=== PATIENT | male | born 1955 | race Caucasian/White ===

== ENCOUNTER 2017-07-13 16:57 | Inpatient (IN) | payer OTHER ==
[~2017-07-13 16:57] MED LIST: LORTA5 PO
[2017-07-13 22:18] VITALS: BP 151/96; PULSE 83; RESP 17; TEMP 98.7; O2SAT 97
[2017-07-13] MEDS: VANCOMYCIN 1,000 MG/NS 250 ML IV SCH ×2 (23:32)
[2017-07-13] MEDS: SODIUM CHLOR 0.9% 1000 ML INJ 1,000 ML IV SCH (23:33)
[2017-07-14] VITALS: BP 150/97; PULSE 82; RESP 17; TEMP 98.6; O2SAT 93
[2017-07-14] MEDS ORDERED: ACETAMINOPHEN 325 MG TAB PO PRN ×2 (02:15→11:30)
[2017-07-14] MEDS ORDERED: ONDANSETRON HCL 4 MG/2 ML VIAL IVP PRN (02:15)
[2017-07-14] MEDS ORDERED: NALOXONE HCL 0.4 MG/ML AMP IV PUSH PRN (02:15)
[2017-07-14] MEDS ORDERED: SODIUM CHLORIDE 0.9% FLUSH 10 ML FLUSH IV FLUSH PRN (02:15)
[2017-07-14 07:01] LABS: AUTOMATED NEUTROPHIL # 12.8 TH/MM3 (1.8-7.7); BASOPHIL % 0.2 % (0.0-2.0); EOSINOPHIL # 0.2 TH/MM3 (0-0.4); EOSINOPHIL % 1.5 % (0.0-4.0); HEMOGLOBIN 11.3 GM/DL (13.0-17.0); LYMPH % 7.3 % (9.0-44.0); LYMPHOCYTE # 1.1 TH/MM3 (1.0-4.8); MEAN CELL VOLUME 82.1 FL (80.0-100.0); MEAN CORPUSCULAR HEMOGLOBIN 28.2 PG (27.0-34.0); MEAN CORPUSCULAR HGB CONC 34.3 % (32.0-36.0); MEAN PLATELET VOLUME 5.8 FL (7.0-11.0); MONO % 7.9 % (0.0-8.0); MONOCYTE # 1.2 TH/MM3 (0-0.9); NEUT % 83.1 % (16.0-70.0); PLATELET COUNT 334 TH/MM3 (150-450); RED BLOOD COUNT 4.02 MIL/MM3 (4.50-5.90); RED CELL DISTRIBUTION WIDTH 14.6 % (11.6-17.2); WHITE BLOOD COUNT 15.5 TH/MM3 (4.0-11.0)
[2017-07-14 07:24] LABS: ALBUMIN 2.3 GM/DL (3.4-5.0); AST (GOT) 16 U/L (15-37); BICARBONATE 25.4 MEQ/L (21.0-32.0); BLOOD UREA NITROGEN 9 MG/DL (7-18); CALCIUM 8.1 MG/DL (8.5-10.1); CHLORIDE 103 MEQ/L (98-107); CREATININE 0.72 MG/DL (0.60-1.30); GLOMERULAR FILTRATION RATE 112 ML/MIN (>89); GLUCOSE,RANDOM 73 MG/DL (74-106); SODIUM (NA) 139 MEQ/L (136-145)
[2017-07-14 07:28] LABS: ALKALINE PHOSPHATASE 91 U/L (45-117); ALT (GPT) 15 U/L (12-78); TOTAL BILIRUBIN ADULT 0.5 MG/DL (0.2-1.0); TOTAL PROTEIN 6.5 GM/DL (6.4-8.2)
[2017-07-14 08:00] VITALS: BP 141/92; PULSE 88; RESP 17; TEMP 99.3; O2SAT 94
[2017-07-14] MEDS: SODIUM CHLORIDE 0.9% FLUSH 10 ML FLUSH IV FLUSH SCH ×2 (09:00→20:27)
[2017-07-14] MEDS ORDERED: ENALAPRILAT 2.5 MG/2 ML VIAL IV PUSH PRN (11:30)
[2017-07-14] MEDS ORDERED: ALUMINUM/MAGNESIUM/SIMETH 30 ML CUP PO PRN (11:30)
[2017-07-14] MEDS ORDERED: ONDANSETRON HCL 4 MG/2 ML VIAL IV PUSH PRN (11:30)
[2017-07-14] MEDS ORDERED: DOCUSATE SODIUM 50 MG/SENNA 8.6 MG TAB PO PRN (11:30)
[2017-07-14] MEDS ORDERED: RESP: ALBUTEROL 2.5 MG/IPRATROPIUM 0.5 MG NEB (PRN) NEB (11:30)
[2017-07-14] MEDS: SODIUM CHLOR 0.9% 1000 ML INJ 1,000 ML IV SCH ×2 (11:42→16:49)
--- NOTE | 2017-07-14 11:42 | HHI.HP ---
HPI Service [facility] Primary Care Physician Unknown Admission Diagnosis Diagnoses: (1) Abdominal wall abscess (2) Abdominal wall cellulitis Chief Complaint: Abdominal wall abscess and redness History of Present Illness 61 year-old man with a history of abdominal hernia repair 3 with his last repair in 2014 was transferred from an outside facility for evaluation of abdominal wall abscess with consultation to general surgery. Apparently, patient had noted some abdominal pain few weeks ago after lifting some heavy package and states he felt a pull in his abdominal. This was followed by intermittent redness to the area but improved however return over the past few days while patient was in [place]. Patient did put up a call to his surgeon will prescribe Augmentin which patient took the night of 07/11/17. . He presented to [facility] on 07/12/17 the patient was noted to have fever and chills and increasing erythema at the site of the prior hernia repair but without any pus production. He reported increasing worsening of abdominal pain specifically at his side of the prior hernia repair. Patient was transfer 07/13/17 to [place], and this morning when patient was examined he had pus production without any febrile episode. He denies any other symptom of chest pain or shortness of breath. Review of Systems Except as stated in HPI: all other systems reviewed are Neg Past Family Social History Past Medical History None Past Surgical History Hernia repair 3 Cholecystectomy Appendectomy Colon Fistula Reported Medications See EMR Allergies: Coded Allergies: No Known Allergies (Unverified , 01/27/15) Family History Father from complication of lung cancer Social History Patient denies tobacco, alcohol or easy drug intake Physical Exam Vital Signs Vital Signs Date Time Temp Pulse Resp B/P (MAP) Pulse Ox O2 Delivery O2 Flow Rate FiO2 07/14/17 08:00 99.3 88 17 141/92 (108) 94 07/14/17 00:00 98.6 82 17 150/97 (114) 93 07/13/17 22:18 98.7 83 17 151/96 (114) 97 Physical Exam GENERAL: This is a well-nourished, well-developed patient, in no apparent distress. SKIN: Abdominal abscess with surrounding erythema along with pus drainage HEAD: Atraumatic. Normocephalic. No temporal or scalp tenderness. EYES: Pupils equal round and reactive. Extraocular motions intact. No scleral icterus. No injection or drainage. ENT: Nose without bleeding, purulent drainage or septal hematoma. Throat without erythema, tonsillar hypertrophy or exudate. Uvula midline. Airway patent. NECK: Trachea midline. No JVD or lymphadenopathy. Supple, nontender, no meningeal signs. CARDIOVASCULAR: Regular rate and rhythm without murmurs, gallops, or rubs. RESPIRATORY: Clear to auscultation. Breath sounds equal bilaterally. No wheezes , rales, or rhonchi. GASTROINTESTINAL: Abdomen soft, non-tender, nondistended. No hepato-splenomegaly , or palpable masses. No guarding. MUSCULOSKELETAL: Extremities without clubbing, cyanosis, or edema. No joint tenderness, effusion, or edema noted. No calf tenderness. Negative Homans sign bilaterally. NEUROLOGICAL: Awake and alert. Cranial nerves II through XII intact. Motor and sensory grossly within normal limits. Five out of 5 muscle strength in all muscle groups. Normal speech. Laboratory Laboratory Tests Test 07/14/17 06:03 White Blood Count 15.5 Red Blood Count 4.02 Hemoglobin 11.3 Hematocrit 33.0 Mean Corpuscular Volume 82.1 Mean Corpuscular Hemoglobin 28.2 Mean Corpuscular Hemoglobin Concent 34.3 Red Cell Distribution Width 14.6 Platelet Count 334 Mean Platelet Volume 5.8 Neutrophils (%) (Auto) 83.1 Lymphocytes (%) (Auto) 7.3 Monocytes (%) (Auto) 7.9 Eosinophils (%) (Auto) 1.5 Basophils (%) (Auto) 0.2 Neutrophils # (Auto) 12.8 Lymphocytes # (Auto) 1.1 Monocytes # (Auto) 1.2 Eosinophils # (Auto) 0.2 Basophils # (Auto) 0.0 CBC Comment DIFF FINAL Differential Comment Blood Urea Nitrogen 9 Creatinine 0.72 Random Glucose 73 Total Protein 6.5 Albumin 2.3 Calcium Level 8.1 Alkaline Phosphatase 91 Aspartate Amino Transf (AST/SGOT) 16 Alanine Aminotransferase (ALT/SGPT) 15 Total Bilirubin 0.5 Sodium Level 139 Potassium Level 3.1 Chloride Level 103 Carbon Dioxide Level 25.4 Anion Gap 11 Estimat Glomerular Filtration Rate 112 Date/Time Source Procedure Growth Status 07/14/17 07:30 Abscess Abdomen Gram Stain Pending Received 07/14/17 07:30 Abscess Abdomen Wound Culture Pending Received Result Diagram: 07/14/17 0603 07/14/17 0603 Septic Shock Reassessment Septic shock perfusion: reassessment completed Caprini VTE Risk Assessment Caprini VTE Risk Assessment: No/Low Risk (score <= 1) Caprini Risk Assessment Model Point Value = 1 Point Value = 2 Point Value = 3 Point Value = 5 Age 41-60 Minor surgery BMI > 25 kg/m2 Swollen legs Varicose veins or History of unexplained or recurrent spontaneous Oral contraceptives or hormone replacement Sepsis (< 1 month) Serious lung disease, including pneumonia (< 1 month) Abnormal pulmonary function Acute myocardial infarction Congestive heart failure (< 1 month) History of inflammatory bowel disease Medical patient at bed rest Age 61-74 Arthroscopic surgery Major open surgery (> 45 min) Laparoscopic surgery (> 45 min) Malignancy Confined to bed (> 72 hours) Immobilizing plaster cast Central venous access Age >= 75 History of VTE Family history of VTE Factor V Leiden Prothrombin [id number] Lupus anticoagulant Anticardiolipin antibodies Elevated serum homocysteine Heparin-induced thrombocytopenia Other congenital or acquired thrombophilia Stroke (< 1 month) Elective arthroplasty Hip, pelvis, or leg fracture Acute spinal cord injury (< 1 month) Prophylaxis Regimen Total Risk Factor Score Risk Level Prophylaxis Regimen 0-1 Low Early ambulation 2 Moderate Order ONE of the following: *Sequential Compression Device (SCD) *Heparin 5000 units SQ BID 3-4 Higher Order ONE of the following medications: *Heparin 5000 units SQ TID *Enoxaparin/Lovenox 40 mg SQ daily (WT < 150 kg, CrCl > 30 mL/min) *Enoxaparin/Lovenox 30 mg SQ daily (WT < 150 kg, CrCl > 10-29 mL/min) *Enoxaparin/Lovenox 30 mg SQ BID (WT < 150 kg, CrCl > 30 mL/min) AND/OR *Sequential Compression Device (SCD) 5 or more Highest Order ONE of the following medications: *Heparin 5000 units SQ TID (Preferred with Epidurals) *Enoxaparin/Lovenox 40 mg SQ daily (WT < 150 kg, CrCl > 30 mL/min) *Enoxaparin/Lovenox 30 mg SQ daily (WT < 150 kg, CrCl > 10-29 mL/min) *Enoxaparin/Lovenox 30 mg SQ BID (WT < 150 kg, CrCl > 30 mL/min) AND *Sequential Compression Device (SCD) Assessment and Plan Problem List: (1) Abdominal wall abscess ICD Code: L02.211 - Cutaneous abscess of abdominal wall (2) Abdominal wall cellulitis ICD Code: L03.311 - Cellulitis of abdominal wall Assessment and Plan 61 year-old man with Abdominal wall abscess Abdominal wall cellulitis Status post hernia repair Currently on IV vancomycin and add Zosyn as well as Diflucan and monitor cultures General Surgery consultation pending for possible drainage of abscess Currently nothing by mouth, pain medication accordingly Infectious disease specialist consultation when necessary Elevated BP Denies any prior history of hypertension Maybe secondary to poorly controlled pain Vasotec when necessary DVT prophylaxis: Bilateral SCDs Code Status Full code Discussed Condition With Patient Physician Certification 2 Midnight Certification Type: Admission for Inpatient Services Order for Inpatient Services The services are ordered in accordance with Medicare regulations or non- Medicare payer requirements, as applicable. In the case of services not specified as inpatient-only, they are appropriately provided as inpatient services in accordance with the 2-midnight benchmark. Estimated LOS (days): 2 days is the estimated time the patient will need to remain in the hospital, assuming treatment plan goals are met and no additional complications. Post-Hospital Plan: Not yet determined Geovany Tai MD Jul 14, 2017 11:42
[2017-07-14 12:00] VITALS: BP 134/80; PULSE 77; RESP 17; TEMP 99.2; O2SAT 96
[2017-07-14 16:00] VITALS: BP 139/87; PULSE 74; RESP 16; TEMP 97.5; O2SAT 95
[2017-07-14] MEDS ORDERED: POTASSIUM CHLORIDE 20 MEQ CONTROLLED RELEASE TAB PO ONE (16:00)
--- NOTE | 2017-07-14 16:45 | MB ---
cc: Diego Santana MD DATE OF CONSULT: 07/14/2017 REASON FOR CONSULTATION: Abdominal wall abscess. HISTORY OF PRESENT ILLNESS: The patient is a very pleasant 61-year-old male with a history of abdominal hernia repair x 3 with last repair in 2014 at [facility] by Dr. Osborne and Chilango Henson, with bilateral myofascial flap advancement, cholecystectomy and excision of previous mesh. The patient had been doing quite well until 07/10/2017 when he developed redness in the lower portion of his midline incision. He states that he had felt a pop and had been examined by Dr. Henson but was told that there was no defect. He was started on antibiotic on 07/11/2017 but had continued increasing redness and was seen at [facility] on 07/12/2017. The patient had fever and chills with increasing erythema at the site of the hernia repair on the lower portion of the abdomen. He has since undergone CT of the abdomen in [place] which demonstrated a subcutaneous abscess. It was recommended that he undergo drainage procedure at that time, but the patient wanted to be cared for with her previous surgeon. The patient was transferred over here and arrived early this morning. PAST MEDICAL HISTORY: Significant for cholecystectomy, multiple hernia repairs, appendectomy, and a history of colon fistula. ALLERGIES: NO KNOWN ALLERGIES. PHYSICAL EXAMINATION: GENERAL: A thin male in no acute distress. VITAL SIGNS: Blood pressure 134/80, pulse 77, respirations 17, temperature 99.2, 96% saturation on room air. The patient has had no fever since admission. CHEST: Clear to auscultation. CARDIAC: Reveals regular rate and rhythm. ABDOMEN: Soft with some bloody drainage from the abdominal wound. This is from the lower portion of his wound. There is erythema for an area of approximately 10 x 12 cm. The patient reports that this is substantially improved since the drainage began. Pulses are present. LABORATORY DATA: Laboratory values demonstrate WBC of 15.5, potassium is 3.1, BUN and creatinine 9 and 0.72. ASSESSMENT: Subcutaneous abscess two years after hernia repair, spontaneously draining. Culture has been taken with Gram stain pending at this time. The patient is currently on Zosyn, Diflucan and vancomycin while awaiting Gram stain. I have discussed with the patient that he may require the wound to be further opened and washed out with potential VAC placement. He vocalizes understanding of this. We will debora the wound with a Sharpie to show the line of demarcation. If he continues to improve with no fever, decreasing white count and rapidly resolving erythema, further intervention may not be required. If the patient has persistent drainage, he may require more opening of the wound to allow for more thorough drainage. He is amenable to this. MD NEGRITA Kohli/TL/rr , 03:45 PM , 04:14 PM
[2017-07-14] MEDS: PIPERACIL-TAZO 3.375 GM PREMIX 50 ML IV SCH ×2 (16:49→20:26)
[2017-07-14 20:00] VITALS: BP 128/71; PULSE 78; RESP 17; TEMP 98.6; O2SAT 94
[2017-07-14] MEDS: POTASSIUM CHLORIDE 10 MEQ CONTROLLED RELEASE TAB PO SCH ×2 (20:00→20:25)
[2017-07-14] MEDS ORDERED: TEMAZEPAM 15 MG CAP PO PRN (21:00)
[2017-07-15] VITALS: BP 124/73; PULSE 74; RESP 17; TEMP 98.1; O2SAT 94
[2017-07-15] MEDS: VANCOMYCIN 1,000 MG/NS 250 ML IV SCH ×2 (00:01)
[2017-07-15] MEDS: PIPERACIL-TAZO 3.375 GM PREMIX 50 ML IV SCH ×3 (03:56→21:54)
[2017-07-15] MEDS: SODIUM CHLOR 0.9% 1000 ML INJ 1,000 ML IV SCH ×2 (04:02→09:38)
[2017-07-15 07:07] LABS: AUTOMATED NEUTROPHIL # 4.6 TH/MM3 (1.8-7.7); BASOPHIL % 0.6 % (0.0-2.0); EOSINOPHIL # 0.3 TH/MM3 (0-0.4); EOSINOPHIL % 4.1 % (0.0-4.0); HEMATOCRIT 31.8 % (39.0-51.0); HEMOGLOBIN 10.7 GM/DL (13.0-17.0); LYMPH % 20.3 % (9.0-44.0); LYMPHOCYTE # 1.4 TH/MM3 (1.0-4.8); MEAN CELL VOLUME 82.5 FL (80.0-100.0); MEAN CORPUSCULAR HEMOGLOBIN 27.7 PG (27.0-34.0); MEAN CORPUSCULAR HGB CONC 33.6 % (32.0-36.0); MEAN PLATELET VOLUME 5.8 FL (7.0-11.0); MONO % 10.3 % (0.0-8.0); MONOCYTE # 0.7 TH/MM3 (0-0.9); NEUT % 64.7 % (16.0-70.0); PLATELET COUNT 364 TH/MM3 (150-450); RED BLOOD COUNT 3.85 MIL/MM3 (4.50-5.90); RED CELL DISTRIBUTION WIDTH 14.5 % (11.6-17.2); WHITE BLOOD COUNT 7.1 TH/MM3 (4.0-11.0)
[2017-07-15 07:29] LABS: ALBUMIN 2.1 GM/DL (3.4-5.0); AST (GOT) 11 U/L (15-37); BICARBONATE 25.9 MEQ/L (21.0-32.0); BLOOD UREA NITROGEN 11 MG/DL (7-18); CALCIUM 7.8 MG/DL (8.5-10.1); CHLORIDE 106 MEQ/L (98-107); CREATININE 0.77 MG/DL (0.60-1.30); GLOMERULAR FILTRATION RATE 103 ML/MIN (>89); GLUCOSE,RANDOM 75 MG/DL (74-106); SODIUM (NA) 141 MEQ/L (136-145)
[2017-07-15 07:30] LABS: ALT (GPT) 14 U/L (12-78)
[2017-07-15 07:32] LABS: ALKALINE PHOSPHATASE 74 U/L (45-117); TOTAL BILIRUBIN ADULT 0.2 MG/DL (0.2-1.0); TOTAL PROTEIN 6.1 GM/DL (6.4-8.2)
[2017-07-15 08:00] VITALS: BP 128/85; PULSE 61; RESP 19; TEMP 96.5; O2SAT 97
[2017-07-15] MEDS: SODIUM CHLORIDE 0.9% FLUSH 10 ML FLUSH IV FLUSH SCH ×2 (09:00→21:55)
--- NOTE | 2017-07-15 11:02 | HHI.PR ---
Subjective Remarks Follow-up abdominal abscess and cellulitis 07/15/17 -Patient seen and examined, currently afebrile and denies any significant abdominal pain. No acute event overnight. Objective Vitals Vital Signs Date Time Temp Pulse Resp B/P (MAP) Pulse Ox O2 Delivery O2 Flow Rate FiO2 07/15/17 08:00 96.5 61 19 128/85 (99) 97 07/15/17 00:00 98.1 74 17 124/73 (90) 94 07/14/17 20:00 98.6 78 17 128/71 (90) 94 07/14/17 16:00 97.5 74 16 139/87 (104) 95 07/14/17 12:00 99.2 77 17 134/80 (98) 96 I/O 07/14/17 07/14/17 07/14/17 07/15/17 07/15/17 07/15/17 07:00 15:00 23:00 07:00 15:00 23:00 Intake Total 0 ml 1490 ml 1040 ml Balance 0 ml 1490 ml 1040 ml Intake Oral 0 ml 240 ml 240 ml IV Total 1250 ml 800 ml # Voids 0 8 3 # Bowel Movements 0 0 0 Result Diagram: 07/15/17 0455 07/15/17 0455 Objective Remarks GENERAL: NAD SKIN: Warm and dry. HEAD: Normocephalic. EYES: No scleral icterus. No injection or drainage. NECK: Supple, trachea midline. No JVD or lymphadenopathy. CARDIOVASCULAR: Regular rate and rhythm without murmurs, gallops, or rubs. RESPIRATORY: Breath sounds equal bilaterally. No accessory muscle use. GASTROINTESTINAL: Abdomen soft, non-tender, nondistended. dressing over abdominal wall abscess MUSCULOSKELETAL: No cyanosis, or edema. BACK: Nontender without obvious deformity. No CVA tenderness. A/P Problem List: (1) Abdominal wall abscess ICD Code: L02.211 - Cutaneous abscess of abdominal wall (2) Abdominal wall cellulitis ICD Code: L03.311 - Cellulitis of abdominal wall Assessment and Plan 61 year-old man with Abdominal wall abscess Abdominal wall cellulitis Status post hernia repair Currently on IV vancomycin and Zosyn as well as Diflucan and monitor cultures General Surgery ff Pain medication accordingly Infectious disease specialist consultation when necessary Elevated BP-Resolved Denies any prior history of hypertension Vasotec when necessary DVT prophylaxis: Bilateral SCDs Geovany Tai MD Jul 15, 2017 11:02
[2017-07-15 12:00] VITALS: BP 130/85; PULSE 58; RESP 18; TEMP 97.4; O2SAT 98
[2017-07-15] MEDS: FLUCONAZOLE 200 MG PREMIX BAG 100 ML IV SCH ×2 (12:43→12:44)
--- NOTE | 2017-07-15 15:42 | HHI.PR ---
cc: Dylon Henson MD Subjective Subjective Notes Resting in bed No issues Objective Vitals/I&O Vital Signs Date Time Temp Pulse Resp B/P (MAP) Pulse Ox O2 Delivery O2 Flow Rate FiO2 07/15/17 12:00 97.4 58 18 130/85 (100) 98 Labs Laboratory Tests Test 07/15/17 04:55 White Blood Count 7.1 Red Blood Count 3.85 Hemoglobin 10.7 Hematocrit 31.8 Mean Corpuscular Volume 82.5 Mean Corpuscular Hemoglobin 27.7 Mean Corpuscular Hemoglobin Concent 33.6 Red Cell Distribution Width 14.5 Platelet Count 364 Mean Platelet Volume 5.8 Neutrophils (%) (Auto) 64.7 Lymphocytes (%) (Auto) 20.3 Monocytes (%) (Auto) 10.3 Eosinophils (%) (Auto) 4.1 Basophils (%) (Auto) 0.6 Neutrophils # (Auto) 4.6 Lymphocytes # (Auto) 1.4 Monocytes # (Auto) 0.7 Eosinophils # (Auto) 0.3 Basophils # (Auto) 0.0 CBC Comment DIFF FINAL Differential Comment Blood Urea Nitrogen 11 Creatinine 0.77 Random Glucose 75 Total Protein 6.1 Albumin 2.1 Calcium Level 7.8 Alkaline Phosphatase 74 Aspartate Amino Transf (AST/SGOT) 11 Alanine Aminotransferase (ALT/SGPT) 14 Total Bilirubin 0.2 Sodium Level 141 Potassium Level 3.5 Chloride Level 106 Carbon Dioxide Level 25.9 Anion Gap 9 Estimat Glomerular Filtration Rate 103 Date/Time Source Procedure Growth Status 07/14/17 07:30 Abscess Abdomen Gram Stain - Final Resulted 07/14/17 07:30 Abscess Abdomen Wound Culture - Preliminary Resulted Cardiovascular: Regular Lungs: Clear Abdomen: Other (open spontanous draining wound ---dressing removed; packing placed; sharpie marker marking the edges of the wound --- mild redness does not meet these lines ) Extremities: No edema A/P Assessment and Plan 61 year old male s/p abdominal hernia repair in 2014; back with superficial abdominal wound---spontaneously draining -Regular diet -Continue Zosyn and Vancomycin; DC Diflucan -Dressing change BID--- wet to dry dressing ---- 1 4x4 moist packed loosely into wound; cover with 4x4 and ABD; secure with tape; change BID and PRN -Okay to shower between dressing changes Attending Statement Erythemas decreased compared to sharpie marker on abdomen. Erythema now just faint pink. Wound opening sharply debrided with scissorsstanford. Extent of wound explored with CTA. Wound dressed with saline wet to dry dressing, 1/2 to 2 /3 of 4x4 fit nicely into wound. Wound care explained to the patient. WBC improved as well. Gram stain Gram positive. Plan: DC anti fungal. Will transition to oral antibiotics and outpatient therapy as long as he continues to improve and when ID/sensitivity comes back. The exam, history, and the medical decision-making described in the above note were completed with the assistance of the mid-level provider. I reviewed and agree with the findings presented. I attest that I had a [id number] encounter with the patient on the same day, and personally performed and documented my assessment and findings in the medical record. Anai Arellano/First Harpreet FONG Jul 15, 2017 15:41 Dylon Henson MD Jul 16, 2017 08:05
[2017-07-15 16:00] VITALS: BP 140/91; PULSE 59; RESP 18; TEMP 97.9; O2SAT 97
[2017-07-15 20:00] VITALS: BP 139/93; PULSE 71; RESP 18; TEMP 97.3; O2SAT 97
[2017-07-16] VITALS: BP_SYST 125; BP_SYST 128; BP_DIAS 58; BP_DIAS 79; PULSE 56; PULSE 81; RESP 16; RESP 18; TEMP 97.2; TEMP 98.4; O2SAT 92; O2SAT 97
[2017-07-16] MEDS: VANCOMYCIN 1,000 MG/NS 250 ML IV SCH ×2 (00:18)
[2017-07-16] MEDS: PIPERACIL-TAZO 3.375 GM PREMIX 50 ML IV SCH ×2 (05:18→12:58)
[2017-07-16 08:00] VITALS: BP 133/84; PULSE 62; RESP 17; TEMP 97.1; O2SAT 94
[2017-07-16] MEDS: SODIUM CHLORIDE 0.9% FLUSH 10 ML FLUSH IV FLUSH SCH ×2 (09:00→22:52)
--- NOTE | 2017-07-16 11:01 | HHI.PR ---
Subjective Remarks Follow-up abdominal abscess and cellulitis 07/15/17 -Patient seen and examined, currently afebrile and denies any significant abdominal pain. No acute event overnight. 07/16/17-patient seen and examined, no abdominal pain and afebrile. Doing well Objective Vitals Vital Signs Date Time Temp Pulse Resp B/P (MAP) Pulse Ox O2 Delivery O2 Flow Rate FiO2 07/16/17 08:00 97.1 62 17 133/84 (100) 94 07/16/17 00:00 97.2 56 16 125/79 (94) 97 07/16/17 00:00 98.4 81 18 128/58 (81) 92 07/15/17 20:00 97.3 71 18 139/93 (108) 97 07/15/17 16:00 97.9 59 18 140/91 (107) 97 07/15/17 12:00 97.4 58 18 130/85 (100) 98 I/O 07/15/17 07/15/17 07/15/17 07/16/17 07/16/17 07/16/17 07:00 15:00 23:00 07:00 15:00 23:00 Intake Total 1040 ml 1010 ml 540 ml Balance 1040 ml 1010 ml 540 ml Intake Oral 240 ml 960 ml 240 ml IV Total 800 ml 50 ml 300 ml # Voids 3 3 # Bowel Movements 0 1 Result Diagram: 07/15/17 0455 07/15/17 0455 Objective Remarks GENERAL: NAD SKIN: Warm and dry. HEAD: Normocephalic. EYES: No scleral icterus. No injection or drainage. NECK: Supple, trachea midline. No JVD or lymphadenopathy. CARDIOVASCULAR: Regular rate and rhythm without murmurs, gallops, or rubs. RESPIRATORY: Breath sounds equal bilaterally. No accessory muscle use. GASTROINTESTINAL: Abdomen soft, non-tender, nondistended. dressing over abdominal wall abscess with improving abdominal cellulitis MUSCULOSKELETAL: No cyanosis, or edema. BACK: Nontender without obvious deformity. No CVA tenderness. A/P Problem List: (1) Abdominal wall abscess ICD Code: L02.211 - Cutaneous abscess of abdominal wall (2) Abdominal wall cellulitis ICD Code: L03.311 - Cellulitis of abdominal wall Assessment and Plan 61 year-old man with Abdominal wall abscess Abdominal wall cellulitis Status post hernia repair Currently on IV vancomycin and Zosyn Wound + for anaerobic GNR General Surgery ff Pain medication accordingly Infectious disease specialist consultation when necessary Elevated BP-Resolved Denies any prior history of hypertension Vasotec when necessary DVT prophylaxis: Bilateral SCDs Geovany Tai MD Jul 16, 2017 11:01
[2017-07-16 12:00] VITALS: BP 125/89; PULSE 74; RESP 18; TEMP 97.9; O2SAT 94
--- NOTE | 2017-07-16 15:17 | HHI.PR ---
cc: Dylon Henson MD Subjective Subjective Notes "Do you think I can take a shower?" "I walked the hallways several times. I'm bored." Objective Vitals/I&O Vital Signs Date Time Temp Pulse Resp B/P (MAP) Pulse Ox O2 Delivery O2 Flow Rate FiO2 07/16/17 12:00 97.9 74 18 125/89 (101) 94 Labs Date/Time Source Procedure Growth Status 07/14/17 07:30 Abscess Abdomen Gram Stain - Final Complete 07/14/17 07:30 Wound Culture - Final Anaerobic Gram Neg Jamar Complete Cardiovascular: Regular Lungs: Clear Abdomen: Other (open area packed---packing removed--- no residual fluid ) Extremities: No edema A/P Assessment and Plan 61 year old male s/p abdominal hernia repair in 2014; back with superficial abdominal wound---spontaneously draining -Regular diet -Continue Zosyn and Vancomycin -Dressing change BID--- wet to dry dressing ---- 1 4x4 moist packed loosely into wound; cover with 4x4 and ABD; secure with tape; change BID and PRN -Okay to shower between dressing changes Attending Statement doing well. Gram negative anaerobes and Normal skin jazmyn on culture. Will change abx to PO, bactrim and flagyl. Anticipate DC home in AM with oral abx, BID NS wet to dry dressing changes, he can do or GF can help, and follow up with me in 2 weeks. The exam, history, and the medical decision-making described in the above note were completed with the assistance of the mid-level provider. I reviewed and agree with the findings presented. I attest that I had a [id number] encounter with the patient on the same day, and personally performed and documented my assessment and findings in the medical record. Anai ArellanoP/Catalytic Converter Operator [employer]AL TRANSPORT OPERATOR Jul 16, 2017 15:17 Dylon Henson MD Jul 16, 2017 17:40
[2017-07-16 16:00] VITALS: BP 132/80; PULSE 75; RESP 18; TEMP 98.7; O2SAT 95
[2017-07-16] MEDS ORDERED: BACT800T5 PO (17:46)
[2017-07-16] MEDS ORDERED: METR-1 PO (17:46)
--- NOTE | 2017-07-16 17:50 | HHI.DS ---
Discharge Summary Admission Date Jul 13, 2017 at 22:10 Discharge Date: Jul 17, 2017 Admitting Diagnosis abdominal wall abscess Procedures bedside sharp debridement skin and SQ tissue Brief History 61 year old with erythematous tender abdomen, transferred from [facility] with abdominal abscess. CBC/BMP: 07/15/17 0455 07/15/17 0455 Significant Findings Laboratory Tests Test 07/14/17 06:03 07/15/17 04:55 White Blood Count 15.5 TH/MM3 (4.0-11.0) Red Blood Count 4.02 MIL/MM3 (4.50-5.90) 3.85 MIL/MM3 (4.50-5.90) Hemoglobin 11.3 GM/DL (13.0-17.0) 10.7 GM/DL (13.0-17.0) Hematocrit 33.0 % (39.0-51.0) 31.8 % (39.0-51.0) Mean Platelet Volume 5.8 FL (7.0-11.0) 5.8 FL (7.0-11.0) Neutrophils (%) (Auto) 83.1 % (16.0-70.0) Lymphocytes (%) (Auto) 7.3 % (9.0-44.0) Neutrophils # (Auto) 12.8 TH/MM3 (1.8-7.7) Monocytes # (Auto) 1.2 TH/MM3 (0-0.9) Random Glucose 73 MG/DL (74-106) Albumin 2.3 GM/DL (3.4-5.0) 2.1 GM/DL (3.4-5.0) Calcium Level 8.1 MG/DL (8.5-10.1) 7.8 MG/DL (8.5-10.1) Potassium Level 3.1 MEQ/L (3.5-5.1) Monocytes (%) (Auto) 10.3 % (0.0-8.0) Eosinophils (%) (Auto) 4.1 % (0.0-4.0) Total Protein 6.1 GM/DL (6.4-8.2) Aspartate Amino Transf (AST/SGOT) 11 U/L (15-37) PE at Discharge decreased erythema, 4 cm opening where NS wet to dry dressing is located. Hospital Course Admitted via transfer for antibiotics and drainage of abdominal wall abscess. WBC to normal, erythema resolving, wound opened and debrided, NS wet to dry dressing placed. Culture results noted. Pt improved, wants to go home. Pt Condition on Discharge: Good Discharge Disposition: Discharge Home Discharge Instructions DIET: Follow Instructions for: As Tolerated, No Restrictions Activities you can perform: Shower/Bath Activities to Avoid: Strenuous Activity Dylon Henson MD Jul 16, 2017 17:50
[2017-07-16 20:00] VITALS: BP 117/79; PULSE 71; RESP 18; TEMP 97.1; O2SAT 95
[2017-07-16] MEDS: metroNIDAZOLE 500 MG TAB PO SCH (22:50)
[2017-07-17] VITALS: BP 126/86; PULSE 59; RESP 18; TEMP 96.5; O2SAT 96
[2017-07-17] MEDS: metroNIDAZOLE 500 MG TAB PO SCH (06:15)
[2017-07-17 08:00] VITALS: BP 128/83; PULSE 60; RESP 18; TEMP 96.9; O2SAT 94
--- NOTE | 2017-07-17 08:23 | HHI.PR ---
cc: Dylon Henson MD Subjective Subjective Notes Uneventful night Ready to go home Objective Vitals/I&O Vital Signs Date Time Temp Pulse Resp B/P (MAP) Pulse Ox O2 Delivery O2 Flow Rate FiO2 07/17/17 00:00 96.5 59 18 126/86 (99) 96 Labs Date/Time Source Procedure Growth Status 07/14/17 07:30 Abscess Abdomen Gram Stain - Final Complete 07/14/17 07:30 Wound Culture - Final Anaerobic Gram Neg Jamar Complete Cardiovascular: Regular Lungs: Clear Abdomen: Other (abdominal wound: packing removed; replaced; wound clean and dry ) Extremities: No edema A/P Assessment and Plan 61 year old male s/p abdominal hernia repair in 2014; back with superficial abdominal wound---spontaneously draining -Regular diet -Flagyl and Bactrim -Dressing change BID--- wet to dry dressing ---- 1 4x4 moist packed loosely into wound; cover with 4x4 and ABD; secure with tape; change BID and PRN -Okay to shower between dressing changes -GS clear for DC -Follow up 2 weeks; Mr. Chapman will call to make appt Attending Statement See discharge summary for details. Patient did well. The exam, history, and the medical decision-making described in the above note were completed with the assistance of the mid-level provider. I reviewed and agree with the findings presented. I attest that I had a [id number] encounter with the patient on the same day, and personally performed and documented my assessment and findings in the medical record. Anai Arellano/Shift Mechanic CREDIT ADMINISTRATOR Jul 17, 2017 08:23 Dylon Henson MD Jul 17, 2017 15:20
--- NOTE | 2017-07-17 10:11 | HHI.PR ---
Subjective Remarks Follow-up abdominal abscess and cellulitis 07/15/17 -Patient seen and examined, currently afebrile and denies any significant abdominal pain. No acute event overnight. 07/16/17-patient seen and examined, no abdominal pain and afebrile. Doing well 07/17/17-patient seen and examined, up and ambulating and ready to go home. Afebrile Objective Vitals Vital Signs Date Time Temp Pulse Resp B/P (MAP) Pulse Ox O2 Delivery O2 Flow Rate FiO2 07/17/17 08:00 96.9 60 18 128/83 (98) 94 07/17/17 00:00 96.5 59 18 126/86 (99) 96 07/16/17 20:00 97.1 71 18 117/79 (92) 95 07/16/17 16:00 98.7 75 18 132/80 (97) 95 07/16/17 12:00 97.9 74 18 125/89 (101) 94 I/O 07/16/17 07/16/17 07/16/17 07/17/17 07/17/17 07/17/17 07:00 15:00 23:00 07:00 15:00 23:00 Intake Total 540 ml 50 ml 480 ml Output Total 525 ml Balance 540 ml 50 ml -45 ml Intake Oral 240 ml 480 ml IV Total 300 ml 50 ml Output Urine Total 525 ml # Bowel Movements 2 Result Diagram: 07/15/17 0455 07/15/17 0455 Objective Remarks GENERAL: NAD SKIN: Warm and dry. HEAD: Normocephalic. EYES: No scleral icterus. No injection or drainage. NECK: Supple, trachea midline. No JVD or lymphadenopathy. CARDIOVASCULAR: Regular rate and rhythm without murmurs, gallops, or rubs. RESPIRATORY: Breath sounds equal bilaterally. No accessory muscle use. GASTROINTESTINAL: Abdomen soft, non-tender, nondistended. dressing over abdominal wall abscess with improved abdominal cellulitis MUSCULOSKELETAL: No cyanosis, or edema. BACK: Nontender without obvious deformity. No CVA tenderness. Procedures none A/P Problem List: (1) Abdominal wall abscess ICD Code: L02.211 - Cutaneous abscess of abdominal wall (2) Abdominal wall cellulitis ICD Code: L03.311 - Cellulitis of abdominal wall Assessment and Plan 61 year-old man with Abdominal wall abscess Abdominal wall cellulitis Status post hernia repair s/p IV vancomycin and Zosyn and now on PO Flagyl Bactrim DS Wound + for anaerobic GNR General Surgery ff and wound debrided at bedside Pain medication accordingly Elevated BP-Resolved Denies any prior history of hypertension Vasotec when necessary DVT prophylaxis: Bilateral SCDs Geovany Tai MD Jul 17, 2017 10:10
--- NOTE | 2017-07-17 10:16 | HHI.DS ---
Discharge Summary Admission Date Jul 13, 2017 at 22:10 Discharge Date: Jul 17, 2017 Admitting Diagnosis abdominal wall abscess (1) Abdominal wall abscess ICD Code: L02.211 - Cutaneous abscess of abdominal wall (2) Abdominal wall cellulitis ICD Code: L03.311 - Cellulitis of abdominal wall Procedures none Brief History - From Admission 61 year-old man with a history of abdominal hernia repair 3 with his last repair in 2014 was transferred from an outside facility for evaluation of abdominal wall abscess with consultation to general surgery. Apparently, patient had noted some abdominal pain few weeks ago after lifting some heavy package and states he felt a pull in his abdominal. This was followed by intermittent redness to the area but improved however return over the past few days while patient was in [place]. Patient did put up a call to his surgeon will prescribe Augmentin which patient took the night of 07/11/17. . He presented to [facility] on 07/12/17 the patient was noted to have fever and chills and increasing erythema at the site of the prior hernia repair but without any pus production. He reported increasing worsening of abdominal pain specifically at his side of the prior hernia repair. Patient was transfer 07/13/17 to [place], and this morning when patient was examined he had pus production without any febrile episode. He denies any other symptom of chest pain or shortness of breath. CBC/BMP: 07/15/17 0455 07/15/17 0455 Significant Findings Laboratory Tests Test 07/15/17 04:55 Red Blood Count 3.85 MIL/MM3 (4.50-5.90) Hemoglobin 10.7 GM/DL (13.0-17.0) Hematocrit 31.8 % (39.0-51.0) Mean Platelet Volume 5.8 FL (7.0-11.0) Monocytes (%) (Auto) 10.3 % (0.0-8.0) Eosinophils (%) (Auto) 4.1 % (0.0-4.0) Total Protein 6.1 GM/DL (6.4-8.2) Albumin 2.1 GM/DL (3.4-5.0) Calcium Level 7.8 MG/DL (8.5-10.1) Aspartate Amino Transf (AST/SGOT) 11 U/L (15-37) PE at Discharge GENERAL: NAD SKIN: Warm and dry. HEAD: Normocephalic. EYES: No scleral icterus. No injection or drainage. NECK: Supple, trachea midline. No JVD or lymphadenopathy. CARDIOVASCULAR: Regular rate and rhythm without murmurs, gallops, or rubs. RESPIRATORY: Breath sounds equal bilaterally. No accessory muscle use. GASTROINTESTINAL: Abdomen soft, non-tender, nondistended. dressing over abdominal wall abscess with improved abdominal cellulitis MUSCULOSKELETAL: No cyanosis, or edema. BACK: Nontender without obvious deformity. No CVA tenderness. Hospital Course while in the hospital, patient was treated for: Abdominal wall abscess Abdominal wall cellulitis-Improved Status post hernia repair s/p IV vancomycin and Zosyn and Patient was switched to PO Flagyl + Bactrim DS Wound + for anaerobic GNR General Surgery ff and wound debrided at bedside Pain medication accordingly Elevated BP-Resolved Denies any prior history of hypertension Vasotec when necessary DVT prophylaxis: Bilateral SCDs Pt Condition on Discharge: Good Discharge Disposition: Discharge Home Discharge Time: <= 30 minutes Discharge Instructions DIET: Follow Instructions for: As Tolerated, No Restrictions Activities you can perform: Shower/Bath Activities to Avoid: Strenuous Activity Follow up Referrals: PCP Follow-up - 1 Week Surgical - 2 Weeks with Dylon Henson MD New Medications: Metronidazole (Flagyl) 500 Mg Tab 500 MG PO TID for Infection, #15 TAB 0 Refills Sulfamethoxazole-Trimethoprim (Bactrim DS) 800-160 Mg Tab 1 TAB PO BID for Infection, #14 TAB 0 Refills Continued Medications: Hydrocodone-Acetaminophen 5-325 mg ([place] 5-325 mg) 5 mg/325 mg Tab 1-2 TAB PO Q4H PRN for PAIN, #40 TAB Geovany Tai MD Jul 17, 2017 10:16
== END 2017-07-17 10:43 | disposition home or self-care (01) | DRG 572 ==
LOC: EDSEX 22:10 → N07B 22:10
PROVIDERS: ADMIT Hospitalist; ATTEND Hospitalist
PROC: 0JB80ZZ Excision of Abdomen Subcutaneous Tissue and Fascia, Open Approach (ICD-10-PCS; principal; 2017-07-15)
DX: L03.311 Cellulitis of abdominal wall (principal); L02.211 Cutaneous abscess of abdominal wall; R03.0 Elevated blood-pressure reading, without diagnosis of hypertension
CPT/HCPCS: 80053; 85025; 87015; 87070; 87116; 87185; 87205; 87206; J1450; J2543; J3370; J7030; J7050

== ENCOUNTER 2018-02-04 16:18 | Inpatient (IN) ==
--- NOTE | 2018-02-04 16:04 | P.HPGS ---
History of Present Illness Service: General surgery Primary Care Physician: UNKNOWN Chief Complaint: Drainage from abdomen History of Present Illness: This is a very pleasant 62-year-old gentleman who I initially met in 2014 when he presented with a complex abdominal wall reconstruction failure whose had multiple surgeries including recurrent hernia repair appendectomy surgery for colovesical fistula and at least 2 subsequent incisional hernia repairs with mesh and component separation. He had a large bulge in the left lower quadrant that was reducible and created pain. He underwent abdominoplasty with resection of umbilicus excision of scar and mesh extensive adhesio lysis bilateral myofascial advancement flaps with transversus abdominis release, abdominal reconstruction with 20 x 30 cm T IGR mesh, multilayer closure , bilateral intraoperative nerve blocks, cholecystectomy on January 27, 2015. He recovered really beautifully from his surgery and gradually return to normal life. He is returned to work in normal activities including playing golf. Over the last 3-4 months he has had 3 episodes of some erythema of the abdominal wall consistent with cellulitis that was treated with oral antibiotics. This most recent episode about 2-3 weeks ago he developed a firm palpable mass in the right upper quadrant following some strenuous activity that was consistent with a hematoma. He had a CT scan which suggested some omental caking but on my review look like just inflammatory changes associated with his abdominal wall. There was tenderness in this location but no evidence of abdominal wall erythema no drainage within the last 24 hours he acutely developed erythema and this morning he woke up to a draining wound along the midline incision. He was instructed to come to my office. He was placed on Augmentin. The wound is about 4-5 cm in diameter and its draining greenish fluid consistent with succus entericus, enterocutaneous fistula. He was recommended to come in the hospital for IV antibiotics and a CT scan of the abdomen and pelvis trying to determine the etiology of the fistula. I had done labs this week for him and he had a mildly elevated white count of 13,000, mild anemia with a hemoglobin of 11.7, normal BUN and creatinine, normal liver function tests. A CEA was checked which was normal. His protein stores were a little low with a pre-albumin of 9, and an albumin of 3.4 I believe. - Diagnosis (1) Enterocutaneous fistula Inpatient Certification: I certify that the inpatient services were ordered in accordance with Medicare regulations governing the order. This includes certification that hospital inpatient services are reasonable and necessary and in the case of services not specified as inpatient-only under 42 CFR 419.22(n), that they are appropriately provided as inpatient services in accordance to with the 2-midnight benchmark under 43 CFR 412.3(e) Estimated Total Length of Stay (Days): 7 Plans for Post Hospital Care: Home Review of Systems Patient denies fever. He did have some sweats. He has felt a little weaker. He has had decreased appetite. He has had weight loss of 20 pounds over the past several months. He does have on the watery stool side. He has had no seizures. He has had no strokes. He denies diabetes. Has had no blood in the urine or stool. He has had no emesis. He has not been short of breath. He has not had chest pain. All other systems reviewed negative except as stated in HPI [facility] - History History Provided By: Medical Record - Medical / Surgical Hx Neg / Unobtainable Medical Problems Denied: Yes (Patient had a hernia repair 1994 an umbilical hernia repair 1998 and appendectomy in 2004 surgery in 2008 for diverticulitis with colovesical fistula and the ventral incisional hernia repair with component separation lysis of adhesions in 2010. This is in addition to his surgery as mentioned in his history of present illness. Family history significant for lung cancer in his father and his mother who at 82 of old age. Social history is occasional beer occasional soda and tea is employed is single and was never a smoker. Is not allergic to any medications. Only routine medication was an aspirin.) Medications and Allergies Active Medications: Active Medications Levofloxacin/Dextrose (Levaquin 500 Mg Premix Inj) 500 mg in 100 mls @ 100 mls/ hr IV.SIG Q24H SHONNA Lactated Ringer's (Lr 1000 Ml Inj) 1,000 mls @ 100 mls/hr IV.CONT .Q10H SHONNA Metronidazole/Sodium Chloride (Flagyl 500 Mg Inj) 100 mls @ 100 mls/hr IV.SIG Q8H SHONNA Oxycodone/Acetaminophen (Percocet 10/325 Mg) 1 tab PO Q4H PRN PRN Reason: PAIN SCALE 6 TO 10 Oxycodone/Acetaminophen (Percocet 5/325 Mg) 1 tab PO Q4H PRN PRN Reason: PAIN SCALE 1 TO 5 Pantoprazole Sodium (Protonix) 40 mg PO DAILY SHONNA Sodium Chloride (Ns Flush) 2 ml IV.FLUSH BID SHONNA Sodium Chloride (Ns Flush) 2 ml IV.FLUSH PRN PRN PRN Reason: FLUSH AFTER USING IV ACCESS Allergies Allergy/AdvReac Type Severity Reaction Status Date / Time No Known Allergies Allergy Uncoded 01/27/15 06:14 Exam Vital signs: His height is 5 feet 6 inches weight 142 pounds blood pressure 119/77 pulse 90 temperature 97.9 Narrative: Is a well-developed well-nourished gentleman who is a little bit thinner than I seen him in the past consistent with his 20 pound weight loss. HEENT is normocephalic atraumatic his pupils are equal round and reactive. His oropharynx is clear his neck is supple his trachea is midline he has no jugular venous distention his lung sounds are clear and equal anteriorly bilaterally his heart sounds regular without murmur rub or gallop his abdomen shows a midline car with an opening about 4-5 cm in diameter granulating clean with the exception of green fluid consistent with enterocutaneous fistula. He has an area of erythema which spans probably 20 cm in the mid to right side of the abdomen. There is some firmness in the abdominal wall on the right side that is tender to touch and it does ailyn. There is no fluctuance there however. His extremities are on the thin side he has got equal radial pulses neurologically he is awake alert and oriented he ambulates normally psychiatrically he is awake alert oriented cooperative has good recall of events and is nondepressed. - Constitutional no acute distress - Routine HEENT Exam Head: Present: normocephalic, atraumatic Caprini VTE Risk Assessment Caprini VTE Risk Assessment: Moderate/High Risk (score >= 2) (Plan SCDs and subcutaneous Lovenox.) Caprini Risk Assessment Model: Point Value = 1 Point Value = 2 Point Value = 3 Point Value = 5 Age 41-60 Minor surgery BMI > 25 kg/m2 Swollen legs Varicose veins or History of unexplained or recurrent spontaneous Oral contraceptives or hormone replacement Sepsis (< 1 month) Serious lung disease, including pneumonia (< 1 month) Abnormal pulmonary function Acute myocardial infarction Congestive heart failure (< 1 month) History of inflammatory bowel disease Medical patient at bed rest Age 61-74 Arthroscopic surgery Major open surgery (> 45 min) Laparoscopic surgery (> 45 min) Malignancy Confined to bed (> 72 hours) Immobilizing plaster cast Central venous access Age >= 75 History of VTE Family history of VTE Factor V Leiden Prothrombin [id number] Lupus anticoagulant Anticardiolipin antibodies Elevated serum homocysteine Heparin-induced thrombocytopenia Other congenital or acquired thrombophilia Stroke (< 1 month) Elective arthroplasty Hip, pelvis, or leg fracture Acute spinal cord injury (< 1 month) Prophylaxis Regimen: Total Risk Factor Score Risk Level Prophylaxis Regimen 0-1 Low Early ambulation 2 Moderate Order ONE of the following: *Sequential Compression Device (SCD) *Heparin 5000 units SQ BID 3-4 Higher Order ONE of the following medications: *Heparin 5000 units SQ TID *Enoxaparin/Lovenox 40 mg SQ daily (WT < 150 kg, CrCl > 30 mL/min) *Enoxaparin/Lovenox 30 mg SQ daily (WT < 150 kg, CrCl > 10-29 mL/min) *Enoxaparin/Lovenox 30 mg SQ BID (WT < 150 kg, CrCl > 30 mL/min) AND/OR *Sequential Compression Device (SCD) 5 or more Highest Order ONE of the following medications: *Heparin 5000 units SQ TID (Preferred with Epidurals) *Enoxaparin/Lovenox 40 mg SQ daily (WT < 150 kg, CrCl > 30 mL/min) *Enoxaparin/Lovenox 30 mg SQ daily (WT < 150 kg, CrCl > 10-29 mL/min) *Enoxaparin/Lovenox 30 mg SQ BID (WT < 150 kg, CrCl > 30 mL/min) AND *Sequential Compression Device (SCD) Assessment and Plan - Assessment (1) Enterocutaneous fistula Code(s): K63.2 - Fistula of intestine Status: Acute - Plan Plan is for admission IV fluids IV antibiotics and pain medicine as needed laboratory evaluation and CT scan of the abdomen and pelvis. We will try to secure his fistula with the wound drainage bag. Operative intervention will be determined by how he does and what is found on CT scan. The patient understands and agrees with the plan. Code Status: Full code Discussed Condition With: Patient and Dr. Mayank Eaton
[~2018-02-04 16:18] MED LIST changes: -LORTA5 PO; +oxyCODONE/Acetaminophen 10/325 Tablet PO PRN
[2018-02-04] MEDS: Levofloxacin 500 mg Premix Inj 500 MG/100 ML PIGGYBACK IV.SIG SCH (20:17)
[2018-02-04 21:45] LABS: Baso # (Auto) 0.1 th/mm3 (0.0-0.2); Baso % (Auto) 0.6 % (0.0-2.0); Eos # (Auto) 0.1 th/mm3 (0.0-0.4); Hematocrit 32.3 % (39.0-51.0); Hemoglobin 10.5 gm/dL (13.0-17.0); Lymph # (Auto) 1.4 th/mm3 (1.0-4.8); Lymph % (Auto) 11.4 % (9.0-44.0); Mean Corpuscular HGB Conc 32.4 % (32.0-36.0); Mean Corpuscular Hemoglobin 26.1 pg (27.0-34.0); Mean Corpuscular Volume 80.5 fL (80.0-100.0); Mean Platelet Volume 6.1 fL (7.0-11.0); Mono # (Auto) 1.1 th/mm3 (0.0-0.9); Mono % (Auto) 9.1 % (0.0-8.0); Neut # (Auto) 9.9 th/mm3 (1.8-7.7); Neut % (Auto) 77.9 % (16.0-70.0); Platelet Count 530 th/mm3 (150-450); Red Blood Count 4.01 mil/mm3 (4.50-5.90); Red Cell Distribution Width 13.3 % (11.6-17.2); White Blood Count 12.7 th/mm3 (4.0-11.0)
[2018-02-04 21:56] LABS: INR 1.1 Ratio; Prothrombin Time 11.3 sec (9.8-11.6)
[2018-02-04 22:05] LABS: Anion Gap 6 meq/L (5-15); Blood Urea Nitrogen 17 mg/dL (7-18); Calcium 8.3 mg/dL (8.5-10.1); Carbon Dioxide 28.4 meq/L (21.0-32.0); Chloride 101 meq/L (98-107); Glomerular Filtration Rate Greater Than 89 mL/min (>89); Glucose,Random 89 mg/dL (74-106); Potassium 3.4 meq/L (3.5-5.1); Sodium 135 meq/L (136-145)
[2018-02-05] MEDS ORDERED: Diatrizoate Meglum/Diatrizoate Sod Liq 9 ML UDC PO ONE (08:00)
[2018-02-05] MEDS: Enoxaparin Inj 30 MG/0.3 ML Syringe SQ SCH (08:46)
--- NOTE | 2018-02-05 09:36 | P.PNGS ---
Subjective Interval history: Resting in bed No pain Awaiting to go down for CT Physical Exam Vital signs: Vital Signs 02/04/18 20:00 02/05/18 00:00 02/05/18 08:00 Temperature 98.0 F 98.1 F 97.9 F Pulse Rate 89 88 81 Respiratory Rate 18 18 17 Blood Pressure 106/72 104/61 99/69 L Pulse Oximetry 97 97 95 Intake & Output 02/04/18 02/05/18 02/05/18 18:59 06:59 18:59 Intake Total 900 / 900 Output Total 350 / 350 Balance 550 / 550 Weight 65.5 kg Intake: IV 900 / 900 LR 1000 mL Inj 1,000 ML @ 100 600 / 600 mls/hr IV.CONT .Q10H SHONNA Rx#: [id number] Levaquin 500 mg Premix Inj 500 100 / 100 mg In 100 ml @ 100 mls/hr IV. SIG Q24H SHONNA Rx#:[id number] Flagyl 500 MG Inj 100 ML @ 100 200 / 200 mls/hr IV.SIG Q8H SHONNA Rx#: [id number] Output: Urine 350 / 350 Other: Weight On Admission 65.5 kg Narrative: Alert and awake Abd: soft; ostomy appliance in place Results - Labs 02/04/18 21:09 02/04/18 21:09 Laboratory Results - last 24 hr 02/04/18 02/04/18 02/04/18 21:09 21:09 21:09 WBC 12.7 H RBC 4.01 L Hgb 10.5 L Hct 32.3 L MCV 80.5 MCH 26.1 L MCHC 32.4 RDW 13.3 Plt Count 530 H MPV 6.1 L Neut % (Auto) 77.9 H Lymph % (Auto) 11.4 [place] % (Auto) 9.1 H Eos % (Auto) 1.0 Baso % (Auto) 0.6 Neut # (Auto) 9.9 H Lymph # (Auto) 1.4 [place] # (Auto) 1.1 H Eos # (Auto) 0.1 Baso # (Auto) 0.1 WBC Differential . Differential Comment Auto diff final PT 11.3 INR 1.1 Sodium 135 L Potassium 3.4 L Chloride 101 Carbon Dioxide 28.4 Anion Gap 6 BUN 17 Creatinine 0.70 Estimated GFR Greater than 89 Random Glucose 89 Calcium 8.3 L Assessment and Plan - Assessment (1) Enterocutaneous fistula Code(s): K63.2 - Fistula of intestine Status: Acute Plan: 62 year old male with enterocutaneous fistula. -Continue ostomy bag to open area -Await CT results -Continue IV antibiotics -Further recommendations based on CT scan -Discussed with CARLOS Clark
--- NOTE | 2018-02-05 11:01 | P.PNGS ---
Subjective Patient reports: feels better (No fevers chills, nausea vomiting. He is tolerating oral contrast in anticipation of CT scan today. When he strains to move his bowels he feels air and fluid coming out of the fistula.) Physical Exam Vital signs: Vital Signs 02/04/18 20:00 02/05/18 00:00 02/05/18 08:00 Temperature 98.0 F 98.1 F 97.9 F Pulse Rate 89 88 81 Respiratory Rate 18 18 17 Blood Pressure 106/72 104/61 99/69 L Pulse Oximetry 97 97 95 Intake & Output 02/04/18 02/05/18 02/05/18 18:59 06:59 18:59 Intake Total 900 / 900 100 / 100 Output Total 350 / 350 Balance 550 / 550 100 / 100 Weight 65.5 kg Intake: IV 900 / 900 100 / 100 LR 1000 mL Inj 1,000 ML @ 100 600 / 600 mls/hr IV.CONT .Q10H SHONNA Rx#: [id number] Levaquin 500 mg Premix Inj 500 100 / 100 mg In 100 ml @ 100 mls/hr IV. SIG Q24H SHONNA Rx#:[id number] Flagyl 500 MG Inj 100 ML @ 100 200 / 200 100 / 100 mls/hr IV.SIG Q8H SHONNA Rx#: [id number] Output: Urine 350 / 350 Other: Weight On Admission 65.5 kg Narrative: Erythema of the abdominal wall decreased. Tenderness decreased. Ostomy bag in place with some fluid in it. Strategies nonedematous. Patient is not in extremis. Results - Labs 02/04/18 21:09 02/04/18 21:09 Laboratory Results - last 24 hr 02/04/18 02/04/18 02/04/18 21:09 21:09 21:09 WBC 12.7 H RBC 4.01 L Hgb 10.5 L Hct 32.3 L MCV 80.5 MCH 26.1 L MCHC 32.4 RDW 13.3 Plt Count 530 H MPV 6.1 L Neut % (Auto) 77.9 H Lymph % (Auto) 11.4 [place] % (Auto) 9.1 H Eos % (Auto) 1.0 Baso % (Auto) 0.6 Neut # (Auto) 9.9 H Lymph # (Auto) 1.4 [place] # (Auto) 1.1 H Eos # (Auto) 0.1 Baso # (Auto) 0.1 WBC Differential . Differential Comment Auto diff final PT 11.3 INR 1.1 Sodium 135 L Potassium 3.4 L Chloride 101 Carbon Dioxide 28.4 Anion Gap 6 BUN 17 Creatinine 0.70 Estimated GFR Greater than 89 Random Glucose 89 Calcium 8.3 L Assessment and Plan - Assessment (1) Enterocutaneous fistula Code(s): K63.2 - Fistula of intestine Status: Acute Plan: 62 year old male with enterocutaneous fistula. -Continue ostomy bag to open area -Await CT results -Continue IV antibiotics -Further recommendations based on CT scan -Discussed with CARLOS Clark - Plan Plan is for admission IV fluids IV antibiotics and pain medicine as needed laboratory evaluation and CT scan of the abdomen and pelvis. We will try to secure his fistula with the wound drainage bag. Operative intervention will be determined by how he does and what is found on CT scan. The patient understands and agrees with the plan. Awaiting CT scan abdomen pelvis today. Laboratory findings reviewed. Patient understands the plan. I am going out of town [facility] leaving him in the care of Dr. Mayank Eaton and AJIT Godinez. Discussed Condition With: Patient, Anai FONG, Dr. Mayank Eaton.
[2018-02-05] MEDS: Levofloxacin 500 mg Premix Inj 500 MG/100 ML PIGGYBACK IV.SIG SCH (18:15)
--- NOTE | 2018-02-05 21:27 | CT ---
EXAM DATE: 02/05/2018 6:43 PM EDT AGE/SEX: 62 years / Male INDICATIONS: Abdominal pain, enterocutoneous fistula. CLINICAL DATA: This is the patient's initial encounter. Patient reports that signs and symptoms have been present for 1 day and indicates a pain score of 7/10. MEDICAL/SURGICAL HISTORY: None. Appendectomy. Cholecystectomy. Hernia repair. ORAL CONTRAST: Prescribed oral contrast ingested. RADIATION DOSE: 6.66 CTDI (mGy) COMPARISON: No prior exams available for comparison. TECHNIQUE: Multiple contiguous axial images were obtained through the abdomen and pelvis following b olus infusion of 70 ml Omnipaque 350 (iohexol) nonionic water-soluble contrast as a single exam dos e. Prescribed oral contrast ingested. Using automated exposure control and adjustment of the mA and/ or kV according to patient size, radiation dose was kept as low as reasonably achievable to obtain op timal diagnostic quality images. DICOM format image data is available electronically for review and comparison. FINDINGS: Lower Lungs: The visualized lower lungs are clear. Liver: The liver has a homogeneous density without space-occupying lesion. There is no dilation of th e biliary tree. Cholecystectomy. Spleen: Homogeneous density without enlargement. Pancreas: Unremarkable without mass or calcification. Kidneys: 2 mm calcified stone mid pole right kidney with with out evidence hydronephrosis. There is mild prominence of the renal pelvis on the left side. The left ureter is not dilated. No calcified st ones left side. Bilateral cysts measure up to 1.6 cm. Adrenal Glands: Unremarkable. Aorta: The aorta and proximal iliac vessels are grossly unremarkable without aneurysmal dilation. Bowel/Mesentery: : There are multiple dilated loops of bowel anteriorly in the mid abdomen measuring up to 4.6 cm in dimension. Oral contrast is present within these dilated loops. Oral contrast does p ass through to the hepatic flexure. There is abnormal appearance to the anterior abdominal wall adjac ent to these dilated loops of small bowel with loss of delineation of the margins of the rectus muscl e and multiple collections of gas within muscle on the right side. There is also a prominent disconti nuity in the central midline anterior abdominal wall. Several small flecks gas in the subcutaneous fa t about the right lower quadrant. The anterior peritoneal reflection is not well seen and is obscured by the anterior abdominal wall soft tissue thickening. No definite extraluminal contrast from the oliver wel.. Retroperitoneum: No evidence of adenopathy in the retrocrural, para-aortic, or deep pelvic regions. Bladder: Contours are smooth. Reproductive Organs: No abnormal masses or calcifications seen. Inguinal: The inguinal region is unremarkable without evidence of adenopathy. Bony Structures: Unremarkable. CONCLUSION: 1. Thickened and indurated anterior abdominal wall soft tissues with multiple collections of gas, mi dline ventral abdominal wall discontinuity at the presumed site of fistula, and multiple dilated loop s of small bowel (probable ileus) in the anterior midabdomen adjacent to the thickened soft tissues. Electronically signed by: Carlos Quintero MD 02/05/2018 9:26 PM EDT
--- NOTE | 2018-02-06 09:52 | P.PNGS ---
Subjective Interval history: Resting in bed [facility] Host And Hostess at bedside Eager to have results of CT C/o RIGHT sided abdominal itching Physical Exam Vital signs: Vital Signs 02/05/18 12:00 02/05/18 16:00 02/05/18 20:00 Temperature 98.0 F 97.1 F L 98.0 F Pulse Rate 84 80 88 Respiratory Rate 17 17 16 Blood Pressure 103/68 110/71 111/67 Pulse Oximetry 96 97 97 02/06/18 00:00 02/06/18 08:00 Temperature 97.8 F 98.2 F Pulse Rate 81 75 Respiratory Rate 16 17 Blood Pressure 102/66 109/72 Pulse Oximetry 94 L 95 Intake & Output 02/05/18 02/06/18 02/06/18 18:59 06:59 18:59 Intake Total 600 / 600 2500 / 2500 300 / 300 Output Total 50 / 50 Balance 600 / 600 2450 / 2450 300 / 300 Weight 65.5 kg Intake: IV 600 / 600 1900 / 1900 300 / 300 LR 1000 mL Inj 1,000 ML @ 100 400 / 400 1700 / 1700 300 / 300 mls/hr IV.CONT .Q10H SHONNA Rx#: [id number] Levaquin 500 mg Premix Inj 500 100 / 100 mg In 100 ml @ 100 mls/hr IV. SIG Q24H SHONNA Rx#:[id number] Flagyl 500 MG Inj 100 ML @ 100 200 / 200 100 / 100 mls/hr IV.SIG Q8H SHONNA Rx#: [id number] Oral 0 / 0 600 / 600 Output: Wound Drainage 50 / 50 Medial Distal Abdomen 50 / 50 Other: # Voids 4 6 # Bowel Movements 3 Narrative: Alert and awake Abd: midline ostomy appliance in place; RIGHT side abdomen--induration and slight redness; tender to palpation Results - Labs 02/04/18 21:09 02/04/18 21:09 - Imaging Imaging: ITS Impressions Abdomen/Pelvis CT 02/05/18 00:00 CONCLUSION: 1. Thickened and indurated anterior abdominal wall soft tissues with multiple collections of gas, midline ventral abdominal wall discontinuity at the presumed site of fistula, and multiple dilated loops of small bowel (probable ileus) in the anterior midabdomen adjacent to the thickened soft tissues. 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 -Continue ostomy bag to open area -CT abd/pelvis shows RIGHT sided fluid collection---consult IR for perc drain placement -NPO until after IR drain placed -Continue IV antibiotics -Discussed with CARLOS Wray - Attending Attestation I CERTIFY AND ATTEST THAT I PERSONALLY EXAMINED THE PATIENT IN HIS ROOM. THE PLAYER DEVELOPMENT MANAGER DOCUMENTED OUR VISIT. I REVIEWED CT WITH DR HUSAIN. WILL SEE IF IR CAN PLACE DRAIN IN UNDRAINED FLUID COLLECTION. CONTINUE ABX DONAVAN ERVIN MD FACS
[2018-02-06] MEDS: Enoxaparin Inj 30 MG/0.3 ML Syringe SQ SCH (10:49)
[2018-02-06] MEDS ORDERED: fentaNYL Citrate Inj 250 MCG/5 ML Ampul ONE (15:57)
--- NOTE | 2018-02-06 16:52 | P.RAD ---
Post CT Procedure Prog Note - Procedure Information Procedure Date: 02/06/18 Supervising Radiologist: Travis Lambert MD Estimated blood loss (mL): 5 Anesthesia: Conscious Sedation - Plan of Activity Patient to Unit: ROPU Patient condition: Good Additional Comments: Placed 10F drain in ant abdominal collection. Only scant serosang fluid removed. See PACS Report for procedural detail/treatment.
[2018-02-06] MEDS: Levofloxacin 500 mg Premix Inj 500 MG/100 ML PIGGYBACK IV.SIG SCH (19:11)
--- NOTE | 2018-02-06 22:56 | ECG ---
Date Performed: 02/04/2018 Time Performed: 22:01:58 PTAGE: 62 years EKG: Sinus rhythm NORMAL ECG PREVIOUS TRACING : 01/27/2015 06.23 Since the previous tracing, no significant change noted DOCTOR: Sofia Santos Interpretating Date/Time 02/06/2018 22:54:40
[2018-02-07 05:08] VITALS: O2SAT 95
--- NOTE | 2018-02-07 06:58 | CT ---
EXAM DATE: 02/06/2018 3:41 PM EDT AGE/SEX: 62 years / Male INDICATIONS: History of enterocutaneous fistula with residual loculated predominantly air collection in the right anterior abdominal wall. CLINICAL DATA: This is the patient's initial encounter. Patient reports that signs and symptoms have been present for 1 day and indicates a pain score of 2/10. MEDICAL/SURGICAL HISTORY: . hernia Appendectomy. Cholecystectomy. COMPARISON: No prior exams available for comparison. BIOPSY SITE: right abdominal wall MEDICATION(S): 1 midazolam (Versed) IV 100 fentanyl (Sublimaze) IV DEVICE(S): 10 Fr Jonathan FLUID: Total volume of 2 of fluid was removed. . . . PROCEDURE : CT guided drainage of the right abdominal wall . The risks, benefits and alternatives to the procedure were explained and verbal and written consent w as obtained. Using automated exposure control and adjustment of the mA and/or kV according to patient size, radiation dose was kept as low as reasonably achievable to obtain optimal diagnostic quality i mages. The site was prepped in sterile fashion. Full sterile technique was used, including cap, ma sk, sterile gloves and gown and a large sterile sheet. Hand hygiene and 2% chlorhexidine and/or beta dine/alcohol prep was utilized per protocol for cutaneous antisepsis. The skin and subcutaneous tiss ues were infiltrated with local anesthetic solution. DICOM format image data is available electronic ally for review and comparison. Using CT guidance the prescribed site was localized. Drainage was performed using the prescribed cat heter. The patient tolerated the procedure well and there were no complications. The patient tolerated the procedure well and there were no complications. The patient was sent to post anesthesia recovery in s table condition. FINDINGS: Only a scant amount of serosanguineous fluid was removed immediately following catheter placement. CONCLUSION: 1. Uncomplicated CT guided drainage, as above. Electronically signed by: Travis Lambert MD 02/07/2018 6:57 AM EDT
[2018-02-07 07:47] VITALS: BP 103/72; PULSE 80; RESP 17; TEMP 97.4
[2018-02-07] MEDS: Enoxaparin Inj 30 MG/0.3 ML Syringe SQ SCH (08:21)
[2018-02-07] MEDS ORDERED: levoFLOXacin 500 MG Tablet PO SCH ×2 (09:30→21:00)
--- NOTE | 2018-02-07 09:37 | P.DCO ---
- Home Health Nursing Order: Wound care and dressing changes Instructions: Routine accordion drain care--- keep record of output Ostomy appliance over open midline area - Case Management Consult Yes - Certification I have seen patient Zack Chapman on 02/07/18. My clinical findings support the need for the requested home health care services because: Deconditioned with increased weakness, Impaired cognition/judgement I certify that my clinical findings support that this patient is homebound because: Post-op weakness
[2018-02-07] MEDS ORDERED: metroNIDAZOLE 500 MG Tablet PO SCH (14:00)
--- NOTE | 2018-02-07 16:34 | P.DS ---
Date of admission: 02/04/18 18:48 Primary care physician: UNKNOWN Attending physician on discharge: Dylon Chinaristeo Anticipated date of discharge: 02/07/18 Brief History from admission: This is a very pleasant 62-year-old gentleman who I initially met in 2014 when he presented with a complex abdominal wall reconstruction failure whose had multiple surgeries including recurrent hernia repair appendectomy surgery for colovesical fistula and at least 2 subsequent incisional hernia repairs with mesh and component separation. He had a large bulge in the left lower quadrant that was reducible and created pain. He underwent abdominoplasty with resection of umbilicus excision of scar and mesh extensive adhesio lysis bilateral myofascial advancement flaps with transversus abdominis release, abdominal reconstruction with 20 x 30 cm T IGR mesh, multilayer closure , bilateral intraoperative nerve blocks, cholecystectomy on January 27, 2015. He recovered really beautifully from his surgery and gradually return to normal life. He is returned to work in normal activities including playing golf. Over the last 3-4 months he has had 3 episodes of some erythema of the abdominal wall consistent with cellulitis that was treated with oral antibiotics. This most recent episode about 2-3 weeks ago he developed a firm palpable mass in the right upper quadrant following some strenuous activity that was consistent with a hematoma. He had a CT scan which suggested some omental caking but on my review look like just inflammatory changes associated with his abdominal wall. There was tenderness in this location but no evidence of abdominal wall erythema no drainage within the last 24 hours he acutely developed erythema and this morning he woke up to a draining wound along the midline incision. He was instructed to come to my office. He was placed on Augmentin. The wound is about 4-5 cm in diameter and its draining greenish fluid consistent with succus entericus, enterocutaneous fistula. He was recommended to come in the hospital for IV antibiotics and a CT scan of the abdomen and pelvis trying to determine the etiology of the fistula. I had done labs this week for him and he had a mildly elevated white count of 13,000, mild anemia with a hemoglobin of 11.7, normal BUN and creatinine, normal liver function tests. A CEA was checked which was normal. His protein stores were a little low with a pre-albumin of 9, and an albumin of 3.4 I believe. 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 A ostomy bag was placed to the open area. A CT abd/pelvis shows RIGHT sided fluid collection and IR placed a drain. The patient will go home with the drain. He will continue to increase his nutrition and see Dr. Henson in the office next week for elective repair. He was provided with a pain prescription and antibiotics. - Time Spent with Patient Total time spent providing and/or coordinating discharge services: Less than 30 minutes - Quality: VTE Deep Vein Thrombosis/Pulmonary Embolism Present on Admission: No Exam Vital signs: Vital Signs 02/06/18 17:05 02/06/18 17:20 02/06/18 20:00 Temperature 97.8 F 97.6 F Pulse Rate 86 78 73 Respiratory Rate 20 20 18 Blood Pressure 109/68 104/68 110/68 Pulse Oximetry 95 93 L 96 02/07/18 00:00 02/07/18 04:00 02/07/18 07:46 Temperature 97.6 F 97.6 F 97.4 F L Pulse Rate 78 66 80 Respiratory Rate 19 18 17 Blood Pressure 107/69 103/71 103/72 Pulse Oximetry 94 L 95 95 Intake & Output 02/06/18 02/07/18 02/07/18 18:59 06:59 18:59 Intake Total 1600 / 1600 2200 / 2200 1100 / 1100 Output Total 30 / 30 30 / 30 30 / 30 Balance 1570 / 1570 2170 / 2170 1070 / 1070 Weight 65.5 kg Intake: IV 400 / 400 1300 / 1300 1100 / 1100 LR 1000 mL Inj 1,000 ML @ 100 300 / 300 1000 / 1000 1000 / 1000 mls/hr IV.CONT .Q10H SHONNA Rx#: [id number] Levaquin 500 mg Premix Inj 500 100 / 100 mg In 100 ml @ 100 mls/hr IV. SIG Q24H SHONNA Rx#:[id number] Flagyl 500 MG Inj 100 ML @ 100 100 / 100 200 / 200 100 / 100 mls/hr IV.SIG Q8H SHONNA Rx#: [id number] Oral 1200 / 1200 900 / 900 Output: Wound Drainage 30 / 30 30 / 30 30 / 30 Medial Distal Abdomen 30 / 30 20 / 20 20 / 20 Right Abdomen Pigtail Other: # Voids 4 3 4 # Bowel Movements 1 1 Narrative: Alert and awake Abd: ostomy appliance in place; no leakage; accordion drain in place with serous drainage Results Procedures completed during hospitalization: IR placed drain - Impressions ITS Impressions Abdomen/Pelvis CT 02/05/18 00:00 CONCLUSION: 1. Thickened and indurated anterior abdominal wall soft tissues with multiple collections of gas, midline ventral abdominal wall discontinuity at the presumed site of fistula, and multiple dilated loops of small bowel (probable ileus) in the anterior midabdomen adjacent to the thickened soft tissues. Abscess Drainage CT 02/06/18 00:00 CONCLUSION: 1. Uncomplicated CT guided drainage, as above. Discharge Plan - Discharge Disposition Patient Disposition: Discharge Home - Discharge Condition Condition: Good - Discharge Order Discharge Orders: Discharge Order (Routine); Ordered 02/07/18 Ordered By: Anai Arellano - Discharge Details Anticipated Discharge Date: 02/07/18 Discharge Comment: rx on chart - Physicians Team Primary Care Provider: UNKNOWN, Attending Provider: Dylon Henson Other Providers: [employer],Insurance - Rxs /Orders / Referrals /Forms Prescriptions: New levofloxacin 500 mg Tablet 500 mg PO DAILY Qty: 7 RF: 0 metronidazole 500 mg Tablet 500 mg PO Q8HR 7 Days RF: 0 oxycodone-acetaminophen 5-325 mg Tablet 1 tab PO Q4H PRN (Reason: acute pain exception ) Qty: 10 RF: 0 No Action No Known Home Medications Referrals: Dylon Henson MD [Physician] - See Instructions (Call office for appointment for next week ) UNKNOWN, [Primary Care Provider] - See Instructions (Follow up with Primary Care Doctor [address] Office number: [phone] Call the day you would like to be seen. [facility] Offers same day appointment, the office opens at 8:00am. ) - Discharge Instructions Patient Printed Instructions: Oxycodone/Acetaminophen (By mouth), Metronidazole (By mouth), Levofloxacin (By mouth), Gastrointestinal Fistula (GEN ), Deniz-Close Drain Care (DC)
== END 2018-02-07 11:40 | disposition home or self-care (01) ==
LOC: N07 18:48
PROVIDERS: ADMIT Surgery Trauma Surgery; ATTEND Surgery Trauma Surgery
DX: K63.2 Fistula of intestine

== ENCOUNTER 2018-02-11 10:48 | Inpatient (IN) ==
[2018-02-11] MEDS ORDERED: Sod Chloride 0.9% Inj 1,000 ML IV.CONT SCH (11:30)
--- NOTE | 2018-02-11 11:36 | ED ---
HPI General Chief complaint: Nausea/Vomiting/Diarrhea Stated complaint: medical--Dr. Henson sent Time Seen by Provider: 02/11/18 11:14 History of Present Illness HPI Narrative: This is a 62 year old male with enterocutaneous fistula. He was discharged from the hospital 2 days ago with Flagyl and Levaquin. A ostomy bag was placed to the open area. A CT abd/pelvis shows RIGHT sided fluid collection and IR placed a drain. Today she complained about vomiting one time at 3 AM. No nausea in the emergency room. No changes in his pain. His mild drainage secret in a drainage bag. Vitals stable Related Data Previous Rx's Medication Instructions Recorded levofloxacin 500 mg PO DAILY #7 tab 02/07/18 metronidazole 500 mg PO Q8HR 7 Days tab 02/07/18 oxycodone-acetaminophen 1 tab PO Q4H PRN #10 tab 02/07/18 ondansetron HCl [Zofran] 4 mg PO Q8H PRN 4 Days tab 02/11/18 Allergies Allergy/AdvReac Type Severity Reaction Status Date / Time No Known Allergies Allergy Unverified 02/11/18 11:13 Review of Systems ROS: all other systems reviewed are negative Gastrointestinal Reports vomiting PMFSH Social History Social History Substance History: No History of Abuse Second Hand Smoke Exposure: No Smoking Status: Never smoker How Often Do You Have a Drink Containing Alcohol: Never Recent Travel in [facility] within the Last 8 Weeks: No Recent Out of Country Travel within the Last 8 Weeks: No Immunization History Tetanus Immunization: <5 Years Hx Influenza Vaccine This Season: Yes Exam Narrative Exam Narrative: GENERAL: [-] 62-year-old male in no apparent distress SKIN: Focused skin assessment warm/dry. HEAD: Atraumatic. Normocephalic. EYES: Pupils equal and round. No scleral icterus. No injection or drainage. ENT: No nasal bleeding or discharge. Mucous membranes pink and moist. NECK: Trachea midline. No JVD. CARDIOVASCULAR: Regular rate and rhythm. No murmur appreciated. RESPIRATORY: No accessory muscle use. Clear to auscultation. Breath sounds equal bilaterally. GASTROINTESTINAL: Abdomen soft, mildly tender over the drainage tube, nondistended. MUSCULOSKELETAL: No obvious deformities. No clubbing. No cyanosis. No edema. NEUROLOGICAL: Awake and alert. No obvious cranial nerve deficits. Motor grossly within normal limits. Normal speech. PSYCHIATRIC: Appropriate mood and affect; insight and judgment normal. Course Initial Documented Vital Signs Temperature 97.8 F 02/11/18 10:53 Pulse Rate 97 H 02/11/18 10:53 Respiratory Rate 18 02/11/18 10:53 Blood Pressure 125/82 02/11/18 10:53 Pulse Oximetry 98 02/11/18 10:53 Last Documented Vital Signs Temperature 100.4 F H 02/12/18 16:00 Pulse Rate 103 H 02/12/18 16:00 Respiratory Rate 16 02/12/18 16:00 Blood Pressure 101/63 02/12/18 16:00 Pulse Oximetry 94 L 02/12/18 16:00 Medical Decision Making MDM Narrative Medical decision making narrative: Patient had one episode of vomiting, concerns. Nausea medication given. Reevaluation is pending. Patient was observed in the emergency room for nausea, no vomiting in the ER, feels better. Can be discharged home. Case was discussed with patient surgeon Dr. Henson, who would like to admit the patient to his service for further evaluation and treatment. As per him patient may need surgical intervention. Medical Screen Exam Complete: Yes Emergency Medical Condition: Yes Lab Data Result diagrams: 02/11/18 16:22 02/11/18 16:22 Lab Results 02/11/18 02/11/18 02/11/18 Range/Units 16:22 16:22 16:22 WBC 12.8 H (4.0-11.0) th/mm3 RBC 4.54 (4.50-5.90) mil/mm3 Hgb 12.0 L (13.0-17.0) gm/dL Hct 37.6 L (39.0-51.0) % MCV 82.8 (80.0-100.0) fL MCH 26.4 L (27.0-34.0) pg MCHC 31.9 L (32.0-36.0) % RDW 14.1 (11.6-17.2) % Plt Count 596 H (150-450) th/mm3 MPV 5.6 L (7.0-11.0) fL PT 11.3 (9.8-11.6) sec INR 1.1 Ratio Sodium 138 (136-145) meq/L Potassium 4.2 (3.5-5.1) meq/L Chloride 100 (98-107) meq/L Carbon Dioxide 28.5 (21.0-32.0) meq/L Anion Gap 10 (5-15) meq/L BUN 16 (7-18) mg/dL Creatinine 0.82 (0.60-1.30) mg/dL Estimated GFR Greater than 89 (>89) mL/min Random Glucose 97 (74-106) mg/dL Calcium 8.2 L (8.5-10.1) mg/dL Imaging Data Radiologist's impression: Abdomen/Pelvis CT 02/12/18 00:00 CONCLUSION: 1. Interim placement of a right upper quadrant abdominal wall drainage catheter. There is a persistent ill-defined air and fluid collection at this location that is similar to slightly larger in the interim. 2. An additional ill-defined pocket of air and fluid in the anterior peritoneal space at the level of the umbilicus also appears larger and appears to be draining near the umbilicus, presumably a fistula tract. 3. Increased distention of small bowel with apparent decompression of the ileum and of concern for obstruction. The colon is decompressed. 4. Trace atelectasis and tiny pleural effusions of the visualized lung bases. Discharge Plan Discharge Disposition Patient Disposition: 30 Still Patient Discharge Condition Condition: Fair Discharge Details Discharge Comment: As per Dr. Henson patient needs admission for possible surgical intervention. Diagnosis: Vomiting, Enterocutaneous fistula Physicians Team ED Provider: Grzegorz Lynn Primary Care Provider: UNKNOWN, Attending Provider: Dylon Henson Other Providers: [facility],Insurance Status ED Status: Left Department Discharge Information Discharge Date/Time: 02/12/18 02:25
[2018-02-11] MEDS ORDERED: Bisacodyl 10 MG Supp RECTAL PRN (16:01)
[2018-02-11] MEDS ORDERED: Post-op Orders (for Pharmacy) OTHER ONE (16:01)
[2018-02-11 16:46] LABS: Hematocrit 37.6 % (39.0-51.0); Mean Corpuscular HGB Conc 31.9 % (32.0-36.0); Mean Corpuscular Hemoglobin 26.4 pg (27.0-34.0); Mean Corpuscular Volume 82.8 fL (80.0-100.0); Mean Platelet Volume 5.6 fL (7.0-11.0); Platelet Count 596 th/mm3 (150-450); Red Blood Count 4.54 mil/mm3 (4.50-5.90); Red Cell Distribution Width 14.1 % (11.6-17.2); White Blood Count 12.8 th/mm3 (4.0-11.0)
[2018-02-11 16:54] LABS: INR 1.1 Ratio; Prothrombin Time 11.3 sec (9.8-11.6)
[2018-02-11 17:01] LABS: Anion Gap 10 meq/L (5-15); Blood Urea Nitrogen 16 mg/dL (7-18); Calcium 8.2 mg/dL (8.5-10.1); Carbon Dioxide 28.5 meq/L (21.0-32.0); Chloride 100 meq/L (98-107); Glomerular Filtration Rate Greater Than 89 mL/min (>89); Glucose,Random 97 mg/dL (74-106); Potassium 4.2 meq/L (3.5-5.1); Sodium 138 meq/L (136-145)
--- NOTE | 2018-02-11 17:28 | P.HPGS ---
History of Present Illness Service: General Surgery Primary Care Physician: UNKNOWN Chief Complaint: Enterocutaneous fistula History of Present Illness: This is a very pleasant 62-year-old gentleman who was initially seen in [address] Henson when he presented with a complex abdominal wall reconstruction failure whose had multiple surgeries including recurrent hernia repair appendectomy surgery for colovesical fistula and at least 2 subsequent incisional hernia repairs with mesh and component separation. He had a large bulge in the left lower quadrant that was reducible and created pain. He underwent abdominoplasty with resection of umbilicus excision of scar and mesh extensive adhesio lysis bilateral myofascial advancement flaps with transversus abdominis release, abdominal reconstruction with 20 x 30 cm TIGR mesh, multilayer closure, bilateral intraoperative nerve blocks, cholecystectomy on January 27, 2015. He recovered really beautifully from his surgery and gradually return to normal life. He is returned to work in normal activities including playing golf. Over the last 3-4 months he has had 3 episodes of some erythema of the abdominal wall consistent with cellulitis that was treated with oral antibiotics. This most recent episode about 2-3 weeks ago he developed a firm palpable mass in the right upper quadrant following some strenuous activity that was consistent with a hematoma. He had a CT scan which suggested some omental caking but on my review look like just inflammatory changes associated with his abdominal wall. There was tenderness in this location but no evidence of abdominal wall erythema no drainage within the last 24 hours he acutely developed erythema and this morning he woke up to a draining wound along the midline incision. He was instructed to come to my office. He was placed on Augmentin. The wound is about 4-5 cm in diameter and its draining greenish fluid consistent with succus entericus, enterocutaneous fistula. He was recommended to come in the hospital for IV antibiotics and a CT scan of the abdomen and pelvis trying to determine the etiology of the fistula. I had done labs this week for him and he had a mildly elevated white count of 13,000, mild anemia with a hemoglobin of 11.7, normal BUN and creatinine, normal liver function tests. A CEA was checked which was normal. His protein stores were a little low with a pre-albumin of 9, and an albumin of 3.4 I believe. The patient was admitted and placed on IV antibiotics last week and transitioned to PO antibiotics. An IR placed accordion drain remained in place on discharge. He was doing well until he was not able to keep anything down. He called Dr. Henson who advised him to come to the ED. - Diagnosis (1) Enterocutaneous fistula Review of Systems All other systems reviewed negative except as stated in HPI PMFSH - History History Provided By: Patient - Medical History Medical History: Medical History (Last Reviewed 02/11/18 @ 17:24 by AJIT Godinez) Fistula - Surgical History Surgical History: Surgical History (Last Reviewed 02/11/18 @ 17:24 by AJIT Godinez) H/O hernia repair History of Achilles tendon repair History of appendectomy History of cholecystectomy - Tobacco History Second Hand Smoke Exposure: No Smoking Status: Never smoker - Alcohol History How Often Do You Have a Drink Containing Alcohol: Never - Substance Use History Substance History: No History of Abuse - Travel History Recent Travel in the [facility] Within the Last 8 Weeks: No Recent Travel Out of the Country Within the Last 8 Weeks: No - Immunization History Tetanus Immunization: <5 Years Hx Influenza Vaccine This Season: Yes Medications and Allergies Allergies Allergy/AdvReac Type Severity Reaction Status Date / Time No Known Allergies Allergy Unverified 02/11/18 11:13 Active Medications: Active Medications Al Hydroxide/Mg Hydroxide (Milk Of Magnesia Liq) 30 ml PO Q12H PRN PRN Reason: Mild Constipation Bisacodyl (Dulcolax Supp) 10 mg RECTAL DAILY PRN PRN Reason: SEVERE CONSITIPATION Sodium Chloride (Ns Inj) 1,000 mls @ 125 mls/hr IV.CONT .Q8H SHONNA Metronidazole/Sodium Chloride (Flagyl 500 Mg Inj) 100 mls @ 100 mls/hr IV.SIG Q8H SHONNA Last Admin: 02/11/18 16:43 Dose: 100 mls/hr Levofloxacin/Dextrose (Levaquin 500 Mg Premix Inj) 500 mg in 100 mls @ 100 mls/ hr IV.SIG Q24H SHONAN Lactulose (Lactulose Liq) 30 ml PO DAILY PRN PRN Reason: SEVERE CONSITIPATION Ondansetron HCl (Zofran Odt) 4 mg PO Q6H PRN PRN Reason: NAUSEA OR VOMITING Ondansetron HCl (Zofran Inj) 4 mg IV.PUSH Q6H PRN PRN Reason: NAUSEA OR VOMITING Senna/Docusate Sodium (Mary-Colace) 1 tab PO BID SHONNA Sennosides (Senokot) 17.2 mg PO Q12H PRN PRN Reason: Moderate Constipation Exam Vital signs: Vital Signs 02/11/18 10:53 02/11/18 11:19 Temperature 97.8 F Pulse Rate 97 H 90 Respiratory Rate 18 16 Blood Pressure 125/82 Pulse Oximetry 98 96 Intake & Output 02/10/18 02/11/18 02/11/18 18:59 06:59 18:59 Weight 65.317 kg Narrative: GENERAL: Very pleasant 62 year old male resting in bed in no acute distress. SKIN: Warm and dry. HEAD: Atraumatic. Normocephalic. EYES: Pupils equal and round. No scleral icterus. No injection or drainage. ENT: No nasal bleeding or discharge. Mucous membranes pink and moist. NECK: Trachea midline. No JVD. CARDIOVASCULAR: Regular rate and rhythm. RESPIRATORY: No accessory muscle use. Clear to auscultation. Breath sounds equal bilaterally. GASTROINTESTINAL: Abdomen soft, nondistended. Ostomy appliance in place. IR drain in place. Area between drain and ostomy appliance with erythremia. MUSCULOSKELETAL: Extremities without clubbing, cyanosis, or edema. No obvious deformities. NEUROLOGICAL: Awake and alert. No obvious cranial nerve deficits. Motor grossly within normal limits. Five out of 5 muscle strength in the arms and legs. Normal speech. PSYCHIATRIC: Appropriate mood and affect; insight and judgment normal. Results - Labs 02/11/18 16:22 02/11/18 16:22 Laboratory Results - last 24 hr 02/11/18 02/11/18 02/11/18 16:22 16:22 16:22 WBC 12.8 H RBC 4.54 Hgb 12.0 L Hct 37.6 L MCV 82.8 MCH 26.4 L MCHC 31.9 L RDW 14.1 Plt Count 596 H MPV 5.6 L PT 11.3 INR 1.1 Sodium 138 Potassium 4.2 Chloride 100 Carbon Dioxide 28.5 Anion Gap 10 BUN 16 Creatinine 0.82 Estimated GFR Greater than 89 Random Glucose 97 Calcium 8.2 L Caprini VTE Risk Assessment Caprini VTE Risk Assessment: No/Low Risk (score <= 1) Caprini Risk Assessment Model: Point Value = 1 Point Value = 2 Point Value = 3 Point Value = 5 Age 41-60 Minor surgery BMI > 25 kg/m2 Swollen legs Varicose veins or History of unexplained or recurrent spontaneous Oral contraceptives or hormone replacement Sepsis (< 1 month) Serious lung disease, including pneumonia (< 1 month) Abnormal pulmonary function Acute myocardial infarction Congestive heart failure (< 1 month) History of inflammatory bowel disease Medical patient at bed rest Age 61-74 Arthroscopic surgery Major open surgery (> 45 min) Laparoscopic surgery (> 45 min) Malignancy Confined to bed (> 72 hours) Immobilizing plaster cast Central venous access Age >= 75 History of VTE Family history of VTE Factor V Leiden Prothrombin [id number] Lupus anticoagulant Anticardiolipin antibodies Elevated serum homocysteine Heparin-induced thrombocytopenia Other congenital or acquired thrombophilia Stroke (< 1 month) Elective arthroplasty Hip, pelvis, or leg fracture Acute spinal cord injury (< 1 month) Prophylaxis Regimen: Total Risk Factor Score Risk Level Prophylaxis Regimen 0-1 Low Early ambulation 2 Moderate Order ONE of the following: *Sequential Compression Device (SCD) *Heparin 5000 units SQ BID 3-4 Higher Order ONE of the following medications: *Heparin 5000 units SQ TID *Enoxaparin/Lovenox 40 mg SQ daily (WT < 150 kg, CrCl > 30 mL/min) *Enoxaparin/Lovenox 30 mg SQ daily (WT < 150 kg, CrCl > 10-29 mL/min) *Enoxaparin/Lovenox 30 mg SQ BID (WT < 150 kg, CrCl > 30 mL/min) AND/OR *Sequential Compression Device (SCD) 5 or more Highest Order ONE of the following medications: *Heparin 5000 units SQ TID (Preferred with Epidurals) *Enoxaparin/Lovenox 40 mg SQ daily (WT < 150 kg, CrCl > 30 mL/min) *Enoxaparin/Lovenox 30 mg SQ daily (WT < 150 kg, CrCl > 10-29 mL/min) *Enoxaparin/Lovenox 30 mg SQ BID (WT < 150 kg, CrCl > 30 mL/min) AND *Sequential Compression Device (SCD) Assessment and Plan - Assessment (1) Enterocutaneous fistula Code(s): K63.2 - Fistula of intestine Status: Acute Plan: 62 year old male with enterocutaneous fistula; nausea/vomiting; elevated WBC -Restart IV antibiotics---Levaquin/Flagyl -IVF -Plan for vascular access to place PICC to start TPN tomorrow -Regular diet as tolerated with Boost/Ensure -OOB as tolerated -Replace Ostomy appliance -Routine accordion drain care - Plan I personally evaluated the patient in room C 31. He has had rolling gas type pains on and off the can get pretty severe. He had nausea with emesis of watery fluid with a bile taste in the taste of his medications in the emesis. He was very concerned and came to the ER. He was evaluated by the emergency department physician and given Reglan and IV fluids and seemed to be improving. Upon my evaluation the patient was a little reluctant to go home given the recent difficulty had at home. Abdominal exam demonstrated the erythema and induration about 4 x 6 cm in size between the fistula bag in the percutaneous drain. Had brownish liquid of may be 5 cc in the accordion drain. Plan as in Anai Arellano's note. Hopeful for improvement with IV antibiotics parenteral nutrition plus oral nutrition and hopeful decrease of the erythema and induration. Patient is high risk surgical patient for a difficult operative exploration. Discussed in detail with the patient is the potential etiologies of his the enterocutaneous fistula including inflammatory versus cancer. The exam, history, and the medical decision-making described in the above note were completed with the assistance of the mid-level provider. I reviewed and agree with the findings presented. I attest that I had a [id number] encounter with the patient on the same day, and personally performed and documented my assessment and findings in the medical record. Discussed Condition With: Dr. Sixto Chapman
[2018-02-11] MEDS: Levofloxacin 500 mg Premix Inj 500 MG/100 ML PIGGYBACK IV.SIG SCH (17:52)
[2018-02-11] MEDS: Sod Chloride 0.9% Inj 1,000 ML IV.CONT SCH (18:55)
[2018-02-11] MEDS: Senna/Docusate Sodium 8.6/50 MG Tablet PO SCH (22:15)
[2018-02-12] MEDS: Sod Chloride 0.9% Inj 1,000 ML IV.CONT SCH ×3 (02:41→15:31)
--- NOTE | 2018-02-12 07:11 | P.PNGS ---
Subjective Interval history: Resting in bed No issues overnight Wants to try a biscuit with honey with Boost for breakfast Physical Exam Vital signs: Vital Signs 02/11/18 10:53 02/11/18 11:19 02/11/18 17:31 Temperature 97.8 F 98.7 F Pulse Rate 97 H 90 88 Respiratory Rate 18 16 17 Blood Pressure 125/82 124/82 Pulse Oximetry 98 96 94 L 02/11/18 18:08 02/11/18 22:16 02/12/18 02:07 Temperature 98.6 F Pulse Rate 82 88 91 H Respiratory Rate 16 16 16 Blood Pressure 124/82 108/70 110/92 H Pulse Oximetry 95 95 95 02/12/18 02:24 Temperature 98.4 F Pulse Rate 82 Respiratory Rate 18 Blood Pressure 106/73 Pulse Oximetry 96 Intake & Output 02/11/18 02/12/18 02/12/18 18:59 06:59 18:59 Intake Total 1200 / 1200 1580 / 1580 Output Total 290 / 290 Balance 1200 / 1200 1290 / 1290 Weight 65.317 kg 63.2 kg Intake: IV 1200 / 1200 1100 / 1100 NS Inj 1,000 ML @ 125 mls/hr IV 1000 / 1000 1000 / 1000 .CONT .Q8H SHONNA Rx#:[id number] Levaquin 500 mg Premix Inj 500 100 / 100 mg In 100 ml @ 100 mls/hr IV. SIG Q24H SHONNA Rx#:[id number] Flagyl 500 MG Inj 100 ML @ 100 100 / 100 100 / 100 mls/hr IV.SIG Q8H SHONNA Rx#: [id number] Oral 480 / 480 Output: Urine 250 / 250 Wound Drainage 40 / 40 Anterior Medial Abdomen 10 / 10 Right Upper Anterior 30 / 30 Other: # Voids 2 Date of Last Bowel Movement 02/11/18 Weight On Admission 63.2 kg Narrative: Alert and awake Abd: Midline ostomy appliance in place---- thin brown liquid in bag; IR placed drain with thin brown drainage No edema Results - Labs 02/11/18 16:22 02/11/18 16:22 Laboratory Results - last 24 hr 02/11/18 02/11/18 02/11/18 16:22 16:22 16:22 WBC 12.8 H RBC 4.54 Hgb 12.0 L Hct 37.6 L MCV 82.8 MCH 26.4 L MCHC 31.9 L RDW 14.1 Plt Count 596 H MPV 5.6 L PT 11.3 INR 1.1 Sodium 138 Potassium 4.2 Chloride 100 Carbon Dioxide 28.5 Anion Gap 10 BUN 16 Creatinine 0.82 Estimated GFR Greater than 89 Random Glucose 97 Calcium 8.2 L Assessment and Plan - Assessment (1) Enterocutaneous fistula Code(s): K63.2 - Fistula of intestine Status: Acute Plan: 62 year old male with enterocutaneous fistula; nausea/vomiting; elevated WBC -Continue Levaquin/Flagyl -IVF---DC to 75 cc/hr -Vascular access to place PICC -start TPN tonight---orders faxed to Pharmacy this morning -Regular diet as tolerated with Boost/Ensure -OOB as tolerated -Continue Ostomy appliance -Routine accordion drain care - Plan I personally evaluated the patient in room 1725 this morning at 7:50 AM. The patient was able to rest through the night. He was just up walking the halls. He still has some tenderness between the fistula bag and the fistula drain. He had no fevers overnight and remained hemodynamically stable. The erythema and induration between the fistula bag and the fistula drain appears to have slightly decreased in severity. He is thread cutter tender there but less so. The remainder of his abdomen is soft and nondistended. In the fistula bag there is probably 50-75 cc of light brown liquid drainage consistent with enteric contents. Assessment enterocutaneous fistula Plan is to supplement nutrition by placing PICC line and giving TPN. Continue oral intake as tolerated to try and maximize protein and calorie nourishment. Follow fistula drainage. If it gradually decreases consider nonoperative therapy. If it persists we will plan operative exploration. Continue intravenous antibiotics. The patient understands the plan and is in agreement.
[2018-02-12] MEDS: Senna/Docusate Sodium 8.6/50 MG Tablet PO SCH ×2 (08:02→20:48)
--- NOTE | 2018-02-12 11:18 | P.DIET ---
Nutritional Evaluation Type of nutrition evaluation: initial Nutrition consult regarding: TPN/PPN Nutrition screening: [facility] [place] Objective - Diagnosis Enterocutaneous Fistula - Objective Body Mass Index: 22.5 % IBW: 98 (IBW = 142#) Body Weight Used for Calculations: Actual (63.2 kg) Energy Needs - Lower Range (kCal/kg): 28 Energy Needs - Upper Range (kCal/kg): 32 Lower Limit kCal/kg (kCals): 1,770 Upper Limit kCal/kg (kCals): 2,022 Lower Limit Protein Factor (Grams per Kg): 1.0 Upper Limit Protein Factor (Grams per Kg): 1.5 Lower Protein Needs (Protein): 63 Upper Protein Needs (Protein): 95 Dietitian Reviewed in Medical Record: Current diet, Curent medications, Intake & Output, Labs, Medical history, TPN/PPN Diet Order: Regular with Ensure Original bid Assessment Assessment: Pt is at high nutrition risk 2' to dx and need for nutrition support. To meet needs with TPN/lipids, recommend Clinimix E 5/20 @ 75 mls/hr with 20% lipids 250 mls/day to provide a total of 2084 kcals and 90 gms protein. Pt is taking small amounts of po. Request TG weekly while on TPN and close monitoring of glucose when TPN is initiated. RD following. Recommendations: TPN: Clinimix E 5/20 @ 75 mls/hr LIPIDS: 20% lipids 250 mls/day Dietitian to Monitor: Lab values, Supplement acceptance, Intake & Output, Diet tolerance, TPN/PPN tolerance, Weight change, PO Intake, Medical course
[2018-02-12] MEDS: Levofloxacin 500 mg Premix Inj 500 MG/100 ML PIGGYBACK IV.SIG SCH (17:25)
--- NOTE | 2018-02-12 19:21 | CT ---
EXAM DATE: 02/12/2018 6:24 PM EDT AGE/SEX: 62 years / Male INDICATIONS: follow progress of abscess drain CLINICAL DATA: This is the patient's initial encounter. Patient reports that signs and symptoms have been present for 1 day and indicates a pain score of 3/10. MEDICAL/SURGICAL HISTORY: . Fistula Appendectomy. Cholecystectomy. Hernia repair RADIATION DOSE: 11.89 CTDI (mGy) COMPARISON: [facility] [place], CT ABDOMEN & PELVIS W CONTRAST, 02/05/2018. . TECHNIQUE: Multiple contiguous axial images were obtained through the abdomen. Images were obtained using multiple row detector helical technique. Using automated exposure control and adjustment of the mA and/or kV according to patient size, radiation dose was kept as low as reasonably achievable to o btain optimal diagnostic quality images. DICOM format image data is available electronically for rev iew and comparison. FINDINGS: A drainage catheter is present in the right mid abdomen abdominal wall. There is an approximately 5.3 x 8.4 cm ill-defined fluid and air collection near the drainage catheter which is not any smaller in the interim, actually a little larger. More medial, near the midline and apparently draining to the umbilicus is an ill-defined air and fluid collection within the anterior peritoneal space and measure s approximately 5.5 x 9.0 cm in greatest transaxial dimension, also slightly larger. There are adjace nt loops of distended small bowel involving the jejunum and proximal ileum, increased. Some of these loops measure up to 5.4 cm currently. I believe the terminal ileum is decompressed. The colon is defi nitely decompressed. No acute abnormality seen of the solid organs. 3 mm nonobstructing stone of the right mid zone and a few benign-appearing cysts of the left kidney are seen. Trace atelectasis seen of the visualized lung bases. CONCLUSION: 1. Interim placement of a right upper quadrant abdominal wall drainage catheter. There is a persiste nt ill-defined air and fluid collection at this location that is similar to slightly larger in the in terim. 2. An additional ill-defined pocket of air and fluid in the anterior peritoneal space at the level o f the umbilicus also appears larger and appears to be draining near the umbilicus, presumably a fistu la tract. 3. Increased distention of small bowel with apparent decompression of the ileum and of concern for o bstruction. The colon is decompressed. 4. Trace atelectasis and tiny pleural effusions of the visualized lung bases. Electronically signed by: Mark Gonsales MD 02/12/2018 7:19 PM EDT
[2018-02-12] MEDS: Multivitamin Inj 10 ML, Folic Acid Inj 1 MG in AA 5%/D20W - Electrolytes 2,000 ML IV.SIG SCH (20:48)
[2018-02-13] MEDS: Heparin Central Flush 100 UNIT/ML 5 ML Vial IV.FLUSH SCH (08:18)
[2018-02-13] MEDS: Senna/Docusate Sodium 8.6/50 MG Tablet PO SCH ×2 (08:22→21:35)
--- NOTE | 2018-02-13 11:49 | P.PNGS ---
Subjective Interval history: Going for IR drain exchange today Otherwise no complaints Physical Exam Vital signs: Vital Signs 02/12/18 12:00 02/12/18 16:00 02/12/18 19:51 Temperature 99.4 F 100.4 F H 101.0 F H Pulse Rate 94 H 103 H 104 H Respiratory Rate 17 16 16 Blood Pressure 104/70 101/63 107/60 Pulse Oximetry 96 94 L 93 L 02/13/18 01:00 Temperature 98.6 F Pulse Rate 94 H Respiratory Rate 18 Blood Pressure 116/62 Pulse Oximetry 94 L Intake & Output 02/12/18 02/13/18 02/13/18 18:59 06:59 18:59 Intake Total 1800 / 1800 1150 / 1150 100 / 100 Output Total 50 / 50 920 / 920 400 / 400 Balance 1750 / 1750 230 / 230 -300 / -300 Intake: IV 1800 / 1800 1150 / 1150 100 / 100 NS Inj 1,000 ML @ 75 mls/hr IV. 1500 / 1500 800 / 800 CONT .[id number] SHONNA Rx#:[id number] Intralipid 20% Inj 250 ML @ 31. 250 / 250 25 mls/hr IV.SIG Q24H SHONNA Rx#: [id number] Levaquin 500 mg Premix Inj 500 100 / 100 mg In 100 ml @ 100 mls/hr IV. SIG Q24H SHONNA Rx#:[id number] Flagyl 500 MG Inj 100 ML @ 100 200 / 200 100 / 100 100 / 100 mls/hr IV.SIG Q8H SHONNA Rx#: [id number] Output: Urine 900 / 900 200 / 200 Wound Drainage 50 / 50 20 / 20 200 / 200 Anterior Medial Abdomen 50 / 50 20 / 20 Right Upper Anterior 0 / 0 200 / 200 Other: # Voids 3 Date of Last Bowel Movement 02/11/18 02/12/18 Narrative: Alert and awake Abd: ostomy appliance in place with minimal thin brown drainage; IR placed drain with gauze---just changed recently---area between ostomy appliance and IR placed drain less indurated Results - Labs 02/14/18 04:18 02/14/18 04:18 - Imaging Imaging: ITS Impressions Abdomen/Pelvis CT 02/12/18 00:00 CONCLUSION: 1. Interim placement of a right upper quadrant abdominal wall drainage catheter. There is a persistent ill-defined air and fluid collection at this location that is similar to slightly larger in the interim. 2. An additional ill-defined pocket of air and fluid in the anterior peritoneal space at the level of the umbilicus also appears larger and appears to be draining near the umbilicus, presumably a fistula tract. 3. Increased distention of small bowel with apparent decompression of the ileum and of concern for obstruction. The colon is decompressed. 4. Trace atelectasis and tiny pleural effusions of the visualized lung bases. Assessment and Plan - Assessment (1) Enterocutaneous fistula Code(s): K63.2 - Fistula of intestine Status: Acute Plan: 62 year old male with enterocutaneous fistula; nausea/vomiting; elevated WBC -Continue Levaquin/Flagyl -Continue TPN -Regular diet as tolerated with Boost/Ensure -OOB as tolerated -Continue Ostomy appliance -Routine accordion drain care - Plan I personally evaluated the patient in room 17. He was getting ready to go down to imaging to have his drain replaced with a larger drain in position and more appropriately to drain the area of concern. Overall he remains stable. The exam, history, and the medical decision-making described in the above note were completed with the assistance of the mid-level provider. I reviewed and agree with the findings presented. I attest that I had a [id number] encounter with the patient on the same day, and personally performed and documented my assessment and findings in the medical record.
[2018-02-13] MEDS ORDERED: fentaNYL Citrate Inj 100 MCG/2 ML Ampul ONE (14:08)
--- NOTE | 2018-02-13 16:06 | P.RAD ---
Post Procedure Progress Note - Pre Procedure Diagnosis (1) Enterocutaneous fistula (2) Abdominal wall abscess - Post Procedure Diagnosis (1) Enterocutaneous fistula (2) Abdominal wall abscess - Procedure Information Procedure Date: 02/13/18 Supervising Radiologist: Carlos Mathews Jr, MD Proceduralist/Assist: Clemencia Whitehead Anesthesia: Conscious Sedation - Plan of Activity Patient to Unit: ROPU Patient Condition: Good See PACS Report for procedural detail/treatment. Drainage Procedure Fluoroscopy right Abscess Drainage Exchange Urdu Tube Size: 12 Drainage: [place] drainage Fluid Description: Bloody Findings: Current drain not draining well. CT shows residual fluid. Replaced drain with larger drain (12F). Tried to manipulate drain more inferiorly towards bulk of fluid but this was unsuccessful likely secondary to loculation.
--- NOTE | 2018-02-13 17:01 | IR ---
EXAM DATE: 02/13/2018 12:00 AM EDT AGE/SEX: 62 years / Male INDICATIONS: Patient with history of Enterocutaneous Fistula presents with abscess drain in need of exchange. CLINICAL DATA: This is the patient's initial encounter. Patient reports that signs and symptoms have been present for 2 days and indicates a pain score of 1/10. MEDICAL/SURGICAL HISTORY: . Enterocutaneous Fistula . Appendectomy, Achilles tendon repair, Ch olecystectomy, Hernia Repair. COMPARISON: No prior exams available for comparison. FLUORO TIME (min): 0.85 IMAGE SERIES: 2 MEDICATION(S): 2 mg midazolam (Versed) IV 100 mcg fentanyl (Sublimaze) IV . . DEVICE(S): 12 Hebrew locking pigtail Expel MPD Catheter. PROCEDURE : 1. Fluoroscopically guided tube exchange. 2. Conscious sedation with continuous EKG and oximetry monitoring. The patient has an existing 10 Hebrew drainage catheter within the anterior abdominal wall on the rig ht which is not draining. Fluid is draining around the tube. CT shows residual fluid around the drain age catheter. Replacement with upsizing is planned. The risks, benefits and alternatives to the proce dure were explained and verbal and written consent was obtained. The site was prepped in sterile fas hion. Full sterile technique was used, including cap, mask, sterile gloves and gown and a large ster ile sheet. Hand hygiene and 2% chlorhexidine and/or betadine/alcohol prep was utilized per protocol for cutaneous antisepsis. With fluoroscopic guidance the previously placed tube was removed over a wire. The wire was coiled wi thin the anterior abdominal wall fluid collection to try and break up any small loculations. A new 12 Hebrew drainage catheter was passed over the wire. I attempted to pass the tube inferiorly towards t he bulk of the residual fluid but this was unsuccessful. Aspiration yielded 5 mL of turbid fluid. Pos t procedure image demonstrates satisfactory position of the tube. The catheter was sutured in place and a Percu-Stay was applied. Conscious sedation was performed with the prescribed dosages and duration as above in the presence of an independent trained radiology nurse to assist in the monitoring of the patient. EKG and oximetry remained stable throughout the procedure. The patient tolerated the procedure well and there were no complications. The patient was sent to post anesthesia recovery in stable condition. CONCLUSION: 1. Uncomplicated tube exchange as above. The tube was upsized to try and aid in evacuation of the re sidual fluid. I attempted to manipulate the tube towards the bulk of the fluid slightly more inferior ly within the abdominal wall but this was unsuccessful. If this tube fails to decompress that compone nt of the fluid consideration may be made to a second drainage catheter. Electronically signed by: Carlos Mathews MD 02/13/2018 5:00 PM EDT
[2018-02-13] MEDS: Levofloxacin 500 mg Premix Inj 500 MG/100 ML PIGGYBACK IV.SIG SCH (17:44)
[2018-02-13] MEDS: Multivitamin Inj 10 ML, Folic Acid Inj 1 MG in AA 5%/D20W - Electrolytes 2,000 ML IV.SIG SCH (21:35)
[2018-02-14 05:25] LABS: Baso # (Auto) 0.1 th/mm3 (0.0-0.2); Baso % (Auto) 0.4 % (0.0-2.0); Eos # (Auto) 0.2 th/mm3 (0.0-0.4); Eos % (Auto) 1.6 % (0.0-4.0); Hematocrit 31.6 % (39.0-51.0); Hemoglobin 10.4 gm/dL (13.0-17.0); Mean Corpuscular HGB Conc 32.8 % (32.0-36.0); Mean Corpuscular Hemoglobin 26.8 pg (27.0-34.0); Mean Corpuscular Volume 81.9 fL (80.0-100.0); Mean Platelet Volume 5.8 fL (7.0-11.0); Mono # (Auto) 1.2 th/mm3 (0.0-0.9); Mono % (Auto) 8.5 % (0.0-8.0); Neut % (Auto) 75.5 % (16.0-70.0); Platelet Count 432 th/mm3 (150-450); Red Blood Count 3.86 mil/mm3 (4.50-5.90); Red Cell Distribution Width 14.5 % (11.6-17.2); White Blood Count 14.6 th/mm3 (4.0-11.0)
[2018-02-14 05:39] LABS: Anion Gap 10 meq/L (5-15); Blood Urea Nitrogen 14 mg/dL (7-18); Calcium 7.6 mg/dL (8.5-10.1); Carbon Dioxide 27.6 meq/L (21.0-32.0); Chloride 103 meq/L (98-107); Glomerular Filtration Rate Greater Than 89 mL/min (>89); Glucose,Random 108 mg/dL (74-106); Potassium 3.8 meq/L (3.5-5.1); Sodium 141 meq/L (136-145)
[2018-02-14] MEDS: Heparin Central Flush 100 UNIT/ML 5 ML Vial IV.FLUSH SCH (09:16)
[2018-02-14] MEDS: Senna/Docusate Sodium 8.6/50 MG Tablet PO SCH ×2 (09:16→20:27)
--- NOTE | 2018-02-14 09:19 | P.PNGS ---
Subjective Patient reports: feels better (Patient feels better this morning. He is passing flatus but has not had a bowel movement yet. Since the larger drain was placed yesterday he has noted decrease in the swelling and his discomfort on the abdominal wall.) Physical Exam Vital signs: Vital Signs 02/13/18 12:00 02/13/18 15:00 02/13/18 15:15 Temperature 98.1 F 98.6 F 98.4 F Pulse Rate 76 79 70 Respiratory Rate 16 18 18 Blood Pressure 99/62 L 96/66 L 96/66 L Pulse Oximetry 96 91 L 91 L 02/13/18 16:00 02/13/18 20:00 02/14/18 00:00 Temperature 97.6 F 98.8 F 98.1 F Pulse Rate 81 86 84 Respiratory Rate 16 17 17 Blood Pressure 112/73 105/67 111/70 Pulse Oximetry 98 96 94 L 02/14/18 08:00 Temperature 97.7 F Pulse Rate 79 Respiratory Rate 18 Blood Pressure 113/74 Pulse Oximetry 94 L Intake & Output 02/13/18 02/14/18 02/14/18 18:59 06:59 18:59 Intake Total 300 / 300 2360.2 / 2360.2 Output Total 1400 / 1400 785 / 785 Balance -1100 / -1100 1575.2 / 1575.2 Weight 63.5 kg Intake: IV 300 / 300 2360.2 / 2360.2 Intralipid 20% Inj 250 ML @ 31. 250 / 250 25 mls/hr IV.SIG Q24H SHONNA Rx#: [id number] Levaquin 500 mg Premix Inj 500 100 / 100 mg In 100 ml @ 100 mls/hr IV. SIG Q24H SHONNA Rx#:[id number] MVI-12 Inj 10 ML Folvite Inj 1 2009.2 / 2009.2 MG In Clinimix E 5%/D20W Inj 2, 000 ML @ 83 mls/hr IV.SIG Q24H SHONNA Rx#:[id number] Flagyl 500 MG Inj 100 ML @ 100 200 / 200 100 / 100 mls/hr IV.SIG Q8H SHONNA Rx#: [id number] Output: Urine 1200 / 1200 725 / 725 Wound Drainage 200 / 200 60 / 60 Right Upper Anterior 200 / 200 60 / 60 Other: Date of Last Bowel Movement 02/12/18 # Bowel Movements 0 Narrative: He looks healthy. He is commented he is gained some weight since he has been here in the hospital and feels better about that. The ostomy bag continues to drain a light brown greenish bowel content. There is may be 30 cc in the bag. The larger drain has a dry dressing around it and it has may be 5-10 cc of similar drainage. The erythematous indurated area between the drain and the enterocutaneous fistula exit site appears less erythematous and less indurated than yesterday. His extremities are nonedematous. Results - Labs 02/14/18 04:18 02/14/18 04:18 Laboratory Results - last 24 hr 02/14/18 02/14/18 04:18 04:18 WBC 14.6 H RBC 3.86 L Hgb 10.4 L Hct 31.6 L MCV 81.9 MCH 26.8 L MCHC 32.8 RDW 14.5 Plt Count 432 MPV 5.8 L Neut % (Auto) 75.5 H Lymph % (Auto) 14.0 [place] % (Auto) 8.5 H Eos % (Auto) 1.6 Baso % (Auto) 0.4 Neut # (Auto) 11.0 H Lymph # (Auto) 2.0 [place] # (Auto) 1.2 H Eos # (Auto) 0.2 Baso # (Auto) 0.1 WBC Differential . Differential Comment Auto diff final Sodium 141 Potassium 3.8 Chloride 103 Carbon Dioxide 27.6 Anion Gap 10 BUN 14 Creatinine 0.67 Estimated GFR Greater than 89 Random Glucose 108 H Calcium 7.6 L - Imaging Imaging: ITS Impressions Abdomen/Pelvis CT 02/12/18 00:00 CONCLUSION: 1. Interim placement of a right upper quadrant abdominal wall drainage catheter. There is a persistent ill-defined air and fluid collection at this location that is similar to slightly larger in the interim. 2. An additional ill-defined pocket of air and fluid in the anterior peritoneal space at the level of the umbilicus also appears larger and appears to be draining near the umbilicus, presumably a fistula tract. 3. Increased distention of small bowel with apparent decompression of the ileum and of concern for obstruction. The colon is decompressed. 4. Trace atelectasis and tiny pleural effusions of the visualized lung bases. Catheter Change 02/13/18 00:00 CONCLUSION: 1. Uncomplicated tube exchange as above. The tube was upsized to try and aid in evacuation of the residual fluid. I attempted to manipulate the tube towards the bulk of the fluid slightly more inferiorly within the abdominal wall but this was unsuccessful. If this tube fails to decompress that component of the fluid consideration may be made to a second drainage catheter. Assessment and Plan - Assessment (1) Enterocutaneous fistula Code(s): K63.2 - Fistula of intestine Status: Acute Plan: 62 year old male with enterocutaneous fistula; nausea/vomiting; elevated WBC -Continue Levaquin/Flagyl -Continue TPN -Regular diet as tolerated with Boost/Ensure -OOB as tolerated -Continue Ostomy appliance -Routine accordion drain care - Plan I personally evaluated the patient in room 1725 this morning at 7:50 AM. The patient was able to rest through the night. He was just up walking the halls. He still has some tenderness between the fistula bag and the fistula drain. He had no fevers overnight and remained hemodynamically stable. The erythema and induration between the fistula bag and the fistula drain appears to have slightly decreased in severity. 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 The remainder of his abdomen is soft and nondistended. In the fistula bag there is probably 50-75 cc of light brown liquid drainage consistent with enteric contents. Assessment enterocutaneous fistula Plan is to supplement nutrition by placing PICC line and giving TPN. Continue oral intake as tolerated to try and maximize protein and calorie nourishment. Follow fistula drainage. If it gradually decreases consider nonoperative therapy. If it persists we will plan operative exploration. Continue intravenous antibiotics. The patient understands the plan and is in agreement. 02/14/2018. Enterocutaneous fistula. Plan continue TPN and oral diet. Increased size and drain has helped with drainage and erythema and induration of abdominal wall. Continue IV antibiotics. Hopeful that fistula drainage continues to decrease. Hopeful that erythema and induration resolves with adequate drainage and antibiotics. Potential exploration of the abdominal cavity next week. Patient understands the plan and is in agreement.
[2018-02-14] MEDS: Levofloxacin 500 mg Premix Inj 500 MG/100 ML PIGGYBACK IV.SIG SCH (17:59)
[2018-02-14] MEDS: Multivitamin Inj 10 ML, Folic Acid Inj 1 MG in AA 5%/D20W - Electrolytes 2,000 ML IV.SIG SCH (20:26)
[2018-02-15 07:01] LABS: Baso % (Auto) 0.3 % (0.0-2.0); Eos # (Auto) 0.3 th/mm3 (0.0-0.4); Eos % (Auto) 3.1 % (0.0-4.0); Hematocrit 30.8 % (39.0-51.0); Hemoglobin 10.1 gm/dL (13.0-17.0); Lymph # (Auto) 1.7 th/mm3 (1.0-4.8); Lymph % (Auto) 17.3 % (9.0-44.0); Mean Corpuscular HGB Conc 32.9 % (32.0-36.0); Mean Corpuscular Hemoglobin 27.3 pg (27.0-34.0); Mean Corpuscular Volume 82.8 fL (80.0-100.0); Mean Platelet Volume 5.6 fL (7.0-11.0); Mono # (Auto) 1.1 th/mm3 (0.0-0.9); Mono % (Auto) 11.3 % (0.0-8.0); Neut # (Auto) 6.6 th/mm3 (1.8-7.7); Platelet Count 390 th/mm3 (150-450); Red Blood Count 3.72 mil/mm3 (4.50-5.90); Red Cell Distribution Width 14.9 % (11.6-17.2); White Blood Count 9.7 th/mm3 (4.0-11.0)
[2018-02-15 07:30] LABS: Anion Gap 8 meq/L (5-15); Blood Urea Nitrogen 11 mg/dL (7-18); Calcium 8.1 mg/dL (8.5-10.1); Carbon Dioxide 25.9 meq/L (21.0-32.0); Chloride 108 meq/L (98-107); Glomerular Filtration Rate Greater Than 89 mL/min (>89); Glucose,Random 117 mg/dL (74-106); Potassium 3.8 meq/L (3.5-5.1); Sodium 142 meq/L (136-145)
--- NOTE | 2018-02-15 09:51 | P.PNGS ---
Subjective Patient reports: feels better (An episode of about a minute where his vision decreased to the base. This passed without any sequelae. He has not had another episode like this. He is eating and drinking small amounts at a time and he had a bowel movement. He continues to pass urine normally. He feels like his abdominal wall fluid collection is decreased in size and is less tender.) Physical Exam Vital signs: Vital Signs 02/14/18 12:00 02/14/18 16:00 02/14/18 20:00 Temperature 97.9 F 98.1 F 97.5 F L Pulse Rate 82 91 H 110 H Respiratory Rate 18 18 18 Blood Pressure 115/71 112/73 133/85 Pulse Oximetry 94 L 94 L 97 02/15/18 00:00 02/15/18 04:00 02/15/18 08:00 Temperature 98.8 F 98.1 F 98.3 F Pulse Rate 81 79 81 Respiratory Rate 18 18 16 Blood Pressure 113/71 105/67 110/68 Pulse Oximetry 95 94 L 94 L Intake & Output 02/14/18 02/15/18 02/15/18 18:59 06:59 18:59 Intake Total 1050 / 1050 2210.2 / 2210.2 250 / 250 Output Total 105 / 105 290 / 290 Balance 945 / 945 1920.2 / 1920.2 250 / 250 Weight 62.9 kg Intake: IV 200 / 200 2210.2 / 2210.2 250 / 250 Intralipid 20% Inj 250 ML @ 31. 250 / 250 25 mls/hr IV.SIG Q24H SHONNA Rx#: [id number] Levaquin 500 mg Premix Inj 500 100 / 100 mg In 100 ml @ 100 mls/hr IV. SIG Q24H SHONNA Rx#:[id number] MVI-12 Inj 10 ML Folvite Inj 1 2009.2 / 2009.2 MG In Clinimix E 5%/D20W Inj 2, 000 ML @ 83 mls/hr IV.SIG Q24H SHONNA Rx#:[id number] Flagyl 500 MG Inj 100 ML @ 100 200 / 200 100 / 100 mls/hr IV.SIG Q8H SHONNA Rx#: [id number] Oral 850 / 850 Output: Urine 250 / 250 Stool 35 / 35 Wound Drainage 70 / 70 40 / 40 Right Upper Anterior 70 / 70 40 / 40 Other: # Voids 6 Date of Last Bowel Movement 02/14/18 02/14/18 # Bowel Movements 1 Narrative: He looks well. He sitting up in the chair by the window. His abdominal wall erythema and induration is significantly decreased. The drain and the fistula bag continue to drain a brownish light liquid. His abdominal exam overall is benign. His extremities are nonedematous. Results - Labs 02/15/18 06:20 02/15/18 06:20 Laboratory Results - last 24 hr 02/15/18 02/15/18 06:20 06:20 WBC 9.7 RBC 3.72 L Hgb 10.1 L Hct 30.8 L MCV 82.8 MCH 27.3 MCHC 32.9 RDW 14.9 Plt Count 390 MPV 5.6 L Neut % (Auto) 68.0 Lymph % (Auto) 17.3 [place] % (Auto) 11.3 H Eos % (Auto) 3.1 Baso % (Auto) 0.3 Neut # (Auto) 6.6 Lymph # (Auto) 1.7 [place] # (Auto) 1.1 H Eos # (Auto) 0.3 Baso # (Auto) 0.0 WBC Differential . Differential Comment Auto diff final Sodium 142 Potassium 3.8 Chloride 108 H Carbon Dioxide 25.9 Anion Gap 8 BUN 11 Creatinine 0.56 L Estimated GFR Greater than 89 Random Glucose 117 H Calcium 8.1 L - Imaging Imaging: ITS Impressions Abdomen/Pelvis CT 02/12/18 00:00 CONCLUSION: 1. Interim placement of a right upper quadrant abdominal wall drainage catheter. There is a persistent ill-defined air and fluid collection at this location that is similar to slightly larger in the interim. 2. An additional ill-defined pocket of air and fluid in the anterior peritoneal space at the level of the umbilicus also appears larger and appears to be draining near the umbilicus, presumably a fistula tract. 3. Increased distention of small bowel with apparent decompression of the ileum and of concern for obstruction. The colon is decompressed. 4. Trace atelectasis and tiny pleural effusions of the visualized lung bases. Catheter Change 02/13/18 00:00 CONCLUSION: 1. Uncomplicated tube exchange as above. The tube was upsized to try and aid in evacuation of the residual fluid. I attempted to manipulate the tube towards the bulk of the fluid slightly more inferiorly within the abdominal wall but this was unsuccessful. If this tube fails to decompress that component of the fluid consideration may be made to a second drainage catheter. 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 He was getting ready to go down to imaging to have his drain replaced with a larger drain in position and more appropriately to drain the area of concern. Overall he remains stable. The exam, history, and the medical decision-making described in the above note were completed with the assistance of the mid-level provider. I reviewed and agree with the findings presented. I attest that I had a [id number] encounter with the patient on the same day, and personally performed and documented my assessment and findings in the medical record. February 15, 2018 I personally evaluated the patient in room 1725. He continues to undergo treatment for enterocutaneous fistula of unknown etiology. Planning continuing total parenteral nutrition and IV antibiotics. He is continuing to eat. He is continuing to walk. He is showing signs of improvement. His white blood cell count is now within the normal range. He is mildly anemic. Plan is continue supportive therapy at this point. Make a determination on whether or not to pursue operative intervention later this week. Patient understands and is agreeable with the plan.
[2018-02-15] MEDS: Senna/Docusate Sodium 8.6/50 MG Tablet PO SCH ×2 (10:13→21:22)
[2018-02-15] MEDS: Heparin Central Flush 100 UNIT/ML 5 ML Vial IV.FLUSH SCH (10:13)
[2018-02-15] MEDS: Levofloxacin 500 mg Premix Inj 500 MG/100 ML PIGGYBACK IV.SIG SCH (17:52)
[2018-02-15] MEDS: Multivitamin Inj 10 ML, Folic Acid Inj 1 MG in AA 5%/D20W - Electrolytes 2,000 ML IV.SIG SCH (21:22)
[2018-02-16] MEDS: Senna/Docusate Sodium 8.6/50 MG Tablet PO SCH ×2 (08:23→20:24)
[2018-02-16] MEDS: Heparin Central Flush 100 UNIT/ML 5 ML Vial IV.FLUSH SCH (08:23)
--- NOTE | 2018-02-16 14:24 | P.PNGS ---
Subjective Patient reports: feels better (Continues to feel little better each day. Has a reasonable appetite. Is still sipping on the Ensure. He has not had a bowel movement since yesterday. He is voiding normal amounts.) Physical Exam Vital signs: Vital Signs 02/15/18 16:00 02/15/18 20:00 02/16/18 00:00 Temperature 98.2 F 99.1 F 98.5 F Pulse Rate 86 86 80 Respiratory Rate 16 18 18 Blood Pressure 108/68 116/72 112/76 Pulse Oximetry 95 95 95 02/16/18 12:00 Temperature 97.9 F Pulse Rate 82 Respiratory Rate 16 Blood Pressure 113/70 Pulse Oximetry 94 L Intake & Output 02/15/18 02/16/18 02/16/18 18:59 06:59 18:59 Intake Total 2350 / 2350 2360.2 / 2360.2 100 / 100 Output Total 1200 / 1200 1325 / 1325 Balance 1150 / 1150 1035.2 / 1035.2 100 / 100 Weight 62.7 kg Intake: IV 550 / 550 2360.2 / 2360.2 100 / 100 Intralipid 20% Inj 250 ML @ 31. 250 / 250 250 / 250 25 mls/hr IV.SIG Q24H SHONNA Rx#: [id number] Levaquin 500 mg Premix Inj 500 100 / 100 mg In 100 ml @ 100 mls/hr IV. SIG Q24H SHONNA Rx#:[id number] MVI-12 Inj 10 ML Folvite Inj 1 2009.2 / 2010.2 MG In Clinimix E 5%/D20W Inj 2, 000 ML @ 83 mls/hr IV.SIG Q24H SHONNA Rx#:[id number] Flagyl 500 MG Inj 100 ML @ 100 200 / 200 100 / 100 100 / 100 mls/hr IV.SIG Q8H SHONNA Rx#: [id number] Oral 1800 / 1800 Output: Urine 1200 / 1200 1200 / 1200 Wound Drainage 125 / 125 Anterior Medial Abdomen 15 / 15 Right Upper Anterior 110 / 110 Other: Date of Last Bowel Movement 02/14/18 02/15/18 Narrative: Continues to have slight decrease in erythema and induration between midline fistula and drain. Drain has about 40 cc of light brown liquid drainage. Fistula drainage bag is pretty much empty. No significant abdominal tenderness to palpation. Extremities remain nonedematous. Results - Labs 02/15/18 06:20 02/15/18 06:20 - Imaging Imaging: ITS Impressions Abdomen/Pelvis CT 02/12/18 00:00 CONCLUSION: 1. Interim placement of a right upper quadrant abdominal wall drainage catheter. There is a persistent ill-defined air and fluid collection at this location that is similar to slightly larger in the interim. 2. An additional ill-defined pocket of air and fluid in the anterior peritoneal space at the level of the umbilicus also appears larger and appears to be draining near the umbilicus, presumably a fistula tract. 3. Increased distention of small bowel with apparent decompression of the ileum and of concern for obstruction. The colon is decompressed. 4. Trace atelectasis and tiny pleural effusions of the visualized lung bases. Catheter Change 02/13/18 00:00 CONCLUSION: 1. Uncomplicated tube exchange as above. The tube was upsized to try and aid in evacuation of the residual fluid. I attempted to manipulate the tube towards the bulk of the fluid slightly more inferiorly within the abdominal wall but this was unsuccessful. If this tube fails to decompress that component of the fluid consideration may be made to a second drainage catheter. 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 He was getting ready to go down to imaging to have his drain replaced with a larger drain in position and more appropriately to drain the area of concern. Overall he remains stable. The exam, history, and the medical decision-making described in the above note were completed with the assistance of the mid-level provider. I reviewed and agree with the findings presented. I attest that I had a [id number] encounter with the patient on the same day, and personally performed and documented my assessment and findings in the medical record. February 15, 2018 I personally evaluated the patient in room 1725. He continues to undergo treatment for enterocutaneous fistula of unknown etiology. Planning continuing total parenteral nutrition and IV antibiotics. He is continuing to eat. He is continuing to walk. He is showing signs of improvement. His white blood cell count is now within the normal range. He is mildly anemic. Plan is continue supportive therapy at this point. Make a determination on whether or not to pursue operative intervention later this week. Patient understands and is agreeable with the plan. February 16, 2018 Patient was seen in his room 1725. Antibiotics, TPN, conservative treatment for enterocutaneous fistula continues. Reports of drainage over 24 hours about 110 cc. Continue current therapy at this time. Reassess labs for nutritional status. Consideration for surgery versus discharge on oral antibiotics mid to end of this week. The patient understands and is agreeable to the plan.
[2018-02-16] MEDS: Levofloxacin 500 mg Premix Inj 500 MG/100 ML PIGGYBACK IV.SIG SCH (16:03)
[2018-02-16] MEDS: Multivitamin Inj 10 ML, Folic Acid Inj 1 MG in AA 5%/D20W - Electrolytes 2,000 ML IV.SIG SCH (20:24)
[2018-02-17] MEDS: Heparin Central Flush 100 UNIT/ML 5 ML Vial IV.FLUSH PRN ×2 (01:14→05:56)
[2018-02-17 06:15] LABS: Hematocrit 33.5 % (39.0-51.0); Hemoglobin 10.7 gm/dL (13.0-17.0); Mean Corpuscular HGB Conc 32.1 % (32.0-36.0); Mean Corpuscular Hemoglobin 26.8 pg (27.0-34.0); Mean Corpuscular Volume 83.5 fL (80.0-100.0); Mean Platelet Volume 5.7 fL (7.0-11.0); Platelet Count 372 th/mm3 (150-450); Red Blood Count 4.01 mil/mm3 (4.50-5.90); Red Cell Distribution Width 14.8 % (11.6-17.2); White Blood Count 9.5 th/mm3 (4.0-11.0)
[2018-02-17 06:39] LABS: Alanine Aminotransferase 14 U/L (12-78); Albumin 2.1 g/dL (3.4-5.0); Anion Gap 7 meq/L (5-15); Aspartate Aminotransferase 22 U/L (15-37); Blood Urea Nitrogen 15 mg/dL (7-18); Calcium 8.2 mg/dL (8.5-10.1); Chloride 107 meq/L (98-107); Glomerular Filtration Rate Greater Than 89 mL/min (>89); Glucose,Random 107 mg/dL (74-106); Sodium 142 meq/L (136-145)
[2018-02-17 06:43] LABS: Alkaline Phosphatase 52 U/L (45-117); Prealbumin 19 mg/dL (20-40); Total Protein 6.9 g/dL (6.4-8.2)
--- NOTE | 2018-02-17 08:30 | P.PNGS ---
Subjective Interval history: Doing well Continues to his laps around in the hallways several times a day Physical Exam Vital signs: Vital Signs 02/16/18 12:00 02/16/18 16:00 02/16/18 20:00 Temperature 97.9 F 98.0 F 97.6 F Pulse Rate 82 80 89 Respiratory Rate 16 16 16 Blood Pressure 113/70 109/70 110/70 Pulse Oximetry 94 L 96 95 02/17/18 00:00 Temperature 98.6 F Pulse Rate 77 Respiratory Rate 16 Blood Pressure 115/71 Pulse Oximetry 96 Intake & Output 02/16/18 02/17/18 02/17/18 18:59 06:59 18:59 Intake Total 1700 / 1700 2360.2 / 2360.2 Output Total 50 / 50 650 / 650 Balance 1650 / 1650 1710.2 / 1710.2 - Weight 62.1 kg Intake: IV 300 / 300 2360.2 / 2360.2 Intralipid 20% Inj 250 ML @ 31. 250 / 250 25 mls/hr IV.SIG Q24H SHONNA Rx#: [id number] Levaquin 500 mg Premix Inj 500 100 / 100 mg In 100 ml @ 100 mls/hr IV. SIG Q24H SHONNA Rx#:[id number] MVI-12 Inj 10 ML Folvite Inj 1 2009.2 / 2009.2 MG In Clinimix E 5%/D20W Inj 2, 000 ML @ 83 mls/hr IV.SIG Q24H SHONNA Rx#:[id number] Flagyl 500 MG Inj 100 ML @ 100 200 / 200 100 / 100 mls/hr IV.SIG Q8H SHONNA Rx#: [id number] Oral 1400 / 1400 Output: Urine 650 / 650 Wound Drainage 50 / 50 15 / 15 Right Upper Anterior 50 / 50 15 / 15 Other: # Voids 900 Narrative: Alert and awake Abd: IR placed drain with minimal output; Ostomy over fistula---also with minimal output; area between drain and ostomy less indurated and red Results - Labs 02/17/18 06:00 02/17/18 06:00 Laboratory Results - last 24 hr 02/17/18 02/17/18 06:00 06:00 WBC 9.5 RBC 4.01 L Hgb 10.7 L Hct 33.5 L MCV 83.5 MCH 26.8 L MCHC 32.1 RDW 14.8 Plt Count 372 MPV 5.7 L Sodium 142 Potassium 4.0 Chloride 107 Carbon Dioxide 28.0 Anion Gap 7 BUN 15 Creatinine 0.63 Estimated GFR Greater than 89 Random Glucose 107 H Calcium 8.2 L Total Bilirubin 0.1 L AST 22 ALT 14 Alkaline Phosphatase 52 Total Protein 6.9 Albumin 2.1 L Prealbumin 19 L - Imaging Imaging: ITS Impressions Abdomen/Pelvis CT 02/12/18 00:00 CONCLUSION: 1. Interim placement of a right upper quadrant abdominal wall drainage catheter. There is a persistent ill-defined air and fluid collection at this location that is similar to slightly larger in the interim. 2. An additional ill-defined pocket of air and fluid in the anterior peritoneal space at the level of the umbilicus also appears larger and appears to be draining near the umbilicus, presumably a fistula tract. 3. Increased distention of small bowel with apparent decompression of the ileum and of concern for obstruction. The colon is decompressed. 4. Trace atelectasis and tiny pleural effusions of the visualized lung bases. Catheter Change 02/13/18 00:00 CONCLUSION: 1. Uncomplicated tube exchange as above. The tube was upsized to try and aid in evacuation of the residual fluid. I attempted to manipulate the tube towards the bulk of the fluid slightly more inferiorly within the abdominal wall but this was unsuccessful. If this tube fails to decompress that component of the fluid consideration may be made to a second drainage catheter. Assessment and Plan - Assessment (1) Enterocutaneous fistula Code(s): K63.2 - Fistula of intestine Status: Acute Plan: 62 year old male with enterocutaneous fistula; nausea/vomiting; elevated WBC -Continue Levaquin/Flagyl -Continue TPN -Regular diet as tolerated with Boost/Ensure -Labs reviewed--- Prealbumin 19 -OOB as tolerated -Continue Ostomy appliance -Routine accordion drain care - Plan I personally evaluated the patient in room 1725. The patient indicates that he thinks the drainage is gradually decreasing. He feels well, has had no fevers or chills. He ate all of his food this morning for breakfast. He continues to have normal bowel and bladder function. His abdominal exam demonstrates continued slight decrease in erythema and induration between the fistula site at the midline and the drain exit site in the right lateral mid abdomen. His laboratory values were evaluated his white count is normal. He remains slightly anemic. His kidney function and liver function are normal. His albumin is 2.1 and his pre-albumin is 19, both of which are slightly low and as I explained to him, would impede to complete healing of an enterocutaneous fistula and would make healing after an exploratory laparotomy more difficult. Continued increase in protein consumption and absorption would be helpful. He understands. As long as his drainage continues to decrease and we appear to be making progress we will continue a nonoperative course. If we plateau, or regress, operative exploration would be indicated earlier. The exam, history, and the medical decision-making described in the above note were completed with the assistance of the mid-level provider. I reviewed and agree with the findings presented. I attest that I had a [id number] encounter with the patient on the same day, and personally performed and documented my assessment and findings in the medical record.
[2018-02-17] MEDS: Heparin Central Flush 100 UNIT/ML 5 ML Vial IV.FLUSH SCH (08:32)
[2018-02-17] MEDS: Senna/Docusate Sodium 8.6/50 MG Tablet PO SCH ×2 (08:32→20:34)
--- NOTE | 2018-02-17 14:49 | P.DIET ---
Nutritional Evaluation Type of nutrition evaluation: follow-up Nutrition consult regarding: TPN/PPN [place] [facility] [place] Subjective Comments: variable po intake. Eating 25-100% Objective - Diagnosis Enterocutaneous Fistula - Objective % IBW: 98 (IBW = 142#) Body Weight Used for Calculations: Actual (63.2 kg) Energy Needs - Lower Range (kCal/kg): 28 Energy Needs - Upper Range (kCal/kg): 32 Lower Limit kCal/kg (kCals): 1,770 Upper Limit kCal/kg (kCals): 2,022 Lower Limit Protein Factor (Grams per Kg): 1.0 Upper Limit Protein Factor (Grams per Kg): 1.5 Lower Protein Needs (Protein): 63 Upper Protein Needs (Protein): 95 Dietitian Reviewed in Medical Record: Current diet, Curent medications, Intake & Output, Labs, Medical history, TPN/PPN Diet Order: Regular with Ensure Original bid Assessment Assessment: Pt is at high nutrition risk 2' to dx and need for nutrition support. To meet needs with TPN/lipids, recommend Clinimix E 5/20 @ 75 mls/hr with 20% lipids 250 mls/day to provide a total of 2084 kcals and 90 gms protein. Pt is taking small amounts of po. Request TG weekly while on TPN. RD following. Recommendations: TPN: Clinimix E 5/20 @ 75 mls/hr LIPIDS: 20% lipids 250 mls/day Diet per Surgery Dietitian to Monitor: Lab values, Supplement acceptance, Intake & Output, Diet tolerance, TPN/PPN tolerance, Weight change, PO Intake, Medical course
[2018-02-17] MEDS: Levofloxacin 500 mg Premix Inj 500 MG/100 ML PIGGYBACK IV.SIG SCH (16:27)
[2018-02-17] MEDS: Multivitamin Inj 10 ML, Folic Acid Inj 1 MG in AA 5%/D20W - Electrolytes 2,000 ML IV.SIG SCH (20:34)
[2018-02-18] MEDS: Heparin Central Flush 100 UNIT/ML 5 ML Vial IV.FLUSH PRN (01:45)
[2018-02-18] MEDS: Senna/Docusate Sodium 8.6/50 MG Tablet PO SCH ×2 (08:29→20:30)
[2018-02-18] MEDS: Heparin Central Flush 100 UNIT/ML 5 ML Vial IV.FLUSH SCH (08:29)
--- NOTE | 2018-02-18 11:03 | P.PNGS ---
Subjective Interval history: Resting in bed Reports fistula output decreased Showed me pictures of his Elizabeth Rosario Physical Exam Vital signs: Vital Signs 02/17/18 11:59 02/17/18 16:00 02/17/18 20:00 Temperature 97.7 F 97.7 F 98.9 F Pulse Rate 80 89 78 Respiratory Rate 18 20 18 Blood Pressure 103/57 L 113/71 114/72 Pulse Oximetry 94 L 93 L 95 02/18/18 00:00 02/18/18 08:00 Temperature 97.3 F L 97.7 F Pulse Rate 77 82 Respiratory Rate 18 18 Blood Pressure 114/74 124/75 Pulse Oximetry 95 95 Intake & Output 02/17/18 02/18/18 02/18/18 18:59 06:59 18:59 Intake Total 300 / 300 2560.2 / 2560.2 100 / 100 Output Total 115 / 115 535 / 535 Balance 185 / 185 2025.2 / 2025.2 100 / 100 Weight 62.1 kg Intake: IV 300 / 300 2360.2 / 2360.2 100 / 100 Intralipid 20% Inj 250 ML @ 31. 250 / 250 25 mls/hr IV.SIG Q24H SHONNA Rx#: [id number] Levaquin 500 mg Premix Inj 500 100 / 100 mg In 100 ml @ 100 mls/hr IV. SIG Q24H SHONNA Rx#:[id number] MVI-12 Inj 10 ML Folvite Inj 1 2009.2 / 2009.2 MG In Clinimix E 5%/D20W Inj 2, 000 ML @ 83 mls/hr IV.SIG Q24H SHONNA Rx#:[id number] Flagyl 500 MG Inj 100 ML @ 100 200 / 200 100 / 100 100 / 100 mls/hr IV.SIG Q8H SHONNA Rx#: [id number] Oral 200 / 200 Output: Urine 75 / 75 525 / 525 Wound Drainage 40 / 40 10 / 10 Right Upper Anterior 40 / 40 10 / 10 Other: Date of Last Bowel Movement 02/17/18 # Bowel Movements 1 Narrative: Alert and awake Abd: Ostomy appliance over fistula--- minimal output; IR placed drain with continued purulent output; area between fistula and drain less indurated but remains tender Results - Labs 02/17/18 06:00 02/17/18 06:00 Laboratory Results - last 24 hr 02/18/18 06:15 POC Glucose 110 - Imaging Imaging: ITS Impressions Abdomen/Pelvis CT 02/12/18 00:00 CONCLUSION: 1. Interim placement of a right upper quadrant abdominal wall drainage catheter. There is a persistent ill-defined air and fluid collection at this location that is similar to slightly larger in the interim. 2. An additional ill-defined pocket of air and fluid in the anterior peritoneal space at the level of the umbilicus also appears larger and appears to be draining near the umbilicus, presumably a fistula tract. 3. Increased distention of small bowel with apparent decompression of the ileum and of concern for obstruction. The colon is decompressed. 4. Trace atelectasis and tiny pleural effusions of the visualized lung bases. Catheter Change 02/13/18 00:00 CONCLUSION: 1. Uncomplicated tube exchange as above. The tube was upsized to try and aid in evacuation of the residual fluid. I attempted to manipulate the tube towards the bulk of the fluid slightly more inferiorly within the abdominal wall but this was unsuccessful. If this tube fails to decompress that component of the fluid consideration may be made to a second drainage catheter. 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 The patient reports that he is not having to force himself to eat the desire to eat is coming more naturally to him. Still not eating large amounts at a time but is tolerating his diet well. Indicates the only irritating places where the drain exits the right mid abdomen. He indicates his only has been no drainage from the midline fistula where the ostomy bag and appliance are located. I remove the ostomy bag and appliance and cleansed his abdominal wall with soap and water. I also remove the drain dressing and cleanse that area with soap and water. The only erythema is really right around the drain exit site. Induration between the drain exit site in the midline enterocutaneous fistula site remains but is less tender, less indurated, and essentially non- erythematous. A new dry dressing was placed over the midline fistula site. A colloid dressing was placed around the drain exit site. His right upper extremity does demonstrate some edema in the forearm. The PICC line site appears nonerythematous. I plan to order right upper extremity ultrasound to rule out DVT associated with the PICC line. I believe we have made significant strides in the treatment of this enterocutaneous fistula. Plan to continue current therapy with supplemental nutrition via TPN and antibiotics. The exam, history, and the medical decision-making described in the above note were completed with the assistance of the mid-level provider. I reviewed and agree with the findings presented. I attest that I had a [id number] encounter with the patient on the same day, and personally performed and documented my assessment and findings in the medical record.
[2018-02-18] MEDS: Levofloxacin 500 mg Premix Inj 500 MG/100 ML PIGGYBACK IV.SIG SCH (16:39)
[2018-02-18] MEDS: Multivitamin Inj 10 ML, Folic Acid Inj 1 MG in AA 5%/D20W - Electrolytes 2,000 ML IV.SIG SCH (20:30)
--- NOTE | 2018-02-18 23:06 | US ---
EXAM DATE: 02/18/2018 12:00 AM EDT AGE/SEX: 62 years / Male INDICATIONS: Right arm swelling. CLINICAL DATA: This is the patient's initial encounter. Patient reports that signs and symptoms have been present for 4 - 6 days and indicates a pain score of 0/10. MEDICAL/SURGICAL HISTORY: . Fistula. Appendectomy. Cholecystectomy. Achilles tendon repair. H ernia repair. COMPARISON: No prior exams available for comparison. FINDINGS: The vessels are compressible and augmentation response is documented. No filling defects a re seen. The flow is phasic with respiration. There is a PICC line seen. Other: None. CONCLUSION: 1. No venous thrombus in the right upper extremity. Electronically signed by: Mark Adam MD 02/18/2018 11:05 PM EDT
[2018-02-19] MEDS: Heparin Central Flush 100 UNIT/ML 5 ML Vial IV.FLUSH PRN (00:39)
[2018-02-19 06:30] LABS: INR 1.1 Ratio
[2018-02-19 06:52] LABS: Alanine Aminotransferase 15 U/L (12-78); Albumin 2.1 g/dL (3.4-5.0); Anion Gap 8 meq/L (5-15); Aspartate Aminotransferase 24 U/L (15-37); Blood Urea Nitrogen 16 mg/dL (7-18); Carbon Dioxide 28.7 meq/L (21.0-32.0); Chloride 105 meq/L (98-107); Glomerular Filtration Rate Greater Than 89 mL/min (>89); Glucose,Random 76 mg/dL (74-106); Magnesium 2.4 mg/dL (1.5-2.5); Phosphorus 3.7 mg/dL (2.5-4.9); Potassium 4.1 meq/L (3.5-5.1); Sodium 142 meq/L (136-145); Triglycerides 127 mg/dL (42-150)
[2018-02-19 06:54] LABS: Alkaline Phosphatase 55 U/L (45-117)
[2018-02-19 07:02] LABS: Baso # (Auto) 0.1 th/mm3 (0.0-0.2); Baso % (Auto) 1.2 % (0.0-2.0); Eos # (Auto) 0.3 th/mm3 (0.0-0.4); Eos % (Auto) 3.9 % (0.0-4.0); Hematocrit 32.2 % (39.0-51.0); Hemoglobin 10.6 gm/dL (13.0-17.0); Lymph % (Auto) 23.2 % (9.0-44.0); Mean Corpuscular Hemoglobin 27.2 pg (27.0-34.0); Mean Corpuscular Volume 82.3 fL (80.0-100.0); Mean Platelet Volume 6.2 fL (7.0-11.0); Mono # (Auto) 1.3 th/mm3 (0.0-0.9); Mono % (Auto) 15.3 % (0.0-8.0); Neut # (Auto) 4.7 th/mm3 (1.8-7.7); Neut % (Auto) 56.4 % (16.0-70.0); Platelet Count 344 th/mm3 (150-450); Red Blood Count 3.91 mil/mm3 (4.50-5.90); Red Cell Distribution Width 15.4 % (11.6-17.2); White Blood Count 8.4 th/mm3 (4.0-11.0)
[2018-02-19] MEDS: Heparin Central Flush 100 UNIT/ML 5 ML Vial IV.FLUSH SCH (08:16)
[2018-02-19] MEDS: Senna/Docusate Sodium 8.6/50 MG Tablet PO SCH ×2 (08:16→20:33)
--- NOTE | 2018-02-19 16:08 | CT ---
EXAM DATE: 02/19/2018 3:05 PM EDT AGE/SEX: 62 years / Male INDICATIONS: Evaluate for abscess drain removal CLINICAL DATA: This is the patient's subsequent encounter. Patient reports that signs and symptoms h ave been present for 1 week and indicates a pain score of 0/10. MEDICAL/SURGICAL HISTORY: None. Appendectomy. Cholecystectomy. Inguinal hernia repair. RADIATION DOSE: 10.98 CTDI (mGy) COMPARISON: [facility] [place] & [place]ELVIS W/O CONTRAST, 02/12/2018. . TECHNIQUE: Multiple contiguous axial images were obtained through the abdomen. Images were obtained using multiple row detector helical technique. Using automated exposure control and adjustment of the mA and/or kV according to patient size, radiation dose was kept as low as reasonably achievable to o btain optimal diagnostic quality images. DICOM format image data is available electronically for rev iew and comparison. FINDINGS: Lower Lungs: The visualized lower lungs are clear. Liver: The liver has a homogeneous density without space-occupying lesion. There is no dilation of th e biliary tree. Spleen: Homogeneous density without enlargement. Pancreas: Unremarkable without mass or calcification. Kidneys: Normal in size and shape. A 2 mm nonobstructing right renal stone. Bilateral cortical and l eft peripelvic cysts. No evidence of mass or hydronephrosis. Adrenal Glands: Unremarkable. Aorta: The aorta and proximal iliac vessels are grossly unremarkable without aneurysmal dilation. Bowel/Mesentery: A fair amount of stool throughout a normal caliber colon. Scattered colonic diverti culi. No acute inflammation. Gas-filled loops of nondilated large and small bowel. There is a mixture of debris and air within the anterior peritoneal cavity within the midline. No discrete fluid observ ed. This collection of debris and air is smaller from the prior study. It previously measured 9 x 5.5 cm and now measures 8.9 x 1.7 cm.. Abdominal Wall: Again seen is a drainage catheter involving the anterior abdominal wall to the right of midline. A small amount of air is seen surrounding the drain. No residual fluid observed.. Retroperitoneum: No evidence of adenopathy in the retrocrural, para-aortic, or deep pelvic regions. Bladder: Contours are smooth. Reproductive Organs: No abnormal masses or calcifications seen. Inguinal: The inguinal region is unremarkable without evidence of adenopathy. Bony Structures: Unremarkable. CONCLUSION: 1. No residual fluid surrounding the anterior abdominal wall drain. 2. Reduction in size of a collection of debris and air within the anterior peritoneal cavity without discrete abscess. Electronically signed by: Carlos Mathews MD 02/19/2018 4:07 PM EDT
[2018-02-19] MEDS: Levofloxacin 500 mg Premix Inj 500 MG/100 ML PIGGYBACK IV.SIG SCH (16:40)
--- NOTE | 2018-02-19 17:12 | P.PNGS ---
Subjective Patient reports: feels better (Every day as appetite is slowly improving. He continues to walk the halls without difficulty. He had a normal bowel movement at 330 this afternoon.) Physical Exam Vital signs: Vital Signs 02/18/18 20:00 02/19/18 00:00 02/19/18 08:00 Temperature 98.6 F 98.5 F 97.4 F L Pulse Rate 85 83 74 Respiratory Rate 18 18 18 Blood Pressure 108/75 112/68 103/63 Pulse Oximetry 97 95 95 02/19/18 12:00 02/19/18 16:00 Temperature 97.3 F L 98.2 F Pulse Rate 89 87 Respiratory Rate 18 18 Blood Pressure 112/74 114/72 Pulse Oximetry 97 97 Intake & Output 02/18/18 02/19/18 02/19/18 18:59 06:59 18:59 Intake Total 300 / 300 2360.2 / 2360.2 200 / 200 Output Total 675 / 675 1460 / 1460 30 / 30 Balance -375 / -375 900.2 / 900.2 170 / 170 Weight 63.5 kg Intake: IV 300 / 300 2360.2 / 2360.2 200 / 200 Intralipid 20% Inj 250 ML @ 31. 250 / 250 25 mls/hr IV.SIG Q24H SHONNA Rx#: [id number] Levaquin 500 mg Premix Inj 500 100 / 100 mg In 100 ml @ 100 mls/hr IV. SIG Q24H SHONNA Rx#:[id number] MVI-12 Inj 10 ML Folvite Inj 1 2009.2 / 2009.2 MG In Clinimix E 5%/D20W Inj 2, 000 ML @ 83 mls/hr IV.SIG Q24H SHONNA Rx#:[id number] Flagyl 500 MG Inj 100 ML @ 100 200 / 200 100 / 100 200 / 200 mls/hr IV.SIG Q8H SHONNA Rx#: [id number] Output: Urine 650 / 650 1450 / 1450 Wound Drainage Right Upper Anterior Other: Date of Last Bowel Movement 02/17/18 02/17/18 02/17/18 Narrative: He is awake and alert. He appears in no distress at all. His abdomen is soft and nondistended. The fistulous tract at the midline is nearly completely healed. The dry dressing output on yesterday had only a small amount of bloody drainage. It is now the size of a dime. The erythema of the anterior abdominal wall is nearly completely resolved. There is still some induration there. The drainage catheter exit site dressing has minimal drainage on it. The catheter itself is now draining minimal purulent drainage and some serosanguineous fluid. His lower extremities are nonedematous. There is decreased edema in the right upper extremity. Ultrasound of the right upper extremity did not demonstrate DVT. PICC line dressing was changed by the PICC line team. A CT scan of the abdomen and pelvis was ordered by the radiologist to assess the drainage. There appears to be decreased fluid and air in the anterior abdominal wall. He has small bowel mild distention with fluid, material, and air. Enterocutaneous fistula of unknown etiology appears to be improving with antibiotics and drainage, and improved nutrition. I discussed with the patient the plan to transition the antibiotics to antibiotics by mouth, and continue current support otherwise. We will plan this through the weekend and assess at that time whether he can be discharged home prior to surgical exploration or should be explored next week. He understood and was comfortable with this plan of care. Results - Labs 02/19/18 05:50 02/19/18 05:50 Laboratory Results - last 24 hr 02/18/18 02/19/18 02/19/18 20:27 05:50 05:50 WBC 8.4 RBC 3.91 L Hgb 10.6 L Hct 32.2 L MCV 82.3 MCH 27.2 MCHC 33.0 RDW 15.4 Plt Count 344 MPV 6.2 L Neut % (Auto) 56.4 Lymph % (Auto) 23.2 [place] % (Auto) 15.3 H Eos % (Auto) 3.9 Baso % (Auto) 1.2 Neut # (Auto) 4.7 Lymph # (Auto) 2.0 [place] # (Auto) 1.3 H Eos # (Auto) 0.3 Baso # (Auto) 0.1 WBC Differential . Differential Comment Auto diff final PT 11.0 INR 1.1 Sodium Potassium Chloride Carbon Dioxide Anion Gap BUN Creatinine Estimated GFR POC Glucose 112 H Random Glucose Calcium Phosphorus Magnesium Total Bilirubin AST ALT Alkaline Phosphatase Total Protein Albumin Triglycerides 02/19/18 02/19/18 05:50 11:11 WBC RBC Hgb Hct MCV MCH MCHC RDW Plt Count MPV Neut % (Auto) Lymph % (Auto) [place] % (Auto) Eos % (Auto) Baso % (Auto) Neut # (Auto) Lymph # (Auto) [place] # (Auto) Eos # (Auto) Baso # (Auto) WBC Differential Differential Comment PT INR Sodium 142 Potassium 4.1 Chloride 105 Carbon Dioxide 28.7 Anion Gap 8 BUN 16 Creatinine 0.68 Estimated GFR Greater than 89 POC Glucose 114 H Random Glucose 76 Calcium 8.0 L Phosphorus 3.7 Magnesium 2.4 Total Bilirubin 0.1 L AST 24 ALT 15 Alkaline Phosphatase 55 Total Protein 7.0 Albumin 2.1 L Triglycerides 127 - Imaging Imaging: ITS Impressions Catheter Change 02/13/18 00:00 CONCLUSION: 1. Uncomplicated tube exchange as above. The tube was upsized to try and aid in evacuation of the residual fluid. I attempted to manipulate the tube towards the bulk of the fluid slightly more inferiorly within the abdominal wall but this was unsuccessful. If this tube fails to decompress that component of the fluid consideration may be made to a second drainage catheter. Venous Doppler Study 02/18/18 00:00 CONCLUSION: 1. No venous thrombus in the right upper extremity. Abdomen/Pelvis CT 02/19/18 00:00 CONCLUSION: 1. No residual fluid surrounding the anterior abdominal wall drain. 2. Reduction in size of a collection of debris and air within the anterior peritoneal cavity without discrete abscess. 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 The patient reports that he is not having to force himself to eat the desire to eat is coming more naturally to him. Still not eating large amounts at a time but is tolerating his diet well. Indicates the only irritating places where the drain exits the right mid abdomen. He indicates his only has been no drainage from the midline fistula where the ostomy bag and appliance are located. I remove the ostomy bag and appliance and cleansed his abdominal wall with soap and water. I also remove the drain dressing and cleanse that area with soap and water. The only erythema is really right around the drain exit site. Induration between the drain exit site in the midline enterocutaneous fistula site remains but is less tender, less indurated, and essentially non- erythematous. A new dry dressing was placed over the midline fistula site. A colloid dressing was placed around the drain exit site. His right upper extremity does demonstrate some edema in the forearm. The PICC line site appears nonerythematous. I plan to order right upper extremity ultrasound to rule out DVT associated with the PICC line. I believe we have made significant strides in the treatment of this enterocutaneous fistula. Plan to continue current therapy with supplemental nutrition via TPN and antibiotics. The exam, history, and the medical decision-making described in the above note were completed with the assistance of the mid-level provider. I reviewed and agree with the findings presented. I attest that I had a [id number] encounter with the patient on the same day, and personally performed and documented my assessment and findings in the medical record.
[2018-02-19] MEDS: Multivitamin Inj 10 ML, Folic Acid Inj 1 MG in AA 5%/D20W - Electrolytes 2,000 ML IV.SIG SCH (20:31)
[2018-02-20] MEDS: Heparin Central Flush 100 UNIT/ML 5 ML Vial IV.FLUSH SCH (09:18)
[2018-02-20] MEDS: Senna/Docusate Sodium 8.6/50 MG Tablet PO SCH ×2 (09:18→20:37)
--- NOTE | 2018-02-20 13:06 | P.PNGS ---
Subjective Interval history: Resting in bed Appetite better now Happy to have drain out Physical Exam Vital signs: Vital Signs 02/19/18 16:00 02/19/18 20:00 02/20/18 00:00 Temperature 98.2 F 97.7 F 97.7 F Pulse Rate 87 81 76 Respiratory Rate 18 18 18 Blood Pressure 114/72 103/65 114/72 Pulse Oximetry 97 95 94 L 02/20/18 08:00 02/20/18 12:00 Temperature 98.0 F 98.0 F Pulse Rate 78 76 Respiratory Rate 17 19 Blood Pressure 104/68 111/65 Pulse Oximetry 95 96 Intake & Output 02/19/18 02/20/18 02/20/18 18:59 06:59 18:59 Intake Total 1260 / 1260 2360 / 2360 100 / 100 Output Total 1830 / 1830 Balance 1230 / 1230 530 / 530 100 / 100 Weight 62.1 kg Intake: IV 300 / 300 2360 / 2360 100 / 100 Intralipid 20% Inj 250 ML @ 31. 250 / 250 25 mls/hr IV.SIG Q24H SHONNA Rx#: [id number] Levaquin 500 mg Premix Inj 500 100 / 100 mg In 100 ml @ 100 mls/hr IV. SIG Q24H SHONNA Rx#:[id number] MVI-12 Inj 10 ML Folvite Inj 1 2009 / 2009 MG In Clinimix E 5%/D20W Inj 2, 000 ML @ 83 mls/hr IV.SIG Q24H SHONNA Rx#:[id number] Flagyl 500 MG Inj 100 ML @ 100 200 / 200 100 / 100 100 / 100 mls/hr IV.SIG Q8H SHONNA Rx#: [id number] Oral 960 / 960 Output: Urine 1820 / 1820 Wound Drainage Right Upper Anterior Other: # Voids 4 Date of Last Bowel Movement 02/17/18 02/19/18 Narrative: Resting in bed Abd: Ostomy appliance removed; no drainage IR placed drain removed Results - Labs 02/19/18 05:50 02/19/18 05:50 Laboratory Results - last 24 hr 02/19/18 02/20/18 02/20/18 22:20 06:26 10:15 POC Glucose 113 H 104 137 H - Imaging Imaging: ITS Impressions Catheter Change 02/13/18 00:00 CONCLUSION: 1. Uncomplicated tube exchange as above. The tube was upsized to try and aid in evacuation of the residual fluid. I attempted to manipulate the tube towards the bulk of the fluid slightly more inferiorly within the abdominal wall but this was unsuccessful. If this tube fails to decompress that component of the fluid consideration may be made to a second drainage catheter. Venous Doppler Study 02/18/18 00:00 CONCLUSION: 1. No venous thrombus in the right upper extremity. Abdomen/Pelvis CT 02/19/18 00:00 CONCLUSION: 1. No residual fluid surrounding the anterior abdominal wall drain. 2. Reduction in size of a collection of debris and air within the anterior peritoneal cavity without discrete abscess. 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 Apparently, interventional radiology nurses came by and pulled his drain. He is very happy to have his drain removed as he had discomfort at the drain exit site. A dry gauze dressing was where the drain was in the there was purulent serosanguineous fluid on the dressing. I removed the dressing and pushed on the abdomen and some air and bloody purulent drainage expressed. I cleansed the tract with a cotton tip applicator and extended about 8 cm medial to the drain exit site. I expressed some more bloody purulent drainage. I cleansed it with saline and placed 1/2 inch iodoform gauze wick into the opening and a dry dressing. The previous enterocutaneous fistula site in the midline continues to heal without drainage. I changed the dry dressing. Overall the patient looks well. He is very pleased with his progress. Plan is to transition to oral antibiotics, continue TPN and regular diet with nutritional supplements. I will plan to recheck labs for protein absorption and likely repeat a CT at the beginning of the week next week to assess the fluid collection now that the drain has been removed. Pursuing surgical exploration will depend on how the patient progresses. He understands the plan. The exam, history, and the medical decision-making described in the above note were completed with the assistance of the mid-level provider. I reviewed and agree with the findings presented. I attest that I had a [id number] encounter with the patient on the same day, and personally performed and documented my assessment and findings in the medical record.
[2018-02-20] MEDS: Levofloxacin 500 mg Premix Inj 500 MG/100 ML PIGGYBACK IV.SIG SCH (16:48)
[2018-02-20] MEDS: Multivitamin Inj 10 ML, Folic Acid Inj 1 MG in AA 5%/D20W - Electrolytes 2,000 ML IV.SIG SCH (20:36)
[2018-02-20] MEDS: metroNIDAZOLE 500 MG Tablet PO SCH (21:00)
[2018-02-21] MEDS: metroNIDAZOLE 500 MG Tablet PO SCH ×3 (05:16→21:43)
--- NOTE | 2018-02-21 08:21 | P.PNGS ---
Subjective Patient reports: feels better (Had 3 or 4 bowel movements yesterday. Is passing flatus as well. Appetite continues to improve.) Physical Exam Vital signs: Vital Signs 02/20/18 12:00 02/20/18 16:00 02/20/18 20:00 Temperature 98.0 F 98.3 F 97.8 F Pulse Rate 76 88 88 Respiratory Rate 19 16 17 Blood Pressure 111/65 116/65 111/68 Pulse Oximetry 96 96 96 02/21/18 00:00 Temperature 97.9 F Pulse Rate 74 Respiratory Rate 17 Blood Pressure 104/74 Pulse Oximetry 97 Intake & Output 02/20/18 02/21/18 02/21/18 18:59 06:59 18:59 Intake Total 875 / 875 2740.2 / 2740.2 Output Total 250 / 250 1500 / 1500 Balance 625 / 625 1240.2 / 1240.2 Weight 62.1 kg Intake: IV 300 / 300 2260.2 / 2260.2 Intralipid 20% Inj 250 ML @ 31. 250 / 250 25 mls/hr IV.SIG Q24H [facility] Rx#: [id number] Levaquin 500 mg Premix Inj 500 100 / 100 mg In 100 ml @ 100 mls/hr IV. SIG Q24H [facility] Rx#:[id number] MVI-12 Inj 10 ML Folvite Inj 1 2009.2 / 2009.2 MG In Clinimix E 5%/D20W Inj 2, 000 ML @ 83 mls/hr IV.SIG Q24H [facility] Rx#:[id number] Flagyl 500 MG Inj 100 ML @ 100 200 / 200 mls/hr IV.SIG Q8H [facility] Rx#: [id number] Oral 575 / 575 480 / 480 Output: Urine 250 / 250 1500 / 1500 Other: Date of Last Bowel Movement 02/19/18 02/20/18 # Bowel Movements 3 Narrative: Patient is awake and alert. He rested well overnight. His abdomen is soft and nondistended. The midline fistulous wound is dried and crusted over. There is about the size of a dime now. The drain exit site continues to drain small amount of small bowel content and air. The iodoform wick was changed out in the tract cleansed with saline on a cotton tip applicator. A new iodoform wick was placed with a dry dressing. His extremities are nonedematous. Results - Labs 02/19/18 05:50 02/19/18 05:50 Laboratory Results - last 24 hr 02/20/18 02/21/18 10:15 05:18 POC Glucose 137 H 108 - Imaging Imaging: ITS Impressions Catheter Change 02/13/18 00:00 CONCLUSION: 1. Uncomplicated tube exchange as above. The tube was upsized to try and aid in evacuation of the residual fluid. I attempted to manipulate the tube towards the bulk of the fluid slightly more inferiorly within the abdominal wall but this was unsuccessful. If this tube fails to decompress that component of the fluid consideration may be made to a second drainage catheter. Venous Doppler Study 02/18/18 00:00 CONCLUSION: 1. No venous thrombus in the right upper extremity. Abdomen/Pelvis CT 02/19/18 00:00 CONCLUSION: 1. No residual fluid surrounding the anterior abdominal wall drain. 2. Reduction in size of a collection of debris and air within the anterior peritoneal cavity without discrete abscess. 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 He continues to drain the small bowel type contents through the drain exit site in the right lateral mid abdomen. There is no residual erythema. There is minimal residual induration. He is significantly improved since his admission. He is tolerating his oral antibiotics without problem. He is receiving supplemental total parenteral nutrition, and is using nutritional supplements like Ensure. Plan is to continue current care through the weekend, and reassess the fluid collection and his abdominal wall clinically the beginning of the week to determine whether pursuing operative intervention next week or being able to delay and allow the fistula to heal. Patient understands and is agreeable with the plan of care.
[2018-02-21] MEDS: Senna/Docusate Sodium 8.6/50 MG Tablet PO SCH ×2 (08:49→20:37)
[2018-02-21] MEDS: Heparin Central Flush 100 UNIT/ML 5 ML Vial IV.FLUSH SCH (08:51)
[2018-02-21] MEDS: levoFLOXacin 500 MG Tablet PO SCH (16:55)
--- NOTE | 2018-02-21 18:54 | P.DIET ---
Nutritional Evaluation Type of nutrition evaluation: follow-up Nutrition consult regarding: TPN/PPN Nutrition screening: MDC Subjective Subjective Comments: Pt reports he has a good appetite and desires to gain wt. States his usual wt of 170-lb in October of this year, 2018. Pt reports he is drinking the Ensure Enlive. Objective - Diagnosis Enterocutaneous Fistula - Objective % IBW: 98 (IBW = 142#) Body Weight Used for Calculations: Actual (63.2 kg) Energy Needs - Lower Range (kCal/kg): 28 Energy Needs - Upper Range (kCal/kg): 32 Lower Limit kCal/kg (kCals): 1,770 Upper Limit kCal/kg (kCals): 2,022 Lower Limit Protein Factor (Grams per Kg): 1.0 Upper Limit Protein Factor (Grams per Kg): 1.5 Lower Protein Needs (Protein): 63 Upper Protein Needs (Protein): 95 Dietitian Reviewed in Medical Record: Current diet, Curent medications, Intake & Output, Labs, Medical history, TPN/PPN Diet Order: Regular with Ensure Original bid Oral Diet Intake Amount: Good 75-90% Objective Comments: POC Glucose 118, TG 127 Assessment Assessment: Pt continues at high nutrition risk r/t diagnosis and need for nutrition support. To meet needs with TPN/lipids, recommend Clinimix E 5/20 @ 75 mls/hr with 20% lipids 250 mls/day to provide a total of 2084 kcals and 90 gms protein. Pt w/Adequate po intake 50% or greater for meals. MD order for Ensure and pt is receiving Ensure Enlive(= 350 kcal and 20g Protein per serving). Labs reviewed. Wt changes noted. Dietitian following. Recommendations: 1.TPN: Clinimix E 5/20 @ 75 mls/hr LIPIDS: 20% lipids 250 mls/day 2. Ensure Enlive BID Dietitian to Monitor: Lab values, Electrolytes, Glucose level, Supplement acceptance, Intake & Output, Diet tolerance, TPN/PPN tolerance, Weight change, PO Intake, Medical course
[2018-02-21] MEDS: Multivitamin Inj 10 ML, Folic Acid Inj 1 MG in AA 5%/D20W - Electrolytes 2,000 ML IV.SIG SCH (20:38)
[2018-02-22] MEDS: metroNIDAZOLE 500 MG Tablet PO SCH ×3 (05:11→23:29)
[2018-02-22] MEDS: Senna/Docusate Sodium 8.6/50 MG Tablet PO SCH ×2 (08:45→20:35)
[2018-02-22] MEDS: Heparin Central Flush 100 UNIT/ML 5 ML Vial IV.FLUSH SCH (08:45)
--- NOTE | 2018-02-22 12:28 | P.PNGS ---
Subjective Patient reports: feels better, pain is less, tolerating liquids well, bowel movement, afebrile Physical Exam Vital signs: Vital Signs 02/21/18 16:00 02/21/18 20:00 02/22/18 00:00 Temperature 98.1 F 98.2 F 98.1 F Pulse Rate 89 87 78 Respiratory Rate 18 17 17 Blood Pressure 113/78 109/71 117/79 Pulse Oximetry 96 97 97 02/22/18 08:00 Temperature 97.6 F Pulse Rate 73 Respiratory Rate 17 Blood Pressure 111/62 Pulse Oximetry 96 Intake & Output 02/21/18 02/22/18 02/22/18 18:59 06:59 18:59 Intake Total 1200 / 1200 3565.2 / 3565.2 Output Total 900 / 900 550 / 550 Balance 300 / 300 3015.2 / 3015.2 Weight 62.1 kg Intake: IV 3085.2 / 3085.2 Intralipid 20% Inj 250 ML @ 31. 250 / 250 25 mls/hr IV.SIG Q24H [facility] Rx#: [id number] MVI-12 Inj 10 ML Folvite Inj 1 2835.2 / 2835.2 MG In Clinimix E 5%/D20W Inj 2, 000 ML @ 83 mls/hr IV.SIG Q24H [facility] Rx#:[id number] Oral 1200 / 1200 480 / 480 Output: Urine 900 / 900 550 / 550 Other: Date of Last Bowel Movement 02/20/18 02/21/18 02/21/18 - Routine Abdominal Exam Present: soft, normoactive bowel sounds, tenderness, wound Comments: ruq wound with wick, minimal drainage Results - Labs 02/19/18 05:50 02/19/18 05:50 Laboratory Results - last 24 hr 02/21/18 02/21/18 02/22/18 14:31 22:48 05:12 POC Glucose 118 H 108 121 H - Imaging Imaging: ITS Impressions Catheter Change 02/13/18 00:00 CONCLUSION: 1. Uncomplicated tube exchange as above. The tube was upsized to try and aid in evacuation of the residual fluid. I attempted to manipulate the tube towards the bulk of the fluid slightly more inferiorly within the abdominal wall but this was unsuccessful. If this tube fails to decompress that component of the fluid consideration may be made to a second drainage catheter. Venous Doppler Study 02/18/18 00:00 CONCLUSION: 1. No venous thrombus in the right upper extremity. Abdomen/Pelvis CT 02/19/18 00:00 CONCLUSION: 1. No residual fluid surrounding the anterior abdominal wall drain. 2. Reduction in size of a collection of debris and air within the anterior peritoneal cavity without discrete abscess. 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
[2018-02-22] MEDS: levoFLOXacin 500 MG Tablet PO SCH (16:11)
[2018-02-22] MEDS: Multivitamin Inj 10 ML, Folic Acid Inj 1 MG in AA 5%/D20W - Electrolytes 2,000 ML IV.SIG SCH (20:34)
[2018-02-23] MEDS: metroNIDAZOLE 500 MG Tablet PO SCH ×3 (06:21→21:42)
[2018-02-23] MEDS: Senna/Docusate Sodium 8.6/50 MG Tablet PO SCH ×3 (10:10→20:16)
[2018-02-23] MEDS: Heparin Central Flush 100 UNIT/ML 5 ML Vial IV.FLUSH SCH (10:11)
[2018-02-23] MEDS: levoFLOXacin 500 MG Tablet PO SCH (16:58)
--- NOTE | 2018-02-23 17:18 | P.PNGS ---
Subjective Patient reports: feels better Physical Exam Vital signs: Vital Signs 02/22/18 20:00 02/23/18 00:00 02/23/18 08:00 Temperature 98.1 F 98.2 F 98.1 F Pulse Rate 88 85 74 Respiratory Rate 20 20 17 Blood Pressure 113/73 110/74 104/60 Pulse Oximetry 96 96 96 Intake & Output 02/22/18 02/23/18 02/23/18 18:59 06:59 18:59 Intake Total 900 / 900 2244.2 / 2244.2 Output Total 450 / 450 Balance 900 / 900 1794.2 / 1794.2 Weight 85.2 kg Intake: IV 2024.2 / 2024.2 Intralipid 20% Inj 250 ML @ 31. 250 / 250 25 mls/hr IV.SIG Q24H [facility] Rx#: [id number] MVI-12 Inj 10 ML Folvite Inj 1 1774.2 / 1774.2 MG In Clinimix E 5%/D20W Inj 2, 000 ML @ 83 mls/hr IV.SIG Q24H [facility] Rx#:[id number] Oral 900 / 900 220 / 220 Output: Urine 450 / 450 Other: # Voids 6 Date of Last Bowel Movement 02/21/18 02/21/18 # Bowel Movements 1 - Constitutional no acute distress - Routine Abdominal Exam Present: soft, normoactive bowel sounds. Absent: tenderness, distended, rebound , guarding Comments: fistulae sites healing well, minimal output Results - Labs 02/19/18 05:50 02/19/18 05:50 Laboratory Results - last 24 hr 02/22/18 02/23/18 02/23/18 20:33 08:50 12:40 POC Glucose 103 116 H 104 - Imaging Imaging: ITS Impressions Catheter Change 02/13/18 00:00 CONCLUSION: 1. Uncomplicated tube exchange as above. The tube was upsized to try and aid in evacuation of the residual fluid. I attempted to manipulate the tube towards the bulk of the fluid slightly more inferiorly within the abdominal wall but this was unsuccessful. If this tube fails to decompress that component of the fluid consideration may be made to a second drainage catheter. Venous Doppler Study 02/18/18 00:00 CONCLUSION: 1. No venous thrombus in the right upper extremity. Abdomen/Pelvis CT 10/10/18 00:00 CONCLUSION: 1. No residual fluid surrounding the anterior abdominal wall drain. 2. Reduction in size of a collection of debris and air within the anterior peritoneal cavity without discrete abscess. 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 -Continue Levaquin/Flagyl -Continue TPN -Regular diet as tolerated with Boost/Ensure -OOB as tolerated -decreased output, continue dressings -Dr. Henson to see tomorrow
[2018-02-23] MEDS: Multivitamin Inj 10 ML, Folic Acid Inj 1 MG in AA 5%/D20W - Electrolytes 2,000 ML IV.SIG SCH (19:55)
[2018-02-24] MEDS: metroNIDAZOLE 500 MG Tablet PO SCH ×3 (06:08→21:48)
[2018-02-24] MEDS: Heparin Central Flush 100 UNIT/ML 5 ML Vial IV.FLUSH SCH (09:31)
[2018-02-24] MEDS: Senna/Docusate Sodium 8.6/50 MG Tablet PO SCH ×2 (09:31→21:48)
--- NOTE | 2018-02-24 15:18 | P.PNGS ---
Subjective Patient reports: feels better (Tolerating his diet. Is definitely hungry every morning. Having normal bowel and bladder function. Feels stronger, has better stamina, is much less lethargic than when he was admitted) Physical Exam Vital signs: Vital Signs 02/23/18 16:00 02/23/18 20:00 02/24/18 00:00 Temperature 97.6 F 98.4 F 98.3 F Pulse Rate 89 87 79 Respiratory Rate 17 19 18 Blood Pressure 115/76 111/75 119/62 Pulse Oximetry 96 97 96 02/24/18 04:00 02/24/18 08:00 02/24/18 11:57 Temperature 97.5 F L 97.9 F Pulse Rate 70 80 Respiratory Rate 18 18 16 Blood Pressure 107/65 113/70 Pulse Oximetry 98 96 Intake & Output 02/23/18 02/24/18 02/24/18 18:59 06:59 18:59 Intake Total 1000 / 1000 2201.2 / 2201.2 Output Total 950 / 950 675 / 675 Balance 50 / 50 1526.2 / 1526.2 Weight 66 kg Intake: IV 1421.2 / 1421.2 MVI-12 Inj 10 ML Folvite Inj 1 1421.2 / 1421.2 MG In Clinimix E 5%/D20W Inj 2, 000 ML @ 83 mls/hr IV.SIG Q24H [facility] Rx#:[id number] Oral 1000 / 1000 780 / 780 Output: Urine 950 / 950 675 / 675 Other: Date of Last Bowel Movement 02/21/18 02/21/18 # Bowel Movements 1 Narrative: His abdomen is soft and nondistended. There continues to be a thickened area in the right mid abdomen. There is mild erythema overlying the subcutaneous site where the enterocutaneous fistula continues to drain very small amounts. His wick was removed, it was not deep enough through the skin edges to adequately drain the small pocket. I explored and cleansed the pocket with saline and a cotton tipped applicator. I replaced the half-inch iodoform wick and a dry dressing. The midline fistula exit site continues to be dry and healed. His extremities are nonedematous. His PICC line site is non- erythematous. Results - Labs 02/19/18 05:50 02/19/18 05:50 Laboratory Results - last 24 hr 02/23/18 02/24/18 02/24/18 22:23 06:51 13:11 POC Glucose 102 107 118 H - Imaging Imaging: ITS Impressions Catheter Change 02/13/18 00:00 CONCLUSION: 1. Uncomplicated tube exchange as above. The tube was upsized to try and aid in evacuation of the residual fluid. I attempted to manipulate the tube towards the bulk of the fluid slightly more inferiorly within the abdominal wall but this was unsuccessful. If this tube fails to decompress that component of the fluid consideration may be made to a second drainage catheter. Venous Doppler Study 02/18/18 00:00 CONCLUSION: 1. No venous thrombus in the right upper extremity. Abdomen/Pelvis CT 02/19/18 00:00 CONCLUSION: 1. No residual fluid surrounding the anterior abdominal wall drain. 2. Reduction in size of a collection of debris and air within the anterior peritoneal cavity without discrete abscess. 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 -Continue Levaquin/Flagyl -Continue TPN -Regular diet as tolerated with Boost/Ensure -OOB as tolerated -decreased output, continue dressings -Dr. Henson to see tomorrow - Plan I personally evaluated the patient in room 1725 today. He is slowly gradually improving. He continues to have a small amount of air and mildly purulent serosanguineous fluid draining old drain exit site in the right mid abdomen. Plan is to monitor labs and repeat CT scan of the abdomen tomorrow to determine whether or not discharge prior to planning operative intervention would be safe. I discussed the plan with the patient he understands and is agreeable.
[2018-02-24] MEDS ORDERED: Diatrizoate Meglum/Diatrizoate Sod Liq 9 ML UDC PO ONE (16:00)
[2018-02-24] MEDS: levoFLOXacin 500 MG Tablet PO SCH (16:56)
[2018-02-24] MEDS: Multivitamin Inj 10 ML, Folic Acid Inj 1 MG in AA 5%/D20W - Electrolytes 2,000 ML IV.SIG SCH (21:43)
[2018-02-25] MEDS: metroNIDAZOLE 500 MG Tablet PO SCH ×3 (05:51→21:33)
[2018-02-25 06:16] LABS: Hematocrit 34.5 % (39.0-51.0); Hemoglobin 11.3 gm/dL (13.0-17.0); Mean Corpuscular HGB Conc 32.9 % (32.0-36.0); Mean Corpuscular Hemoglobin 28.1 pg (27.0-34.0); Mean Corpuscular Volume 85.4 fL (80.0-100.0); Mean Platelet Volume 6.6 fL (7.0-11.0); Platelet Count 292 th/mm3 (150-450); Red Blood Count 4.03 mil/mm3 (4.50-5.90); Red Cell Distribution Width 18.1 % (11.6-17.2); White Blood Count 7.8 th/mm3 (4.0-11.0)
[2018-02-25 06:35] LABS: Albumin 2.3 g/dL (3.4-5.0); Anion Gap 6 meq/L (5-15); Aspartate Aminotransferase 18 U/L (15-37); Blood Urea Nitrogen 23 mg/dL (7-18); Calcium 8.5 mg/dL (8.5-10.1); Carbon Dioxide 27.8 meq/L (21.0-32.0); Chloride 105 meq/L (98-107); Glomerular Filtration Rate Greater Than 89 mL/min (>89); Glucose,Random 94 mg/dL (74-106); Potassium 3.9 meq/L (3.5-5.1); Sodium 139 meq/L (136-145)
[2018-02-25 06:37] LABS: Alanine Aminotransferase 18 U/L (12-78)
[2018-02-25 06:39] LABS: Alkaline Phosphatase 47 U/L (45-117); Total Protein 7.2 g/dL (6.4-8.2)
[2018-02-25] MEDS ORDERED: Diatrizoate Meglum/Diatrizoate Sod Liq 9 ML UDC PO ONE ×2 (09:00→09:30)
[2018-02-25] MEDS: Senna/Docusate Sodium 8.6/50 MG Tablet PO SCH ×2 (10:11→21:33)
[2018-02-25] MEDS: Heparin Central Flush 100 UNIT/ML 5 ML Vial IV.FLUSH SCH (10:14)
--- NOTE | 2018-02-25 11:53 | P.PNGS ---
Subjective Interval history: Doing well Awaiting CT scan Physical Exam Vital signs: Vital Signs 02/24/18 11:57 02/24/18 16:00 02/24/18 20:00 Temperature 97.9 F 97.7 F 98.2 F Pulse Rate 80 82 92 H Respiratory Rate 16 18 17 Blood Pressure 113/70 111/69 113/73 Pulse Oximetry 96 95 97 02/25/18 00:00 02/25/18 08:28 Temperature 98.1 F 98.1 F Pulse Rate 80 70 Respiratory Rate 17 18 Blood Pressure 111/73 113/74 Pulse Oximetry 96 96 Intake & Output 02/24/18 02/25/18 02/25/18 18:59 06:59 18:59 Intake Total 2260.2 / 2260.2 Output Total 0 / 0 1200 / 1200 Balance 0 / 0 1060.2 / 1060.2 Weight 66 kg Intake: IV 2260.2 / 2260.2 Intralipid 20% Inj 250 ML @ 31. 250 / 250 25 mls/hr IV.SIG Q24H [facility] Rx#: [id number] MVI-12 Inj 10 ML Folvite Inj 1 2009.2 / 2009.2 MG In Clinimix E 5%/D20W Inj 2, 000 ML @ 83 mls/hr IV.SIG Q24H [facility] Rx#:[id number] Oral 0 / 0 Output: Urine 0 / 0 1200 / 1200 Other: Date of Last Bowel Movement 02/21/18 02/24/18 02/24/18 Narrative: Alert and awake Abd: prior fistula site healed; prior drain site with iodoform packing RIGHT PICC line in place Results - Labs 02/25/18 05:49 02/25/18 05:49 Laboratory Results - last 24 hr 02/24/18 02/24/18 02/25/18 13:11 21:53 05:49 WBC 7.8 RBC 4.03 L Hgb 11.3 L Hct 34.5 L MCV 85.4 MCH 28.1 MCHC 32.9 RDW 18.1 H Plt Count 292 MPV 6.6 L Sodium Potassium Chloride Carbon Dioxide Anion Gap BUN Creatinine Estimated GFR POC Glucose 118 H 114 H Random Glucose Calcium Total Bilirubin AST ALT Alkaline Phosphatase Total Protein Albumin 02/25/18 02/25/18 02/25/18 05:49 08:06 11:08 WBC RBC Hgb Hct MCV MCH MCHC RDW Plt Count MPV Sodium 139 Potassium 3.9 Chloride 105 Carbon Dioxide 27.8 Anion Gap 6 BUN 23 H Creatinine 0.75 Estimated GFR Greater than 89 POC Glucose 102 117 H Random Glucose 94 Calcium 8.5 Total Bilirubin 0.1 L AST 18 ALT 18 Alkaline Phosphatase 47 Total Protein 7.2 Albumin 2.3 L - Imaging Imaging: ITS Impressions Catheter Change 02/13/18 00:00 CONCLUSION: 1. Uncomplicated tube exchange as above. The tube was upsized to try and aid in evacuation of the residual fluid. I attempted to manipulate the tube towards the bulk of the fluid slightly more inferiorly within the abdominal wall but this was unsuccessful. If this tube fails to decompress that component of the fluid consideration may be made to a second drainage catheter. Venous Doppler Study 02/18/18 00:00 CONCLUSION: 1. No venous thrombus in the right upper extremity. Abdomen/Pelvis CT 02/19/18 00:00 CONCLUSION: 1. No residual fluid surrounding the anterior abdominal wall drain. 2. Reduction in size of a collection of debris and air within the anterior peritoneal cavity without discrete abscess. 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 -Continue PO Levaquin/Flagyl -Continue TPN -Repeat CT abdomen/pelvis today -WBC normal; awaiting pre-albumin reading -Regular diet as tolerated with Boost/Ensure -OOB as tolerated - Plan I personally evaluated the patient in room 1725. Patient is indicating he is having a good day. He is awaiting his CT scan. I called CT and they indicated he would be coming down between 2 and 230 today. He said he feels like there is been slightly decreased drainage from the old drain exit site. I changed his dressing and a small amount of purulent bloody fluid was drained out of the wound. A new half-inch iodoform gauze wick was placed with a dry dressing. There is slightly decreased erythema overlying the wound. There is no tenderness. His extremities are nonedematous. Assessment 62-year-old gentleman with enterocutaneous fistula of unknown etiology. Significantly improved with improved nutrition and antibiotics and appropriate wound care. Continue current plan. Follow-up CT scan to ensure there is no undrained fluid collection prior to consideration of discharge before scheduling surgical exploration. The patient understands the plan and is in agreement. The exam, history, and the medical decision-making described in the above note were completed with the assistance of the mid-level provider. I reviewed and agree with the findings presented. I attest that I had a [id number] encounter with the patient on the same day, and personally performed and documented my assessment and findings in the medical record.
[2018-02-25 13:50] LABS: Prealbumin 25 mg/dL (20-40)
--- NOTE | 2018-02-25 15:31 | CT ---
EXAM DATE: 02/25/2018 2:18 PM EDT AGE/SEX: 62 years / Male INDICATIONS: Evaluate subcutaneous abscess. CLINICAL DATA: This is the patient's initial encounter. Patient reports that signs and symptoms have been present for 1 day and indicates a pain score of 3/10. MEDICAL/SURGICAL HISTORY: . Fistula. Cholecystectomy. Appendectomy. Multiple hernia repairs. ORAL CONTRAST: Prescribed oral contrast ingested. RADIATION DOSE: 6.88 CTDI (mGy) COMPARISON: [facility] [place], CT ABDOMEN & PELVIS W/O CONTRAST, 02/19/2018. . TECHNIQUE: Multiple contiguous axial images were obtained through the abdomen following bolus infusi on of 80 ml Omnipaque 350 (iohexol) nonionic water-soluble contrast as a single exam dose. Prescrib ed oral contrast ingested. Using automated exposure control and adjustment of the mA and/or kV accor ding to patient size, radiation dose was kept as low as reasonably achievable to obtain optimal diagn ostic quality images. DICOM format image data is available electronically for review and comparison. FINDINGS: The previously noted abscess within the anterior abdominal cavity just deep to the anterior abdominal wall in the right upper quadrant is decreased in size today. It measures approximately 7.4 x 1.2 cm in transverse and AP dimension on axial image 40. A small amount of air and fluid is seen on image 34 in the right upper quadrant just deep to the anterior abdominal wall measuring 4.6 x 1.4 cm at site of previous drain placement. The drain has been removed. There is stranding of the subcutaneous fat a nd a small amount of subcutaneous air. There is enhancement of the rectus abdominis musculature at th is level. There is a cyst at the lower pole of the right kidney measuring 1.3 cm. There is a cyst at the upper pole of the left kidney posteriorly measuring 1.7 cm. There is a 2 mm nonobstructing right upper pole renal calculus. There is mild prominence of the left intrarenal collecting system. The hassan creas, adrenals, spleen, liver unremarkable. There are mildly distended loops of small bowel seen. Th e osseous structures are intact. Lung bases are clear. CONCLUSION: 1. The intra-abdominal abscess abutting the anterior abdominal wall in the right mid to upper abdome n is decreased in size status post drain removal. 2. Mildly distended loops of small bowel are again seen. Electronically signed by: Madhu Fairbanks MD 02/25/2018 3:30 PM EDT
--- NOTE | 2018-02-25 16:44 | P.DIET ---
Nutritional Evaluation Type of nutrition evaluation: follow-up Nutrition consult regarding: TPN/PPN Nutrition screening: MDC Subjective Subjective Comments: Pt has no complaints regarding his meals. Pt does note that he is receiving the Ensure vs Ensure Enlive. Brought forward from previous note:Pt reports he has a good appetite and desires to gain wt. States his usual wt of 170-lb in October of this year, 2018. Pt reports he is drinking the Ensure Enlive. Objective - Diagnosis Enterocutaneous Fistula - Objective % IBW: 98 (IBW = 142#) Body Weight Used for Calculations: Actual (63.2 kg) Energy Needs - Lower Range (kCal/kg): 28 Energy Needs - Upper Range (kCal/kg): 32 Lower Limit kCal/kg (kCals): 1,770 Upper Limit kCal/kg (kCals): 2,022 Lower Limit Protein Factor (Grams per Kg): 1.0 Upper Limit Protein Factor (Grams per Kg): 1.5 Lower Protein Needs (Protein): 63 Upper Protein Needs (Protein): 95 Dietitian Reviewed in Medical Record: Current diet, Curent medications, Intake & Output, Labs, Medical history, TPN/PPN Diet Order: Regular with Ensure Original bid Oral Diet Intake Amount: Good 75-90% Objective Comments: POC Glucose 102, 117; TG 127 Feeding - Current TPN/PPN Current TPN: Clinimix E 5/20 Current TPN/PPN Rate (ml/hr): 83 Amino Acid and Dextrose Current kCals Provided: 1,760 Amino Acid and Dextrose Current Protein Provided: 100 Current Lipid Concentration: 20% Current Lipids Rate: 250 mls daily over 8 hours 500 ml Daily: No (250ml) Current kCal Provided by TPN/PPN: 2,260 Carbohydrate Load (mg/kg/min): 4 Assessment Assessment: Pt continues at high nutrition risk r/t diagnosis and need for nutrition support. To meet needs with TPN/lipids, recommend Clinimix E 5/20 @ 75 mls/hr with 20% lipids 250 mls/day to provide a total of 2084 kcals and 90 gms protein. Pt w/Adequate po intake 50% or greater for meals. MD order for Ensure and pt prefers Ensure Enlive(= 350 kcal and 20g Protein per serving). Labs reviewed. Wt changes noted. Dietitian following. Recommendations: 1.TPN: Clinimix E 5/20 @ 75 mls/hr LIPIDS: 20% lipids 250 mls/day 2. MD order for Ensure and pt prefers Ensure Enlive BID Dietitian to Monitor: Lab values, Electrolytes, Glucose level, Supplement acceptance, Intake & Output, Diet tolerance, TPN/PPN tolerance, Weight change, PO Intake, Medical course
[2018-02-25] MEDS: levoFLOXacin 500 MG Tablet PO SCH (16:57)
[2018-02-25] MEDS: Multivitamin Inj 10 ML, Folic Acid Inj 1 MG in AA 5%/D20W - Electrolytes 2,000 ML IV.SIG SCH (21:21)
[2018-02-26] MEDS: metroNIDAZOLE 500 MG Tablet PO SCH ×2 (06:26→18:54)
[2018-02-26] MEDS: Heparin Central Flush 100 UNIT/ML 5 ML Vial IV.FLUSH SCH (10:11)
[2018-02-26] MEDS: Senna/Docusate Sodium 8.6/50 MG Tablet PO SCH ×2 (10:11→20:21)
--- NOTE | 2018-02-26 16:50 | P.PNGS ---
Subjective Patient reports: other (Passed a lot of flatus had a large bowel movement this afternoon at 430. He has been with a little less appetite than normal today.) Physical Exam Vital signs: Vital Signs 02/25/18 20:00 02/26/18 00:00 02/26/18 08:00 Temperature 98.0 F 98.2 F 98.2 F Pulse Rate 85 75 88 Respiratory Rate 18 18 17 Blood Pressure 109/70 113/74 114/70 Pulse Oximetry 96 97 93 L 02/26/18 12:00 02/26/18 16:00 Temperature 97.6 F 97.5 F L Pulse Rate 74 94 H Respiratory Rate 17 16 Blood Pressure 110/71 132/60 Pulse Oximetry 95 95 Intake & Output 02/25/18 02/26/18 02/26/18 18:59 06:59 18:59 Intake Total 2620.2 / 2620.2 Output Total 400 / 400 Balance 2220.2 / 2220.2 Weight 66.2 kg Intake: IV 2260.2 / 2260.2 Intralipid 20% Inj 250 ML @ 31. 250 / 250 25 mls/hr IV.SIG Q24H SHONNA Rx#: [id number] MVI-12 Inj 10 ML Folvite Inj 1 2010.2 / 2010.2 MG In Clinimix E 5%/D20W Inj 2, 000 ML @ 83 mls/hr IV.SIG Q24H SHONNA Rx#:[id number] Oral 360 / 360 Output: Urine 400 / 400 Other: Date of Last Bowel Movement 02/24/18 Narrative: Moderate erythema lateral to the drain exit site. 10 cc of bloody purulent fluid upon dressing change. Abdomen soft and nondistended and otherwise nontender. Extremities nonedematous Results - Labs 02/25/18 05:49 02/25/18 05:49 - Imaging Imaging: ITS Impressions Catheter Change 02/13/18 00:00 CONCLUSION: 1. Uncomplicated tube exchange as above. The tube was upsized to try and aid in evacuation of the residual fluid. I attempted to manipulate the tube towards the bulk of the fluid slightly more inferiorly within the abdominal wall but this was unsuccessful. If this tube fails to decompress that component of the fluid consideration may be made to a second drainage catheter. Venous Doppler Study 02/18/18 00:00 CONCLUSION: 1. No venous thrombus in the right upper extremity. Abdomen/Pelvis CT 02/19/18 00:00 CONCLUSION: 1. No residual fluid surrounding the anterior abdominal wall drain. 2. Reduction in size of a collection of debris and air within the anterior peritoneal cavity without discrete abscess. Abdomen CT 02/25/18 00:00 CONCLUSION: 1. The intra-abdominal abscess abutting the anterior abdominal wall in the right mid to upper abdomen is decreased in size status post drain removal. 2. Mildly distended loops of small bowel are again seen. 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 -Continue PO Levaquin/Flagyl -Continue TPN -Repeat CT abdomen/pelvis today -WBC normal; awaiting pre-albumin reading -Regular diet as tolerated with Boost/Ensure -OOB as tolerated - Plan I personally evaluated the patient in room 1725. He has an enterocutaneous fistula that has decreased in output significantly since admission. Plans are being made to wean his TPN off and send him home on Saturday with plans for surgical intervention in the next week. He is comfortable with this plan of care.
[2018-02-26] MEDS: levoFLOXacin 500 MG Tablet PO SCH (18:55)
[2018-02-26] MEDS: Multivitamin Inj 10 ML, Folic Acid Inj 1 MG in AA 5%/D20W - Electrolytes 2,000 ML IV.SIG SCH (20:19)
[2018-02-27] MEDS: metroNIDAZOLE 500 MG Tablet PO SCH ×4 (00:48→21:58)
[2018-02-27] MEDS: Senna/Docusate Sodium 8.6/50 MG Tablet PO SCH ×2 (09:27→20:39)
[2018-02-27] MEDS: Heparin Central Flush 100 UNIT/ML 5 ML Vial IV.FLUSH SCH (09:27)
--- NOTE | 2018-02-27 16:50 | P.DCO ---
- Diagnosis (1) Enterocutaneous fistula Status: Acute - Home Health Nursing Order: Wound care and dressing changes Instructions: Abdominal wound--- Iodoform packing into abscess cavity ----change daily and PRN --- okay to remove packing and shower as normal. - Case Management Consult Yes - Certification I have seen patient Zack Chapman III on 02/27/18. My clinical findings support the need for the requested home health care services because: Limited mobility due to disease progression I certify that my clinical findings support that this patient is homebound because: Post-op weakness
[2018-02-27] MEDS: levoFLOXacin 500 MG Tablet PO SCH (17:23)
[2018-02-27] MEDS ORDERED: FOLIC ACID IV.SIG SCH (20:00)
[2018-02-27] MEDS ORDERED: ELECTROLYTES IV.SIG SCH (20:00)
[2018-02-27] MEDS ORDERED: MULTIVITAMIN IV.SIG SCH (20:00)
[2018-02-27] MEDS ORDERED: [UNRECOGNIZED DRUG - OTHER] IV.SIG SCH (20:00)
[2018-02-28] MEDS: metroNIDAZOLE 500 MG Tablet PO SCH ×3 (05:34→21:43)
[2018-02-28] MEDS: Senna/Docusate Sodium 8.6/50 MG Tablet PO SCH ×2 (08:33→21:43)
[2018-02-28] MEDS: Heparin Central Flush 100 UNIT/ML 5 ML Vial IV.FLUSH SCH (08:34)
[2018-02-28] MEDS: levoFLOXacin 500 MG Tablet PO SCH (16:30)
--- NOTE | 2018-02-28 16:37 | P.DIET ---
Nutritional Evaluation Type of nutrition evaluation: follow-up Nutrition consult regarding: TPN/PPN Nutrition screening: MDC Subjective Subjective Comments: Pt reported a good appetite and is eating 50-100% for most meals. Pt is also drinking Ensure Enlive BID. Brought forward from previous note: Pt does note that he is receiving the Ensure vs Ensure Enlive. Pt reports he has a good appetite and desires to gain wt. States his usual wt of 170-lb in October of this year, 2018. Pt reports he is drinking the Ensure Enlive. Objective - Diagnosis Enterocutaneous Fistula - Objective % IBW: 98 (IBW = 142#) Body Weight Used for Calculations: Actual (63.2 kg) Energy Needs - Lower Range (kCal/kg): 28 Energy Needs - Upper Range (kCal/kg): 32 Lower Limit kCal/kg (kCals): 1,770 Upper Limit kCal/kg (kCals): 2,022 Lower Limit Protein Factor (Grams per Kg): 1.0 Upper Limit Protein Factor (Grams per Kg): 1.5 Lower Protein Needs (Protein): 63 Upper Protein Needs (Protein): 95 Dietitian Reviewed in Medical Record: Current diet, Curent medications, Intake & Output, Labs, Medical history, TPN/PPN Diet Order: Regular with Ensure Enlive TID Oral Diet Intake Amount: Good 75-90% Objective Comments: POC Glucose 102, 117; TG 127 Feeding - Current TPN/PPN Current TPN: Clinimix E 5/20 Current TPN/PPN Rate (ml/hr): 42 Amino Acid and Dextrose Current kCals Provided: 880 Amino Acid and Dextrose Current Protein Provided: 50 Current Lipid Concentration: 20% Current Lipids Rate: 250 mls daily over 8 hours 500 ml Daily: No (250ml) Current kCal Provided by TPN/PPN: 1,380 Carbohydrate Load (mg/kg/min): 2 Assessment Assessment: Pt currently receiving Clinimix E5/20 @ 42mL/hr with 20% lipids 250mls/day to provide a total of 1380kcals and 50gms of protein per GS. Pt is consuming 50-100 % for most meals and drinking Ensure Enlive TID. Labs reviewed, wt changes noted. Dietitian following. Brought forward from previous note: Pt continues at high nutrition risk r/t diagnosis and need for nutrition support. To meet needs with TPN/lipids, recommend Clinimix E 5/20 @ 75 mls/hr with 20% lipids 250 mls/day to provide a total of 2084 kcals and 90 gms protein. Pt w/Adequate po intake 50% or greater for meals. MD order for Ensure and pt prefers Ensure Enlive(= 350 kcal and 20g Protein per serving). Labs reviewed. Wt changes noted. Dietitian following. Recommendations: 1.TPN as ordered per GS: Clinimix E 5/20 @ 42 mls/hr LIPIDS: 20% lipids 250 mls/ day 2. Ensure Enlive BID 3. Monitor PO and supplement intake Dietitian to Monitor: Lab values, Electrolytes, Glucose level, Supplement acceptance, Intake & Output, Diet tolerance, TPN/PPN tolerance, Weight change, PO Intake, Medical course
--- NOTE | 2018-02-28 17:38 | P.PNGS ---
Subjective Patient reports: no new complaints (Patient had a good day today. Is been up walking the halls. Had 2 small bowel movements. Gets a fullness feeling but no nausea.), bowel movement Physical Exam Vital signs: Vital Signs 02/27/18 20:00 02/28/18 00:00 02/28/18 08:00 Temperature 98.2 F 98.3 F 97.9 F Pulse Rate 80 77 72 Respiratory Rate 18 18 18 Blood Pressure 108/71 109/70 124/80 Pulse Oximetry 96 96 99 02/28/18 12:00 02/28/18 16:00 Temperature 97.9 F 97.5 F L Pulse Rate 77 83 Respiratory Rate 17 17 Blood Pressure 110/71 109/68 Pulse Oximetry 98 95 Intake & Output 02/27/18 02/28/18 02/28/18 18:59 06:59 18:59 Intake Total 1554 / 1554 490 / 490 Output Total 475 / 475 950 / 950 Balance 1079 / 1079 -460 / -460 Weight 66.5 kg Intake: IV 250 / 250 Intralipid 20% Inj 250 ML @ 31. 250 / 250 25 mls/hr IV.SIG Q24H SHONNA Rx#: [id number] Oral 1554 / 1554 240 / 240 Output: Urine 475 / 475 950 / 950 Other: # Voids 5 Date of Last Bowel Movement 02/24/18 02/27/18 Narrative: Abdominal wall without erythema. Continue drainage tract medial about 8 cm to a wound opening. No overlying erythema or tenderness. Only a small amount of air and old bloody drainage from wound. Extremities nonedematous. Results - Labs 02/25/18 05:49 02/25/18 05:49 Laboratory Results - last 24 hr 02/28/18 02/28/18 06:46 13:43 POC Glucose 100 97 - Imaging Imaging: ITS Impressions Catheter Change 02/13/18 00:00 CONCLUSION: 1. Uncomplicated tube exchange as above. The tube was upsized to try and aid in evacuation of the residual fluid. I attempted to manipulate the tube towards the bulk of the fluid slightly more inferiorly within the abdominal wall but this was unsuccessful. If this tube fails to decompress that component of the fluid consideration may be made to a second drainage catheter. Venous Doppler Study 02/18/18 00:00 CONCLUSION: 1. No venous thrombus in the right upper extremity. Abdomen/Pelvis CT 02/19/18 00:00 CONCLUSION: 1. No residual fluid surrounding the anterior abdominal wall drain. 2. Reduction in size of a collection of debris and air within the anterior peritoneal cavity without discrete abscess. Abdomen CT 02/25/18 00:00 CONCLUSION: 1. The intra-abdominal abscess abutting the anterior abdominal wall in the right mid to upper abdomen is decreased in size status post drain removal. 2. Mildly distended loops of small bowel are again seen. 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 -Continue PO Levaquin/Flagyl -Continue TPN -Repeat CT abdomen/pelvis today -WBC normal; awaiting pre-albumin reading -Regular diet as tolerated with Boost/Ensure -OOB as tolerated - Plan I personally evaluated the patient in room 1725. He has an enterocutaneous fistula that has decreased in output significantly since admission. Plans are being made to wean his TPN off and send him home on Saturday with plans for surgical intervention in the next week. He is comfortable with this plan of care. No significant change from the plans from yesterday. Minimal drainage and no erythema of the abdominal wall makes me comfortable letting him go home tomorrow. Plan operative intervention next week through same-day surgery. Details for scheduling to be obtained from my office on Saturday. Discussed Condition With: Patient
[2018-02-28] MEDS ORDERED: MULTIVITAMIN IV.SIG SCH (20:00)
[2018-02-28] MEDS ORDERED: ELECTROLYTES IV.SIG SCH (20:00)
[2018-02-28] MEDS ORDERED: FOLIC ACID IV.SIG SCH (20:00)
[2018-02-28] MEDS ORDERED: [UNRECOGNIZED DRUG - OTHER] IV.SIG SCH (20:00)
[2018-03-01] MEDS: metroNIDAZOLE 500 MG Tablet PO SCH (06:56)
[2018-03-01] MEDS: Heparin Central Flush 100 UNIT/ML 5 ML Vial IV.FLUSH SCH (10:03)
[2018-03-01] MEDS: Senna/Docusate Sodium 8.6/50 MG Tablet PO SCH (10:05)
[2018-03-01 12:34] VITALS: BP 112/66; PULSE 73; RESP 20; TEMP 97.9; O2SAT 94
--- NOTE | 2018-03-01 13:26 | P.PN ---
Subjective Interval history: Feels well; Tolerating diet. No fevers Physical Exam Vital signs: Vital Signs 02/28/18 16:00 02/28/18 20:00 03/01/18 00:00 Temperature 97.5 F L 97.8 F 98.3 F Pulse Rate 83 88 77 Respiratory Rate 17 16 17 Blood Pressure 109/68 113/72 110/76 Pulse Oximetry 95 97 97 03/01/18 08:00 03/01/18 12:33 Temperature 97.5 F L 97.9 F Pulse Rate 66 73 Respiratory Rate 16 20 Blood Pressure 116/72 112/66 Pulse Oximetry 95 94 L Intake & Output 02/28/18 03/01/18 03/01/18 18:59 06:59 18:59 Intake Total 480 / 480 3510.2 / 3510.2 Output Total 800 / 800 Balance -320 / -320 3510.2 / 3510.2 Weight 65.5 kg Intake: IV 3510.2 / 3510.2 Oral 480 / 480 Output: Urine 800 / 800 Other: # Voids 3 Date of Last Bowel Movement 02/28/18 03/01/18 - Constitutional no acute distress - Routine Abdominal Exam Present: soft Results - Labs CBC & Chem 7: 02/25/18 05:49 02/25/18 05:49 Laboratory Results - last 24 hr 02/28/18 02/28/18 13:43 21:51 POC Glucose 97 97 Assessment and Plan - Assessment (1) 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 Levaquin. He already has both of these at home. He will see Dr. Henson in the office on Saturday for planned surgery likely on Saturday. - Attending Attestation I attest that I had a [id number] encounter with the patient on the same day, and personally performed and documented my assessment and findings in the medical record. The following services were provided during this hospital visit: Chart data review, vital sign assessments/reviewing monitor data Review of consultation notes if present Medication orders/review and/or management Ordering and/or reviewing lab tests Ordering and/or interpreting/reviewing x-rays and/or diagnostic studies Care of the patient and discussion of the patient with the care team Documentation time To help prompt me to consider important information that might be impacting today's encounter and assessment, Information from prior notes written by myself or my colleagues may have been "brought forward/copy and pasted" into today's note.
== END 2018-03-01 14:40 ==
LOC: NEPC 10:48 → NEDA 17:27 → N07 02-12 02:35
PROVIDERS: ADMIT Surgery Trauma Surgery; ATTEND Surgery Trauma Surgery

== ENCOUNTER 2018-03-04 12:02 | Inpatient (IN) ==
--- NOTE | 2018-03-04 13:29 | ED ---
HPI General Chief complaint: Abdominal Pain Stated complaint: Doctor Sent Time Seen by Provider: 03/04/18 12:49 Source: patient Mode of arrival: ambulatory Limitations: no limitations History of Present Illness HPI narrative: Patient is a 62-year-old male who comes in due to drainage from a fistula. He has history of enterocutaneous fistula and is being followed by Dr. Efrain Ross. He was supposed to have surgery for this, but he started putting out a lot more drainage and had erythema of his skin. He was told by Dr. Henson to come in for admission. He denies any pain. He says he has occasional nausea, but no vomiting. He denies fever chills. Severity is moderate. Related Data Home Medications Medication Instructions Recorded Confirmed No Known Home Medications 03/04/18 03/04/18 Allergies Allergy/AdvReac Type Severity Reaction Status Date / Time No Known Allergies Allergy Verified 03/04/18 12:44 Review of Systems ROS: all other systems reviewed are negative Constitutional Denies chills and Denies fever(s) ENT Denies dizziness Cardiovascular Denies chest pain and Denies dyspnea Respiratory Denies cough and Denies dyspnea Gastrointestinal Denies abdominal pain Musculoskeletal Denies myalgias and Denies arthralgias Integumentary/Breasts Reports wounds Neurologic Denies focal weakness and Denies numbness [facility] Medical History Medical History Fistula (Acute) Surgical History Surgical History H/O hernia repair (Acute) History of Achilles tendon repair (Acute) History of appendectomy (Acute) History of cholecystectomy (Acute) Social History Social History Substance History: No History of Abuse Second Hand Smoke Exposure: No Smoking Status: Never smoker How Often Do You Have a Drink Containing Alcohol: Monthly or less Recent Travel in [facility] within the Last 8 Weeks: No Recent Out of Country Travel within the Last 8 Weeks: No Immunization History Tetanus Immunization: Unsure Exam Narrative Exam Narrative: GENERAL: Awake and alert, no acute distress. SKIN: Draining fistula to the right side of the abdomen, draining brown fluid. There is surrounding erythema around the fistula. HEAD: Atraumatic. Normocephalic. EYES: Pupils equal and round. No scleral icterus. ENT: Mucous membranes pink and moist. NECK: Trachea midline. No JVD. CARDIOVASCULAR: Regular rate and rhythm. No murmur appreciated. RESPIRATORY: No accessory muscle use. Clear to auscultation. Breath sounds equal bilaterally. GASTROINTESTINAL: Abdomen soft, non-tender, nondistended. MUSCULOSKELETAL: No obvious deformities. No clubbing. No cyanosis. No edema. NEUROLOGICAL: Awake and alert. No obvious cranial nerve deficits. Motor grossly within normal limits. Normal speech. PSYCHIATRIC: Appropriate mood and affect; insight and judgment normal. Course Initial Documented Vital Signs Temperature 99.2 F 03/04/18 12:28 Pulse Rate 99 H 03/04/18 12:28 Respiratory Rate 14 03/04/18 12:28 Blood Pressure 122/85 03/04/18 12:28 Pulse Oximetry 96 03/04/18 12:28 Last Documented Vital Signs Temperature 99.2 F 03/04/18 12:28 Pulse Rate 89 03/04/18 12:48 Respiratory Rate 16 03/04/18 12:48 Blood Pressure 118/82 03/04/18 12:48 Pulse Oximetry 99 03/04/18 12:48 Medical Decision Making MDM Narrative Medical decision making narrative: Patient is a 62-year-old male with history of enterocutaneous fistula who comes in for admission due to increased drainage and erythema of his skin. Dr. Henson came in to see the patient and has admitted him. Dr. Henson placed all orders. Medical Screen Exam Complete: Yes Emergency Medical Condition: Yes Differential Diagnosis Differential Diagnosis: Raining fistula versus cellulitis versus abscess Medical Records Medical records reviewed: Yes I reviewed the patient's medical records. Discharge Plan Discharge Disposition Patient Disposition: 30 Still Patient Discharge Condition Condition: Stable Discharge Details Diagnosis: Enterocutaneous fistula Physicians Team ED Provider: Hazel Landon Primary Care Provider: UNKNOWN, Attending Provider: Dylon Henson Interventions Interventions: Vital Signs Last Done: 03/04/18 12:48 Status ED Status: Admitted Patient
[2018-03-04 16:33] LABS: Baso # (Auto) 0.1 th/mm3 (0.0-0.2); Baso % (Auto) 0.4 % (0.0-2.0); Eos % (Auto) 0.1 % (0.0-4.0); Hematocrit 38.4 % (39.0-51.0); Lymph # (Auto) 2.2 th/mm3 (1.0-4.8); Mean Corpuscular HGB Conc 33.8 % (32.0-36.0); Mean Corpuscular Hemoglobin 28.9 pg (27.0-34.0); Mean Corpuscular Volume 85.3 fL (80.0-100.0); Mean Platelet Volume 6.9 fL (7.0-11.0); Mono # (Auto) 2.1 th/mm3 (0.0-0.9); Mono % (Auto) 14.9 % (0.0-8.0); Neut # (Auto) 9.4 th/mm3 (1.8-7.7); Neut % (Auto) 68.6 % (16.0-70.0); Platelet Count 340 th/mm3 (150-450); Red Cell Distribution Width 19.4 % (11.6-17.2); White Blood Count 13.7 th/mm3 (4.0-11.0)
[2018-03-04 16:52] LABS: Calcium 8.4 mg/dL (8.5-10.1); Carbon Dioxide 27.8 meq/L (21.0-32.0)
[2018-03-04] MEDS: Levofloxacin 500 mg Premix Inj 500 MG/100 ML PIGGYBACK IV.SIG SCH (17:36)
[2018-03-04] MEDS: Pantoprazole Inj 40 MG Vial IV.PUSH SCH (17:47)
--- NOTE | 2018-03-04 19:29 | ECG ---
Date Performed: 03/04/2018 Time Performed: 16:00:30 PTAGE: 62 years EKG: Sinus rhythm NORMAL ECG No significant change from prior electrocardiogram. PREVIOUS TRACING : 02/04/2018 22.01 DOCTOR: Nathan Sequeira Interpretating Date/Time 03/04/2018 19:27:31
[2018-03-05] MEDS: Pantoprazole Inj 40 MG Vial IV.PUSH SCH (09:55)
--- NOTE | 2018-03-05 15:12 | P.PNGS ---
Subjective Patient reports: still having pain (Patient has some increased erythema and has required dressing changes every 4 hours for drainage. He had 2 normal bowel movements. He was feeling a little dehydrated and IV fluids were started.), bowel movement Physical Exam Vital signs: Vital Signs 03/04/18 16:41 03/04/18 17:00 03/04/18 19:54 Temperature 98.3 F 98.2 F Pulse Rate 92 H 96 H 87 Respiratory Rate 20 17 16 Blood Pressure 119/76 122/81 114/73 Pulse Oximetry 95 96 96 03/05/18 00:03 03/05/18 08:00 03/05/18 12:00 Temperature 97.8 F 98.0 F 97.9 F Pulse Rate 100 H 78 93 H Respiratory Rate 17 20 17 Blood Pressure 133/85 114/80 111/75 Pulse Oximetry 96 94 L 95 Intake & Output 03/04/18 03/05/18 03/05/18 18:59 06:59 18:59 Intake Total 100 / 100 860 / 860 Output Total 600 / 600 Balance 100 / 100 260 / 260 Weight 68.039 kg 68 kg Intake: IV 100 / 100 500 / 500 Ofirmev Inj 1,000 mg In 100 ml 100 / 100 200 / 200 @ 400 mls/hr IV.SIG Q6H SHONNA Rx# :[id number] Levaquin 500 mg Premix Inj 500 100 / 100 mg In 100 ml @ 100 mls/hr IV. SIG Q24H SHONNA Rx#:[id number] Flagyl 500 MG Inj 100 ML @ 100 200 / 200 mls/hr IV.SIG Q8H SHONNA Rx#: [id number] Oral 360 / 360 Output: Urine 600 / 600 Other: # Voids 3 Date of Last Bowel Movement 03/02/18 03/02/18 03/05/18 Narrative: Moderately increased erythema across right lateral and mid abdominal wall. Iodoform gauze miky was changed. Light brown drainage present. Abdomen is otherwise soft and nondistended Results - Labs 03/04/18 16:20 03/04/18 16:20 Laboratory Results - last 24 hr 03/04/18 03/04/18 16:20 16:20 WBC 13.7 H RBC 4.50 Hgb 13.0 Hct 38.4 L MCV 85.3 MCH 28.9 MCHC 33.8 RDW 19.4 H Plt Count 340 MPV 6.9 L Neut % (Auto) 68.6 Lymph % (Auto) 16.0 Kidder % (Auto) 14.9 H Eos % (Auto) 0.1 Baso % (Auto) 0.4 Neut # (Auto) 9.4 H Lymph # (Auto) 2.2 Kidder # (Auto) 2.1 H Eos # (Auto) 0.0 Baso # (Auto) 0.1 WBC Differential . Differential Comment Auto diff final Sodium 136 Potassium 4.0 Chloride 99 Carbon Dioxide 27.8 Anion Gap 9 BUN 25 H Creatinine 1.10 Estimated GFR 68 L Random Glucose 101 Calcium 8.4 L Assessment and Plan - Plan Continue IV antibiotics and dressing changes. Plan to the OR tomorrow morning at 10 AM for exploration of abdomen, likely small bowel resection, debridement abdominal wall, placement of VAC dressing. Patient understands and agrees to proceed with the plan. Code Status: Full Discussed Condition With: Patient and bedside RN
[2018-03-05] MEDS: Levofloxacin 500 mg Premix Inj 500 MG/100 ML PIGGYBACK IV.SIG SCH (15:40)
[2018-03-06] MEDS: Pantoprazole Inj 40 MG Vial IV.PUSH SCH (08:35)
[2018-03-06] MEDS ORDERED: Normosol-R pH 7.4 Inj 1,000 ML IV.CONT ONE (10:26)
[2018-03-06] MEDS ORDERED: Lidocaine PF 1% Inj 5 ML Syringe OTHER ONE (10:26)
[2018-03-06] MEDS ORDERED: Glycopyrrolate Inj 1 MG/5 ML Syringe IV.PUSH ONE (10:26)
[2018-03-06] MEDS ORDERED: Neostigmine Inj 5 MG/5 ML Syringe IV.PUSH ONE (10:26)
[2018-03-06] MEDS ORDERED: *Ondansetron Inj 4 MG/2 ML Vial PERIprocedural Use ONLY ONE (14:03)
[2018-03-06] MEDS ORDERED: *Promethazine Inj 25 MG/ML Vial PERIprocedural use ONLY ONE (14:08)
[2018-03-06] MEDS ORDERED: Naloxone Inj 0.4 MG/ML Vial IV.PUSH PRN (14:11)
[2018-03-06] MEDS ORDERED: Promethazine 25 MG Supp RECTAL PRN (14:11)
[2018-03-06] MEDS ORDERED: Post-op Orders (for Pharmacy) OTHER ONE (14:11)
--- NOTE | 2018-03-06 14:33 | P.OP ---
- Preoperative Diagnosis (1) Enterocutaneous fistula (2) Abdominal wall abscess - Postoperative Diagnosis (1) Enterocutaneous fistula (2) Abdominal wall abscess Date of procedure: 03/06/18 Procedure: Exploratory laparotomy ,extensive adhesio lysis greater than 1 hour, small bowel resection, resection of terminal ileum and cecum, biopsy of mesenteric nodule with frozen section, debridement of abdominal ,wall placement of VAC dressing Anesthesia: GETA Surgeon: Dylon Henson MD Net Software Architect: Dr. Gurjit Portillo Estimated blood loss (mL): 150 Pathology: other (Mesenteric nodule for frozen section neuroendocrine endocrine tumorSmall bowelTerminal ileum and cecum) Operation and Findings: Patient was identified as Zack Chapman, taken to the operating room, and placed in a supine position. Sequential compression device were placed on bilateral lower extremities. Following induction of adequate general endotracheal anesthesia a Santos catheter was placed in the patient's abdomen was prepped and draped in usual sterile fashion with Betadine. This procedure was assisted by Dr. Gurjit Watson a general surgeon. The complexity associated with this case required another general surgeon to be library clerical assistant. Specifically Dr. Watson assisted in extensive adhesio lysis small bowel resections with 3 anastomosis and providing additional expertise only available by a trained general surgeon. A timeout procedure was performed. Following completion timeout procedure everyone's satisfaction within the room, the drain exit site in the right lateral abdomen was probed with a long Yissel clamp. The skin and subcutaneous fatty tissue overlying the subcutaneous cavity was opened with a scalpel and hemostasis control electrocautery. Dissection continued more medially and across the midline until more normal abdominal wall was identified. Using electrocautery and careful dissection posteriorly intraperitoneal location was eventually discovered. Using the blunt dissection and careful dissection the adhesio lysis was performed which ultimately allowed for opening the peritoneal incision to the length of the skin incision. The site of the enterocutaneous fistula involving the small bowel was identified. In the layer of the abdominal wall there was some residual fibers from the previously placed bioabsorbable T IGR mesh. Mesh was debrided. Extensive adhesio lysis allowed for identification of the fistulous areas as well as areas of small bowel that became denuded and would benefit from excision. During exploration a hard mesenteric nodule was identified and it was from surrounding mesenteric tissue using the harmonic scalpel and sent for frozen section. Pathologic evaluation demonstrated findings consistent with a neuroendocrine tumor consistent with a carcinoid tumor. Continued adhesio lysis was performed in the distal ileum a hard firm palpable mass consistent with a primary tumor was identified which appeared to cause a high-grade partial obstruction. Ultimately 2 segments of small bowel including the terminal ileum and cecum were resected using linear cutting stapling devices to divide the bowel and the harmonic scalpel across the mesentery. Large lymph nodes in the terminal ileal area were identified as well and resected with the specimen. Suture ligation with 3-0 silk suture ligatures and ligation of larger vessels with 2-0 Vicryl ties was performed as well. Once the specimens were removed and passed off the surgical field copious irrigation of the abdominal cavity and remaining intestine was performed with warm sterile normal saline, several liters were used. Attention was then turned to reestablishment of the bowel and functional end-to-end [id number] anastomoses of small bowel to small bowel and small bowel to ascending colon were performed using linear cutting stapling device and the TX stapling device. 3-0 silk sutures were used to imbricate staple lines and to reinforce proximal and distal ends of the staple line site. 3-0 silk was also used to close mesenteric defects. Again copious irrigation ensued. There were no other palpable abnormalities within the abdomen there were no peritoneal implants there were no palpable masses within the liver. The nasogastric tube was palpated within the stomach and was in good position. A single area of omentum which remain was placed over the bowel. No anastomoses were superficial. A sheet of Seprafilm was placed over the omentum between it and the abdominal wall closure site. Debridement of chronic granulomatous tissue in the subcutaneous space in the in the layers of the abdominal wall was performed using electrocautery. Redundant skin and chronically inflamed subcutaneous tissue were also excised sharply using a scalpel. Once hemostasis was assured the abdominal wall was closed using 3 separate continuous #1 single-stranded PDS sutures. Irrigation ensued again. The left half of the incision at the skin level was approximated with surgical thuan. The right half where the chronic fistula drainage was was dressed with a VAC dressing in the routine fashion. Mastisol and the clear dressing was placed over the entire incision including the VAC dressing. The VAC dressing was attached to suction and there was no evidence of leak. The patient tolerated the procedure and remained hemodynamically stable through the entire procedure. His apparent that the fistula may have been caused by the presence of a neuroendocrine tumor. Permanent pathology is pending. I discussed the findings in detail with the patient and significant other Evelin. Patient was transported to PACU in stable condition. All sponge needle and instrument counts were correct at the end of the case.
[2018-03-06] MEDS ORDERED: *morphine SULFATE 4 MG/ML PERIprocedure ONLY ONE (14:50)
[2018-03-06] MEDS ORDERED: *HYDROmorphone PF Inj 1 MG/ML Ampul PERIprocedural Use ONLY ONE (14:55)
[2018-03-06] MEDS: Scopalamine 1.5 MG Patch T-DERMAL SCH (16:46)
[2018-03-06] MEDS: Levofloxacin 500 mg Premix Inj 500 MG/100 ML PIGGYBACK IV.SIG SCH (16:55)
--- NOTE | 2018-03-06 18:31 | P.PNGS ---
Subjective Patient reports: no new complaints (postop check, painful, sleeps, rests easily with pain meds) Physical Exam Vital signs: Vital Signs 03/05/18 20:00 03/06/18 04:00 03/06/18 08:00 Temperature 98.4 F 98.2 F 98.6 F Pulse Rate 87 82 87 Respiratory Rate 18 18 20 Blood Pressure 111/69 108/70 109/66 Pulse Oximetry 95 97 93 L 03/06/18 16:00 Temperature 97.6 F Pulse Rate 92 H Respiratory Rate 12 Blood Pressure 116/74 Pulse Oximetry Intake & Output 03/05/18 03/06/18 03/06/18 18:59 06:59 18:59 Intake Total 1240 / 1240 1720 / 1720 2000 / 2000 Output Total 450 / 450 700 / 700 Balance 1240 / 1240 1270 / 1270 1300 / 1300 Intake: IV 400 / 400 1400 / 1400 1200 / 1200 LR 1000 mL Inj 1,000 ML @ 100 1000 / 1000 1000 / 1000 mls/hr IV.CONT .Q10H [facility] Rx#: [id number] Ofirmev Inj 1,000 mg In 100 ml 200 / 200 200 / 200 100 / 100 @ 400 mls/hr IV.SIG Q6H [facility] Rx# :[id number] Levaquin 500 mg Premix Inj 500 100 / 100 mg In 100 ml @ 100 mls/hr IV. SIG Q24H [facility] Rx#:[id number] Flagyl 500 MG Inj 100 ML @ 100 100 / 100 200 / 200 100 / 100 mls/hr IV.SIG Q8H [facility] Rx#: [id number] Oral 720 / 720 320 / 320 Oral Supplement 120 / 120 Anesthesia Amount 800 / 800 Output: Urine 450 / 450 Estimated Blood Loss 300 / 300 Urine Amount (Catheter) 400 / 400 Indwelling Urethral Catheter 400 / 400 Other: # Voids 5 Date of Last Bowel Movement 03/05/18 03/05/18 # Bowel Movements 2 Narrative: VAC intact, no leak. Incision looks good, Mild erythema R lateral. SCDs on. Breathing comfortably. UOP good and clear. - Urinary Catheter Management Indwelling Urethral Catheter Cath placed during this visit: yes Reason for continuing: Hourly intake/output Insertion date: 03/06/18 Insertion time: 10:40 Results - Labs 03/04/18 16:20 03/04/18 16:20 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 - Fistula of intestine Status: Acute (3) Abdominal wall abscess Code(s): L02.211 - Cutaneous abscess of abdominal wall Status: Acute - Plan Continue IV antibiotics and dressing changes. Plan to the OR tomorrow morning at 10 AM for exploration of abdomen, likely small bowel resection, debridement abdominal wall, placement of VAC dressing. Patient understands and agrees to proceed with the plan. Stable postop- 03/06/18. Discussed Condition With: Patient's significant other, Evelin, and bedside RN
[2018-03-06] MEDS: HYDROmorphone PF Inj 1 MG/ML Ampul IV.PUSH PRN (21:06)
[2018-03-07] MEDS ORDERED: Influenza (Quadrivalent) Vaccine 0.5 ML Syringe IM ONE (04:15)
[2018-03-07] MEDS: HYDROmorphone PF Inj 1 MG/ML Ampul IV.PUSH PRN ×3 (05:48→22:05)
[2018-03-07 06:21] LABS: Baso % (Auto) 0.1 % (0.0-2.0); Hematocrit 34.8 % (39.0-51.0); Hemoglobin 11.5 gm/dL (13.0-17.0); Lymph # (Auto) 1.2 th/mm3 (1.0-4.8); Lymph % (Auto) 7.3 % (9.0-44.0); Mean Corpuscular HGB Conc 33.1 % (32.0-36.0); Mean Corpuscular Hemoglobin 28.2 pg (27.0-34.0); Mean Corpuscular Volume 85.2 fL (80.0-100.0); Mean Platelet Volume 6.7 fL (7.0-11.0); Mono # (Auto) 2.2 th/mm3 (0.0-0.9); Mono % (Auto) 13.6 % (0.0-8.0); Neut # (Auto) 12.7 th/mm3 (1.8-7.7); Platelet Count 377 th/mm3 (150-450); Red Blood Count 4.08 mil/mm3 (4.50-5.90); Red Cell Distribution Width 18.6 % (11.6-17.2)
[2018-03-07 06:49] LABS: Anion Gap 9 meq/L (5-15); Blood Urea Nitrogen 16 mg/dL (7-18); Calcium 7.9 mg/dL (8.5-10.1); Carbon Dioxide 26.2 meq/L (21.0-32.0); Chloride 103 meq/L (98-107); Glomerular Filtration Rate Greater Than 89 mL/min (>89); Glucose,Random 121 mg/dL (74-106); Potassium 4.1 meq/L (3.5-5.1); Sodium 138 meq/L (136-145)
[2018-03-07 07:16] LABS: Lymphocytes 1 % (9-44); Monocytes 8 % (0-8)
[2018-03-07 07:17] LABS: Dohle Bodies Present; Platelet Estimate Normal (Normal); Platelet Morphology Normal (Normal)
--- NOTE | 2018-03-07 07:58 | P.PNGS ---
Subjective Patient reports: still having pain (Complains of throat irritation due to nasogastric tube. Slept only intermittently last night. Feels well cared for.) Physical Exam Vital signs: Vital Signs 03/06/18 08:00 03/06/18 13:59 03/06/18 14:00 Temperature 98.6 F 98.5 F Pulse Rate 87 85 87 Respiratory Rate 20 16 16 Blood Pressure 109/66 114/69 108/68 Pulse Oximetry 93 L 99 99 03/06/18 14:15 03/06/18 14:30 03/06/18 14:45 Temperature Pulse Rate 82 80 82 Respiratory Rate 16 22 19 Blood Pressure 117/74 110/76 110/73 Pulse Oximetry 99 99 99 03/06/18 15:00 03/06/18 15:15 03/06/18 16:00 Temperature 98.3 F 97.6 F Pulse Rate 81 92 H 92 H Respiratory Rate 19 14 12 Blood Pressure 104/67 113/73 116/74 Pulse Oximetry 98 97 03/06/18 18:27 03/06/18 20:00 03/07/18 00:00 Temperature 97.6 F 98.4 F 99.1 F Pulse Rate 90 90 92 H Respiratory Rate 14 11 L 15 Blood Pressure 116/74 110/75 113/75 Pulse Oximetry 100 99 98 03/07/18 04:00 Temperature Pulse Rate 94 H Respiratory Rate 15 Blood Pressure 125/77 Pulse Oximetry 98 Intake & Output 03/06/18 03/07/18 03/07/18 18:59 06:59 18:59 Intake Total 2300 / 2300 1520 / 1520 Output Total 950 / 950 650 / 650 Balance 1350 / 1350 870 / 870 Weight 74.4 kg Intake: IV 1400 / 1400 1400 / 1400 LR 1000 mL Inj 1,000 ML @ 100 1000 / 1000 1000 / 1000 mls/hr IV.CONT .Q10H [facility] Rx#: [id number] Ofirmev Inj 1,000 mg In 100 ml 200 / 200 200 / 200 @ 400 mls/hr IV.SIG Q6H [facility] Rx# :[id number] Levaquin 500 mg Premix Inj 500 100 / 100 mg In 100 ml @ 100 mls/hr IV. SIG Q24H [facility] Rx#:[id number] Flagyl 500 MG Inj 100 ML @ 100 100 / 100 200 / 200 mls/hr IV.SIG Q8H [facility] Rx#: [id number] Oral 0 / 0 120 / 120 Anesthesia Amount 800 / 800 Other 100 / 100 Output: Estimated Blood Loss 300 / 300 Urine Amount (Catheter) 650 / 650 650 / 650 Indwelling Urethral Catheter 650 / 650 650 / 650 Wound Vac Amount 0 / 0 Right Abdomen 0 / 0 Other: Mode Setting Right Abdomen Intermittent Date of Last Bowel Movement 03/05/18 03/05/18 # Bowel Movements 0 Weight On Admission 68.1 kg Narrative: HEENT is normocephalic atraumatic.. His pupils are reactive, his sclera are anicteric. He is awake and alert and oriented. His lungs are clear to auscultation anteriorly bilaterally. There is no wheezing. His heart sounds are regular without obvious murmur rub or gallop. His abdomen is soft and nondistended. He is actually normal active bowel sounds. His incision is healing beautifully. His VAC dressing is intact without evidence of leak. His extremities are nonedematous. He has sequential compression device on bilateral lower extremities. His urine output is clear. - Urinary Catheter Management Indwelling Urethral Catheter Cath placed during this visit: yes Reason for continuing: Hourly intake/output Insertion date: 03/06/18 Insertion time: 10:40 Results - Labs 03/07/18 05:39 03/07/18 05:39 Laboratory Results - last 24 hr 03/07/18 03/07/18 05:39 05:39 WBC 16.0 H RBC 4.08 L Hgb 11.5 L Hct 34.8 L MCV 85.2 MCH 28.2 MCHC 33.1 RDW 18.6 H Plt Count 377 MPV 6.7 L Prelim Diff (Auto) Slide review pending Neut % (Auto) 79.0 H Lymph % (Auto) 7.3 L [place] % (Auto) 13.6 H Eos % (Auto) 0.0 Baso % (Auto) 0.1 Neut # (Auto) 12.7 H Lymph # (Auto) 1.2 [place] # (Auto) 2.2 H Eos # (Auto) 0.0 Baso # (Auto) 0.0 WBC Differential Manual diff final Seg Neuts % (Manual) 39 Band Neuts % (Manual) 51 H Lymphocytes % (Manual) 1 L Monocytes % (Manual) 8 Basophils % (Manual) 1 Abs Neuts (Manual) 14.4 H Differential Comment . Dohle Bodies Present H Platelet Estimate Normal Platelet Morphology Normal Sodium 138 Potassium 4.1 Chloride 103 Carbon Dioxide 26.2 Anion Gap 9 BUN 16 Creatinine 0.58 L Estimated GFR Greater than 89 Random Glucose 121 H Calcium 7.9 L 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 - Fistula of intestine Status: Acute (3) Abdominal wall abscess Code(s): L02.211 - Cutaneous abscess of abdominal wall Status: Acute - Plan Continue IV antibiotics and dressing changes. Plan to the OR tomorrow morning at 10 AM for exploration of abdomen, likely small bowel resection, debridement abdominal wall, placement of VAC dressing. Patient understands and agrees to proceed with the plan. Stable postop- 03/06/18. Postop day 1 03/07/2018. Patient is very stable. Will order Chloraseptic lozenges for throat discomfort. Awaiting signs of bowel function with flatus and low nasogastric tube output prior to clamping and removing NG tube which hopefully will occur over the next 1-2 days. We will get out of bed to chair and walk in room today. Hemoglobin and electrolytes are stable. Pathology pending for neuroendocrine tumor discovered at the time of surgery. Hopeful for removal of Santos catheter tomorrow and potential transfer to [facility] floor. We will keep an ISC today. Discussed with patient findings at surgery. Code Status: Full Discussed Condition With: Patient and bedside RN
[2018-03-07] MEDS: Pantoprazole Inj 40 MG Vial IV.PUSH SCH (09:50)
[2018-03-07] MEDS: Enoxaparin Inj 40 MG/0.4 ML Syringe SQ SCH (12:31)
[2018-03-07] MEDS ORDERED: Heparin Central Flush 100 UNIT/ML 5 ML Vial IV.FLUSH PRN (13:07)
--- NOTE | 2018-03-07 14:09 | P.DIET ---
Nutritional Evaluation Type of nutrition evaluation: initial Nutrition consult regarding: TPN/PPN Nutrition screening: Weight Loss > 10 lbs Subjective Subjective Comments: c/o sore throat. Still has ng-t. Objective - Diagnosis Fistula - Objective % IBW: 115 (IBW = 142#) Body Weight Used for Calculations: Actual (74.4 kg) Energy Needs - Lower Range (kCal/kg): 28 Energy Needs - Upper Range (kCal/kg): 32 Lower Limit kCal/kg (kCals): 2,083 Upper Limit kCal/kg (kCals): 2,381 Lower Limit Protein Factor (Grams per Kg): 1.2 Upper Limit Protein Factor (Grams per Kg): 1.5 Lower Protein Needs (Protein): 89 Upper Protein Needs (Protein): 112 Dietitian Reviewed in Medical Record: Current diet, Curent medications, Intake & Output, Labs, Medical history, TPN/PPN Diet Order: clear liquids Assessment Assessment: Pt is POD# 1 s/p exp lap, small bowel resection, debridement of abdominal wall abscess and wound vac placement. He is on clear liquid diet with TPN of Clinimix E 5/20 @ 42 mls/hr with 20% lipids 250 mls/day. TPN/lipids currently providing 1380 kcals and 50 gms protein. To better meet needs, recommend increase TPN rate to 75 mls/hr with the same lipids to provide 2084 kcals and 90 gms protein. Request weekly TG while on TPN/lipids. Recommendations: TPN: Clinimix E 5/20 @ 75 mls/hr LIPIDS: 20% lipids 250 mls/day Diet advance per General Surgery Dietitian to Monitor: Lab values, Intake & Output, Diet tolerance, TPN/PPN tolerance, Weight change, Diet advancement, Medical course
[2018-03-07] MEDS: Levofloxacin 500 mg Premix Inj 500 MG/100 ML PIGGYBACK IV.SIG SCH (17:06)
[2018-03-07] MEDS ORDERED: TPN FLUID IV.SIG SCH (20:00)
[2018-03-07 21:28] LABS: INR 1.3 Ratio; Prothrombin Time 13.2 sec (9.8-11.6)
[2018-03-07 21:32] LABS: Phosphorus 1.5 mg/dL (2.5-4.9)
[2018-03-07] MEDS: FOLIC ACID IV.SIG SCH (21:48)
[2018-03-07] MEDS: MULTIVITAMIN IV.SIG SCH (21:48)
[2018-03-07] MEDS: [UNRECOGNIZED DRUG - OTHER] IV.SIG SCH (21:48)
[2018-03-07] MEDS: ELECTROLYTES IV.SIG SCH (21:48)
[2018-03-08] MEDS: Pantoprazole Inj 40 MG Vial IV.PUSH SCH (09:34)
[2018-03-08] MEDS: Heparin Central Flush 100 UNIT/ML 5 ML Vial IV.FLUSH SCH (10:46)
[2018-03-08] MEDS: HYDROmorphone PF Inj 1 MG/ML Ampul IV.PUSH PRN ×3 (10:50→21:41)
[2018-03-08] MEDS: Levofloxacin 500 mg Premix Inj 500 MG/100 ML PIGGYBACK IV.SIG SCH (17:08)
--- NOTE | 2018-03-08 18:34 | P.PNGS ---
Subjective Patient reports: feels better, no flatus, no bowel movement Physical Exam Vital signs: Vital Signs 03/07/18 20:00 03/07/18 20:56 03/07/18 22:35 Temperature 98.5 F Pulse Rate 100 H Respiratory Rate 18 12 Blood Pressure 104/66 Pulse Oximetry 93 L 93 L 03/08/18 00:00 03/08/18 00:07 03/08/18 01:00 Temperature 98.2 F Pulse Rate 82 82 84 Respiratory Rate 11 L 13 11 L Blood Pressure 100/57 L 100/57 L Pulse Oximetry 98 98 97 03/08/18 01:07 03/08/18 02:00 03/08/18 02:07 Temperature Pulse Rate 82 82 83 Respiratory Rate 11 L 18 17 Blood Pressure 102/60 100/63 Pulse Oximetry 97 98 97 03/08/18 03:00 03/08/18 03:07 03/08/18 04:00 Temperature Pulse Rate 84 85 87 Respiratory Rate 17 22 22 Blood Pressure 104/64 107/68 Pulse Oximetry 97 97 97 03/08/18 04:07 03/08/18 05:00 03/08/18 05:07 Temperature Pulse Rate 88 95 H 94 H Respiratory Rate 20 26 H 21 Blood Pressure 107/68 119/74 Pulse Oximetry 97 98 96 03/08/18 06:00 03/08/18 06:07 03/08/18 07:00 Temperature Pulse Rate 95 H 97 H 87 Respiratory Rate 18 23 17 Blood Pressure 115/75 Pulse Oximetry 97 96 97 03/08/18 07:07 03/08/18 08:00 03/08/18 08:07 Temperature 97.8 F 97.7 F Pulse Rate 86 80 83 Respiratory Rate 15 16 16 Blood Pressure 106/62 110/70 113/68 Pulse Oximetry 96 97 97 03/08/18 09:00 03/08/18 09:07 03/08/18 10:00 Temperature Pulse Rate 83 82 84 Respiratory Rate 18 18 15 Blood Pressure 110/71 Pulse Oximetry 97 97 97 03/08/18 10:07 03/08/18 10:19 03/08/18 11:00 Temperature Pulse Rate 86 83 Respiratory Rate 15 15 Blood Pressure 110/70 Pulse Oximetry 96 96 96 03/08/18 11:07 03/08/18 12:00 03/08/18 12:07 Temperature 98 F Pulse Rate 84 79 80 Respiratory Rate 13 13 15 Blood Pressure 105/64 101/64 Pulse Oximetry 96 96 98 03/08/18 13:00 03/08/18 13:07 03/08/18 14:00 Temperature Pulse Rate 78 79 78 Respiratory Rate 15 17 13 Blood Pressure 104/68 Pulse Oximetry 97 97 97 03/08/18 14:07 03/08/18 15:00 03/08/18 15:07 Temperature Pulse Rate 79 85 85 Respiratory Rate 14 17 17 Blood Pressure 107/64 113/71 Pulse Oximetry 97 97 97 03/08/18 16:00 03/08/18 16:07 Temperature Pulse Rate 97 H 100 H Respiratory Rate 20 20 Blood Pressure 115/76 Pulse Oximetry 97 96 Intake & Output 03/07/18 03/08/18 03/08/18 18:59 06:59 18:59 Intake Total 1520 / 1520 1850 / 1850 500 / 500 Output Total 410 / 410 725 / 725 1300 / 1300 Balance 1110 / 1110 1125 / 1125 -800 / -800 Weight 76.6 kg Intake: IV 1400 / 1400 1650 / 1650 200 / 200 LR 1000 mL Inj 1,000 ML @ 68 1000 / 1000 1000 / 1000 mls/hr IV.CONT .[id number] [facility] Rx# :[id number] Ofirmev Inj 1,000 mg In 100 ml 200 / 200 200 / 200 100 / 100 @ 400 mls/hr IV.SIG Q6H [facility] Rx# :[id number] Intralipid 20% Inj 250 ML @ 31. 250 / 250 25 mls/hr IV.SIG Q24H [facility] Rx#: [id number] Levaquin 500 mg Premix Inj 500 100 / 100 mg In 100 ml @ 100 mls/hr IV. SIG Q24H [facility] Rx#:[id number] Flagyl 500 MG Inj 100 ML @ 100 100 / 100 200 / 200 100 / 100 mls/hr IV.SIG Q8H [facility] Rx#: [id number] Oral 120 / 120 200 / 200 300 / 300 Output: Urine Amount (Catheter) 400 / 400 725 / 725 1300 / 1300 Indwelling Urethral Catheter 400 / 400 725 / 725 1300 / 1300 Gastric Drainage 0 / 0 0 / 0 Right Nare Nasogastric Tube 0 / 0 0 / 0 Wound Vac Amount 10 / 10 0 / 0 Right Abdomen 10 / 10 0 / 0 Other: Mode Setting Right Abdomen Continuous Continuous Continuous Date of Last Bowel Movement 03/05/18 03/07/18 03/07/18 - Routine Abdominal Exam Present: soft (vac good seal, incisional tenderness) - Urinary Catheter Management Indwelling Urethral Catheter Cath placed during this visit: yes Reason for continuing: Hourly intake/output Insertion date: 03/06/18 Insertion time: 10:40 Results - Labs 03/07/18 05:39 03/07/18 05:39 Laboratory Results - last 24 hr 03/07/18 03/07/18 03/07/18 20:28 20:28 20:32 PT 13.2 H INR 1.3 POC Glucose 115 H Phosphorus 1.5 L Magnesium 2.0 Triglycerides 92 03/08/18 03/08/18 03/08/18 00:39 06:39 16:27 PT INR POC Glucose 164 H 153 H 111 H Phosphorus Magnesium Triglycerides 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 - Fistula of intestine Status: Acute (3) Abdominal wall abscess Code(s): L02.211 - Cutaneous abscess of abdominal wall Status: Acute - Plan s/p Exploratory laparotomy ,extensive adhesio lysis greater than 1 hour, small bowel resection, resection of terminal ileum and cecum, biopsy of mesenteric nodule with frozen section, debridement of abdominal ,wall placement of VAC dressing PLAN NG sxn sips, tpn via picc pain control d/c doshi in am dvt ppx transfer to floor when bed
[2018-03-08] MEDS: [UNRECOGNIZED DRUG - OTHER] IV.SIG SCH (21:22)
[2018-03-08] MEDS: ELECTROLYTES IV.SIG SCH (21:22)
[2018-03-08] MEDS: MULTIVITAMIN IV.SIG SCH (21:22)
[2018-03-08] MEDS: FOLIC ACID IV.SIG SCH (21:22)
[2018-03-09] MEDS: HYDROmorphone PF Inj 1 MG/ML Ampul IV.PUSH PRN ×7 (00:39→21:35)
[2018-03-09] MEDS: Enoxaparin Inj 40 MG/0.4 ML Syringe SQ SCH ×2 (07:25→15:38)
[2018-03-09] MEDS: Pantoprazole Inj 40 MG Vial IV.PUSH SCH (08:17)
[2018-03-09] MEDS: Heparin Central Flush 100 UNIT/ML 5 ML Vial IV.FLUSH SCH (08:27)
--- NOTE | 2018-03-09 13:45 | P.PNGS ---
Subjective Patient reports: no new complaints, pain is less, no bowel movement Physical Exam Vital signs: Vital Signs 03/08/18 14:00 03/08/18 14:07 03/08/18 15:00 Temperature Pulse Rate 78 79 85 Respiratory Rate 13 14 17 Blood Pressure 107/64 Pulse Oximetry 97 97 97 03/08/18 15:07 03/08/18 16:00 03/08/18 16:07 Temperature Pulse Rate 85 97 H 100 H Respiratory Rate 17 20 20 Blood Pressure 113/71 115/76 Pulse Oximetry 97 97 96 03/08/18 17:00 03/08/18 17:07 03/08/18 18:00 Temperature 98.7 F Pulse Rate 92 H 93 H 87 Respiratory Rate 18 20 12 Blood Pressure 122/76 Pulse Oximetry 97 96 95 03/08/18 18:07 03/08/18 19:00 03/08/18 19:07 Temperature Pulse Rate 87 80 77 Respiratory Rate 12 19 12 Blood Pressure 116/70 108/72 Pulse Oximetry 96 97 97 03/08/18 20:00 03/08/18 20:07 03/08/18 21:00 Temperature Pulse Rate 81 83 86 Respiratory Rate 15 20 17 Blood Pressure 112/72 Pulse Oximetry 95 95 94 L 03/08/18 21:07 03/08/18 21:28 03/08/18 22:00 Temperature Pulse Rate 86 94 H Respiratory Rate 18 19 Blood Pressure 113/72 Pulse Oximetry 93 L 96 94 L 03/08/18 22:07 03/08/18 23:00 03/08/18 23:07 Temperature Pulse Rate 94 H 95 H 97 H Respiratory Rate 17 16 18 Blood Pressure 115/72 121/72 Pulse Oximetry 94 L 92 L 91 L 03/09/18 00:00 03/09/18 00:07 03/09/18 01:00 Temperature 100.1 F H Pulse Rate 100 H 106 H 97 H Respiratory Rate 18 20 20 Blood Pressure 125/77 Pulse Oximetry 90 L 92 L 97 03/09/18 01:07 03/09/18 01:56 03/09/18 01:57 Temperature Pulse Rate 99 H Respiratory Rate 15 14 14 Blood Pressure 120/75 Pulse Oximetry 96 03/09/18 02:00 03/09/18 02:07 03/09/18 03:00 Temperature Pulse Rate 88 88 82 Respiratory Rate 18 18 16 Blood Pressure 111/73 Pulse Oximetry 97 97 96 03/09/18 03:07 03/09/18 04:00 03/09/18 04:07 Temperature Pulse Rate 81 81 80 Respiratory Rate 20 20 13 Blood Pressure 105/67 112/70 Pulse Oximetry 97 97 97 03/09/18 04:58 03/09/18 05:00 03/09/18 05:07 Temperature Pulse Rate 90 89 Respiratory Rate 12 22 20 Blood Pressure 122/75 Pulse Oximetry 96 97 03/09/18 06:00 03/09/18 06:07 03/09/18 07:07 Temperature Pulse Rate 81 81 87 Respiratory Rate 15 14 22 Blood Pressure 110/67 119/72 Pulse Oximetry 98 97 97 03/09/18 08:07 03/09/18 09:07 03/09/18 10:00 Temperature 98.3 F Pulse Rate 78 77 79 Respiratory Rate 16 13 17 Blood Pressure 112/69 105/68 Pulse Oximetry 96 96 96 03/09/18 10:07 03/09/18 11:07 03/09/18 12:00 Temperature Pulse Rate 82 81 88 Respiratory Rate 16 23 18 Blood Pressure 105/72 117/70 Pulse Oximetry 96 93 L 92 L 03/09/18 12:07 Temperature Pulse Rate 89 Respiratory Rate 15 Blood Pressure 123/77 Pulse Oximetry 92 L Intake & Output 03/08/18 03/09/18 03/09/18 18:59 06:59 18:59 Intake Total 1800 / 1800 1534 / 1534 200 / 200 Output Total 1300 / 1300 1295 / 1295 Balance 500 / 500 239 / 239 200 / 200 Weight 75.9 kg Intake: IV 1500 / 1500 1534 / 1534 200 / 200 LR 1000 mL Inj 1,000 ML @ 68 1000 / 1000 mls/hr IV.CONT .[id number] [facility] Rx# :[id number] Ofirmev Inj 1,000 mg In 100 ml 200 / 200 200 / 200 100 / 100 @ 400 mls/hr IV.SIG Q6H [facility] Rx# :[id number] Intralipid 20% Inj 250 ML @ 31. 250 / 250 25 mls/hr IV.SIG Q24H [facility] Rx#: [id number] Levaquin 500 mg Premix Inj 500 100 / 100 mg In 100 ml @ 100 mls/hr IV. SIG Q24H [facility] Rx#:[id number] MVI-12 Inj 10 ML Folvite Inj 1 984 / 984 MG In Clinimix E 5%/D20W Inj 1, 000 ML @ 42 mls/hr IV.SIG Q24H [facility] Rx#:[id number] Flagyl 500 MG Inj 100 ML @ 100 200 / 200 100 / 100 100 / 100 mls/hr IV.SIG Q8H [facility] Rx#: [id number] Oral 300 / 300 Output: Urine 1275 / 1275 Urine Amount (Catheter) 1300 / 1300 Indwelling Urethral Catheter 1300 / 1300 Gastric Drainage 20 / 20 Right Nare Nasogastric Tube Other: Mode Setting Right Abdomen Continuous Date of Last Bowel Movement 03/07/18 03/07/18 03/07/18 - Constitutional no acute distress - Routine Abdominal Exam Present: soft, tenderness. Absent: normoactive bowel sounds, distended, rebound , guarding - Urinary Catheter Management Indwelling Urethral Catheter Cath placed during this visit: yes, but has since been removed by the nurse Reason for continuing: Hourly intake/output Insertion date: 03/06/18 Insertion time: 10:40 Removal date: 03/09/18 Removal time: 07:15 Results - Labs 03/07/18 05:39 03/07/18 05:39 Laboratory Results - last 24 hr 03/08/18 03/09/18 16:27 02:46 POC Glucose 111 H 124 H 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 - Fistula of intestine Status: Acute Plan: 62yo male s/p ECF takedown and neuroendoctine tumor resection, stable await bowel function, continue TPN and NG doshi out OOB today pain controlled (3) Abdominal wall abscess Code(s): L02.211 - Cutaneous abscess of abdominal wall Status: Acute
[2018-03-09] MEDS: Scopalamine 1.5 MG Patch T-DERMAL SCH (17:03)
[2018-03-09] MEDS: Levofloxacin 500 mg Premix Inj 500 MG/100 ML PIGGYBACK IV.SIG SCH (17:03)
[2018-03-09] MEDS: MULTIVITAMIN IV.SIG SCH (19:38)
[2018-03-09] MEDS: ELECTROLYTES IV.SIG SCH (19:38)
[2018-03-09] MEDS: [UNRECOGNIZED DRUG - OTHER] IV.SIG SCH (19:38)
[2018-03-09] MEDS: FOLIC ACID IV.SIG SCH (19:38)
[2018-03-10] MEDS: HYDROmorphone PF Inj 1 MG/ML Ampul IV.PUSH PRN ×6 (01:18→23:45)
[2018-03-10] MEDS: Heparin Central Flush 100 UNIT/ML 5 ML Vial IV.FLUSH SCH (09:39)
[2018-03-10] MEDS: Pantoprazole Inj 40 MG Vial IV.PUSH SCH (09:40)
--- NOTE | 2018-03-10 10:52 | P.PNGS ---
Subjective Interval history: Resting in bed No pain unless moving Physical Exam Vital signs: Vital Signs 03/09/18 11:07 03/09/18 12:00 03/09/18 12:07 Temperature Pulse Rate 81 88 89 Respiratory Rate 23 18 15 Blood Pressure 117/70 123/77 Pulse Oximetry 93 L 92 L 92 L 03/09/18 13:00 03/09/18 13:07 03/09/18 14:00 Temperature Pulse Rate 88 89 83 Respiratory Rate 12 10 L 17 Blood Pressure 115/60 Pulse Oximetry 93 L 94 L 93 L 03/09/18 14:07 03/09/18 15:00 03/09/18 15:07 Temperature Pulse Rate 77 79 79 Respiratory Rate 13 13 12 Blood Pressure 117/66 118/78 Pulse Oximetry 95 97 97 03/09/18 16:00 03/09/18 16:07 03/09/18 17:00 Temperature 98.6 F Pulse Rate 78 80 79 Respiratory Rate 11 L 14 11 L Blood Pressure 117/74 117/74 Pulse Oximetry 97 97 98 03/09/18 17:07 03/09/18 18:00 03/09/18 19:00 Temperature Pulse Rate 81 83 86 Respiratory Rate 12 15 11 L Blood Pressure 118/77 Pulse Oximetry 98 93 L 91 L 03/09/18 19:27 03/09/18 20:00 03/09/18 20:02 Temperature 99.0 F Pulse Rate 88 90 Respiratory Rate 14 15 14 Blood Pressure 112/73 112/73 Pulse Oximetry 91 L 92 L 03/09/18 21:00 03/09/18 21:07 03/09/18 22:00 Temperature Pulse Rate 83 89 85 Respiratory Rate 14 18 11 L Blood Pressure 120/83 Pulse Oximetry 96 97 96 03/09/18 22:05 03/09/18 22:25 03/09/18 23:00 Temperature Pulse Rate 86 Respiratory Rate 15 13 Blood Pressure Pulse Oximetry 96 96 03/10/18 00:00 03/10/18 00:11 03/10/18 01:00 Temperature 99.0 F Pulse Rate 84 83 85 Respiratory Rate 13 11 L 16 Blood Pressure 116/70 116/70 Pulse Oximetry 96 96 96 03/10/18 01:07 03/10/18 01:48 03/10/18 02:00 Temperature Pulse Rate 91 H 85 Respiratory Rate 24 16 11 L Blood Pressure 127/79 Pulse Oximetry 97 96 03/10/18 03:00 03/10/18 04:00 03/10/18 05:00 Temperature 98.4 F Pulse Rate 87 93 H 94 H Respiratory Rate 13 18 17 Blood Pressure Pulse Oximetry 95 95 95 03/10/18 08:00 03/10/18 08:08 Temperature 98.4 F Pulse Rate 96 H Respiratory Rate 19 Blood Pressure Pulse Oximetry 98 99 Intake & Output 03/09/18 03/10/18 03/10/18 18:59 06:59 18:59 Intake Total 1300 / 1300 1830 / 1830 Output Total 570 / 570 635 / 635 Balance 730 / 730 1195 / 1195 Weight 75.8 kg Intake: IV 1300 / 1300 1830 / 1830 LR 1000 mL Inj 1,000 ML @ 68 900 / 900 200 / 200 mls/hr IV.CONT .[id number] [facility] Rx# :[id number] Ofirmev Inj 1,000 mg In 100 ml 200 / 200 200 / 200 @ 400 mls/hr IV.SIG Q6H [facility] Rx# :[id number] Intralipid 20% Inj 250 ML @ 31. 250 / 250 25 mls/hr IV.SIG Q24H [facility] Rx#: [id number] Levaquin 500 mg Premix Inj 500 100 / 100 mg In 100 ml @ 100 mls/hr IV. SIG Q24H [facility] Rx#:[id number] MVI-12 Inj 10 ML Folvite Inj 1 980 / 980 MG In Clinimix E 5%/D20W Inj 1, 000 ML @ 42 mls/hr IV.SIG Q24H [facility] Rx#:[id number] Flagyl 500 MG Inj 100 ML @ 100 100 / 100 200 / 200 mls/hr IV.SIG Q8H [facility] Rx#: [id number] Output: Urine 500 / 500 575 / 575 Gastric Drainage 50 / 50 30 / 30 Right Nare Nasogastric Tube 50 / 50 30 / 30 Wound Vac Amount 20 / 20 30 / 30 Right Abdomen 20 / 20 30 / 30 Other: Mode Setting Right Abdomen Continuous Continuous # Voids 5 Date of Last Bowel Movement 03/07/18 03/07/18 03/07/18 Narrative: Alert and awake Abd: soft; dressing over thuan with purulent drainage; removed thuan and opened incision---- thick purulent drainage appx 20 cc expressed from incision-- - culture obtained--- cleaned with NS--- placed wet to dry dressing; RIGHT sided abdominal wound vac in place with good seal - Urinary Catheter Management Indwelling Urethral Catheter Cath placed during this visit: yes, but has since been removed by the nurse Reason for continuing: Hourly intake/output Insertion date: 03/06/18 Insertion time: 10:40 Removal date: 03/09/18 Removal time: 07:15 Results - Labs 03/07/18 05:39 03/07/18 05:39 Laboratory Results - last 24 hr 03/09/18 21:41 POC Glucose 108 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 - Fistula of intestine Status: Acute Plan: 62 year old male POD4 Ex laparotomy,extensive adhesion lysis greater than 1 hour , small bowel resection, resection of terminal ileum and cecum, biopsy of mesenteric nodule with frozen section, debridement of abdominal ,wall placement of VAC dressing -Culture purulent drainage -Will plan to place larger wound vac sponge over incision and existing Wound Vac -Pain control -Clear liquids -TPN -OOB as tolerated -RN Jil at bedside (3) Abdominal wall abscess Code(s): L02.211 - Cutaneous abscess of abdominal wall Status: Acute - Plan Postop day 4. Had BM, NG drainage low. Will clamp NG, hopeful to DC tomorrow. Overflow incontinence, with urgency and frequency. Will replace doshi, OK to transfer to floor. Check labs tomorrow. Wounds look healthy, VAC dressing changed. The exam, history, and the medical decision-making described in the above note were completed with the assistance of the mid-level provider. I reviewed and agree with the findings presented. I attest that I had a [id number] encounter with the patient on the same day, and personally performed and documented my assessment and findings in the medical record.
[2018-03-10] MEDS: Enoxaparin Inj 40 MG/0.4 ML Syringe SQ SCH (12:27)
--- NOTE | 2018-03-10 12:42 | P.DIET ---
Nutritional Evaluation Type of nutrition evaluation: follow-up Nutrition consult regarding: TPN/PPN Nutrition screening: Weight Loss > 10 lbs Objective - Diagnosis Fistula - Objective % IBW: 115 (IBW = 142#) Body Weight Used for Calculations: Actual (74.4 kg) Energy Needs - Lower Range (kCal/kg): 28 Energy Needs - Upper Range (kCal/kg): 32 Lower Limit kCal/kg (kCals): 2,083 Upper Limit kCal/kg (kCals): 2,381 Lower Limit Protein Factor (Grams per Kg): 1.2 Upper Limit Protein Factor (Grams per Kg): 1.5 Lower Protein Needs (Protein): 89 Upper Protein Needs (Protein): 112 Dietitian Reviewed in Medical Record: Current diet, Curent medications, Intake & Output, Labs, Medical history, TPN/PPN Diet Order: clear liquids Assessment Assessment: Pt is POD# 4 s/p exp lap, small bowel resection, debridement of abdominal wall abscess and wound vac placement. He is on clear liquid diet with TPN of Clinimix E 5/20 @ 42 mls/hr with 20% lipids 250 mls/day. TPN/lipids currently providing 1380 kcals and 50 gms protein. To better meet needs, recommend increase TPN rate to 75 mls/hr with the same lipids to provide 2084 kcals and 90 gms protein. Request weekly TG while on TPN/lipids. Labs, wts and clinical course reviewed. Recommendations: TPN: Clinimix E 5/20 @ 75 mls/hr LIPIDS: 20% lipids 250 mls/day Diet advance per General Surgery Dietitian to Monitor: Lab values, Intake & Output, Diet tolerance, TPN/PPN tolerance, Weight change, Diet advancement, Medical course
[2018-03-10] MEDS: Levofloxacin 500 mg Premix Inj 500 MG/100 ML PIGGYBACK IV.SIG SCH (16:08)
[2018-03-10] MEDS: Morphine Inj 4 MG/ML Vial IV.PUSH PRN (17:30)
[2018-03-10] MEDS: FOLIC ACID IV.SIG SCH (20:07)
[2018-03-10] MEDS: [UNRECOGNIZED DRUG - OTHER] IV.SIG SCH (20:07)
[2018-03-10] MEDS: MULTIVITAMIN IV.SIG SCH (20:07)
[2018-03-10] MEDS: ELECTROLYTES IV.SIG SCH (20:07)
[2018-03-11] MEDS: HYDROmorphone PF Inj 1 MG/ML Ampul IV.PUSH PRN (04:23)
[2018-03-11 05:12] LABS: Baso # (Auto) 0.1 th/mm3 (0.0-0.2); Baso % (Auto) 0.3 % (0.0-2.0); Eos # (Auto) 0.6 th/mm3 (0.0-0.4); Eos % (Auto) 3.1 % (0.0-4.0); Lymph # (Auto) 1.6 th/mm3 (1.0-4.8); Lymph % (Auto) 8.6 % (9.0-44.0); Mean Corpuscular HGB Conc 33.3 % (32.0-36.0); Mean Corpuscular Hemoglobin 28.4 pg (27.0-34.0); Mean Corpuscular Volume 85.2 fL (80.0-100.0); Mean Platelet Volume 5.8 fL (7.0-11.0); Mono # (Auto) 1.8 th/mm3 (0.0-0.9); Mono % (Auto) 9.6 % (0.0-8.0); Neut # (Auto) 14.5 th/mm3 (1.8-7.7); Neut % (Auto) 78.4 % (16.0-70.0); Platelet Count 380 th/mm3 (150-450); Red Blood Count 3.17 mil/mm3 (4.50-5.90); Red Cell Distribution Width 18.3 % (11.6-17.2); White Blood Count 18.5 th/mm3 (4.0-11.0)
[2018-03-11 05:31] LABS: Anion Gap 8 meq/L (5-15); Blood Urea Nitrogen 10 mg/dL (7-18); Calcium 7.5 mg/dL (8.5-10.1); Carbon Dioxide 31.6 meq/L (21.0-32.0); Chloride 101 meq/L (98-107); Glomerular Filtration Rate Greater Than 89 mL/min (>89); Glucose,Random 122 mg/dL (74-106); Sodium 141 meq/L (136-145)
[2018-03-11 07:32] LABS: Lymphocytes 12 % (9-44); Monocytes 6 % (0-8)
[2018-03-11 07:33] LABS: Dohle Bodies Present; Platelet Estimate Normal (Normal); Platelet Morphology Normal (Normal); Toxic Vacuolation Present
--- NOTE | 2018-03-11 08:09 | P.PNGS ---
Subjective Patient reports: feels better (Rested overnight. No nausea or emesis with NG tube clamped.) Physical Exam Vital signs: Vital Signs 03/10/18 08:08 03/10/18 09:00 03/10/18 10:00 Temperature Pulse Rate 95 H 89 Respiratory Rate 26 H 14 Blood Pressure Pulse Oximetry 99 96 95 03/10/18 10:58 03/10/18 11:00 03/10/18 11:31 Temperature Pulse Rate 84 88 Respiratory Rate 19 15 23 Blood Pressure 120/75 Pulse Oximetry 95 96 03/10/18 12:00 03/10/18 13:00 03/10/18 13:07 Temperature 98.5 F Pulse Rate 80 86 88 Respiratory Rate 13 17 20 Blood Pressure 120/75 139/93 H Pulse Oximetry 97 96 95 03/10/18 14:00 03/10/18 15:00 03/10/18 16:00 Temperature Pulse Rate 85 90 89 Respiratory Rate 16 16 16 Blood Pressure Pulse Oximetry 96 95 96 03/10/18 18:29 03/10/18 18:30 03/10/18 20:00 Temperature 99.1 F Pulse Rate 76 Respiratory Rate 19 19 16 Blood Pressure 120/73 Pulse Oximetry 97 03/10/18 20:50 03/11/18 00:00 03/11/18 04:00 Temperature 98.7 F 98.5 F Pulse Rate 78 78 Respiratory Rate 18 13 Blood Pressure 123/79 127/76 Pulse Oximetry 97 97 97 03/11/18 07:49 Temperature Pulse Rate Respiratory Rate Blood Pressure Pulse Oximetry 96 Intake & Output 03/10/18 03/11/18 03/11/18 18:59 06:59 18:59 Intake Total 400 / 400 2720.2 / 2720.2 Output Total 2180 / 2180 1800 / 1800 Balance -1780 / -1780 920.2 / 920.2 Weight 77.1 kg Intake: IV 400 / 400 2660.2 / 2660.2 LR 1000 mL Inj 1,000 ML @ 68 1000 / 1000 mls/hr IV.CONT .[id number] [facility] Rx# :[id number] Ofirmev Inj 1,000 mg In 100 ml 100 / 100 300 / 300 @ 400 mls/hr IV.SIG Q6H [facility] Rx# :[id number] Intralipid 20% Inj 250 ML @ 31. 250 / 250 25 mls/hr IV.SIG Q24H [facility] Rx#: [id number] Levaquin 500 mg Premix Inj 500 100 / 100 mg In 100 ml @ 100 mls/hr IV. SIG Q24H [facility] Rx#:[id number] MVI-12 Inj 10 ML Folvite Inj 1 1010.2 / 1010.2 MG In Clinimix E 5%/D20W Inj 1, 000 ML @ 42 mls/hr IV.SIG Q24H [facility] Rx#:[id number] Flagyl 500 MG Inj 100 ML @ 100 200 / 200 100 / 100 mls/hr IV.SIG Q8H [facility] Rx#: [id number] Oral 60 / 60 Output: Urine 1500 / 1500 Urine Amount (Catheter) 550 / 550 1800 / 1800 Indwelling Urethral Catheter 550 / 550 1800 / 1800 Gastric Drainage 100 / 100 Right Nare Nasogastric Tube 100 / 100 Wound Vac Amount 30 / 30 Right Abdomen 30 / Other: Mode Setting Right Abdomen Continuous Date of Last Bowel Movement 03/10/18 03/07/18 # Bowel Movements 1 Narrative: He is awake and alert and oriented and cooperative. His NG tube was aspirated to suction and only about 10 cc of fluid came out. NG tube was removed. He is clear and equal bilateral breath sounds anteriorly. His heart sounds are regular without obvious murmur rub or gallop. His abdomen is soft and nondistended. He has normal active bowel sounds. VAC dressing is in place. There is minimal if any erythema around the incision. His extremities are nonedematous. He has a Doshi catheter in place draining clear yellow urine. - Urinary Catheter Management Indwelling Urethral Catheter Cath placed during this visit: yes, but has since been removed by the nurse Reason for continuing: Hourly intake/output Insertion date: 03/06/18 Insertion time: 10:40 Removal date: 03/09/18 Removal time: 07:15 Results - Labs 03/11/18 04:33 03/11/18 04:33 Laboratory Results - last 24 hr 03/10/18 03/10/18 03/10/18 10:57 16:19 22:26 WBC RBC Hgb Hct MCV MCH MCHC RDW Plt Count MPV Prelim Diff (Auto) Neut % (Auto) Lymph % (Auto) Schley % (Auto) Eos % (Auto) Baso % (Auto) Neut # (Auto) Lymph # (Auto) Schley # (Auto) Eos # (Auto) Baso # (Auto) WBC Differential Seg Neuts % (Manual) Band Neuts % (Manual) Lymphocytes % (Manual) Monocytes % (Manual) Abs Neuts (Manual) Differential Comment Toxic Vacuolation Dohle Bodies Platelet Estimate Platelet Morphology Sodium Potassium Chloride Carbon Dioxide Anion Gap BUN Creatinine Estimated GFR POC Glucose 121 H 109 140 H Random Glucose Calcium 03/11/18 03/11/18 04:33 04:33 WBC 18.5 H RBC 3.17 L Hgb 9.0 L Hct 27.0 L MCV 85.2 MCH 28.4 MCHC 33.3 RDW 18.3 H Plt Count 380 MPV 5.8 L Prelim Diff (Auto) Slide review pending Neut % (Auto) 78.4 H Lymph % (Auto) 8.6 L Schley % (Auto) 9.6 H Eos % (Auto) 3.1 Baso % (Auto) 0.3 Neut # (Auto) 14.5 H Lymph # (Auto) 1.6 Schley # (Auto) 1.8 H Eos # (Auto) 0.6 H Baso # (Auto) 0.1 WBC Differential Manual diff final Seg Neuts % (Manual) 72 H Band Neuts % (Manual) 10 H Lymphocytes % (Manual) 12 Monocytes % (Manual) 6 Abs Neuts (Manual) 15.2 H Differential Comment . Toxic Vacuolation Present H Dohle Bodies Present H Platelet Estimate Normal Platelet Morphology Normal Sodium 141 Potassium 3.0 L Chloride 101 Carbon Dioxide 31.6 Anion Gap 8 BUN 10 Creatinine 0.44 L Estimated GFR Greater than 89 POC Glucose Random Glucose 122 H Calcium 7.5 L 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 - Fistula of intestine Status: Acute Plan: 62 year old male POD4 Ex laparotomy,extensive adhesion lysis greater than 1 hour , small bowel resection, resection of terminal ileum and cecum, biopsy of mesenteric nodule with frozen section, debridement of abdominal ,wall placement of VAC dressing -Culture purulent drainage -Will plan to place larger wound vac sponge over incision and existing Wound Vac -Pain control -Clear liquids -TPN -OOB as tolerated -CARLOS Ley at bedside (3) Abdominal wall abscess Code(s): L02.211 - Cutaneous abscess of abdominal wall Status: Acute - Plan Postop day 4. Had BM, NG drainage low. Will clamp NG, hopeful to DC tomorrow. Overflow incontinence, with urgency and frequency. Will replace doshi, OK to transfer to floor. Check labs tomorrow. Wounds look healthy, VAC dressing changed. The exam, history, and the medical decision-making described in the above note were completed with the assistance of the mid-level provider. I reviewed and agree with the findings presented. I attest that I had a [id number] encounter with the patient on the same day, and personally performed and documented my assessment and findings in the medical record. He is postop day 5 status post exploratory laparotomy bowel resection for neuroendocrine carcinoma causing high-grade partial small bowel obstruction. He had extensive adhesio lysis. He had takedown of an enterocutaneous fistula. His bowel function appears to be returning. His NG tube was removed. He needs to get out of bed and start moving. He had some bladder outlet obstruction with some urgency and frequency and had a Dosih catheter replaced yesterday. Will start him on Flomax today in anticipation of removing his Doshi catheter in the next day or 2. He will be transferred to the floor. His potassium was low and we have ordered intravenous potassium supplementation. His mild anemia is late likely related to chronic malnutrition. Pathology is pending. Wound culture is pending.
[2018-03-11] MEDS: Potassium Chlor 20 mEq Premix 20 MEQ/100 ML PIGGYBACK IV.SIG SCH ×4 (08:24→21:21)
[2018-03-11] MEDS: Pantoprazole Inj 40 MG Vial IV.PUSH SCH (08:24)
[2018-03-11] MEDS: Heparin Central Flush 100 UNIT/ML 5 ML Vial IV.FLUSH SCH (11:34)
[2018-03-11] MEDS: Enoxaparin Inj 40 MG/0.4 ML Syringe SQ SCH (13:23)
[2018-03-11] MEDS: Levofloxacin 500 mg Premix Inj 500 MG/100 ML PIGGYBACK IV.SIG SCH (16:32)
[2018-03-11] MEDS: MULTIVITAMIN IV.SIG SCH (19:36)
[2018-03-11] MEDS: ELECTROLYTES IV.SIG SCH (19:36)
[2018-03-11] MEDS: FOLIC ACID IV.SIG SCH (19:36)
[2018-03-11] MEDS: [UNRECOGNIZED DRUG - OTHER] IV.SIG SCH (19:36)
[2018-03-12] MEDS: HYDROmorphone PF Inj 1 MG/ML Ampul IV.PUSH PRN ×2 (02:51→13:51)
[2018-03-12] MEDS: Heparin Central Flush 100 UNIT/ML 5 ML Vial IV.FLUSH SCH (08:45)
[2018-03-12] MEDS: Pantoprazole Inj 40 MG Vial IV.PUSH SCH (08:45)
[2018-03-12 09:14] LABS: Baso # (Auto) 0.1 th/mm3 (0.0-0.2); Baso % (Auto) 0.4 % (0.0-2.0); Eos # (Auto) 0.5 th/mm3 (0.0-0.4); Eos % (Auto) 2.6 % (0.0-4.0); Hematocrit 24.7 % (39.0-51.0); Hemoglobin 8.9 gm/dL (13.0-17.0); Lymph # (Auto) 1.8 th/mm3 (1.0-4.8); Lymph % (Auto) 9.2 % (9.0-44.0); Mean Corpuscular Hemoglobin 30.3 pg (27.0-34.0); Mean Corpuscular Volume 83.9 fL (80.0-100.0); Mean Platelet Volume 5.8 fL (7.0-11.0); Mono # (Auto) 1.5 th/mm3 (0.0-0.9); Mono % (Auto) 7.8 % (0.0-8.0); Neut # (Auto) 15.2 th/mm3 (1.8-7.7); Platelet Count 390 th/mm3 (150-450); Red Blood Count 2.95 mil/mm3 (4.50-5.90); Red Cell Distribution Width 18.3 % (11.6-17.2); White Blood Count 19.1 th/mm3 (4.0-11.0)
[2018-03-12 09:19] LABS: Mean Corpuscular HGB Conc 36.1 % (32.0-36.0)
[2018-03-12 09:40] LABS: Blood Urea Nitrogen 11 mg/dL (7-18); Calcium 7.8 mg/dL (8.5-10.1); Carbon Dioxide 30.7 meq/L (21.0-32.0); Glomerular Filtration Rate Greater Than 89 mL/min (>89); Glucose,Random 97 mg/dL (74-106)
[2018-03-12 10:01] LABS: Eosinophils 1 % (0-4); Lymphocytes 7 % (9-44); Metamyelocytes 3 % (0-1); Monocytes 2 % (0-8); Myelocytes 4 % (0-0)
[2018-03-12 10:02] LABS: Platelet Estimate Normal (Normal); Platelet Morphology Normal (Normal); Toxic Granulation 1+
[2018-03-12 10:07] LABS: Anion Gap 8 meq/L (5-15); Chloride 104 meq/L (98-107); Potassium 3.5 meq/L (3.5-5.1); Sodium 143 meq/L (136-145)
[2018-03-12] MEDS: Enoxaparin Inj 40 MG/0.4 ML Syringe SQ SCH (12:58)
[2018-03-12] MEDS ORDERED: Vancomycin Inj 1,000 MG in Sodium Chlor 0.9% Inj 250 ML IV.SIG ONE (13:38)
--- NOTE | 2018-03-12 13:55 | P.PNGS ---
Subjective Interval history: Resting in bed Was up to the chair for an hour and a half today Walked in the hallways Physical Exam Vital signs: Vital Signs 03/11/18 16:00 03/11/18 20:00 03/11/18 20:12 Temperature 98.5 F 98.4 F Pulse Rate 100 H 94 H Respiratory Rate 16 22 Blood Pressure 123/80 122/82 Pulse Oximetry 94 L 95 95 03/12/18 00:00 03/12/18 04:00 03/12/18 08:00 Temperature 98.4 F 98.6 F Pulse Rate 80 74 Respiratory Rate 18 14 Blood Pressure 120/77 130/61 Pulse Oximetry 97 98 96 Intake & Output 03/11/18 03/12/18 03/12/18 18:59 06:59 18:59 Intake Total 700 / 700 2690.2 / 2690.2 1100 / 1100 Output Total 2099 / 2099 2069 / 2069 Balance -1400 / -1400 620.2 / 620.2 1100 / 1100 Weight 77 kg Intake: IV 500 / 500 2660.2 / 2660.2 1100 / 1100 LR 1000 mL Inj 1,000 ML @ 68 1000 / 1000 1000 / 1000 mls/hr IV.CONT .[id number] [facility] Rx# :[id number] Ofirmev Inj 1,000 mg In 100 ml 200 / 200 200 / 200 100 / 100 @ 400 mls/hr IV.SIG Q6H [facility] Rx# :[id number] Intralipid 20% Inj 250 ML @ 31. 250 / 250 25 mls/hr IV.SIG Q24H [facility] Rx#: [id number] Levaquin 500 mg Premix Inj 500 100 / 100 mg In 100 ml @ 100 mls/hr IV. SIG Q24H [facility] Rx#:[id number] MVI-12 Inj 10 ML Folvite Inj 1 1010.2 / 1010.2 MG In Clinimix E 5%/D20W Inj 1, 000 ML @ 42 mls/hr IV.SIG Q24H [facility] Rx#:[id number] KCl 20 mEq Premix Inj 20 meq In 300 / 300 100 / 100 100 ml @ 50 mls/hr IV.SIG Q4H [facility] Rx#:[id number] Oral 200 / 200 30 / 30 Output: Urine/Stool Mix 0 / 0 Emesis 20 / 20 Urine Amount (Catheter) 2099 Indwelling Urethral Catheter 2099 Other: Date of Last Bowel Movement 03/07/18 03/07/18 # Emeses 1 Narrative: Alert and awake Abd: soft; Wound Vac in place with good seal Santos removed - Urinary Catheter Management Indwelling Urethral Catheter Cath placed during this visit: yes, but has since been removed by the nurse Reason for continuing: Hourly intake/output Insertion date: 03/06/18 Insertion time: 10:40 Removal date: 03/09/18 Removal time: 07:15 Results - Labs 03/12/18 08:00 03/12/18 08:00 Laboratory Results - last 24 hr 03/11/18 03/11/18 03/12/18 16:09 23:01 08:00 WBC RBC Hgb Hct MCV MCH MCHC RDW Plt Count MPV Prelim Diff (Auto) Neut % (Auto) Lymph % (Auto) [place] % (Auto) Eos % (Auto) Baso % (Auto) Neut # (Auto) Lymph # (Auto) [place] # (Auto) Eos # (Auto) Baso # (Auto) WBC Differential Seg Neuts % (Manual) Band Neuts % (Manual) Lymphocytes % (Manual) Monocytes % (Manual) Eosinophils % (Manual) Basophils % (Manual) Metamyelocytes % (Man) Myelocytes % (Man) Abs Neuts (Manual) Differential Comment Toxic Granulation Platelet Estimate Platelet Morphology Sodium 143 Potassium 3.5 Chloride 104 Carbon Dioxide 30.7 Anion Gap 8 BUN 11 Creatinine 0.41 L Estimated GFR Greater than 89 POC Glucose 111 H 135 H Random Glucose 97 Calcium 7.8 L Magnesium 2.0 03/12/18 08:00 WBC 19.1 H RBC 2.95 L Hgb 8.9 L Hct 24.7 L MCV 83.9 MCH 30.3 MCHC 36.1 H RDW 18.3 H Plt Count 390 MPV 5.8 L Prelim Diff (Auto) Slide review pending Neut % (Auto) 80.0 H Lymph % (Auto) 9.2 [place] % (Auto) 7.8 Eos % (Auto) 2.6 Baso % (Auto) 0.4 Neut # (Auto) 15.2 H Lymph # (Auto) 1.8 [place] # (Auto) 1.5 H Eos # (Auto) 0.5 H Baso # (Auto) 0.1 WBC Differential Manual diff final Seg Neuts % (Manual) 72 H Band Neuts % (Manual) 10 H Lymphocytes % (Manual) 7 L Monocytes % (Manual) 2 Eosinophils % (Manual) 1 Basophils % (Manual) 1 Metamyelocytes % (Man) 3 H Myelocytes % (Man) 4 H Abs Neuts (Manual) 17.0 H Differential Comment . Toxic Granulation 1+ H Platelet Estimate Normal Platelet Morphology Normal Sodium Potassium Chloride Carbon Dioxide Anion Gap BUN Creatinine Estimated GFR POC Glucose Random Glucose Calcium Magnesium 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 - Fistula of intestine Status: Acute Plan: 62 year old male s/p Ex laparotomy,extensive adhesion lysis greater than 1 hour , small bowel resection, resection of terminal ileum and cecum, biopsy of mesenteric nodule with frozen section, debridement of abdominal ,wall placement of VAC dressing -Culture purulent drainage ---+MRSA -Wound vac change today -Pain control -Continue full liquids -TPN -OOB as tolerated -Santos out; continue Flomax -CARLOS Jimenez at bedside (3) Abdominal wall abscess Code(s): L02.211 - Cutaneous abscess of abdominal wall Status: Acute - Plan I personally evaluated the patient in room 1334. I had seen him earlier today as well. He has been taking small amounts of liquids. He has had his Santos removed and has voided since it has been removed. His pain is reasonably controlled. He has clear breath sounds. His heart sounds are regular. His abdomen is soft. There is mild residual erythema in the skin around the open wound. His VAC dressing was changed in Concert with Anai FONG. The remaining thuan were removed from the incision. The wounds are granulating in beautifully. New VAC dressing was smaller size sponges were placed in the traditional fashion and connected to suction with no evidence of leak. He tolerated the procedure with some discomfort. Assessment postop day 5 status post bowel resection for enterocutaneous fistula and incidentally discovered neuroendocrine carcinoma. Plan is continue nutritional supplementation with TPN and gradual increase in oral diet as the patient tolerates. He has been up out of bed walking the halls and up in the chair and should continue to do so. Discussed at bedside with patient and the patient's sister. The exam, history, and the medical decision-making described in the above note were completed with the assistance of the mid-level provider. I reviewed and agree with the findings presented. I attest that I had a [id number] encounter with the patient on the same day, and personally performed and documented my assessment and findings in the medical record.
[2018-03-12] MEDS: Morphine Inj 4 MG/ML Vial IV.PUSH PRN (16:06)
[2018-03-12] MEDS: Scopalamine 1.5 MG Patch T-DERMAL SCH (16:06)
[2018-03-12] MEDS: FOLIC ACID IV.SIG SCH (20:06)
[2018-03-12] MEDS: ELECTROLYTES IV.SIG SCH (20:06)
[2018-03-12] MEDS: MULTIVITAMIN IV.SIG SCH (20:06)
[2018-03-12] MEDS: [UNRECOGNIZED DRUG - OTHER] IV.SIG SCH (20:06)
[2018-03-13] MEDS: HYDROmorphone PF Inj 1 MG/ML Ampul IV.PUSH PRN ×2 (01:29→17:45)
--- NOTE | 2018-03-13 08:40 | P.PNGS ---
Subjective Patient reports: feels better (Had difficulty with urine output overnight and had Santos catheter replaced. He continues to have urgency and frequency. He is on Flomax already. We will leave the Santos in for another day or 2 attempt trial. If he has difficulty again we will consult urology for assistance. No more nausea. Pain is well controlled. He rested well overnight after a single dose of Dilaudid.) Physical Exam Vital signs: Vital Signs 03/12/18 09:00 03/12/18 09:10 03/12/18 09:16 Temperature 98.6 F Pulse Rate 85 90 82 Respiratory Rate 23 31 H 15 Blood Pressure 117/79 114/76 Pulse Oximetry 95 94 L 94 L 03/12/18 10:00 03/12/18 10:17 03/12/18 11:00 Temperature Pulse Rate 83 87 103 H Respiratory Rate 25 H 17 26 H Blood Pressure 117/79 Pulse Oximetry 97 97 95 03/12/18 12:00 03/12/18 12:41 03/12/18 13:00 Temperature 98.6 F Pulse Rate 84 77 83 Respiratory Rate 16 14 20 Blood Pressure 117/79 122/77 Pulse Oximetry 94 L 93 L 93 L 03/12/18 13:16 03/12/18 14:00 03/12/18 15:00 Temperature Pulse Rate 82 80 82 Respiratory Rate 39 H 33 H 29 H Blood Pressure 120/77 Pulse Oximetry 95 96 96 03/12/18 16:00 03/12/18 16:59 03/12/18 19:31 Temperature 98.9 F Pulse Rate 83 Respiratory Rate 21 22 Blood Pressure 119/75 Pulse Oximetry 94 L 96 03/12/18 20:00 03/13/18 00:00 03/13/18 00:03 Temperature 98.8 F 98.7 F Pulse Rate 78 82 Respiratory Rate 24 20 19 Blood Pressure 133/82 130/85 Pulse Oximetry 97 93 L 03/13/18 04:00 Temperature 98.6 F Pulse Rate 72 Respiratory Rate 12 Blood Pressure 114/72 Pulse Oximetry 98 Intake & Output 03/12/18 03/13/18 03/13/18 18:59 06:59 18:59 Intake Total 1650 / 1650 2460.2 / 2460.2 Output Total 850 / 850 2750 / 2750 Balance 800 / 800 -289.8 / -289.8 Weight 74.4 kg Intake: IV 1450 / 1450 2460.2 / 2460.2 LR 1000 mL Inj 1,000 ML @ 68 1000 / 1000 1000 / 1000 mls/hr IV.CONT .[id number] [facility] Rx# :[id number] Ofirmev Inj 1,000 mg In 100 ml 200 / 200 200 / 200 @ 400 mls/hr IV.SIG Q6H [facility] Rx# :[id number] Intralipid 20% Inj 250 ML @ 31. 250 / 250 25 mls/hr IV.SIG Q24H [facility] Rx#: [id number] MVI-12 Inj 10 ML Folvite Inj 1 1010.2 / 1010.2 MG In Clinimix E 5%/D20W Inj 1, 000 ML @ 42 mls/hr IV.SIG Q24H [facility] Rx#:[id number] Vancomycin Inj 1,000 MG In NS 250 / 250 Inj 250 ML @ 250 mls/hr IV.SIG ONCE ONE Rx#:[id number] Oral 200 / 200 Output: Urine 800 / 800 350 / 350 Urine Amount (Catheter) 2349 / 0 Indwelling Urethral Catheter 2349 / 2349 Wound Vac Amount 50 / 50 50 / 50 Right Abdomen 50 / 50 50 / 50 Other: Mode Setting Right Abdomen Continuous Date of Last Bowel Movement 03/07/18 03/07/18 Narrative: He is awake and alert and oriented. He is comfortable. His lungs are clear. His abdomen is soft. His VAC dressing is intact. There is minimal erythema along the edge of the open wound. There is minimal drainage in the VAC container. His extremities are nonedematous. - Urinary Catheter Management Indwelling Urethral Catheter Cath placed during this visit: yes, but has since been removed by the nurse Reason for continuing: Acute urinary retention Insertion date: 03/12/18 Insertion time: 22:30 Removal date: 03/09/18 Removal time: 07:15 Results - Labs 03/12/18 08:00 03/12/18 08:00 Laboratory Results - last 24 hr 03/12/18 03/12/18 03/12/18 08:00 08:00 17:05 WBC 19.1 H RBC 2.95 L Hgb 8.9 L Hct 24.7 L MCV 83.9 MCH 30.3 MCHC 36.1 H RDW 18.3 H Plt Count 390 MPV 5.8 L Prelim Diff (Auto) Slide review pending Neut % (Auto) 80.0 H Lymph % (Auto) 9.2 [place] % (Auto) 7.8 Eos % (Auto) 2.6 Baso % (Auto) 0.4 Neut # (Auto) 15.2 H Lymph # (Auto) 1.8 [place] # (Auto) 1.5 H Eos # (Auto) 0.5 H Baso # (Auto) 0.1 WBC Differential Manual diff final Seg Neuts % (Manual) 72 H Band Neuts % (Manual) 10 H Lymphocytes % (Manual) 7 L Monocytes % (Manual) 2 Eosinophils % (Manual) 1 Basophils % (Manual) 1 Metamyelocytes % (Man) 3 H Myelocytes % (Man) 4 H Abs Neuts (Manual) 17.0 H Differential Comment . Toxic Granulation 1+ H Platelet Estimate Normal Platelet Morphology Normal Sodium 143 Potassium 3.5 Chloride 104 Carbon Dioxide 30.7 Anion Gap 8 BUN 11 Creatinine 0.41 L Estimated GFR Greater than 89 POC Glucose 107 Random Glucose 97 Calcium 7.8 L Magnesium 2.0 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 - Fistula of intestine Status: Acute Plan: 62 year old male s/p Ex laparotomy,extensive adhesion lysis greater than 1 hour , small bowel resection, resection of terminal ileum and cecum, biopsy of mesenteric nodule with frozen section, debridement of abdominal ,wall placement of VAC dressing -Culture purulent drainage ---+MRSA -Wound vac change today -Pain control -Continue full liquids -TPN -OOB as tolerated -Santos out; continue Flomax -CARLOS Jimenez at bedside (3) Abdominal wall abscess Code(s): L02.211 - Cutaneous abscess of abdominal wall Status: Acute - Plan I personally evaluated the patient in room 1334. I had seen him earlier today as well. He has been taking small amounts of liquids. He has had his Santos removed and has voided since it has been removed. His pain is reasonably controlled. He has clear breath sounds. His heart sounds are regular. His abdomen is soft. There is mild residual erythema in the skin around the open wound. His VAC dressing was changed in Concert with Anai FONG. The remaining thuan were removed from the incision. The wounds are granulating in beautifully. New VAC dressing was smaller size sponges were placed in the traditional fashion and connected to suction with no evidence of leak. He tolerated the procedure with some discomfort. Assessment postop day 5 status post bowel resection for enterocutaneous fistula and incidentally discovered neuroendocrine carcinoma. Plan is continue nutritional supplementation with TPN and gradual increase in oral diet as the patient tolerates. He has been up out of bed walking the halls and up in the chair and should continue to do so. Discussed at bedside with patient and the patient's sister. The exam, history, and the medical decision-making described in the above note were completed with the assistance of the mid-level provider. I reviewed and agree with the findings presented. I attest that I had a [id number] encounter with the patient on the same day, and personally performed and documented my assessment and findings in the medical record. March 13, 2018 Postop day 6 status post bowel resection for enterocutaneous fistula and incidentally discovered during. Plan continue supplementation with TPN and gradual increase in oral diet as the patient tolerates. Continue out of bed walk the halls. MRSA wound infection. Patient was given single dose of vancomycin and then placed on oral Bactrim. VAC dressing is intact. Urinary outflow obstruction. Patient on Flomax. Santos catheter replaced last night. Will give 48 hours of Santos catheter before attempting removal. Transfer to floor orders pending. Morphine 3 mg inadequate for VAC dressing change, discontinued that order and put in order to nursing communication to give half a milligram of Dilaudid 30 minutes prior to VAC dressing change. Discussed plans with patient at bedside.
[2018-03-13] MEDS: Pantoprazole Inj 40 MG Vial IV.PUSH SCH (08:52)
[2018-03-13] MEDS: Heparin Central Flush 100 UNIT/ML 5 ML Vial IV.FLUSH SCH (08:53)
[2018-03-13] MEDS: Potassium Chlor 40 mEq Premix 40 MEQ/100 ML PIGGYBACK IV.SIG SCH ×2 (10:24→15:00)
[2018-03-13] MEDS: Enoxaparin Inj 40 MG/0.4 ML Syringe SQ SCH (12:14)
--- NOTE | 2018-03-13 16:25 | P.DIET ---
Nutritional Evaluation Type of nutrition evaluation: follow-up Nutrition consult regarding: TPN/PPN Nutrition screening: Weight Loss > 10 lbs Subjective Subjective Comments: c/o sore throat. Still has ng-t. Objective - Diagnosis Fistula - Objective % IBW: 115 (IBW = 142#) Body Weight Used for Calculations: Actual (74.4 kg) Energy Needs - Lower Range (kCal/kg): 28 Energy Needs - Upper Range (kCal/kg): 32 Lower Limit kCal/kg (kCals): 2,083 Upper Limit kCal/kg (kCals): 2,381 Lower Limit Protein Factor (Grams per Kg): 1.2 Upper Limit Protein Factor (Grams per Kg): 1.5 Lower Protein Needs (Protein): 89 Upper Protein Needs (Protein): 112 Dietitian Reviewed in Medical Record: Current diet, Curent medications, Intake & Output, Labs, Medical history, TPN/PPN Diet Order: full liquids Oral Diet Intake Amount: Poor <50% Assessment Assessment: Pt mentions a poor appetite, finishing around only 25% of his full liquid diet most meals and drinking few sips of Ensure. Pt receiving TPN Clinimix E 5/20 @ 42 mls/hr with 20% lipids 250 mls/day. TPN/lipids currently providing 1380 kcals and 50 gms protein. To better meet needs, recommend increase TPN rate to 75 mls/hr with the same lipids to provide 2084 kcals and 90 gms protein. Request weekly TG while on TPN/lipids. Labs, wts and clinical course reviewed. Recommendations: TPN: Clinimix E 5/20 @ 75 mls/hr LIPIDS: 20% lipids 250 mls/day Diet advance per General Surgery Dietitian to Monitor: Lab values, Intake & Output, Diet tolerance, TPN/PPN tolerance, Weight change, Diet advancement, Medical course
[2018-03-13] MEDS: FOLIC ACID IV.SIG SCH ×2 (16:57→20:52)
[2018-03-13] MEDS: ELECTROLYTES IV.SIG SCH ×2 (16:57→20:52)
[2018-03-13] MEDS: MULTIVITAMIN IV.SIG SCH ×2 (16:57→20:52)
[2018-03-13] MEDS: [UNRECOGNIZED DRUG - OTHER] IV.SIG SCH ×2 (16:57→20:52)
[2018-03-14 06:00] LABS: Baso # (Auto) 0.1 th/mm3 (0.0-0.2); Baso % (Auto) 0.4 % (0.0-2.0); Eos # (Auto) 0.2 th/mm3 (0.0-0.4); Eos % (Auto) 0.9 % (0.0-4.0); Hematocrit 29.2 % (39.0-51.0); Hemoglobin 9.2 gm/dL (13.0-17.0); Lymph # (Auto) 1.2 th/mm3 (1.0-4.8); Lymph % (Auto) 4.9 % (9.0-44.0); Mean Corpuscular HGB Conc 31.7 % (32.0-36.0); Mean Corpuscular Hemoglobin 28.2 pg (27.0-34.0); Mean Corpuscular Volume 88.9 fL (80.0-100.0); Mono # (Auto) 0.8 th/mm3 (0.0-0.9); Mono % (Auto) 3.2 % (0.0-8.0); Neut # (Auto) 22.8 th/mm3 (1.8-7.7); Neut % (Auto) 90.6 % (16.0-70.0); Platelet Count 556 th/mm3 (150-450); Red Blood Count 3.28 mil/mm3 (4.50-5.90); Red Cell Distribution Width 18.5 % (11.6-17.2); White Blood Count 25.2 th/mm3 (4.0-11.0)
[2018-03-14 08:54] LABS: Anion Gap 9 meq/L (5-15); Blood Urea Nitrogen 11 mg/dL (7-18); Calcium 8.1 mg/dL (8.5-10.1); Carbon Dioxide 27.5 meq/L (21.0-32.0); Chloride 102 meq/L (98-107); Glomerular Filtration Rate Greater Than 89 mL/min (>89); Glucose,Random 107 mg/dL (74-106); Potassium 3.9 meq/L (3.5-5.1); Sodium 138 meq/L (136-145)
[2018-03-14] MEDS: Pantoprazole Inj 40 MG Vial IV.PUSH SCH (09:00)
[2018-03-14] MEDS: Heparin Central Flush 100 UNIT/ML 5 ML Vial IV.FLUSH SCH (09:01)
--- NOTE | 2018-03-14 10:25 | CT ---
EXAM DATE: 03/14/2018 10:18 AM EDT AGE/SEX: 62 years / Male INDICATIONS: Post abdominal surgery. Resection of terminal ileum and cecum. CLINICAL DATA: This is the patient's initial encounter. Patient reports that signs and symptoms have been present for 1 week and indicates a pain score of 4/10. MEDICAL/SURGICAL HISTORY: . Fistula. Appendectomy. Cholecystectomy. Hernia repair. ORAL CONTRAST: No oral contrast ingested. RADIATION DOSE: 6.56 CTDI (mGy) COMPARISON: [facility] – [place], [place] ABDOMEN W CONTRAST, 02/25/2018. . TECHNIQUE: Multiple contiguous axial images were obtained through the abdomen and pelvis following b olus infusion of 80 ml Omnipaque 350 (iohexol) nonionic water-soluble contrast as a single exam dos e. No oral contrast ingested. Using automated exposure control and adjustment of the mA and/or kV ac cording to patient size, radiation dose was kept as low as reasonably achievable to obtain optimal di agnostic quality images. DICOM format image data is available electronically for review and comparis on. FINDINGS: New small right pleural effusion when compared to previous study Trace pleural effusion on the left Minimal Free intra-abdominal air. Liver is free of focal defects. Spleen pancreas, adrenals unremarkable Multiple small cyst in the kidneys. Flow collection anterior abdominal wall Small Intraperitoneal fluid collection abutting the anterior abdominal wall just below the umbilicus containing a small amount of air. There is minimal free air in the left mid abdomen. In the pelvis bladder is decompressed by a Santos. Mild mesenteric induration evident. Review of bone windows reveals only degenerative changes. CONCLUSION: Minimal free intraperitoneal air with and intra-abdominal fluid collection abutting the a nterior abdominal wall beneath the surgical incision. This is nonspecific. I don't see evidence for mesenteric thrombosis. Mild ileus. Electronically signed by: Terence Mark MD 03/14/2018 10:23 AM EDT
[2018-03-14] MEDS: Vancomycin Inj 1,000 MG in Sodium Chlor 0.9% Inj 250 ML IV.SIG SCH (12:04)
[2018-03-14] MEDS: Enoxaparin Inj 40 MG/0.4 ML Syringe SQ SCH (12:05)
[2018-03-14] MEDS: HYDROmorphone PF Inj 1 MG/ML Ampul IV.PUSH PRN ×3 (14:45→22:01)
--- NOTE | 2018-03-14 16:00 | P.PNGS ---
Subjective Interval history: DAILY PROGRESS NOTE FOR SURGICAL ATTENDING, DR. MYRON DE LA PAZ Seen about 0730---- nausea and vomiting overnight; not feeling well Again seen about 1400--- feeling better; was able to eat some lunch; no further nausea/vomiting Physical Exam Vital signs: Vital Signs 03/13/18 16:00 03/13/18 17:00 03/13/18 17:32 Temperature 97.9 F Pulse Rate 87 88 98 H Respiratory Rate 23 20 25 H Blood Pressure 118/76 Pulse Oximetry 94 L 93 L 94 L 03/13/18 18:00 03/13/18 20:00 03/14/18 00:00 Temperature 97.9 F 98.4 F Pulse Rate 94 H 80 91 H Respiratory Rate 30 H 16 18 Blood Pressure 133/76 138/88 Pulse Oximetry 95 95 95 03/14/18 04:00 03/14/18 08:00 03/14/18 12:00 Temperature 98.5 F 97.9 F 98.4 F Pulse Rate 89 85 90 Respiratory Rate 17 17 17 Blood Pressure 146/97 H 144/96 H 135/81 Pulse Oximetry 95 96 96 Intake & Output 03/13/18 03/14/18 03/14/18 18:59 06:59 18:59 Intake Total 1410.2 / 1410.2 550 / 550 350 / 350 Output Total 2700 / 2700 1200 / 1200 Balance -1289.8 / -1289.8 -650 / -650 350 / 350 Weight 74 kg Intake: IV 1410.2 / 1410.2 550 / 550 350 / 350 LR 1000 mL Inj 1,000 ML @ 68 100 / 100 mls/hr IV.CONT .[id number] [facility] Rx# :[id number] Ofirmev Inj 1,000 mg In 100 ml 200 / 200 200 / 200 100 / 100 @ 400 mls/hr IV.SIG Q6H [facility] Rx# :[id number] Intralipid 20% Inj 250 ML @ 31. 250 / 250 25 mls/hr IV.SIG Q24H [facility] Rx#: [id number] MVI-12 Inj 10 ML Folvite Inj 1 1010.2 / 1010.2 MG In Clinimix E 5%/D20W Inj 1, 000 ML @ 42 mls/hr IV.SIG Q24H [facility] Rx#:[id number] KCl 40 mEq Premix Inj 40 meq In 100 / 100 100 / 100 100 ml @ 25 mls/hr IV.SIG Q4H [facility] Rx#:[id number] Vancomycin Inj 1,000 MG In NS 250 / 250 Inj 250 ML @ 250 mls/hr IV.SIG Q24H [facility] Rx#:[id number] Output: Urine Amount (Catheter) 2650 / 2650 1200 / 1200 Indwelling Urethral Catheter 2650 / 2650 1200 / 1200 Wound Vac Amount 50 / 50 Right Abdomen 50 / 50 Other: Mode Setting Right Abdomen Continuous Date of Last Bowel Movement 03/07/18 Narrative: Alert and awake Abd: Wound vac removed and replaced--- wound beds are healthy beefy red without any residual exudate RIGHT arm PICC in place - Urinary Catheter Management Indwelling Urethral Catheter Cath placed during this visit: yes, but has since been removed by the nurse Reason for continuing: Acute urinary retention Insertion date: 03/12/18 Insertion time: 22:30 Removal date: 03/09/18 Removal time: 07:15 Results - Labs 03/15/18 04:30 03/15/18 04:30 Laboratory Results - last 24 hr 03/13/18 03/14/1818 17:12 05:30 07:00 WBC 25.2 H RBC 3.28 L Hgb 9.2 L Hct 29.2 L MCV 88.9 D MCH 28.2 MCHC 31.7 L RDW 18.5 H Plt Count 556 H D MPV 6.0 L Neut % (Auto) 90.6 H Lymph % (Auto) 4.9 L [place] % (Auto) 3.2 Eos % (Auto) 0.9 Baso % (Auto) 0.4 Neut # (Auto) 22.8 H Lymph # (Auto) 1.2 [place] # (Auto) 0.8 Eos # (Auto) 0.2 Baso # (Auto) 0.1 WBC Differential . Differential Comment Auto diff final Sodium 138 Potassium 3.9 Chloride 102 Carbon Dioxide 27.5 Anion Gap 9 BUN 11 Creatinine 0.62 Estimated GFR Greater than 89 POC Glucose 111 H Random Glucose 107 H Calcium 8.1 L 03/14/18 03/14/18 07:38 11:49 WBC RBC Hgb Hct MCV MCH MCHC RDW Plt Count MPV Neut % (Auto) Lymph % (Auto) [place] % (Auto) Eos % (Auto) Baso % (Auto) Neut # (Auto) Lymph # (Auto) [place] # (Auto) Eos # (Auto) Baso # (Auto) WBC Differential Differential Comment Sodium Potassium Chloride Carbon Dioxide Anion Gap BUN Creatinine Estimated GFR POC Glucose 127 H 138 H Random Glucose Calcium - Imaging Imaging: ITS Impressions Abdomen/Pelvis CT 03/14/18 00:00 CONCLUSION: Minimal free intraperitoneal air with and intra-abdominal fluid collection abutting the anterior abdominal wall beneath the surgical incision. This is nonspecific. I don't see evidence for mesenteric thrombosis. Mild ileus. 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 - Fistula of intestine Status: Acute Plan: 62 year old male s/p Ex laparotomy,extensive adhesion lysis greater than 1 hour , small bowel resection, resection of terminal ileum and cecum, biopsy of mesenteric nodule with frozen section, debridement of abdominal ,wall placement of VAC dressing -WBC elevated; not able to tolerate Bactrim----DC and started Vancomycin -Culture purulent drainage ---+MRSA -Wound vac change today -Pain control -Continue full liquids -TPN ---Increased rate -OOB as tolerated -Continue Tom -CARLOS Rudd at bedside (3) Abdominal wall abscess Code(s): L02.211 - Cutaneous abscess of abdominal wall Status: Acute - Attending Attestation NOTE FOR SURGICAL ATTENDING, DR. MYRON DE LA PAZ I agree with above assessment and plan. The exam, history, and the medical decision-making described in the above note were completed with the assistance of the mid-level provider. I reviewed and agree with the findings presented. I attest that I had a [id number] encounter with the patient on the same day, and personally performed and documented my assessment and findings in the medical record. The following services were provided during this hospital visit: Chart data review, vital sign assessments/reviewing monitor data Review of consultations notes if present. Medication orders/review and/or management Ordering and/or reviewing lab tests Ordering and/or interpreting/reviewing x-rays and/or diagnostic studies Care of the patient and discussion of the patient with the care team Documentation time To help prompt me to consider important information that might be impacting today's encounter and assessment, Information from prior notes written by myself or my colleagues may have been "brought forward/copy and pasted" into today's note.
[2018-03-14] MEDS: Multivitamin Inj 10 ML, Folic Acid Inj 1 MG in AA 5%/D20W - Electrolytes 2,000 ML IV.SIG SCH (20:22)
[2018-03-15] MEDS: HYDROmorphone PF Inj 1 MG/ML Ampul IV.PUSH PRN ×2 (04:36→22:36)
[2018-03-15 05:14] LABS: Baso # (Auto) 0.1 th/mm3 (0.0-0.2); Baso % (Auto) 0.3 % (0.0-2.0); Eos # (Auto) 0.6 th/mm3 (0.0-0.4); Eos % (Auto) 2.7 % (0.0-4.0); Hematocrit 26.8 % (39.0-51.0); Hemoglobin 9.1 gm/dL (13.0-17.0); Lymph % (Auto) 8.5 % (9.0-44.0); Mean Corpuscular HGB Conc 33.9 % (32.0-36.0); Mean Corpuscular Hemoglobin 28.6 pg (27.0-34.0); Mean Corpuscular Volume 84.2 fL (80.0-100.0); Mean Platelet Volume 5.7 fL (7.0-11.0); Mono # (Auto) 1.4 th/mm3 (0.0-0.9); Mono % (Auto) 5.9 % (0.0-8.0); Neut % (Auto) 82.6 % (16.0-70.0); Platelet Count 580 th/mm3 (150-450); Red Blood Count 3.19 mil/mm3 (4.50-5.90); Red Cell Distribution Width 18.1 % (11.6-17.2)
[2018-03-15 05:43] LABS: Anion Gap 6 meq/L (5-15); Blood Urea Nitrogen 11 mg/dL (7-18); Calcium 6.7 mg/dL (8.5-10.1); Carbon Dioxide 27.8 meq/L (21.0-32.0); Chloride 108 meq/L (98-107); Glomerular Filtration Rate Greater Than 89 mL/min (>89); Glucose,Random 80 mg/dL (74-106); Potassium 3.5 meq/L (3.5-5.1); Sodium 142 meq/L (136-145)
[2018-03-15 05:59] LABS: Total Protein 5.6 g/dL (6.4-8.2)
[2018-03-15 06:02] LABS: Calcium-Albumin Corrected 7.4 mg/dL (8.5-10.1)
[2018-03-15] MEDS: Heparin Central Flush 100 UNIT/ML 5 ML Vial IV.FLUSH SCH (10:06)
[2018-03-15] MEDS: Pantoprazole Inj 40 MG Vial IV.PUSH SCH (10:09)
--- NOTE | 2018-03-15 10:57 | P.PNGS ---
Subjective Patient reports: no new complaints, feels better, flatus, no bowel movement ( vac good seal, wbc 23) Physical Exam Vital signs: Vital Signs 03/14/18 12:00 03/14/18 16:00 03/14/18 20:00 Temperature 98.4 F 97.6 F 97.8 F Pulse Rate 90 80 73 Respiratory Rate 17 17 18 Blood Pressure 135/81 140/87 126/75 Pulse Oximetry 96 97 96 03/15/18 00:00 03/15/18 08:00 Temperature 97.9 F 97.8 F Pulse Rate 72 75 Respiratory Rate 18 16 Blood Pressure 122/85 118/77 Pulse Oximetry 96 96 Intake & Output 03/14/18 03/15/18 03/15/18 18:59 06:59 18:59 Intake Total 2180.2 / 2180.2 1930 / 1930 Output Total 950 / 950 1330 / 1330 Balance 1230.2 / 1230.2 600 / 600 Weight 74 kg Intake: IV 1460.2 / 1460.2 1450 / 1450 LR 1000 mL Inj 1,000 ML @ 68 1000 / 1000 mls/hr IV.CONT .[id number] [facility]ONNA Rx# :[id number] Ofirmev Inj 1,000 mg In 100 ml 200 / 200 200 / 200 @ 400 mls/hr IV.SIG Q6H [facility] Rx# :[id number] Intralipid 20% Inj 250 ML @ 31. 250 / 250 25 mls/hr IV.SIG Q24H [facility]ONNA Rx#: [id number] MVI-12 Inj 10 ML Folvite Inj 1 1010.2 / 1010.2 MG In Clinimix E 5%/D20W Inj 1, 000 ML @ 42 mls/hr IV.SIG Q24H SHONNA Rx#:[id number] Vancomycin Inj 1,000 MG In NS 250 / 250 Inj 250 ML @ 250 mls/hr IV.SIG Q24H [facility]ONNA Rx#:[id number] Oral 720 / 720 480 / 480 Output: Urine 950 / 950 Urine Amount (Catheter) 1300 / 1300 Indwelling Urethral Catheter 1300 / 1300 Wound Vac Amount 30 / 30 Right Abdomen 30 / 30 Other: Mode Setting Right Abdomen Continuous Date of Last Bowel Movement 03/07/18 - Routine Abdominal Exam Present: soft (vac no leak, +ttp incisional) - Urinary Catheter Management Indwelling Urethral Catheter Cath placed during this visit: yes, but has since been removed by the nurse Reason for continuing: Acute urinary retention Insertion date: 03/12/18 Insertion time: 22:30 Removal date: 03/09/18 Removal time: 07:15 Results - Labs 03/15/18 04:30 03/15/18 04:30 Laboratory Results - last 24 hr 03/14/18 03/15/18 03/15/18 11:49 04:30 04:30 WBC 23.0 H RBC 3.19 L Hgb 9.1 L Hct 26.8 L MCV 84.2 D MCH 28.6 MCHC 33.9 RDW 18.1 H Plt Count 580 H MPV 5.7 L Neut % (Auto) 82.6 H Lymph % (Auto) 8.5 L [place] % (Auto) 5.9 Eos % (Auto) 2.7 Baso % (Auto) 0.3 Neut # (Auto) 19.0 H Lymph # (Auto) 2.0 [place] # (Auto) 1.4 H Eos # (Auto) 0.6 H Baso # (Auto) 0.1 WBC Differential . Differential Comment Auto diff final Sodium 142 Potassium 3.5 Chloride 108 H Carbon Dioxide 27.8 Anion Gap 6 BUN 11 Creatinine 0.43 L Estimated GFR Greater than 89 POC Glucose 138 H Random Glucose 80 Calcium 6.7 L* D Prot Corrected Calcium 7.4 L* Total Protein 5.6 L - Imaging Imaging: ITS Impressions Abdomen/Pelvis CT 03/14/18 00:00 CONCLUSION: Minimal free intraperitoneal air with and intra-abdominal fluid collection abutting the anterior abdominal wall beneath the surgical incision. This is nonspecific. I don't see evidence for mesenteric thrombosis. Mild ileus. 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 - Fistula of intestine Status: Acute Plan: 62 year old male s/p Ex laparotomy,extensive adhesion lysis greater than 1 hour , small bowel resection, resection of terminal ileum and cecum, biopsy of mesenteric nodule with frozen section, debridement of abdominal ,wall placement of VAC dressing -WBC elevated; started Vancomycin CT small fluid collection consider drainage if persistent wbc or fever -Culture purulent drainage ---+MRSA -Wound vac change saturday planning -Pain control -Continue full liquids -TPN ---Increased rate -OOB as tolerated -Continue Doshi - defer to urology -RN Blaire at bedside (3) Abdominal wall abscess Code(s): L02.211 - Cutaneous abscess of abdominal wall Status: Acute - Plan s/p Exploratory laparotomy ,extensive adhesio lysis greater than 1 hour, small bowel resection, resection of terminal ileum and cecum, biopsy of mesenteric nodule with frozen section, debridement of abdominal ,wall placement of VAC dressing PLAN NG sxn sips, tpn via picc pain control d/c doshi in am dvt ppx transfer to floor when bed
[2018-03-15] MEDS: Enoxaparin Inj 40 MG/0.4 ML Syringe SQ SCH (12:32)
[2018-03-15] MEDS: Vancomycin Inj 1,000 MG in Sodium Chlor 0.9% Inj 250 ML IV.SIG SCH (12:33)
[2018-03-15] MEDS: Scopalamine 1.5 MG Patch T-DERMAL SCH (16:58)
[2018-03-15] MEDS: Multivitamin Inj 10 ML, Folic Acid Inj 1 MG in AA 5%/D20W - Electrolytes 2,000 ML IV.SIG SCH (20:02)
[2018-03-16] MEDS: Heparin Central Flush 100 UNIT/ML 5 ML Vial IV.FLUSH SCH (09:21)
[2018-03-16] MEDS: Pantoprazole Inj 40 MG Vial IV.PUSH SCH (09:22)
[2018-03-16] MEDS: Vancomycin Inj 1,000 MG in Sodium Chlor 0.9% Inj 250 ML IV.SIG SCH (12:16)
[2018-03-16] MEDS: Enoxaparin Inj 40 MG/0.4 ML Syringe SQ SCH (12:18)
--- NOTE | 2018-03-16 14:56 | P.PNGS ---
Subjective Patient reports: feels better, bowel movement, diarrhea (He started having large amount of bowel movements with diarrhea last night. This is resulted in his abdomen feeling less distended and his nausea essentially going away. He indicates his appetite is improved. He wants to start eating.) Physical Exam Vital signs: Vital Signs 03/15/18 16:00 03/15/18 20:00 03/16/18 00:00 Temperature 97.3 F L 99.2 F 98.5 F Pulse Rate 107 H 99 H 93 H Respiratory Rate 18 18 17 Blood Pressure 150/92 H 143/82 H 127/74 Pulse Oximetry 95 95 97 03/16/18 04:00 03/16/18 08:00 03/16/18 12:00 Temperature 98.8 F 98.9 F 98.3 F Pulse Rate 86 83 100 H Respiratory Rate 17 17 17 Blood Pressure 134/81 127/70 115/82 Pulse Oximetry 97 96 95 Intake & Output 03/15/18 03/16/18 03/16/18 19:59 06:59 18:59 Intake Total 250 / 250 Output Total Balance 250 / 250 Intake: IV 250 / 250 LR 1000 mL Inj 1,000 ML @ 68 mls/hr IV.CONT .[id number] [facility] Rx# :[id number] Intralipid 20% Inj 250 ML @ 31. 25 mls/hr IV.SIG Q24H [facility] Rx#: [id number] MVI-12 Inj 10 ML Folvite Inj 1 MG In Clinimix E 5%/D20W Inj 2, 000 ML @ 75 mls/hr IV.SIG Q24H [facility]ON[facility] Rx#:[id number] Vancomycin Inj 1,000 MG In NS 250 / 250 Inj 250 ML @ 250 mls/hr IV.SIG Q24H [facility]ONNA Rx#:[id number] Oral Output: Urine Amount (Catheter) Indwelling Urethral Catheter Wound Vac Amount Lower Abdomen Other: Mode Setting Lower Abdomen Date of Last Bowel Movement 03/16/18 # Bowel Movements 2 Narrative: 03/16/2018 Patient looks healthy. He is in no distress. He has no oxygen on and is breathing comfortably. His VAC dressing is intact and there is no leak. There is minimal erythema inferior to the VAC on the left side. There is no fluctuant area. His abdomen is totally nondistended and soft and nontender. His extremities are thin, there is no edema. He is awake and alert and oriented. He had a bowel movement which had a small amount of soft light brown stool and some light brown liquid. It is not especially malodorous. - Urinary Catheter Management Indwelling Urethral Catheter Cath placed during this visit: yes, but has since been removed by the nurse Reason for continuing: Acute urinary retention Insertion date: 03/12/18 Insertion time: 22:30 Removal date: 03/09/18 Removal time: 07:15 Results - Labs 03/15/18 04:30 03/15/18 04:30 Laboratory Results - last 24 hr 03/15/18 03/16/18 19:07 07:07 POC Glucose 136 H 131 H - Imaging Imaging: ITS Impressions Abdomen/Pelvis CT 03/14/18 00:00 CONCLUSION: Minimal free intraperitoneal air with and intra-abdominal fluid collection abutting the anterior abdominal wall beneath the surgical incision. This is nonspecific. I don't see evidence for mesenteric thrombosis. Mild ileus. 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 - Fistula of intestine Status: Acute Plan: 62 year old male s/p Ex laparotomy,extensive adhesion lysis greater than 1 hour , small bowel resection, resection of terminal ileum and cecum, biopsy of mesenteric nodule with frozen section, debridement of abdominal ,wall placement of VAC dressing -WBC elevated; not able to tolerate Bactrim----DC and started Vancomycin -Culture purulent drainage ---+MRSA -Wound vac change today -Pain control -Continue full liquids -TPN ---Increased rate -OOB as tolerated -Continue Santos -CARLOS Rudd at bedside (3) Abdominal wall abscess Code(s): L02.211 - Cutaneous abscess of abdominal wall Status: Acute - Plan I personally evaluated the patient in room 1334. I had seen him earlier today as well. He has been taking small amounts of liquids. He has had his Santos removed and has voided since it has been removed. His pain is reasonably controlled. He has clear breath sounds. His heart sounds are regular. His abdomen is soft. There is mild residual erythema in the skin around the open wound. His VAC dressing was changed in Concert with Anai FONG. The remaining thuan were removed from the incision. The wounds are granulating in beautifully. New VAC dressing was smaller size sponges were placed in the traditional fashion and connected to suction with no evidence of leak. He tolerated the procedure with some discomfort. Assessment postop day 5 status post bowel resection for enterocutaneous fistula and incidentally discovered neuroendocrine carcinoma. Plan is continue nutritional supplementation with TPN and gradual increase in oral diet as the patient tolerates. He has been up out of bed walking the halls and up in the chair and should continue to do so. Discussed at bedside with patient and the patient's sister. The exam, history, and the medical decision-making described in the above note were completed with the assistance of the mid-level provider. I reviewed and agree with the findings presented. I attest that I had a [id number] encounter with the patient on the same day, and personally performed and documented my assessment and findings in the medical record. March 13, 2018 Postop day 6 status post bowel resection for enterocutaneous fistula and incidentally discovered during. Plan continue supplementation with TPN and gradual increase in oral diet as the patient tolerates. Continue out of bed walk the halls. MRSA wound infection. Patient was given single dose of vancomycin and then placed on oral Bactrim. VAC dressing is intact. Urinary outflow obstruction. Patient on Flomax. Santos catheter replaced last night. Will give 48 hours of Santos catheter before attempting removal. Transfer to floor orders pending. Morphine 3 mg inadequate for VAC dressing change, discontinued that order and put in order to nursing communication to give half a milligram of Dilaudid 30 minutes prior to VAC dressing change. Discussed plans with patient at bedside. March 17, 2018 Postop bowel resection for enterocutaneous fistula and insulin incidentally discovered neuroendocrine carcinoma. Patient is finally started having bowel function. Will check stool for C. difficile. Mood. May have food from outside hospital. We will follow-up labs. We will continue vancomycin and TPN to supplement his nutrition. Continue to be out of bed and walking. Plan VAC dressing change tomorrow afternoon. Will DC Santos catheter in a.m. Patient and significant other at bedside. Discussed plans with patient, significant other, and bedside RN.
[2018-03-16] MEDS: Lactobacillus Acidophilus/L. Spores Tablet PO SCH (20:00)
[2018-03-16] MEDS: Multivitamin Inj 10 ML, Folic Acid Inj 1 MG in AA 5%/D20W - Electrolytes 2,000 ML IV.SIG SCH (20:02)
[2018-03-16] MEDS: HYDROmorphone PF Inj 1 MG/ML Ampul IV.PUSH PRN (22:55)
[2018-03-17 05:23] LABS: Baso # (Auto) 0.1 th/mm3 (0.0-0.2); Baso % (Auto) 0.5 % (0.0-2.0); Eos # (Auto) 0.3 th/mm3 (0.0-0.4); Eos % (Auto) 1.1 % (0.0-4.0); Hematocrit 27.9 % (39.0-51.0); Hemoglobin 9.2 gm/dL (13.0-17.0); Lymph # (Auto) 2.3 th/mm3 (1.0-4.8); Lymph % (Auto) 10.2 % (9.0-44.0); Mean Corpuscular HGB Conc 32.9 % (32.0-36.0); Mean Corpuscular Hemoglobin 28.1 pg (27.0-34.0); Mean Corpuscular Volume 85.3 fL (80.0-100.0); Mean Platelet Volume 5.9 fL (7.0-11.0); Mono # (Auto) 1.4 th/mm3 (0.0-0.9); Mono % (Auto) 6.2 % (0.0-8.0); Neut # (Auto) 18.7 th/mm3 (1.8-7.7); Platelet Count 581 th/mm3 (150-450); Red Blood Count 3.26 mil/mm3 (4.50-5.90); Red Cell Distribution Width 17.5 % (11.6-17.2); White Blood Count 22.8 th/mm3 (4.0-11.0)
[2018-03-17 05:47] LABS: Anion Gap 6 meq/L (5-15); Blood Urea Nitrogen 16 mg/dL (7-18); Calcium 8.1 mg/dL (8.5-10.1); Carbon Dioxide 29.9 meq/L (21.0-32.0); Chloride 103 meq/L (98-107); Glomerular Filtration Rate Greater Than 89 mL/min (>89); Glucose,Random 104 mg/dL (74-106); Sodium 139 meq/L (136-145)
[2018-03-17] MEDS: Pantoprazole Inj 40 MG Vial IV.PUSH SCH (09:36)
[2018-03-17] MEDS: Lactobacillus Acidophilus/L. Spores Tablet PO SCH ×2 (09:36→21:55)
[2018-03-17] MEDS: Heparin Central Flush 100 UNIT/ML 5 ML Vial IV.FLUSH SCH (09:37)
[2018-03-17] MEDS: Enoxaparin Inj 40 MG/0.4 ML Syringe SQ SCH (13:57)
[2018-03-17] MEDS: Vancomycin Inj 1,000 MG in Sodium Chlor 0.9% Inj 250 ML IV.SIG SCH (13:58)
[2018-03-17] MEDS: HYDROmorphone PF Inj 1 MG/ML Ampul IV.PUSH PRN ×2 (15:56→20:15)
--- NOTE | 2018-03-17 16:35 | P.PNGS ---
Subjective Patient reports: feels better, bowel movement (Patient is having less nausea and is slowly increasing appetite. His diarrheal bowel movements have slowed down he now gets the signal that his bowels are going to move and he has time to get a nurse to help him up to the bathroom. He is emptying his bladder and has no more of the urgency or frequency associated with that. He does get some discomfort when his bladder is distended.) Physical Exam Vital signs: Vital Signs 03/16/18 20:00 03/17/18 00:00 03/17/18 08:00 Temperature 97.8 F 98.1 F 98 F Pulse Rate 84 83 79 Respiratory Rate 18 18 16 Blood Pressure 120/79 118/65 108/64 Pulse Oximetry 99 95 97 03/17/18 11:57 03/17/18 16:00 Temperature 97.9 F 98.1 F Pulse Rate 90 99 H Respiratory Rate 18 18 Blood Pressure 107/65 108/64 Pulse Oximetry 95 93 L Intake & Output 03/16/18 03/17/18 03/17/18 18:59 06:59 18:59 Intake Total 970 / 970 3260.2 / 3260.2 250 / 250 Output Total 700 / 700 1600 / 1600 Balance 270 / 270 1660.2 / 1660.2 250 / 250 Weight 68.2 kg Intake: IV 250 / 250 3260.2 / 3260.2 250 / 250 LR 1000 mL Inj 1,000 ML @ 68 1000 / 1000 mls/hr IV.CONT .[id number] [facility] Rx# :[id number] Intralipid 20% Inj 250 ML @ 31. 250 / 250 25 mls/hr IV.SIG Q24H [facility] Rx#: [id number] MVI-12 Inj 10 ML Folvite Inj 1 2009.2 / 2009.2 MG In Clinimix E 5%/D20W Inj 2, 000 ML @ 75 mls/hr IV.SIG Q24H [facility] Rx#:[id number] Vancomycin Inj 1,000 MG In NS 250 / 250 250 / 250 Inj 250 ML @ 250 mls/hr IV.SIG Q24H [facility]ON[facility] Rx#:[id number] Oral 720 / 720 Output: Urine 1350 / 1350 Urine Amount (Catheter) 700 / 700 250 / 250 Indwelling Urethral Catheter 700 / 700 250 / 250 Wound Vac Amount 0 / 0 Lower Abdomen 0 / 0 Other: Mode Setting Lower Abdomen Continuous Date of Last Bowel Movement 03/16/18 # Bowel Movements 12 3 Narrative: He looks awake and alert and healthy oriented and cooperative. He has no shortness of breath or dyspnea. His VAC dressing was changed after medication of the bedside with Dilaudid 0.5 mg. His left side of the incision is granulating in and is at the level of the skin no further VAC dressing placed there. He had a new half dollar sized blister with some mild erythema around it. The blister was sharply debrided and subcutaneous tissue was basically necrotic fat which was debrided which resulted in probably 25-30 cc of yellow serous fluid with some purulence that port out of the wound. The wound depth is at least 6 cm. The right side of the wound is granulating in all except for about a 1 x 3 cm area where there is some superficial exudative whitish material which was sharply debrided. Under that there was some necrotic fat and a small amount of yellow serous fluid. The VAC dressing was placed over this right lateral aspect of the wound as well as into the new area where the blister was sharply debrided. It was placed in a traditional fashion and connected to suction without evidence of leak. He tolerated it well. I believe this blister is the result of the fluid seen on the CT scan finding a way out. Unfortunately did not find a way out through the already open wound but nevertheless we will treat this with the VAC dressing changes and decompress the fluid and get the wound to heal. His extremities are nonedematous, there is no evidence of DVT. Assessment status post surgery for enterocutaneous fistula discovering neuroendocrine carcinoma. Wound infection being treated with VAC dressing. We will change antibiotics to oral and get him off intravenous vancomycin. We will continue supplementing his diet with TPN. As he increases his oral intake we will wean the TPN off. We will recheck a CBC tomorrow. His electrolytes were in good range with a potassium of 4. - Urinary Catheter Management Indwelling Urethral Catheter Cath placed during this visit: yes, but has since been removed by the nurse Reason for continuing: Other continuation reason Insertion date: 03/12/18 Insertion time: 22:30 Removal date: 03/17/18 Removal time: 06:20 Results - Labs 03/17/18 05:00 03/17/18 05:00 Laboratory Results - last 24 hr 03/16/18 03/16/18 03/17/18 15:00 19:48 05:00 WBC 22.8 H RBC 3.26 L Hgb 9.2 L Hct 27.9 L MCV 85.3 MCH 28.1 MCHC 32.9 RDW 17.5 H Plt Count 581 H MPV 5.9 L Neut % (Auto) 82.0 H Lymph % (Auto) 10.2 [place] % (Auto) 6.2 Eos % (Auto) 1.1 Baso % (Auto) 0.5 Neut # (Auto) 18.7 H Lymph # (Auto) 2.3 [place] # (Auto) 1.4 H Eos # (Auto) 0.3 Baso # (Auto) 0.1 WBC Differential . Differential Comment Auto diff final Sodium Potassium Chloride Carbon Dioxide Anion Gap BUN Creatinine Estimated GFR POC Glucose 123 H Random Glucose Calcium Stl C.difficile DNA Amp Negative St C. diff Tox Epid 027 Negative 03/17/18 05:00 WBC RBC Hgb Hct MCV MCH MCHC RDW Plt Count MPV Neut % (Auto) Lymph % (Auto) [place] % (Auto) Eos % (Auto) Baso % (Auto) Neut # (Auto) Lymph # (Auto) [place] # (Auto) Eos # (Auto) Baso # (Auto) WBC Differential Differential Comment Sodium 139 Potassium 4.0 Chloride 103 Carbon Dioxide 29.9 Anion Gap 6 BUN 16 Creatinine 0.52 L Estimated GFR Greater than 89 POC Glucose Random Glucose 104 Calcium 8.1 L Stl C.difficile DNA Amp St C. diff Tox Epid 027 - Imaging Imaging: ITS Impressions Abdomen/Pelvis CT 03/14/18 00:00 CONCLUSION: Minimal free intraperitoneal air with and intra-abdominal fluid collection abutting the anterior abdominal wall beneath the surgical incision. This is nonspecific. I don't see evidence for mesenteric thrombosis. Mild ileus. 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 - Fistula of intestine Status: Acute Plan: 62 year old male s/p Ex laparotomy,extensive adhesion lysis greater than 1 hour , small bowel resection, resection of terminal ileum and cecum, biopsy of mesenteric nodule with frozen section, debridement of abdominal ,wall placement of VAC dressing -WBC elevated; not able to tolerate Bactrim----DC and started Vancomycin -Culture purulent drainage ---+MRSA -Wound vac change today -Pain control -Continue full liquids -TPN ---Increased rate -OOB as tolerated -Continue Santos -CARLOS Rudd at bedside (3) Abdominal wall abscess Code(s): L02.211 - Cutaneous abscess of abdominal wall Status: Acute - Plan I personally evaluated the patient in room 1334. I had seen him earlier today as well. He has been taking small amounts of liquids. He has had his Santos removed and has voided since it has been removed. His pain is reasonably controlled. He has clear breath sounds. His heart sounds are regular. His abdomen is soft. There is mild residual erythema in the skin around the open wound. His VAC dressing was changed in Concert with Anai FONG. The remaining thuan were removed from the incision. The wounds are granulating in beautifully. New VAC dressing was smaller size sponges were placed in the traditional fashion and connected to suction with no evidence of leak. He tolerated the procedure with some discomfort. Assessment postop day 5 status post bowel resection for enterocutaneous fistula and incidentally discovered neuroendocrine carcinoma. Plan is continue nutritional supplementation with TPN and gradual increase in oral diet as the patient tolerates. He has been up out of bed walking the halls and up in the chair and should continue to do so. Discussed at bedside with patient and the patient's sister. The exam, history, and the medical decision-making described in the above note were completed with the assistance of the mid-level provider. I reviewed and agree with the findings presented. I attest that I had a [id number] encounter with the patient on the same day, and personally performed and documented my assessment and findings in the medical record. March 13, 2018 Postop day 6 status post bowel resection for enterocutaneous fistula and incidentally discovered during. Plan continue supplementation with TPN and gradual increase in oral diet as the patient tolerates. Continue out of bed walk the halls. MRSA wound infection. Patient was given single dose of vancomycin and then placed on oral Bactrim. VAC dressing is intact. Urinary outflow obstruction. Patient on Flomax. Santos catheter replaced last night. Will give 48 hours of Santos catheter before attempting removal. Transfer to floor orders pending. Morphine 3 mg inadequate for VAC dressing change, discontinued that order and put in order to nursing communication to give half a milligram of Dilaudid 30 minutes prior to VAC dressing change. Discussed plans with patient at bedside. March 17, 2018 Postop bowel resection for enterocutaneous fistula and insulin incidentally discovered neuroendocrine carcinoma. Patient is finally started having bowel function. Will check stool for C. difficile. Mood. May have food from outside hospital. We will follow-up labs. We will continue vancomycin and TPN to supplement his nutrition. Continue to be out of bed and walking. Plan VAC dressing change tomorrow afternoon. Will DC Santos catheter in a.m. Patient and significant other at bedside. Discussed plans with patient, significant other, and bedside RN.
--- NOTE | 2018-03-17 17:39 | P.DIET ---
Nutritional Evaluation Type of nutrition evaluation: follow-up Nutrition consult regarding: TPN/PPN Nutrition screening: Weight Loss > 10 lbs Subjective Subjective Comments: Pt says he is eating approximately "half" of his meals and drinking "half" of the Ensures. Pt's friend brought a sandwich in from outside "the other night". Objective - Diagnosis Fistula - Objective % IBW: 105 (IBW = 142#) Body Weight Used for Calculations: Actual (68.2) Energy Needs - Lower Range (kCal/kg): 25 Energy Needs - Upper Range (kCal/kg): 30 Lower Limit kCal/kg (kCals): 1,705 Upper Limit kCal/kg (kCals): 2,046 Lower Limit Protein Factor (Grams per Kg): 1.2 Upper Limit Protein Factor (Grams per Kg): 1.5 Lower Protein Needs (Protein): 82 Upper Protein Needs (Protein): 102 Dietitian Reviewed in Medical Record: Current diet, Curent medications, Intake & Output, Labs, Medical history, TPN/PPN Diet Order: Regular Oral Diet Intake Amount: Poor <50% Objective Comments: 03/06/18 exp lap, extensive OVIDIO, small bowel resection, resection of terminal ileum and cecum, biopsy of mesenteric nodule, debridement of abdomen wall, placement of wound vac +UOP 1350, +BM Feeding - Current TPN/PPN Current TPN: Clinimix E 09/29 Current TPN/PPN Rate (ml/hr): 75 Amino Acid and Dextrose Current kCals Provided: 1,584 Amino Acid and Dextrose Current Protein Provided: 90 Current Lipid Concentration: 20% Current Lipids Rate: 250 mls daily over 8 hours Current kCal Provided by TPN/PPN: 2,084 Assessment Assessment: Pt continues at nutritional risk r/t need for TPN. Current TPN provides for pt' s assessed needs. Request weekly TG while on TPN/lipids. Pt tolerating small amounts of po intake, as tolerated. Pt orders Ensure as needed. Pt okay per MD to receive food from outside. Wt changes noted. Labs/electrolytes reviewed. Dietitian following. Recommendations: 1. Current TPN provides for pt's assessed needs 2. Request weekly TG while on TPN/lipids 3. po intake, as tolerated 4. Pt orders Ensure as needed 5. Pt okay per MD to receive food from outside 6. Dietitian following Dietitian to Monitor: Lab values, Electrolytes, Glucose level, Supplement acceptance, Intake & Output, Diet tolerance, TPN/PPN tolerance, Weight change, PO Intake, Medical course
[2018-03-17] MEDS: Multivitamin Inj 10 ML, Folic Acid Inj 1 MG in AA 5%/D20W - Electrolytes 2,000 ML IV.SIG SCH (21:57)
[2018-03-18] MEDS: HYDROmorphone PF Inj 1 MG/ML Ampul IV.PUSH PRN ×4 (00:38→22:58)
[2018-03-18 06:52] LABS: Baso # (Auto) 0.3 th/mm3 (0.0-0.2); Baso % (Auto) 1.3 % (0.0-2.0); Eos # (Auto) 0.3 th/mm3 (0.0-0.4); Eos % (Auto) 1.6 % (0.0-4.0); Hematocrit 27.3 % (39.0-51.0); Hemoglobin 8.9 gm/dL (13.0-17.0); Lymph # (Auto) 1.9 th/mm3 (1.0-4.8); Lymph % (Auto) 9.4 % (9.0-44.0); Mean Corpuscular HGB Conc 32.4 % (32.0-36.0); Mean Corpuscular Hemoglobin 27.9 pg (27.0-34.0); Mean Platelet Volume 5.9 fL (7.0-11.0); Mono # (Auto) 1.1 th/mm3 (0.0-0.9); Mono % (Auto) 5.5 % (0.0-8.0); Neut # (Auto) 16.3 th/mm3 (1.8-7.7); Neut % (Auto) 82.2 % (16.0-70.0); Platelet Count 601 th/mm3 (150-450); Red Blood Count 3.18 mil/mm3 (4.50-5.90); Red Cell Distribution Width 18.1 % (11.6-17.2); White Blood Count 19.8 th/mm3 (4.0-11.0)
[2018-03-18] MEDS: Pantoprazole Inj 40 MG Vial IV.PUSH SCH (08:37)
[2018-03-18] MEDS: Lactobacillus Acidophilus/L. Spores Tablet PO SCH ×2 (08:37→22:51)
[2018-03-18] MEDS: Heparin Central Flush 100 UNIT/ML 5 ML Vial IV.FLUSH SCH (08:38)
[2018-03-18] MEDS: Enoxaparin Inj 40 MG/0.4 ML Syringe SQ SCH (14:21)
--- NOTE | 2018-03-18 14:57 | P.PNGS ---
Subjective Interval history: Resting in bed No issues Copious drainage from incision--- seal lost of wound vac Physical Exam Vital signs: Vital Signs 03/17/18 16:00 03/17/18 20:00 03/17/18 23:10 Temperature 98.1 F 97.8 F Pulse Rate 99 H 84 Respiratory Rate 18 Blood Pressure 108/64 115/73 Pulse Oximetry 93 L 98 03/18/18 00:00 03/18/18 08:00 03/18/18 12:00 Temperature 97.7 F 97.7 F 97.6 F Pulse Rate 85 76 87 Respiratory Rate 18 Blood Pressure 127/74 107/65 126/72 Pulse Oximetry 96 96 99 Intake & Output 03/17/18 03/18/18 03/18/18 18:59 06:59 18:59 Intake Total 250 / 250 2960.2 / 2960.2 975 / 975 Output Total 560 / 560 850 / 850 700 / 700 Balance -310 / -310 2110.2 / 2110.2 275 / 275 Weight 68.9 kg Intake: IV 250 / 250 2260.2 / 2260.2 975 / 975 LR 1000 mL Inj 1,000 ML @ 68 975 / 975 mls/hr IV.CONT .[id number] [facility] Rx# :[id number] Intralipid 20% Inj 250 ML @ 31. 250 / 250 25 mls/hr IV.SIG Q24H [facility] Rx#: [id number] MVI-12 Inj 10 ML Folvite Inj 1 2009.2 / 2010.2 MG In Clinimix E 5%/D20W Inj 2, 000 ML @ 75 mls/hr IV.SIG Q24H [facility] Rx#:[id number] Vancomycin Inj 1,000 MG In NS 250 / 250 Inj 250 ML @ 250 mls/hr IV.SIG Q24H [facility] Rx#:[id number] Oral 700 / 700 Output: Urine 560 / 560 850 / 850 700 / 700 Other: Date of Last Bowel Movement 03/16/18 # Bowel Movements 2 Narrative: Alert and awake Abd: soft; RIGHT sided wound ---clean dry ---no exudate; no drainage; tissue is beefy red LEFT--- small slit --- closing nicely Middle area--- copious drainage--- thick purulent drainage - Urinary Catheter Management Indwelling Urethral Catheter Cath placed during this visit: yes, but has since been removed by the nurse Reason for continuing: Other continuation reason Insertion date: 03/12/18 Insertion time: 22:30 Removal date: 03/17/18 Removal time: 06:20 Results - Labs 03/18/18 06:15 03/17/18 05:00 Laboratory Results - last 24 hr 03/17/18 03/18/18 03/18/18 22:21 06:15 06:15 WBC 19.8 H RBC 3.18 L Hgb 8.9 L Hct 27.3 L MCV 86.0 MCH 27.9 MCHC 32.4 RDW 18.1 H Plt Count 601 H MPV 5.9 L Neut % (Auto) 82.2 H Lymph % (Auto) 9.4 [place] % (Auto) 5.5 Eos % (Auto) 1.6 Baso % (Auto) 1.3 Neut # (Auto) 16.3 H Lymph # (Auto) 1.9 [place] # (Auto) 1.1 H Eos # (Auto) 0.3 Baso # (Auto) 0.3 H WBC Differential . Differential Comment Auto diff final POC Glucose 93 108 - Imaging Imaging: ITS Impressions Abdomen/Pelvis CT 03/14/18 00:00 CONCLUSION: Minimal free intraperitoneal air with and intra-abdominal fluid collection abutting the anterior abdominal wall beneath the surgical incision. This is nonspecific. I don't see evidence for mesenteric thrombosis. Mild ileus. 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 -Pain control -Dit as tolerated -TPN ---Increased rate -OOB as tolerated -Continue Santos -CARLOS Clark at bedside The exam, history, and the medical decision-making described in the above note were completed with the assistance of the mid-level provider. I reviewed and agree with the findings presented. I attest that I had a [id number] encounter with the patient on the same day, and personally performed and documented my assessment and findings in the medical record. (3) Abdominal wall abscess Code(s): L02.211 - Cutaneous abscess of abdominal wall Status: Acute
[2018-03-18] MEDS: Scopalamine 1.5 MG Patch T-DERMAL SCH (18:14)
[2018-03-18] MEDS: Multivitamin Inj 10 ML, Folic Acid Inj 1 MG in AA 5%/D20W - Electrolytes 2,000 ML IV.SIG SCH (22:52)
[2018-03-19] MEDS: Lactobacillus Acidophilus/L. Spores Tablet PO SCH ×2 (09:37→22:02)
[2018-03-19] MEDS: Pantoprazole Inj 40 MG Vial IV.PUSH SCH (09:38)
[2018-03-19] MEDS: Heparin Central Flush 100 UNIT/ML 5 ML Vial IV.FLUSH SCH ×2 (09:38→09:43)
--- NOTE | 2018-03-19 12:38 | MB ---
cc: Jamey Gonzalez DO DATE: 03/19/2018 HISTORY OF PRESENT ILLNESS: Mr. Chapman is a pleasant 62-year-old male who has an enterocutaneous fistula, who underwent recent surgery by Dr. Henson with VAC placement on 03/06/2018. Postoperatively, he has had some trouble with urination and voiding every 45 minutes. He notes small amounts and voids every hour and is unable to sleep. Prior to admission, he was getting up 2 times at night and noted a moderate stream. He denies any prior urinary tract infections or history of prostate cancer. ALLERGIES: HE HAS NO KNOWN DRUG ALLERGIES. PAST MEDICAL HISTORY: Noted for enterocutaneous fistula. PAST SURGICAL HISTORY: Noted for cholecystectomy, appendectomy, Achilles tendon repair, and history of hernia repair. SOCIAL HISTORY: Denies smoking or using drugs but does socially drink alcohol. FAMILY HISTORY: No family history of prostate cancer is noted. REVIEW OF SYSTEMS: Notes difficulty with urination, weak stream, straining at times, incomplete emptying as noted. Denies chest pain, abdominal pain, back pain, gait disturbances, bleeding disorders, history of nocturia x2. Denies skin lesion or psychiatric problems. Remaining review of systems are reviewed and are negative. PHYSICAL EXAMINATION: VITAL SIGNS: Temperature 97.8, heart rate 86, respiratory rate 15, 120/72 is his blood pressure. GENERAL: He is a well-developed, well-nourished, 62-year-old male in no acute distress. HEENT: Normocephalic, atraumatic. Pupils are equal, round, regular and reactive to light. Extraocular movements intact. NECK: Supple. HEART: Regular rate and rhythm. LUNGS: Clear. ABDOMEN: Soft. VAC is in place. GENITOURINARY: Normal phallus. Testes descended. EXTREMITIES: Show no cyanosis, clubbing, or edema. NEUROLOGIC: Cranial nerves 2-12 are intact. LABORATORY DATA: White count 19.8, hemoglobin 8.9, hematocrit 27.3, platelet count of 601. Sodium 139, potassium 4.9, chloride 103, CO2 of 29.9, BUN of 16, creatinine 0.52, glucose of 140. ASSESSMENT: This is a 62-year-old male with benign prostatic hypertrophy with obstruction and incomplete bladder emptying. Recommend placement of Santos catheter for now. We double Flomax. Once the patient is ambulating better and off narcotics, will recommend a void trial in approximately 5 days, if he is still in the hospital at that time. Thank you for the consult and allowing me to participate in the care of this patient. We will follow with you. DO Ginna Thomas , 12:18 PM , 12:24 PM
--- NOTE | 2018-03-19 15:28 | P.PNGS ---
Subjective Patient reports: feels better (Less pain with VAC dressing change. 2 bowel movements today a little more solid. Tolerating regular food better. Difficulty with voiding. Dr. Gonzalez of urology saw patient recommended doubling dose of Flomax and placing a catheter for 5 days.) Physical Exam Vital signs: Vital Signs 03/18/18 16:00 03/18/18 20:00 03/19/18 00:00 Temperature 98.1 F 98.3 F 97.7 F Pulse Rate 91 H 92 H 92 H Respiratory Rate 17 20 20 Blood Pressure 111/64 114/68 110/69 Pulse Oximetry 97 97 96 03/19/18 08:00 03/19/18 12:00 Temperature 97.7 F 97.8 F Pulse Rate 96 H 86 Respiratory Rate 15 15 Blood Pressure 115/78 120/72 Pulse Oximetry 96 95 Intake & Output 03/18/18 03/19/18 03/19/18 18:59 06:59 18:59 Intake Total 1925 / 1925 2970.2 / 2970.2 250 / 250 Output Total 1810 / 1810 1250 / 1250 Balance 115 / 115 1720.2 / 1720.2 250 / 250 Weight 69.1 kg Intake: IV 975 / 975 2009.2009.2 250 / 250 LR 1000 mL Inj 1,000 ML @ 68 975 / 975 mls/hr IV.CONT .[id number] [facility] Rx# :[id number] Intralipid 20% Inj 250 ML @ 31. 250 / 250 25 mls/hr IV.SIG Q24H [facility] Rx#: [id number] MVI-12 Inj 10 ML Folvite Inj 1 2009.2 MG In Clinimix E 5%/D20W Inj 2, 000 ML @ 75 mls/hr IV.SIG Q24H [facility] Rx#:[id number] Oral 950 / 950 960 / 960 Output: Urine 1800 / 1800 1250 / 1250 Wound Vac Amount Lower Abdomen Other: Mode Setting Lower Abdomen Continuous Date of Last Bowel Movement 03/18/18 03/19/18 # Bowel Movements 1 Narrative: VAC dressing changed again today due to some purulent drainage beneath the VAC that was not being adequately suctioned by the VAC. Right mid abdomen healing well with granulation tissue. Half dollar size defect with purulent drainage. Granulation already occurring. Left side of wound nearly completely healed. New VAC dressing applied and placed to suction with good seal. Suction placed directly over half dollar-sized opening to facilitate improved suction and drainage. Extremities nonedematous. - Urinary Catheter Management Indwelling Urethral Catheter Cath placed during this visit: yes, but has since been removed by the nurse Reason for continuing: Other continuation reason Insertion date: 03/12/18 Insertion time: 22:30 Removal date: 03/17/18 Removal time: 06:20 Results - Labs 03/18/18 06:15 03/17/18 05:00 Laboratory Results - last 24 hr 03/19/18 05:36 POC Glucose 112 H - Imaging Imaging: ITS Impressions Abdomen/Pelvis CT 03/14/18 00:00 CONCLUSION: Minimal free intraperitoneal air with and intra-abdominal fluid collection abutting the anterior abdominal wall beneath the surgical incision. This is nonspecific. I don't see evidence for mesenteric thrombosis. Mild ileus. 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 -Pain control -Dit as tolerated -TPN ---Increased rate -OOB as tolerated -Continue Santos -CARLOS Clark at bedside (3) Abdominal wall abscess Code(s): L02.211 - Cutaneous abscess of abdominal wall Status: Acute - Plan I personally evaluated the patient in room 1334. I had seen him earlier today as well. He has been taking small amounts of liquids. He has had his Santos removed and has voided since it has been removed. His pain is reasonably controlled. He has clear breath sounds. His heart sounds are regular. His abdomen is soft. There is mild residual erythema in the skin around the open wound. His VAC dressing was changed in Concert with Anai FONG. The remaining thuan were removed from the incision. The wounds are granulating in beautifully. New VAC dressing was smaller size sponges were placed in the traditional fashion and connected to suction with no evidence of leak. He tolerated the procedure with some discomfort. Assessment postop day 5 status post bowel resection for enterocutaneous fistula and incidentally discovered neuroendocrine carcinoma. Plan is continue nutritional supplementation with TPN and gradual increase in oral diet as the patient tolerates. He has been up out of bed walking the halls and up in the chair and should continue to do so. Discussed at bedside with patient and the patient's sister. The exam, history, and the medical decision-making described in the above note were completed with the assistance of the mid-level provider. I reviewed and agree with the findings presented. I attest that I had a [id number] encounter with the patient on the same day, and personally performed and documented my assessment and findings in the medical record. March 13, 2018 Postop day 6 status post bowel resection for enterocutaneous fistula and incidentally discovered during. Plan continue supplementation with TPN and gradual increase in oral diet as the patient tolerates. Continue out of bed walk the halls. MRSA wound infection. Patient was given single dose of vancomycin and then placed on oral Bactrim. VAC dressing is intact. Urinary outflow obstruction. Patient on Flomax. Santos catheter replaced last night. Will give 48 hours of Santos catheter before attempting removal. Transfer to floor orders pending. Morphine 3 mg inadequate for VAC dressing change, discontinued that order and put in order to nursing communication to give half a milligram of Dilaudid 30 minutes prior to VAC dressing change. Discussed plans with patient at bedside. March 17, 2018 Postop bowel resection for enterocutaneous fistula and insulin incidentally discovered neuroendocrine carcinoma. Patient is finally started having bowel function. Will check stool for C. difficile. Mood. May have food from outside hospital. We will follow-up labs. We will continue vancomycin and TPN to supplement his nutrition. Continue to be out of bed and walking. Plan VAC dressing change tomorrow afternoon. Will DC Santos catheter in a.m. Patient and significant other at bedside. Discussed plans with patient, significant other, and bedside RN. March 19, 2018 Postop as described above. C. difficile was negative. Will wean TPN as his oral intake is improved. Continue out of bed. Urology consult appreciated, Flomax doubled, Santos catheter to be replaced for 5 days. Continue supportive therapy. VAC dressing and oral antibiotics continue.
[2018-03-19] MEDS: Enoxaparin Inj 40 MG/0.4 ML Syringe SQ SCH (16:41)
[2018-03-19 17:10] LABS: Bilirubin,Urine Negative (Negative); Clarity,Urine Cloudy (Clear); Color,Urine Yellow (Yellw/Straw); Glucose,Urine (UA) Negative (Negative); Leukocyte Esterase,Urine Negative (Negative); Mucus,Urine Few /lpf (Occasional); Nitrite,Urine Negative (Negative); Specific Gravity,Urine 1.013 (1.002-1.035); Squamous Epithelial Cell,Urine <1 /hpf (0-5)
[2018-03-19] MEDS: HYDROmorphone PF Inj 1 MG/ML Ampul IV.PUSH PRN ×2 (18:39→22:04)
[2018-03-19] MEDS: Multivitamin Inj 10 ML, Folic Acid Inj 1 MG in AA 5%/D20W - Electrolytes 2,000 ML IV.SIG SCH (22:02)
[2018-03-20 07:14] LABS: Baso # (Auto) 0.1 th/mm3 (0.0-0.2); Baso % (Auto) 0.7 % (0.0-2.0); Eos # (Auto) 0.3 th/mm3 (0.0-0.4); Eos % (Auto) 2.3 % (0.0-4.0); Hematocrit 27.7 % (39.0-51.0); Hemoglobin 9.3 gm/dL (13.0-17.0); Lymph # (Auto) 1.5 th/mm3 (1.0-4.8); Mean Corpuscular HGB Conc 33.5 % (32.0-36.0); Mean Corpuscular Hemoglobin 28.1 pg (27.0-34.0); Mean Corpuscular Volume 83.9 fL (80.0-100.0); Mean Platelet Volume 5.9 fL (7.0-11.0); Mono # (Auto) 0.9 th/mm3 (0.0-0.9); Mono % (Auto) 6.5 % (0.0-8.0); Neut # (Auto) 10.7 th/mm3 (1.8-7.7); Neut % (Auto) 79.5 % (16.0-70.0); Platelet Count 517 th/mm3 (150-450); Red Cell Distribution Width 17.7 % (11.6-17.2); White Blood Count 13.4 th/mm3 (4.0-11.0)
[2018-03-20 07:40] LABS: Anion Gap 8 meq/L (5-15); Blood Urea Nitrogen 16 mg/dL (7-18); Calcium 8.1 mg/dL (8.5-10.1); Carbon Dioxide 29.1 meq/L (21.0-32.0); Chloride 103 meq/L (98-107); Glomerular Filtration Rate Greater Than 89 mL/min (>89); Glucose,Random 111 mg/dL (74-106); Sodium 140 meq/L (136-145)
[2018-03-20 07:42] LABS: Prealbumin 19 mg/dL (20-40)
[2018-03-20] MEDS: Pantoprazole Inj 40 MG Vial IV.PUSH SCH (08:12)
[2018-03-20] MEDS: Lactobacillus Acidophilus/L. Spores Tablet PO SCH ×2 (08:14→21:07)
[2018-03-20] MEDS: Heparin Central Flush 100 UNIT/ML 5 ML Vial IV.FLUSH SCH (08:14)
--- NOTE | 2018-03-20 09:35 | P.PNURO ---
Subjective Patient symptoms today: Pt seen and examined. 16 Coude Doshi placed at bedside by myself after failed attempt by staff. Objective Vital Signs: Vital Signs 03/19/18 12:00 03/19/18 16:00 03/19/18 20:00 Temperature 97.8 F 97.8 F 98.1 F Pulse Rate 86 89 86 Respiratory Rate 15 16 19 Blood Pressure 120/72 114/72 113/74 Pulse Oximetry 95 94 L 98 03/20/18 00:00 03/20/18 08:00 Temperature 98.4 F 98.0 F Pulse Rate 87 88 Respiratory Rate 20 17 Blood Pressure 125/67 118/72 Pulse Oximetry 96 95 Intake & Output 03/19/18 03/20/18 03/20/18 18:59 06:59 18:59 Intake Total 1850 / 1850 3160.2 / 3160.2 100 / 100 Output Total 1400 / 1400 1300 / 1300 Balance 450 / 450 1860.2 / 1860.2 100 / 100 Weight 71 kg Intake: IV 1350 / 1350 2260.2 / 2260.2 100 / 100 LR 1000 mL Inj 1,000 ML @ 68 1100 / 1100 100 / 100 mls/hr IV.CONT .[id number] [facility] Rx# :[id number] Intralipid 20% Inj 250 ML @ 31. 250 / 250 250 / 250 25 mls/hr IV.SIG Q24H [facility] Rx#: [id number] MVI-12 Inj 10 ML Folvite Inj 1 2010.2 / 2010.2 MG In Clinimix E 5%/D20W Inj 2, 000 ML @ 42 mls/hr IV.SIG Q24H [facility] Rx#:[id number] Oral 500 / 500 900 / 900 Output: Urine 1400 / 1400 1300 / 1300 Other: Date of Last Bowel Movement 03/19/18 03/19/18 # Bowel Movements 4 Result Diagrams: 03/20/18 06:48 03/20/18 06:48 Medications and IVs: Active Medications Generic Name Dose Route Start Last Admin Trade Name Freq PRN Reason Stop Dose Admin Benzocaine/Menthol 1 lozenge 03/07/18 09:00 03/07/18 13:40 Chloraseptic Sore Throat Lozenge BUCCAL 1 lozenge Q4H PRN Administration SEE LABEL COMMENTS Enoxaparin Sodium 40 mg 03/07/18 13:00 03/19/18 16:41 Lovenox Inj SQ 40 mg Q24H [facility] Administration Heparin Sodium (Porcine) 0 unit 03/08/18 09:00 03/20/18 08:14 Heparin Central Flush IV.FLUSH 500 unit DAILY [facility] Administration Heparin Sodium (Porcine) 0 unit 03/07/18 13:07 03/17/18 09:36 Heparin Central Flush IV.FLUSH 500 unit PRN PRN Administration Flush PICC Line Hydromorphone HCl 1 mg 03/06/18 14:11 03/19/18 22:04 Dilaudid Pf Inj IV.PUSH 1 mg Q3H PRN Administration Wound Vac changes Lactated Ringer's 1,000 mls @ 68 mls/hr 03/05/18 13:00 03/20/18 08:15 Lr 1000 Ml Inj IV.CONT 35 mls/hr .[id number] [facility] Administration Fat Emulsion Intravenous 250 mls @ 31.25 mls/hr 03/07/18 20:00 03/20/18 06:34 Intralipid 20% Inj IV.SIG Infused Q24H [facility] Infusion Multivitamins 10 ml/ Folic 2,010.2 mls @ 42 mls/hr 03/14/18 20:00 03/19/18 22 :02 Acid 1 mg/ Amino Acids/ IV.SIG 75 mls/hr Electrolytes Q24H [facility] Administration Lactobacillus Acidophilus 1 tab 03/16/18 21:00 03/20/18 08:14 Lactinex PO 1 tab BID [facility] Administration Naloxone HCl 0.4 mg 03/06/18 14:11 Narcan Inj IV.PUSH UNSCH PRN SEE LABEL COMMENTS Ondansetron HCl 4 mg 03/06/18 14:11 03/15/18 18:15 Zofran Odt PO 4 mg Q6H PRN Administration NAUSEA OR VOMITING Pantoprazole Sodium 40 mg 03/04/18 17:00 03/20/18 08:12 Protonix Inj IV.PUSH 40 mg DAILY [facility] Administration Promethazine HCl 25 mg 03/06/18 14:11 Phenergan PO Q6H PRN NAUSEA OR VOMITING Promethazine HCl 25 mg 03/06/18 14:11 Phenergan Supp RECTAL Q6H PRN NAUSEA OR VOMITING Scopolamine 1 patch 03/06/18 17:00 03/18/18 18:14 Transderm-Scop 1.5 Mg Patch.72hr T-DERMAL 1 patch Q72H [facility] Administration Sodium Chloride 0 ml 03/08/18 09:00 03/20/18 08:14 Ns Flush IV.FLUSH Not Given DAILY [facility] Sodium Chloride 0 ml 03/07/18 13:07 Ns Flush IV.FLUSH PRN PRN FLUSH AFTER USING IV ACCESS Sodium Chloride 0 ml 03/07/18 13:07 Ns Flush IV.FLUSH PRN PRN Flush After Blood Draws Tamsulosin HCl 0.4 mg 03/11/18 09:00 03/20/18 08:13 Flomax PO 0.4 mg DAILY [facility] Administration Tamsulosin HCl 0.4 mg 03/19/18 21:00 03/20/18 08:13 Flomax PO 0.4 mg BID [facility] Administration Trimethoprim/Sulfamethoxazole 1 tab 03/17/18 21:00 03/20/18 08:22 Bactrim Ds PO 1 tab Q12HR [facility] Administration Objective Remarks: Abd:soft,nt,nd Urine clear after doshi placed. Assessment and Plan - Plan 62 y.o male with BPH with obstruction in retention 16 Coude placed at bedside Maintain doshi x 5-7 days then give void trial Double Flomax 0.4mg PO BID
--- NOTE | 2018-03-20 12:56 | P.PNGS ---
Subjective Patient reports: other (Feels a little bloated, a little full. Has been passing flatus. No more diarrhea. Had coude tip Santos catheter placed by Dr. Gonzalez.) Physical Exam Vital signs: Vital Signs 03/19/18 16:00 03/19/18 20:00 03/20/18 00:00 Temperature 97.8 F 98.1 F 98.4 F Pulse Rate 89 86 87 Respiratory Rate 16 19 20 Blood Pressure 114/72 113/74 125/67 Pulse Oximetry 94 L 98 96 03/20/18 08:00 03/20/18 11:35 Temperature 98.0 F 97.5 F L Pulse Rate 88 93 H Respiratory Rate 17 17 Blood Pressure 118/72 124/76 Pulse Oximetry 95 97 Intake & Output 03/19/18 03/20/18 03/20/18 18:59 06:59 18:59 Intake Total 1850 / 1850 3160.2 / 3160.2 100 / 100 Output Total 1400 / 1400 1300 / 1300 Balance 450 / 450 1860.2 / 1860.2 100 / 100 Weight 71 kg Intake: IV 1350 / 1350 2260.2 / 2260.2 100 / 100 LR 1000 mL Inj 1,000 ML @ 68 1100 / 1100 100 / 100 mls/hr IV.CONT .[id number] [facility] Rx# :[id number] Intralipid 20% Inj 250 ML @ 31. 250 / 250 250 / 250 25 mls/hr IV.SIG Q24H [facility] Rx#: [id number] MVI-12 Inj 10 ML Folvite Inj 1 2009.2 / 2010.2 MG In Clinimix E 5%/D20W Inj 2, 000 ML @ 42 mls/hr IV.SIG Q24H [facility] Rx#:[id number] Oral 500 / 500 900 / 900 Output: Urine 1400 / 1400 1300 / 1300 Other: Date of Last Bowel Movement 03/19/18 03/19/18 03/19/18 # Bowel Movements 4 Narrative: Abdomen is soft, mildly distended. VAC dressing intact. No more erythema. No leak. Extremities nonedematous. - Urinary Catheter Management Indwelling Urethral Catheter Cath placed during this visit: yes, but has since been removed by the nurse Reason for continuing: Other continuation reason Insertion date: 03/12/18 Insertion time: 22:30 Removal date: 03/17/18 Removal time: 06:20 Results - Labs 03/20/18 06:48 03/20/18 06:48 Laboratory Results - last 24 hr 03/19/18 03/19/18 03/20/18 16:45 20:42 06:48 WBC 13.4 H RBC 3.30 L Hgb 9.3 L Hct 27.7 L MCV 83.9 MCH 28.1 MCHC 33.5 RDW 17.7 H Plt Count 517 H MPV 5.9 L Neut % (Auto) 79.5 H Lymph % (Auto) 11.0 [place] % (Auto) 6.5 Eos % (Auto) 2.3 Baso % (Auto) 0.7 Neut # (Auto) 10.7 H Lymph # (Auto) 1.5 [place] # (Auto) 0.9 Eos # (Auto) 0.3 Baso # (Auto) 0.1 WBC Differential . Differential Comment Auto diff final Sodium Potassium Chloride Carbon Dioxide Anion Gap BUN Creatinine Estimated GFR POC Glucose 144 H Random Glucose Calcium Prealbumin Urine Color Yellow Urine Clarity Cloudy H Urine pH 7.0 Ur Specific [place] 1.013 Urine Protein Negative Urine Glucose (UA) Negative Urine Ketones Negative Urine Occult Blood Negative Urine Nitrate Negative Urine Bilirubin Negative Urine Urobilinogen 2.0 H Ur Leukocyte Esterase Negative Urine RBC 1 Urine WBC 2 Ur Squamous Epith Cells <1 Urine Mucus Few H Micro UA Comment Culture not ind Ur Microscopic Review Not Reportable Urine Culture Comments Culture not ind 03/20/18 06:48 WBC RBC Hgb Hct MCV MCH MCHC RDW Plt Count MPV Neut % (Auto) Lymph % (Auto) [place] % (Auto) Eos % (Auto) Baso % (Auto) Neut # (Auto) Lymph # (Auto) [place] # (Auto) Eos # (Auto) Baso # (Auto) WBC Differential Differential Comment Sodium 140 Potassium 4.0 Chloride 103 Carbon Dioxide 29.1 Anion Gap 8 BUN 16 Creatinine 0.57 L Estimated GFR Greater than 89 POC Glucose Random Glucose 111 H Calcium 8.1 L Prealbumin 19 L Urine Color Urine Clarity Urine pH Ur Specific [place] Urine Protein Urine Glucose (UA) Urine Ketones Urine Occult Blood Urine Nitrate Urine Bilirubin Urine Urobilinogen Ur Leukocyte Esterase Urine RBC Urine WBC Ur Squamous Epith Cells Urine Mucus Micro UA Comment Ur Microscopic Review Urine Culture Comments - Imaging Imaging: ITS Impressions Abdomen/Pelvis CT 03/14/18 00:00 CONCLUSION: Minimal free intraperitoneal air with and intra-abdominal fluid collection abutting the anterior abdominal wall beneath the surgical incision. This is nonspecific. I don't see evidence for mesenteric thrombosis. Mild ileus. 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 -Pain control -Dit as tolerated -TPN ---Increased rate -OOB as tolerated -Continue Santos -CARLOS Clark at bedside The exam, history, and the medical decision-making described in the above note were completed with the assistance of the mid-level provider. I reviewed and agree with the findings presented. I attest that I had a [id number] encounter with the patient on the same day, and personally performed and documented my assessment and findings in the medical record. (3) Abdominal wall abscess Code(s): L02.211 - Cutaneous abscess of abdominal wall Status: Acute - Plan I personally evaluated the patient in room 1334. I had seen him earlier today as well. He has been taking small amounts of liquids. He has had his Santos removed and has voided since it has been removed. His pain is reasonably controlled. He has clear breath sounds. His heart sounds are regular. His abdomen is soft. There is mild residual erythema in the skin around the open wound. His VAC dressing was changed in Concert with Anai FONG. The remaining thuan were removed from the incision. The wounds are granulating in beautifully. New VAC dressing was smaller size sponges were placed in the traditional fashion and connected to suction with no evidence of leak. He tolerated the procedure with some discomfort. Assessment postop day 5 status post bowel resection for enterocutaneous fistula and incidentally discovered neuroendocrine carcinoma. Plan is continue nutritional supplementation with TPN and gradual increase in oral diet as the patient tolerates. He has been up out of bed walking the halls and up in the chair and should continue to do so. Discussed at bedside with patient and the patient's sister. The exam, history, and the medical decision-making described in the above note were completed with the assistance of the mid-level provider. I reviewed and agree with the findings presented. I attest that I had a [id number] encounter with the patient on the same day, and personally performed and documented my assessment and findings in the medical record. March 13, 2018 Postop day 6 status post bowel resection for enterocutaneous fistula and incidentally discovered during. Plan continue supplementation with TPN and gradual increase in oral diet as the patient tolerates. Continue out of bed walk the halls. MRSA wound infection. Patient was given single dose of vancomycin and then placed on oral Bactrim. VAC dressing is intact. Urinary outflow obstruction. Patient on Flomax. Santos catheter replaced last night. Will give 48 hours of Santos catheter before attempting removal. Transfer to floor orders pending. Morphine 3 mg inadequate for VAC dressing change, discontinued that order and put in order to nursing communication to give half a milligram of Dilaudid 30 minutes prior to VAC dressing change. Discussed plans with patient at bedside. March 17, 2018 Postop bowel resection for enterocutaneous fistula and insulin incidentally discovered neuroendocrine carcinoma. Patient is finally started having bowel function. Will check stool for C. difficile. Mood. May have food from outside hospital. We will follow-up labs. We will continue vancomycin and TPN to supplement his nutrition. Continue to be out of bed and walking. Plan VAC dressing change tomorrow afternoon. Will DC Santos catheter in a.m. Patient and significant other at bedside. Discussed plans with patient, significant other, and bedside RN. March 19, 2018 Postop as described above. C. difficile was negative. Will wean TPN as his oral intake is improved. Continue out of bed. Urology consult appreciated, Flomax doubled, Santos catheter to be replaced for 5 days. Continue supportive therapy. VAC dressing and oral antibiotics continue. Next March 20, 2018 Postop as described above. Labs demonstrate decrease in white blood cell count. Electrolytes in normal limits. Prealbumin 19, slightly low. Patient informed and encouraged to increase protein intake. Continue catheter per Dr. Gonzalez for urinary retention. Flomax increased. I encourage patient to be out of bed and walking the halls. Hopeful for discharge home next week. VAC dressing change tomorrow.
[2018-03-20] MEDS: Enoxaparin Inj 40 MG/0.4 ML Syringe SQ SCH (15:02)
--- NOTE | 2018-03-20 15:55 | P.DIET ---
Nutritional Evaluation Type of nutrition evaluation: follow-up Nutrition consult regarding: TPN/PPN Nutrition screening: Weight Loss > 10 lbs Subjective Subjective Comments: Pt continues w/approximately 50% po intake for meals; pt orders Ensure as needed. Objective - Diagnosis Fistula - Objective % IBW: 105 (IBW = 142#) Body Weight Used for Calculations: Actual (68.2) Energy Needs - Lower Range (kCal/kg): 25 Energy Needs - Upper Range (kCal/kg): 30 Lower Limit kCal/kg (kCals): 1,705 Upper Limit kCal/kg (kCals): 2,046 Lower Limit Protein Factor (Grams per Kg): 1.2 Upper Limit Protein Factor (Grams per Kg): 1.5 Lower Protein Needs (Protein): 82 Upper Protein Needs (Protein): 102 Dietitian Reviewed in Medical Record: Current diet, Curent medications, Intake & Output, Labs, Medical history, TPN/PPN Diet Order: Regular Oral Diet Intake Amount: Fair 50-75% Objective Comments: 03/06/18 exp lap, extensive OVIDIO, small bowel resection, resection of terminal ileum and cecum, biopsy of mesenteric nodule, debridement of abdomen wall, placement of wound vac +UOP 2700, +BM Feeding - Current TPN/PPN Current TPN: Clinimix E 09/29 Current TPN/PPN Rate (ml/hr): 42 Amino Acid and Dextrose Current kCals Provided: 880 Amino Acid and Dextrose Current Protein Provided: 50 Current Lipid Concentration: 20% Current Lipids Rate: 250 mls daily over 8 hours Current kCal Provided by TPN/PPN: 1,380 Assessment Assessment: Pt continues at nutritional risk r/t need for TPN. Current TPN provides for greater than 50% of assessed needs. Request weekly TG while on TPN/lipids. Pt tolerating 50% po intake. Pt orders Ensure as needed. Pt okay per MD to receive food from outside. Wt changes noted. Labs/electrolytes reviewed-low prealbumin noted. Dietitian following. Recommendations: 1. Current TPN provides for greater than 50% for pt's assessed needs 2. Request weekly TG while on TPN/lipids 3. Pt orders Ensure as needed 4. Pt okay per MD to receive food from outside 5. Dietitian following Dietitian to Monitor: Lab values, Electrolytes, Glucose level, Supplement acceptance, Intake & Output, Diet tolerance, TPN/PPN tolerance, Weight change, PO Intake, Medical course
[2018-03-20] MEDS: Multivitamin Inj 10 ML, Folic Acid Inj 1 MG in AA 5%/D20W - Electrolytes 2,000 ML IV.SIG SCH (21:06)
[2018-03-21] MEDS ORDERED: Simethicone 125 MG Chew Tablet PO PRN (08:12)
--- NOTE | 2018-03-21 08:15 | P.PNGS ---
Subjective Patient reports: no bowel movement (Had abdominal distention, bloating. Woke up and threw up about 200 cc of saliva mixed with Ensure. Nausea has now resolved. He walked halls twice yesterday.) Physical Exam Vital signs: Vital Signs 03/20/18 11:35 03/20/18 16:00 03/20/18 20:00 Temperature 97.5 F L 97.8 F 97.7 F Pulse Rate 93 H 108 H 100 H Respiratory Rate 17 18 18 Blood Pressure 124/76 125/81 140/90 Pulse Oximetry 97 96 98 03/21/18 00:00 Temperature 97.7 F Pulse Rate 107 H Respiratory Rate 18 Blood Pressure 134/88 Pulse Oximetry 97 Intake & Output 03/20/18 03/21/18 03/21/18 18:59 06:59 18:59 Intake Total 100 / 100 2310 / 2310 Output Total 850 / 850 Balance 100 / 100 1460 / 1460 Weight 71 kg Intake: IV 100 / 100 1830 / 1830 LR 1000 mL Inj 1,000 ML @ 68 100 / 100 mls/hr IV.CONT .[id number] [facility] Rx# :[id number] Intralipid 20% Inj 250 ML @ 31. 250 / 250 25 mls/hr IV.SIG Q24H [facility] Rx#: [id number] MVI-12 Inj 10 ML Folvite Inj 1 1580 / 1580 MG In Clinimix E 5%/D20W Inj 2, 000 ML @ 42 mls/hr IV.SIG Q24H [facility] Rx#:[id number] Oral 480 / 480 Output: Urine Amount (Catheter) 850 / 850 Indwelling Urethral Catheter 850 / 850 Other: Date of Last Bowel Movement 03/19/18 03/19/18 Narrative: He is in no acute distress. His abdomen is soft and nontender. His VAC dressing appears intact without obvious leak but the machine is alarming. I turned it off. There is no surrounding erythema or purulent drainage that I can see within the VAC sponges. His extremities are nonedematous. - Urinary Catheter Management Indwelling Urethral Catheter Cath placed during this visit: yes, but has since been removed by the nurse Reason for continuing: Other continuation reason Insertion date: 03/12/18 Insertion time: 22:30 Removal date: 03/17/18 Removal time: 06:20 Results - Labs 03/20/18 06:48 03/20/18 06:48 Laboratory Results - last 24 hr 03/20/18 03/21/18 21:23 05:18 POC Glucose 152 H 120 H - Imaging Imaging: ITS Impressions Abdomen/Pelvis CT 03/14/18 00:00 CONCLUSION: Minimal free intraperitoneal air with and intra-abdominal fluid collection abutting the anterior abdominal wall beneath the surgical incision. This is nonspecific. I don't see evidence for mesenteric thrombosis. Mild ileus. 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 -Pain control -Dit as tolerated -TPN ---Increased rate -OOB as tolerated -Continue Santos -CARLOS Clark at bedside The exam, history, and the medical decision-making described in the above note were completed with the assistance of the mid-level provider. I reviewed and agree with the findings presented. I attest that I had a [id number] encounter with the patient on the same day, and personally performed and documented my assessment and findings in the medical record. (3) Abdominal wall abscess Code(s): L02.211 - Cutaneous abscess of abdominal wall Status: Acute - Plan I personally evaluated the patient in room 1334. I had seen him earlier today as well. He has been taking small amounts of liquids. He has had his Santos removed and has voided since it has been removed. His pain is reasonably controlled. He has clear breath sounds. His heart sounds are regular. His abdomen is soft. There is mild residual erythema in the skin around the open wound. His VAC dressing was changed in Concert with Anai FONG. The remaining thuan were removed from the incision. The wounds are granulating in beautifully. New VAC dressing was smaller size sponges were placed in the traditional fashion and connected to suction with no evidence of leak. He tolerated the procedure with some discomfort. Assessment postop day 5 status post bowel resection for enterocutaneous fistula and incidentally discovered neuroendocrine carcinoma. Plan is continue nutritional supplementation with TPN and gradual increase in oral diet as the patient tolerates. He has been up out of bed walking the halls and up in the chair and should continue to do so. Discussed at bedside with patient and the patient's sister. The exam, history, and the medical decision-making described in the above note were completed with the assistance of the mid-level provider. I reviewed and agree with the findings presented. I attest that I had a [id number] encounter with the patient on the same day, and personally performed and documented my assessment and findings in the medical record. March 13, 2018 Postop day 6 status post bowel resection for enterocutaneous fistula and incidentally discovered during. Plan continue supplementation with TPN and gradual increase in oral diet as the patient tolerates. Continue out of bed walk the halls. MRSA wound infection. Patient was given single dose of vancomycin and then placed on oral Bactrim. VAC dressing is intact. Urinary outflow obstruction. Patient on Flomax. Santos catheter replaced last night. Will give 48 hours of Santos catheter before attempting removal. Transfer to floor orders pending. Morphine 3 mg inadequate for VAC dressing change, discontinued that order and put in order to nursing communication to give half a milligram of Dilaudid 30 minutes prior to VAC dressing change. Discussed plans with patient at bedside. March 17, 2018 Postop bowel resection for enterocutaneous fistula and insulin incidentally discovered neuroendocrine carcinoma. Patient is finally started having bowel function. Will check stool for C. difficile. Mood. May have food from outside hospital. We will follow-up labs. We will continue vancomycin and TPN to supplement his nutrition. Continue to be out of bed and walking. Plan VAC dressing change tomorrow afternoon. Will DC Santos catheter in a.m. Patient and significant other at bedside. Discussed plans with patient, significant other, and bedside RN. March 19, 2018 Postop as described above. C. difficile was negative. Will wean TPN as his oral intake is improved. Continue out of bed. Urology consult appreciated, Flomax doubled, Santos catheter to be replaced for 5 days. Continue supportive therapy. VAC dressing and oral antibiotics continue. Next March 20, 2018 Postop as described above. Labs demonstrate decrease in white blood cell count. Electrolytes in normal limits. Prealbumin 19, slightly low. Patient informed and encouraged to increase protein intake. Continue catheter per Dr. Gonzalez for urinary retention. Flomax increased. I encourage patient to be out of bed and walking the halls. Hopeful for discharge home next week. VAC dressing change tomorrow. March 21, 2018 Postop as described above. Nausea with small amount of emesis overnight. Unsure of the etiology. Urinary retention. His nausea has resolved now. Continue current management. Add simethicone. VAC dressing change at some point today. Hopeful for discharge home next week.
[2018-03-21] MEDS: Pantoprazole Inj 40 MG Vial IV.PUSH SCH (09:40)
[2018-03-21] MEDS: Heparin Central Flush 100 UNIT/ML 5 ML Vial IV.FLUSH SCH (09:42)
[2018-03-21] MEDS: Lactobacillus Acidophilus/L. Spores Tablet PO SCH ×2 (09:44→20:16)
[2018-03-21] MEDS: HYDROmorphone PF Inj 1 MG/ML Ampul IV.PUSH PRN (14:07)
[2018-03-21] MEDS: Enoxaparin Inj 40 MG/0.4 ML Syringe SQ SCH (14:08)
[2018-03-21] MEDS: Scopalamine 1.5 MG Patch T-DERMAL SCH (19:20)
[2018-03-21] MEDS: Multivitamin Inj 10 ML, Folic Acid Inj 1 MG in AA 5%/D20W - Electrolytes 2,000 ML IV.SIG SCH (20:17)
[2018-03-22] MEDS: Pantoprazole Inj 40 MG Vial IV.PUSH SCH (11:04)
[2018-03-22] MEDS: Lactobacillus Acidophilus/L. Spores Tablet PO SCH ×2 (11:04→20:45)
[2018-03-22] MEDS: Heparin Central Flush 100 UNIT/ML 5 ML Vial IV.FLUSH SCH (11:11)
--- NOTE | 2018-03-22 13:17 | P.PNGS ---
Subjective Patient reports: feels better Physical Exam Vital signs: Vital Signs 03/21/18 14:37 03/21/18 16:00 03/21/18 20:00 Temperature 97.8 F 97.8 F Pulse Rate 84 92 H Respiratory Rate 18 18 17 Blood Pressure 136/84 126/78 Pulse Oximetry 97 96 03/22/18 00:00 03/22/18 08:00 03/22/18 11:59 Temperature 98.0 F 97.9 F 97.8 F Pulse Rate 79 80 94 H Respiratory Rate 17 20 20 Blood Pressure 110/72 116/77 111/75 Pulse Oximetry 98 96 97 Intake & Output 03/21/18 03/22/18 03/22/18 18:59 06:59 18:59 Intake Total 2800 / 2800 550 / 550 340 / 340 Output Total 750 / 750 1950 / 1950 2 / 2 Balance 2049 / 2049 -1400 / -1400 338 / 338 Weight 70.7 kg Intake: IV 1400 / 1400 250 / 250 100 / 100 LR 1000 mL Inj 1,000 ML @ 68 1400 / 1400 100 / 100 mls/hr IV.CONT .[id number] [facility] Rx# :[id number] Intralipid 20% Inj 250 ML @ 31. 250 / 250 25 mls/hr IV.SIG Q24H [facility] Rx#: [id number] Oral 1400 / 1400 300 / 300 240 / 240 Output: Urine 750 / 750 1950 / 1950 1 / 1 Stool 1 / 1 Wound Vac Amount 0 / 0 Lower Abdomen 0 / 0 Other: Mode Setting Lower Abdomen Continuous Date of Last Bowel Movement 03/19/18 03/22/18 # Bowel Movements 2 - Constitutional no acute distress - Routine Abdominal Exam Present: soft, normoactive bowel sounds. Absent: tenderness, distended Comments: VAC dressing clean, dry and intact without complications - Urinary Catheter Management Indwelling Urethral Catheter Cath placed during this visit: yes, but has since been removed by the nurse Reason for continuing: Other continuation reason Insertion date: 03/12/18 Insertion time: 22:30 Removal date: 03/17/18 Removal time: 06:20 Results - Labs 03/20/18 06:48 03/20/18 06:48 Laboratory Results - last 24 hr 03/21/18 03/21/18 03/22/18 14:38 19:51 06:17 POC Glucose 119 H 107 108 - Imaging Imaging: ITS Impressions Abdomen/Pelvis CT 03/14/18 00:00 CONCLUSION: Minimal free intraperitoneal air with and intra-abdominal fluid collection abutting the anterior abdominal wall beneath the surgical incision. This is nonspecific. I don't see evidence for mesenteric thrombosis. Mild ileus. 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 - Fistula of intestine Status: Acute Plan: 62 year old male s/p Ex laparotomy,extensive adhesion lysis greater than 1 hour , small bowel resection, resection of terminal ileum and cecum, biopsy of mesenteric nodule with frozen section, debridement of abdominal ,wall placement of VAC dressing -WBC remained elevated but decreasing; Continue Bactrim -Culture purulent drainage ---+MRSA -Wound vac -Pain control -Diet as tolerated -TPN ---wean and DC -OOB as tolerated -Continue Santos (3) Abdominal wall abscess Code(s): L02.211 - Cutaneous abscess of abdominal wall Status: Acute
[2018-03-22] MEDS: Enoxaparin Inj 40 MG/0.4 ML Syringe SQ SCH (13:57)
[2018-03-23] MEDS: Lactobacillus Acidophilus/L. Spores Tablet PO SCH ×2 (09:04→20:13)
[2018-03-23] MEDS: Pantoprazole Inj 40 MG Vial IV.PUSH SCH (09:04)
[2018-03-23] MEDS: Heparin Central Flush 100 UNIT/ML 5 ML Vial IV.FLUSH SCH (09:06)
--- NOTE | 2018-03-23 09:48 | P.PNGS ---
Subjective Patient reports: feels better (Bowel movements becoming more solid. Appetite improving, almost eating everything on the tray. Took 3 walks already today. Feels much better. VAC dressing change was with minimal discomfort on Saturday.) Physical Exam Vital signs: Vital Signs 03/22/18 11:59 03/22/18 16:00 03/22/18 20:00 Temperature 97.8 F 97.9 F 97.3 F L Pulse Rate 94 H 82 88 Respiratory Rate 20 20 18 Blood Pressure 111/75 115/71 107/61 Pulse Oximetry 97 98 98 03/23/18 00:00 03/23/18 08:00 Temperature 97.9 F 96.6 F L Pulse Rate 82 71 Respiratory Rate 17 20 Blood Pressure 112/72 118/75 Pulse Oximetry 97 96 Intake & Output 03/22/18 03/23/18 03/23/18 18:59 06:59 18:59 Intake Total 580 / 580 1260 / 1260 0 / 0 Output Total 54 / 54 2049 / 2049 Balance 526 / 526 -790 / -790 0 / 0 Weight 70.6 kg Intake: IV 100 / 100 900 / 900 0 / 0 LR 1000 mL Inj 1,000 ML @ 68 100 / 100 900 / 900 0 / 0 mls/hr IV.CONT .[id number] [facility] Rx# :[id number] Oral 480 / 480 360 / 360 Output: Urine 3 / 2049 Stool 1 / Wound Vac Amount 50 / 50 Lower Abdomen 50 / 50 Other: Mode Setting Lower Abdomen Intermittent Date of Last Bowel Movement 03/22/18 Narrative: Abdomen soft nondistended and nontender. VAC dressing intact without sign of leak. Minimal output. Extremities nonedematous. Patient is in no distress. - Urinary Catheter Management Indwelling Urethral Catheter Cath placed during this visit: yes, but has since been removed by the nurse Reason for continuing: Other continuation reason Insertion date: 03/12/18 Insertion time: 22:30 Removal date: 03/17/18 Removal time: 06:20 Results - Labs 03/20/18 06:48 03/20/18 06:48 Laboratory Results - last 24 hr 03/22/18 03/23/18 19:47 06:33 POC Glucose 131 H 90 - Imaging Imaging: ITS Impressions Abdomen/Pelvis CT 03/14/18 00:00 CONCLUSION: Minimal free intraperitoneal air with and intra-abdominal fluid collection abutting the anterior abdominal wall beneath the surgical incision. This is nonspecific. I don't see evidence for mesenteric thrombosis. Mild ileus. 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 - Fistula of intestine Status: Acute Plan: 62 year old male s/p Ex laparotomy,extensive adhesion lysis greater than 1 hour , small bowel resection, resection of terminal ileum and cecum, biopsy of mesenteric nodule with frozen section, debridement of abdominal ,wall placement of VAC dressing -WBC remained elevated but decreasing; Continue Bactrim -Culture purulent drainage ---+MRSA -Wound vac -Pain control -Diet as tolerated -TPN ---wean and DC -OOB as tolerated -Continue Santos (3) Abdominal wall abscess Code(s): L02.211 - Cutaneous abscess of abdominal wall Status: Acute - Plan I personally evaluated the patient in room 1334. I had seen him earlier today as well. He has been taking small amounts of liquids. He has had his Santos removed and has voided since it has been removed. His pain is reasonably controlled. He has clear breath sounds. His heart sounds are regular. His abdomen is soft. There is mild residual erythema in the skin around the open wound. His VAC dressing was changed in Concert with Anai FONG. The remaining thuan were removed from the incision. The wounds are granulating in beautifully. New VAC dressing was smaller size sponges were placed in the traditional fashion and connected to suction with no evidence of leak. He tolerated the procedure with some discomfort. Assessment postop day 5 status post bowel resection for enterocutaneous fistula and incidentally discovered neuroendocrine carcinoma. Plan is continue nutritional supplementation with TPN and gradual increase in oral diet as the patient tolerates. He has been up out of bed walking the halls and up in the chair and should continue to do so. Discussed at bedside with patient and the patient's sister. The exam, history, and the medical decision-making described in the above note were completed with the assistance of the mid-level provider. I reviewed and agree with the findings presented. I attest that I had a [id number] encounter with the patient on the same day, and personally performed and documented my assessment and findings in the medical record. March 13, 2018 Postop day 6 status post bowel resection for enterocutaneous fistula and incidentally discovered during. Plan continue supplementation with TPN and gradual increase in oral diet as the patient tolerates. Continue out of bed walk the halls. MRSA wound infection. Patient was given single dose of vancomycin and then placed on oral Bactrim. VAC dressing is intact. Urinary outflow obstruction. Patient on Flomax. Santos catheter replaced last night. Will give 48 hours of Santos catheter before attempting removal. Transfer to floor orders pending. Morphine 3 mg inadequate for VAC dressing change, discontinued that order and put in order to nursing communication to give half a milligram of Dilaudid 30 minutes prior to VAC dressing change. Discussed plans with patient at bedside. March 17, 2018 Postop bowel resection for enterocutaneous fistula and insulin incidentally discovered neuroendocrine carcinoma. Patient is finally started having bowel function. Will check stool for C. difficile. Mood. May have food from outside hospital. We will follow-up labs. We will continue vancomycin and TPN to supplement his nutrition. Continue to be out of bed and walking. Plan VAC dressing change tomorrow afternoon. Will DC Santos catheter in a.m. Patient and significant other at bedside. Discussed plans with patient, significant other, and bedside RN. March 19, 2018 Postop as described above. C. difficile was negative. Will wean TPN as his oral intake is improved. Continue out of bed. Urology consult appreciated, Flomax doubled, Santos catheter to be replaced for 5 days. Continue supportive therapy. VAC dressing and oral antibiotics continue. Next March 20, 2018 Postop as described above. Labs demonstrate decrease in white blood cell count. Electrolytes in normal limits. Prealbumin 19, slightly low. Patient informed and encouraged to increase protein intake. Continue catheter per Dr. Gonzalez for urinary retention. Flomax increased. I encourage patient to be out of bed and walking the halls. Hopeful for discharge home next week. VAC dressing change tomorrow. March 21, 2018 Postop as described above. Nausea with small amount of emesis overnight. Unsure of the etiology. Urinary retention. His nausea has resolved now. Continue current management. Add simethicone. VAC dressing change at some point today. Hopeful for discharge home next week. March 23, 2018. Postop, continues to improve. No further nausea or emesis. TPN off. IV fluids stopped today. Bowel movements becoming more substantial. Appetite improved. VAC dressing intact. Plan VAC dressing late tomorrow afternoon. Hopeful that for discharge later this week. Discussed Condition With: Patient and bedside RN.
[2018-03-23] MEDS: Enoxaparin Inj 40 MG/0.4 ML Syringe SQ SCH (15:11)
[2018-03-24] MEDS: Pantoprazole Inj 40 MG Vial IV.PUSH SCH (09:43)
[2018-03-24] MEDS: Heparin Central Flush 100 UNIT/ML 5 ML Vial IV.FLUSH SCH (09:43)
[2018-03-24] MEDS: Lactobacillus Acidophilus/L. Spores Tablet PO SCH ×2 (09:43→21:23)
[2018-03-24] MEDS: Enoxaparin Inj 40 MG/0.4 ML Syringe SQ SCH (12:49)
[2018-03-24] MEDS: HYDROmorphone PF Inj 1 MG/ML Ampul IV.PUSH PRN (15:06)
--- NOTE | 2018-03-24 15:48 | P.PNGS ---
Subjective Patient reports: feels better (Patient indicates his appetite is back to normal. He is hungry all the time. He finishes everything on his tray including stuff he does not even like. He is walked the halls 6 times today. He is anxious to get his VAC dressing off to get his Santos catheter out and go home.) Physical Exam Vital signs: Vital Signs 03/23/18 15:48 03/23/18 20:00 03/24/18 08:15 Temperature 98.1 F 97.9 F 97.3 F L Pulse Rate 98 H 92 H 81 Respiratory Rate 20 20 19 Blood Pressure 119/75 129/69 132/81 Pulse Oximetry 98 96 99 03/24/18 11:30 Temperature 98.2 F Pulse Rate 79 Respiratory Rate 19 Blood Pressure 113/70 Pulse Oximetry 97 Intake & Output 03/23/18 03/24/18 03/24/18 18:59 06:59 18:59 Intake Total 272 / 272 680 / 680 Output Total 5 / 3260 / 3260 Balance 267 / 267 -2580 / -2580 Weight 70 kg Intake: IV 272 / 272 LR 1000 mL Inj 1,000 ML @ 68 272 / 272 mls/hr IV.CONT .[id number] [facility] Rx# :[id number] Oral 680 / 680 Output: Urine 4 / 750 / 750 Stool 1 / Urine Amount (Catheter) 2500 / 2500 Indwelling Urethral Catheter 2500 / 2500 Wound Vac Amount Lower Abdomen Other: Mode Setting Lower Abdomen Continuous Date of Last Bowel Movement 03/23/18 Narrative: The patient's VAC dressing was changed at the bedside today. He had minimal discomfort associated with it. The right side of the wound is granulating and almost to the level of the skin. There is no purulent drainage. There is a tiny area of whitish exudative material. A small opening inferior and left of the transverse incision has decreased in size down to about size of quarter. The width of the wound is decreased in size and is full the healthy granulation tissue. It was probed with a cotton tip applicator and clear fluid drains there is no evidence of purulent fluid draining. A new VAC dressing was applied in the traditional fashion injected to suction without evidence of leak. The left side of the wound is completely healed and is epithelialized. His extremities are nonedematous. He is in no acute distress and looks well. - Urinary Catheter Management Indwelling Urethral Catheter Cath placed during this visit: yes, but has since been removed by the nurse Reason for continuing: Other continuation reason Insertion date: 03/12/18 Insertion time: 22:30 Removal date: 03/17/18 Removal time: 06:20 Results - Labs 03/20/18 06:48 03/20/18 06:48 - Imaging Imaging: ITS Impressions Abdomen/Pelvis CT 03/14/18 00:00 CONCLUSION: Minimal free intraperitoneal air with and intra-abdominal fluid collection abutting the anterior abdominal wall beneath the surgical incision. This is nonspecific. I don't see evidence for mesenteric thrombosis. Mild ileus. 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 - Fistula of intestine Status: Acute Plan: 62 year old male s/p Ex laparotomy,extensive adhesion lysis greater than 1 hour , small bowel resection, resection of terminal ileum and cecum, biopsy of mesenteric nodule with frozen section, debridement of abdominal ,wall placement of VAC dressing -WBC remained elevated but decreasing; Continue Bactrim -Culture purulent drainage ---+MRSA -Wound vac -Pain control -Diet as tolerated -TPN ---wean and DC -OOB as tolerated -Continue Santos (3) Abdominal wall abscess Code(s): L02.211 - Cutaneous abscess of abdominal wall Status: Acute - Plan I personally evaluated the patient in room 1334. I had seen him earlier today as well. He has been taking small amounts of liquids. He has had his Santos removed and has voided since it has been removed. His pain is reasonably controlled. He has clear breath sounds. His heart sounds are regular. His abdomen is soft. There is mild residual erythema in the skin around the open wound. His VAC dressing was changed in [employer] with Anai FONG. The remaining thuan were removed from the incision. The wounds are granulating in beautifully. New VAC dressing was smaller size sponges were placed in the traditional fashion and connected to suction with no evidence of leak. He tolerated the procedure with some discomfort. Assessment postop day 5 status post bowel resection for enterocutaneous fistula and incidentally discovered neuroendocrine carcinoma. Plan is continue nutritional supplementation with TPN and gradual increase in oral diet as the patient tolerates. He has been up out of bed walking the halls and up in the chair and should continue to do so. Discussed at bedside with patient and the patient's sister. The exam, history, and the medical decision-making described in the above note were completed with the assistance of the mid-level provider. I reviewed and agree with the findings presented. I attest that I had a [id number] encounter with the patient on the same day, and personally performed and documented my assessment and findings in the medical record. March 13, 2018 Postop day 6 status post bowel resection for enterocutaneous fistula and incidentally discovered during. Plan continue supplementation with TPN and gradual increase in oral diet as the patient tolerates. Continue out of bed walk the halls. MRSA wound infection. Patient was given single dose of vancomycin and then placed on oral Bactrim. VAC dressing is intact. Urinary outflow obstruction. Patient on Flomax. Santos catheter replaced last night. Will give 48 hours of Santos catheter before attempting removal. Transfer to floor orders pending. Morphine 3 mg inadequate for VAC dressing change, discontinued that order and put in order to nursing communication to give half a milligram of Dilaudid 30 minutes prior to VAC dressing change. Discussed plans with patient at bedside. March 17, 2018 Postop bowel resection for enterocutaneous fistula and insulin incidentally discovered neuroendocrine carcinoma. Patient is finally started having bowel function. Will check stool for C. difficile. Mood. May have food from outside hospital. We will follow-up labs. We will continue vancomycin and TPN to supplement his nutrition. Continue to be out of bed and walking. Plan VAC dressing change tomorrow afternoon. Will DC Santos catheter in a.m. Patient and significant other at bedside. Discussed plans with patient, significant other, and bedside RN. March 19, 2018 Postop as described above. C. difficile was negative. Will wean TPN as his oral intake is improved. Continue out of bed. Urology consult appreciated, Flomax doubled, Santos catheter to be replaced for 5 days. Continue supportive therapy. VAC dressing and oral antibiotics continue. Next March 20, 2018 Postop as described above. Labs demonstrate decrease in white blood cell count. Electrolytes in normal limits. Prealbumin 19, slightly low. Patient informed and encouraged to increase protein intake. Continue catheter per Dr. Gonzalez for urinary retention. Flomax increased. I encourage patient to be out of bed and walking the halls. Hopeful for discharge home next week. VAC dressing change tomorrow. March 21, 2018 Postop as described above. Nausea with small amount of emesis overnight. Unsure of the etiology. Urinary retention. His nausea has resolved now. Continue current management. Add simethicone. VAC dressing change at some point today. Hopeful for discharge home next week. March 23, 2018. Postop, continues to improve. No further nausea or emesis. TPN off. IV fluids stopped today. Bowel movements becoming more substantial. Appetite improved. VAC dressing intact. Plan VAC dressing late tomorrow afternoon. Hopeful that for discharge later this week. March 24, 2018 Much better today. Has a great appetite. He is walking the halls. VAC dressing change demonstrated continued significant improvement in the healing of his open wounds. Plan for VAC removal on Saturday and transition to more traditional dressing. Plan discharge continue Santos catheter Saturday morning. If he is able to void well and his wounds continue to heal without unexpected complication potential for discharge Saturday or . Discussed Condition With: Patient and significant other at bedside.
[2018-03-24] MEDS: Scopalamine 1.5 MG Patch T-DERMAL SCH (19:37)
[2018-03-25] MEDS: Lactobacillus Acidophilus/L. Spores Tablet PO SCH ×2 (11:01→21:00)
[2018-03-25] MEDS: Heparin Central Flush 100 UNIT/ML 5 ML Vial IV.FLUSH SCH (11:02)
[2018-03-25] MEDS: Pantoprazole Inj 40 MG Vial IV.PUSH SCH (11:03)
[2018-03-25] MEDS: Enoxaparin Inj 40 MG/0.4 ML Syringe SQ SCH (13:13)
--- NOTE | 2018-03-25 16:17 | P.DCO ---
- Diagnosis (1) Enterocutaneous fistula Status: Acute - Home Health Nursing Order: Wound care and dressing changes Instructions: Wet to dry dressing to abdomen wound---change daily and PRN--- for patient visits and patient/family teaching Okay to shower in between dressing changes---remove packing first and replace after shower - Case Management Consult Yes - Certification I have seen patient Zack Chapman III on 03/25/18. My clinical findings support the need for the requested home health care services because: Deconditioned with increased weakness I certify that my clinical findings support that this patient is homebound because: Post-op weakness
--- NOTE | 2018-03-25 16:22 | P.PNGS ---
Subjective Interval history: Walking in the hallways No issues overnight Feels like he will be ready to go home tomorrow after Wound Vac comes off Physical Exam Vital signs: Vital Signs 03/24/18 20:00 03/25/18 10:02 03/25/18 11:58 Temperature 97.9 F 98.7 F 97.1 F L Pulse Rate 84 99 H 73 Respiratory Rate 18 20 18 Blood Pressure 124/77 129/69 113/77 Pulse Oximetry 98 99 99 Intake & Output 03/24/18 03/25/18 03/25/18 18:59 06:59 18:59 Intake Total 960 / 960 900 / 900 Output Total 850 / 850 25 / 500 / 500 Balance 110 / 110 875 / 875 -500 / -500 Weight 70.1 kg Intake: Oral 960 / 960 900 / 900 Output: Urine 850 / 850 Urine Amount (Catheter) 500 / 500 Indwelling Urethral Catheter 500 / 500 Wound Vac Amount 25 / 25 Lower Abdomen 25 / 25 Other: Mode Setting Lower Abdomen Continuous # Voids 3 Date of Last Bowel Movement 03/23/18 03/24/18 03/25/18 # Bowel Movements 1 # Incontinent Bowel Movements 0 Narrative: Alert and awake Abd: Wound vac in place with good seal Santos with clear yellow urine No edema RIGHT arm PICC in place - Urinary Catheter Management Indwelling Urethral Catheter Cath placed during this visit: yes, but has since been removed by the nurse Reason for continuing: Acute urinary retention Insertion date: 03/12/18 Insertion time: 22:30 Removal date: 03/17/18 Removal time: 06:20 Results - Labs 03/20/18 06:48 03/20/18 06:48 - Imaging Imaging: ITS Impressions Abdomen/Pelvis CT 03/14/18 00:00 CONCLUSION: Minimal free intraperitoneal air with and intra-abdominal fluid collection abutting the anterior abdominal wall beneath the surgical incision. This is nonspecific. I don't see evidence for mesenteric thrombosis. Mild ileus. Assessment and Plan - Assessment (1) Enterocutaneous fistula Code(s): K63.2 - Fistula of intestine Status: Acute Plan: 62 year old male s/p Ex laparotomy,extensive adhesion lysis greater than 1 hour , small bowel resection, resection of terminal ileum and cecum, biopsy of mesenteric nodule with frozen section, debridement of abdominal ,wall placement of VAC dressing -Continue Bactrim -Plan to remove Wound Vac tomorrow and transition to wet to dry dressing -[facility] ordered to continue dressing changes at home -Pain control -Diet as tolerated -OOB as tolerated -RX on chart -Likely DC tomorrow after removal of Wound Vac (2) Abdominal wall abscess Code(s): L02.211 - Cutaneous abscess of abdominal wall Status: Acute (3) Neuroendocrine carcinoma of small bowel Code(s): C7A.8 - Other malignant neuroendocrine tumors Status: Acute - Plan I personally evaluated the patient in room 1721. He was eating his dinner. He was tolerating it well. He is anxious to get his Santos catheter out and be discharged home tomorrow. Plan will be to remove the VAC in the morning and transition to more traditional dressing. Additionally we will remove his Santos catheter midnight tonight so when he wakes up the morning is a full bladder and is ready to go. He will be given prescriptions for pain medication Bactrim for a few more days and Flomax. The exam, history, and the medical decision-making described in the above note were completed with the assistance of the mid-level provider. I reviewed and agree with the findings presented. I attest that I had a [id number] encounter with the patient on the same day, and personally performed and documented my assessment and findings in the medical record.
[2018-03-25 21:33] VITALS: RESP 17
--- NOTE | 2018-03-26 08:16 | P.DS ---
Date of admission: 03/04/18 13:29 Primary care physician: UNKNOWN Anticipated date of discharge: 03/26/18 Brief History from admission: Patient presents with recurrent drainage from enterocutaneous fistula. He is 3- 1/2 years out status post abdominal wall reconstruction. Patient update on day of discharge: Patient underwent surgery with small bowel resection and was discovered to have a neuroendocrine carcinoma originating in the ileum creating high-grade partial small bowel obstruction and resultant enterocutaneous fistula. He is recovered from his surgery. He developed a wound infection which was treated with a wound VAC. He experienced urinary retention and was placed on double dose Flomax and treated with urinary catheter for an extended period of time which is now been removed. He is eating and drinking having bowel and bladder function. He is desirous of discharge. DS: Diagnosis - Discharge Diagnosis (1) Enterocutaneous fistula Status: Acute (2) Abdominal wall abscess Status: Acute (3) Neuroendocrine carcinoma of small bowel Status: Acute DS: Medications - Discharge Medications Prescriptions: oxycodone-acetaminophen [Percocet] 1 tab PO Q4-6H PRN #18 tab PRN Reason: acute post op pain exception sulfamethoxazole-trimethoprim 1 tab PO Q12HR 4 Days tab tamsulosin 0.4 mg PO DAILY #30 cap DS: Summary Hospital Course: Patient was admitted through the emergency department due to enterocutaneous fistula. He was treated with antibiotics. A PICC line was placed for supplemental total parenteral nutrition. He was taken to the operating room for exploratory laparotomy extensive adhesio lysis small bowel resection was performed. He developed a postoperative wound infection. He was treated with a vacuum dressing. He had a second small opening on his abdominal wall draining purulent fluid which was additionally debrided and treated with a VAC dressing. He was able to gradually wean off the TPN as his appetite improved and his caloric intake improved. He was able to walk the halls 6-8 times a day without any difficulty. His VAC dressing was removed this morning and transition to saline wet-to-dry dressing. There is no evidence of purulent drainage. Home health care has been arranged. Wound care instructions have been provided. - Time Spent with Patient Total time spent providing and/or coordinating discharge services: Less than 30 minutes - Quality: VTE Deep Vein Thrombosis/Pulmonary Embolism Present on Admission: No Exam Vital signs: Vital Signs 03/25/18 10:02 03/25/18 11:58 03/25/18 16:00 Temperature 98.7 F 97.1 F L 97.7 F Pulse Rate 99 H 73 83 Respiratory Rate 20 18 18 Blood Pressure 129/69 113/77 132/90 Pulse Oximetry 99 99 98 03/25/18 20:00 03/26/18 00:00 Temperature 97.8 F 98.2 F Pulse Rate 80 80 Respiratory Rate 17 17 Blood Pressure 117/77 120/76 Pulse Oximetry 99 96 Intake & Output 03/25/18 03/26/18 03/26/18 18:59 06:59 18:59 Intake Total 480 / 480 Output Total 500 / 500 1300 / 1300 Balance -500 / -500 -820 / -820 Weight 70.1 kg Intake: Oral 480 / 480 Output: Urine 600 / 600 Urine Amount (Catheter) 500 / 500 700 / 700 Indwelling Urethral Catheter 500 / 500 700 / 700 Other: Date of Last Bowel Movement 03/25/18 # Bowel Movements 1 # Incontinent Bowel Movements 0 Narrative: He is awake and alert and oriented. He appears healthy. His lungs are clear to auscultation. His heart sounds are regular. His abdomen is soft and nondistended and nontender. He has about a 3 x 12 cm shallow granulating wound in the right side of his abdomen. He has a nickel-sized opening inferior to the left of this with healthy granulation tissue. He goes about 5 cm deep. There is a small pocket of clear fluid that drains. Saline wet-to-dry dressing was placed on both wounds. He has no erythema of the abdominal wall. His extremities are nonedematous. Results Procedures completed during hospitalization: Exploratory laparotomy extensive adhesio lysis small bowel resection VAC dressing placement - Impressions ITS Impressions Abdomen/Pelvis CT 03/14/18 00:00 CONCLUSION: Minimal free intraperitoneal air with and intra-abdominal fluid collection abutting the anterior abdominal wall beneath the surgical incision. This is nonspecific. I don't see evidence for mesenteric thrombosis. Mild ileus. Discharge Plan - Discharge Disposition Patient Disposition: Disch W/Home Health Service - Discharge Condition Condition: Stable - Discharge Details Anticipated Discharge Date: 03/26/18 Discharge Comment: rx on chart - Physicians Team Primary Care Provider: UNKNOWN, Attending Provider: Dylon Henson Other Providers: [facility],Insurance ; Jamey Gonzalez DO
[2018-03-26 08:17] VITALS: BP 129/76; PULSE 74; TEMP 98.4; O2SAT 98
[2018-03-26] MEDS: Lactobacillus Acidophilus/L. Spores Tablet PO SCH (08:20)
[2018-03-26] MEDS: Pantoprazole Inj 40 MG Vial IV.PUSH SCH (08:22)
[2018-03-26] MEDS: Heparin Central Flush 100 UNIT/ML 5 ML Vial IV.FLUSH SCH (08:22)
== END 2018-03-26 09:44 | disposition home health service (06) ==
LOC: NEPE 12:02 → NEDA 13:29 → N07 17:00 → N06 03-06 14:15 → N03 03-06 14:15 → N07 03-13 19:38
PROVIDERS: ADMIT Surgery Trauma Surgery; ATTEND Surgery Trauma Surgery